=== PATIENT | male | born 1940 | race Caucasian/White ===

== ENCOUNTER 2017-01-07 13:14 | Inpatient (IN) | payer MEDICARE ==
[2017-01-07 13:53] LABS: Hematocrit 44 % (42-52); Hemoglobin 14.9 g/dl (14.0-18.0); Mean Corpuscular HGB Conc 34 g/dl (31-36); Mean Corpuscular Hemoglobin 29 pg (27-31); Mean Corpuscular Volume 86 fL (80-94); Mean Platelet Volume 9 um3 (7.4-10.4); Red Blood Count 5.06 10^6/ul (4.0-5.4); Red Cell Distribution Width 15 % (10.5-15); White Blood Count 10.6 10^3/ul (3.5-10.8)
--- NOTE | 2017-01-07 13:54 | RAD ---
Indication: Shortness of breath. Single frontal view of the chest performed at 1330 hours was reviewed. Comparison is made with previous exam dated October 09, 2015. Cardiomegaly is noted. Lung cantrell demonstrate no pleural fluid, pneumonia or pneumothorax. Pacemaker leads are in place. Elevated hemidiaphragms are noted. IMPRESSION: ELEVATED DIAPHRAGMS WITH POOR INSPIRATION.
[2017-01-07] MEDS ORDERED: Levofloxacin 750 MG IVPREMIX(* 750 MG/150 ML BAG IVPB ONE (14:05)
[2017-01-07] MEDS ORDERED: cefTRIAXone(*) 1 GM in NS 0.9% 50 ML* 50 ML IVPB ONE (14:05)
[2017-01-07] MEDS ORDERED: NS 0.9% 1000 ML* 3,000 ML IV ONE (14:05)
[2017-01-07 14:07] LABS: Troponin I 0.03 ng/mL (<0.04)
[2017-01-07 14:10] LABS: Albumin 4.4 g/dL (3.2-5.2); C Reactive Protein 11.24 mg/L (< 5.00); Calcium 9.9 mg/dL (8.6-10.3); EGFR African American 89.5 (>60); EGFR Non-African American 69.6 (>60); Globulin 3.1 g/dL (2-4); Magnesium 1.7 mg/dL (1.9-2.7); Potassium 3.7 mmol/L (3.5-5.0); Total Bilirubin 2.3 mg/dL (0.2-1.0); Total Protein 7.5 g/dL (6.4-8.9)
[2017-01-07 14:28] LABS: TSH (Thyroid Stimulating Horm) 2.57 mcIU/mL (0.34-5.60)
--- NOTE | 2017-01-07 14:59 | CONSULT ---
Consult Consult: CRITICAL CARE MEDICINE DATE: 01/07/17 TIME: 1420 REFERRING PROVIDER: Ronan REASON/CHIEF COMPLAINT: sob HISTORY OF PRESENT ILLNESS: 76 M with h/o CM s/p AICD followed by Dr. Young presenting with cp. Given ntg en route and relief. Pt states cp was on the "bone " [sternum]. No pain currently. Has fever in ED and SBP had dropped into 70- 80s. Given IVF. He is lucid with family at bedside. Seems to have mild encephalopathy. HR 80s. RR high 20s and sats well on 5L. I turned him up to 15L. Does have mild bl crackles and low volumes. Distended tympanictic, non tender abd. Ext are mostly warm but not too much. Dep LE edema. ROS he does status "lots of gas". Per family has had lack of po intake about 3 days. Pt states he falls asleep during day very easily but never told he needed cpap nocturnally. REVIEW OF SYSTEMS: As per HPI. PAST MEDICAL HISTORY: As per HPI. MEDICATIONS: Reviewed. ALLERGIES: NKDA SOCIAL HISTORY: Reviewed. . FAMILY HISTORY: Noncontributory at present. PHYSICAL EXAM: As per HPI. LABS: Reviewed. Flu A + IMAGING: Reviewed. Low volumes MEDICATIONS: Reviewed. ASSESSMENT/PLAN: 76 M Acute hypoxic resp failure -Would place him on early HFO2 tx and maximize his lung expansion and ventilation; mainly needing flow. Influenza A Pna - Placed on tamiflu by primary team. Ceftriaxone and levaquin given in ED and can continue with co-cominant coverage, but not both. This is a pt in which a negative procalcitonin can be helpful to limit abx, although would again treat for now nonetheless given current syndrome. Consider need for vanco if risk factors illicited. Sepsis syndrome sec to pna - 2L IVF. Slow fluids post that. Not anticipating vasopressor need. LA ok. Mild septic encephalopathy Cardiomypathy s/p AICD - can have cards f/u +/- echo needs. Keep potential IE on back of the mind. Supportive and preventative care as ordered per primary. Disposition: ICU with hospitalist. Code Status: Full; discussed briefly with pt, although family thought he may have previous DNR. Full at present. Critical Care Time: 40min FWolfgang Hawthorne DO
[2017-01-07] MEDS ORDERED: LORazepam TAB(*) 1 MG PO PRN (15:06)
[2017-01-07] MEDS ORDERED: Acetaminophen TAB* 325 MG PO PRN (15:11)
[2017-01-07] MEDS ORDERED: Ondansetron INJ* 2 MG/ML VIAL IV PRN (15:11)
[2017-01-07] MEDS: Oseltamivir CAP* 75 MG PO SCH ×2 (16:46→20:11)
--- NOTE | 2017-01-07 17:44 | HP ---
ADMISSION HISTORY AND PHYSICAL: DATE OF ADMISSION: 01/07/17 PRIMARY CARE PROVIDER: Hailey Izquierdo MD HEALTH CARE PROXY: His son, Connor. CODE STATUS: DNR, discussed with the patient and his son. SOURCE OF INFORMATION: History obtained from review of record and discussion with the patient. RELIABILITY: Fair. CHIEF COMPLAINT: Shortness of breath. HISTORY OF PRESENT ILLNESS: This is a 76-year-old man with past medical history of five-vessel CABG, CEA, and permanent pacemaker/ICD, who had been in his usual state of health, developed increasing shortness of breath over the last several days, associated with cough. He denies any fevers; however, when showed up in the emergency room, did have elevated temperatures and tested positive for influenza A. During the course of his ER stay, his blood pressures declined from presentation, 110 into the 80s. He was evaluated by the welder manufacture and received crystalloids after which his blood pressure increased to 112/66 and the hospitalist service was asked to consult for admission. When seen by this author, the patient no longer felt short of breath and had no complaints. PAST MEDICAL HISTORY: Includes: 1. Hypertension. 2. CAD, status post five-vessel CABG in the . 3. Bilateral CEAs, 2010, and a second CEA at unknown date. 4. Hyperlipidemia. 5. Permanent pacemaker/ICD, 2011. 6. Restrictive lung disease. MEDICATIONS: Reviewed include: 1. Diovan 320/25 daily. 2. Lorazepam 1 mg 3 times a day as needed. 3. Tamsulosin 0.4 mg at bedtime. 4. Metoprolol 100 mg twice daily. 5. Lipitor 80 mg daily. 6. Omeprazole 20 mg daily. ALLERGIES: No known drug allergies. FAMILY HISTORY: No history of lung disease or heart disease. SOCIAL HISTORY: Tobacco use, smoked 1 pack per day for 45 years, quit 45 years prior. Rare alcohol. No illicits. REVIEW OF SYSTEMS: Shortness of breath and cough. No sore throat, rhinorrhea, chest pain or chest discomfort, headache, nausea, vomiting, lightheadedness, loss of consciousness or near loss of consciousness, palpitations, orthopnea, or PND. PHYSICAL EXAMINATION GENERAL: Sitting up 35 degrees in bed, interactive, talking in full sentences, not using accessory muscles of respiration. VITAL SIGNS: When seen by this author blood pressure 112/66, pulse 82, 100% on face mask, respiratory rate 16, and T-max in the emergency room 101.9. HEENT: Oropharynx is clear. Moist mucous membranes. Sclerae anicteric. NECK: Non-elevated JVD. There are no cervical or supraclavicular lymphadenopathy. LUNGS: Clear. Decreased breath sounds in the bases. HEART: Regular rate and rhythm with no murmurs, rubs, or gallops. ABDOMEN: Soft, nontender, and nondistended. EXTREMITIES: Warm and well perfused. He has 1+ lower extremity edema. NEUROLOGIC: He is alert and oriented x3. His cranial nerves are intact. There is no apparent agitation, anxiety, or depression. DIAGNOSTIC STUDIES/LAB DATA: Pertinent labs reviewed. Serology is positive for influenza A. BUN 27 and creatinine 1.04. BNP 224. Troponin I 0.03. D- dimer 483. Hemoglobin 14.9, white blood cell count 10.6, and 83.9% neutrophils. Data reviewed. Chest x-ray, impression: Elevated diaphragms with poor inspiration. EKG, impression: Sinus tachycardia, left axis, old inferior ND, late R-wave progression, T-wave inversions in 1 and aVL, flattening of V6, and no other ST or T- wave changes. ASSESSMENT AND PLAN: This is a 76-year-old man sent to the hospital with shortness of breath, found with hypoxic respiratory failure in the setting of influenza A. 1. Hypoxic respiratory failure in the setting of influenza A: Start Tamiflu. The patient received ceftriaxone and levofloxacin in the emergency room. We will discontinue antibiotics. Continue with supportive therapy in the setting of viral upper respiratory tract infection with respiratory failure. Check procalcitonin in addition. Admit to ICU. Likely use high-flow or Vapotherm for continued respiratory support as needed. Appreciate welder manufacture consultation for this patient. 2. Hypertension: Holding Diovan at this time in the setting of low blood pressure. Supportive therapy with 3 L normal saline in the emergency room. 3. Hyperlipidemia: Continue atorvastatin. 4. History of coronary artery disease: Continue statin and metoprolol. The patient is not on aspirin at home. 5. History of anxiety: Lorazepam p.r.n. Panic disorder listed in past medical records, although the patient denies. 6. Elevated D-dimer in the setting of influenza A. Low suspicion for pulmonary embolism. Hold on CTA. 7. DVT prophylaxis: Heparin subcu. 8. Code status: DNR. CC: Dr. Izquierdo * [id number]/[facility] #: [id number] [facility] HOSPITALCatrachita
[2017-01-07] MEDS: Tamsulosin CAP* 0.4 MG PO SCH (20:11)
[2017-01-07] MEDS: Metoprolol Tartrate TAB* 100 MG TAB PO SCH (20:11)
[2017-01-07] MEDS: Heparin VIAL(*) 5000 UNITS/ML VIAL (FIVE THOUSAND) SUBCUT SCH (21:14)
[2017-01-07] MEDS: Albuterol 2.5 MG/3 ML NEB.SOL* (0.083%) INH PRN (22:07)
[2017-01-08] MEDS: Albuterol 2.5 MG/3 ML NEB.SOL* (0.083%) INH PRN (00:51)
[2017-01-08] MEDS ORDERED: hydrALAZINE IV* 20 MG/ML VIAL IV PRN (02:30)
[2017-01-08] MEDS ORDERED: hydrALAZINE IV* 20 MG/ML VIAL ONE (02:31)
[2017-01-08] MEDS: Heparin VIAL(*) 5000 UNITS/ML VIAL (FIVE THOUSAND) SUBCUT SCH ×3 (05:48→21:47)
[2017-01-08 07:19] LABS: Hematocrit 41 % (42-52); Hemoglobin 13.8 g/dl (14.0-18.0); Mean Corpuscular HGB Conc 34 g/dl (31-36); Mean Corpuscular Hemoglobin 29 pg (27-31); Mean Corpuscular Volume 87 fL (80-94); Mean Platelet Volume 9 um3 (7.4-10.4); Red Blood Count 4.72 10^6/ul (4.0-5.4); Red Cell Distribution Width 15 % (10.5-15); White Blood Count 7.5 10^3/ul (3.5-10.8)
[2017-01-08 07:32] LABS: BUN/Creatinine Ratio 29.3 (8-20); Calcium 9.5 mg/dL (8.6-10.3); EGFR African American 103.1 (>60); EGFR Non-African American 80.2 (>60); Potassium 4.1 mmol/L (3.5-5.0)
[2017-01-08] MEDS ORDERED: Dextrose 50% Syringe 50 ML* 25 GM/50 ML SYRINGE IV PUSH PRN (07:49)
--- NOTE | 2017-01-08 07:55 | PN ---
Subjective Date of Service: 01/08/17 Interval History: OOB, continues to cough but denies SOB No chest discomfort. Does have pain in abdomen when coughing Reports great effect from albuterol nebulizer this AM Objective Active Medications: Acetaminophen (Tylenol Tab*) 650 mg PO Q6H PRN PRN Reason: PAIN Albuterol (Ventolin 2.5 Mg/3 Ml Neb.Cheryl*) 2.5 mg INH Q2H PRN PRN Reason: SOB/WHEEZING Last Admin: 01/08/17 00:51 Dose: 2.5 mg Aspirin (Aspirin Ec Low Dose*) 81 mg PO DAILY [facility] Atorvastatin Calcium (Lipitor*) 80 mg PO DAILY [facility] Heparin Sodium (Porcine) (Heparin Vial(*)) 5,000 units SUBCUT Q8HR [facility] Last Admin: 01/08/17 05:48 Dose: 5,000 units Hydralazine HCl (Apresoline Iv*) 10 mg IV Q4H PRN PRN Reason: Systolic >170 Last Admin: 01/08/17 02:34 Dose: 10 mg Hydrochlorothiazide (Hydrodiuril Tab*) 25 mg PO DAILY [facility] Lorazepam (Ativan Tab(*)) 1 mg PO TID PRN PRN Reason: ANXIETY Last Admin: 01/08/17 00:53 Dose: 1 mg Methylprednisolone Sodium Succinate (Solu-Medrol*) 60 mg IV Q8H [facility] Metoprolol Tartrate (Lopressor Tab*) 100 mg PO BID [facility] Last Admin: 01/07/17 20:11 Dose: 100 mg Omeprazole (Prilosec Cap*) 20 mg PO DAILY [facility] Ondansetron HCl (Zofran Inj*) 4 mg IV Q4H PRN PRN Reason: NAUSEA Oseltamivir Phosphate (Tamiflu Cap*) 75 mg PO BID [facility] Stop: 01/11/17 21:01 Last Admin: 01/07/17 20:11 Dose: 75 mg Tamsulosin HCl (Flomax Cap*) 0.4 mg PO BEDTIME [facility] Last Admin: 01/07/17 20:11 Dose: 0.4 mg Vital Signs 01/07/17 01/07/17 01/07/17 14:45 14:59 15:00 Temperature 101.9 F Pulse Rate 81 80 82 Respiratory 20 26 25 Rate Blood Pressure 97/59 112/66 112/66 (mmHg) O2 Sat by Pulse 100 100 100 Oximetry 01/07/17 01/07/17 01/07/17 15:13 15:15 15:30 Temperature 100.1 F Pulse Rate 79 79 78 Respiratory 27 26 25 Rate Blood Pressure 112/67 112/67 100/74 (mmHg) O2 Sat by Pulse 100 100 100 Oximetry 01/07/17 01/07/17 01/07/17 15:46 15:47 15:56 Temperature Pulse Rate 84 77 Respiratory 24 24 Rate Blood Pressure 165/87 141/84 136/73 (mmHg) O2 Sat by Pulse 99 100 Oximetry 01/07/17 01/07/17 01/07/17 16:00 16:16 16:23 Temperature Pulse Rate 77 77 Respiratory 23 Rate Blood Pressure 123/74 154/67 (mmHg) O2 Sat by Pulse 100 100 Oximetry 01/07/17 01/07/17 01/07/17 16:28 16:30 16:40 Temperature 100.2 F Pulse Rate 77 78 Respiratory 24 24 19 Rate Blood Pressure 154/67 168/63 (mmHg) O2 Sat by Pulse 100 100 Oximetry 01/07/17 01/07/17 01/07/17 17:00 17:37 18:00 Temperature Pulse Rate 72 73 Respiratory 22 18 28 Rate Blood Pressure 133/64 113/74 (mmHg) O2 Sat by Pulse 100 100 Oximetry 01/07/17 01/07/17 01/07/17 19:00 19:04 20:00 Temperature Pulse Rate 73 74 73 Respiratory 26 23 28 Rate Blood Pressure 175/71 171/70 157/69 (mmHg) O2 Sat by Pulse 100 100 100 Oximetry 01/07/17 01/07/17 01/07/17 21:00 21:06 22:00 Temperature Pulse Rate 75 74 73 Respiratory 18 27 17 Rate Blood Pressure 188/79 151/62 (mmHg) O2 Sat by Pulse 100 100 100 Oximetry 01/07/17 01/07/17 01/07/17 22:02 22:05 22:07 Temperature Pulse Rate 73 72 71 Respiratory 18 25 18 Rate Blood Pressure 196/79 178/76 (mmHg) O2 Sat by Pulse 100 100 99 Oximetry 01/07/17 01/07/17 01/07/17 23:00 23:36 23:59 Temperature 98.9 F Pulse Rate 73 72 Respiratory 23 19 Rate Blood Pressure 186/79 (mmHg) O2 Sat by Pulse 100 100 Oximetry 01/08/17 01/08/17 01/08/17 00:00 00:01 00:16 Temperature Pulse Rate 72 71 70 Respiratory 23 25 26 Rate Blood Pressure 177/78 (mmHg) O2 Sat by Pulse 100 99 100 Oximetry 01/08/17 01/08/17 01/08/17 00:51 00:53 01:00 Temperature Pulse Rate 74 73 Respiratory 18 15 20 Rate Blood Pressure 68/40 (mmHg) O2 Sat by Pulse 98 99 Oximetry 01/08/17 01/08/17 01/08/17 01:04 02:00 02:03 Temperature Pulse Rate 75 69 69 Respiratory 20 23 21 Rate Blood Pressure 170/72 181/68 170/72 (mmHg) O2 Sat by Pulse 100 100 98 Oximetry 01/08/17 01/08/17 01/08/17 02:29 02:46 03:00 Temperature Pulse Rate 71 70 69 Respiratory 24 22 21 Rate Blood Pressure 181/83 167/71 154/69 (mmHg) O2 Sat by Pulse 100 99 99 Oximetry 01/08/17 01/08/17 01/08/17 03:25 04:00 05:00 Temperature 99.6 F Pulse Rate 68 68 Respiratory 27 28 Rate Blood Pressure 138/67 142/66 (mmHg) O2 Sat by Pulse 99 100 Oximetry 01/08/17 01/08/17 01/08/17 06:00 07:00 07:26 Temperature Pulse Rate 70 71 Respiratory 21 20 23 Rate Blood Pressure 114/62 118/66 (mmHg) O2 Sat by Pulse 100 100 Oximetry 01/08/17 01/08/17 01/08/17 07:31 07:32 07:40 Temperature 98.6 F 98.6 F Pulse Rate Respiratory 18 17 Rate Blood Pressure (mmHg) O2 Sat by Pulse Oximetry Oxygen Devices in Use Now: High Flow Nasal Cannula - 100% 40L Appearance: sitting in chair, NAD Eyes: No Scleral Icterus, PERRLA Ears/Nose/Mouth/Throat: Clear Oropharnyx, Mucous Membranes Moist Neck: NL Appearance and Movements; NL JVP, Trachea Midline Respiratory: Symmetrical Chest Expansion and Respiratory Effort - wheeze anteriorly, decreased BS posteriorly, +hyperkyphosis Cardiovascular: NL Sounds; No Murmurs; No JVD, RRR Abdominal: NL Sounds; No Tenderness; No Distention, No Hepatosplenomegaly Lymphatic: No Cervical Adenopathy Extremities: - - tense 1-2+ edema b/l LE Neurological: Alert and Oriented x 3 Result Diagrams: 01/08/17 06:45 01/08/17 06:45 Additional Lab and Data: Lab Results 01/07/17 Range/Units 13:20 WBC 10.6 (3.5-10.8) 10^3/ul RBC 5.06 (4.0-5.4) 10^6/ul Hgb 14.9 (14.0-18.0) g/dl Hct 44 (42-52) % MCV 86 (80-94) fL MCH 29 (27-31) pg MCHC 34 (31-36) g/dl RDW 15 (10.5-15) % Plt Count 106 L (150-450) 10^3/ul MPV 9 (7.4-10.4) um3 Neut % (Auto) 83.9 H (38-83) % Lymph % (Auto) 5.3 L (25-47) % [place] % (Auto) 9.9 H (1-9) % Eos % (Auto) 0.4 (0-6) % Baso % (Auto) 0.5 (0-2) % Absolute Neuts (auto) 8.9 H (1.5-7.7) 10^3/ul Absolute Lymphs (auto) 0.6 L (1.0-4.8) 10^3/ul Absolute Monos (auto) 1.0 H (0-0.8) 10^3/ul Absolute Eos (auto) 0 (0-0.6) 10^3/ul Absolute Basos (auto) 0.1 (0-0.2) 10^3/ul Absolute Nucleated RBC 0 10^3/ul Nucleated RBC % 0 Microbiology and Other Data: Microbiology 01/07/17 17:44 Nasal Screen MRSA (PCR)(DIOR) - Final Nasal Mrsa Negative Assess/Plan/Problems-Billing Assessment: 76 yo M p/w hypoxic respiratory failure found with influenza A - Patient Problems (1) Acute respiratory failure with hypoxia Comment: Secondary to influenza A. Received abx in ED. Holding additional now. Procalcitonin nominal. Continue with tamiflu BID, c/w albuterol Restrictive lung dz in setting of hyperkyphosis contibuting to low lung volumes and poor ability to compensate --Start methylprednisolone IV 01/08/2017, follow FSG and add insulin while on steroids (2) Hypertension Comment: Hypotensive on presentation now resolved Required hydralazine overnight 01/08 c/w metoprolol 100mg and add hydralazine 25 mg 01/08 Increase metoprolol back to 150mg and add back valsaratn 320mg if remains hypertensive (3) Hyperlipidemia Comment: c/w statin (4) Anxiety Comment: ativan PRN (5) DVT prophylaxis Comment: HSQ
[2017-01-08] MEDS: methylPREDNISolone 125 MG* 2 ML VIAL IV SCH ×2 (08:22→17:50)
[2017-01-08] MEDS: Oseltamivir CAP* 75 MG PO SCH ×2 (08:23→21:48)
[2017-01-08] MEDS: Metoprolol Tartrate TAB* 100 MG TAB PO SCH ×2 (08:23→21:49)
[2017-01-08] MEDS: Omeprazole CAP* 20 MG PO SCH (08:23)
[2017-01-08] MEDS: Aspirin EC Low Dose* 81 MG TAB.EC PO SCH (08:23)
[2017-01-08] MEDS: Atorvastatin* 80 MG TAB PO SCH (08:23)
[2017-01-08] MEDS ORDERED: Hydrochlorothiazide TAB* 25 MG PO SCH (09:00)
--- NOTE | 2017-01-08 10:54 | PN ---
Progress Note - Progress Note Note: [facility] Progress Note Up in chair...fairly good spirits Speaks in full sentences Fair cough effort SBP 135 HR 72 RR 17-18 SpO2 100 (HF NC 40 Lpm at 100%) Skin no diaphoresis, no cyanosis Noted kyphosis Sclerae anicteric, pupils equal Oral mucosa pink Lungs with bilateral air entry, no wheezes Cor RRR no rub no murmur Abd soft, active Ext 1(+) pitting WBC 7.5 Hgb 13.8 Plt 109 K 4.1 BUN/Creat 27/0.9 IMP: Acute Hypoxemic Respiratory Failure...clinically stable and oxygenating well on HF NC Influenza Kyphosis with restrictive lung disease Hx CAD and CABG PLAN/REC: Weaned HF NC steadily down to 10 Lpm by Resp Tx...did well Switched by Resp Tx to 5 liter NC Continue Tamiflu for full course Mobilize as tolerated PO diet as tolerated DVT prophyl Anticipate patient will be able to transfer out of ICU soon Discussed with Multidisciplinary team this AM
[2017-01-08] MEDS: Insulin LISPRO* 1 UNITS UNIT SUBCUT SCH ×3 (11:37→21:43)
[2017-01-08] MEDS: Tamsulosin CAP* 0.4 MG PO SCH (21:49)
[2017-01-09] MEDS: methylPREDNISolone 125 MG* 2 ML VIAL IV SCH ×2 (02:04→08:32)
[2017-01-09 06:20] LABS: Hematocrit 40 % (42-52); Hemoglobin 13.4 g/dl (14.0-18.0); Mean Corpuscular HGB Conc 34 g/dl (31-36); Mean Corpuscular Hemoglobin 29 pg (27-31); Mean Corpuscular Volume 86 fL (80-94); Mean Platelet Volume 9 um3 (7.4-10.4); Red Blood Count 4.61 10^6/ul (4.0-5.4); Red Cell Distribution Width 15 % (10.5-15); White Blood Count 5.2 10^3/ul (3.5-10.8)
[2017-01-09] MEDS: Heparin VIAL(*) 5000 UNITS/ML VIAL (FIVE THOUSAND) SUBCUT SCH (06:22)
[2017-01-09 06:23] LABS: Comments Flag Yes
[2017-01-09 06:33] LABS: BUN/Creatinine Ratio 37.5 (8-20); Calcium 9.1 mg/dL (8.6-10.3); EGFR African American 136.9 (>60); EGFR Non-African American 106.4 (>60); Potassium 3.7 mmol/L (3.5-5.0)
[2017-01-09] MEDS: Insulin LISPRO* 1 UNITS UNIT SUBCUT SCH ×2 (07:29→12:22)
[2017-01-09 08:26] VITALS: BP 157/72
[2017-01-09] MEDS: Metoprolol Tartrate TAB* 100 MG TAB PO SCH (08:31)
[2017-01-09] MEDS: Omeprazole CAP* 20 MG PO SCH (08:32)
[2017-01-09] MEDS: Oseltamivir CAP* 75 MG PO SCH (08:32)
[2017-01-09] MEDS: Aspirin EC Low Dose* 81 MG TAB.EC PO SCH (08:32)
[2017-01-09] MEDS: Atorvastatin* 80 MG TAB PO SCH (08:32)
--- NOTE | 2017-01-10 01:56 | DS ---
DISCHARGE SUMMARY: DATE OF ADMISSION: 01/07/17 DATE OF DISCHARGE: 01/09/17 PRIMARY CARE PROVIDER: Dr. Hailey Izquierdo. PRIMARY DIAGNOSIS: Acute hypoxic respiratory failure secondary to influenza A. SECONDARY DIAGNOSES: Include: 1. Hypertension. 2. Coronary artery disease. 3. Hyperlipidemia. 4. Hyperkyphosis with restrictive lung disorder. PERTINENT MICROBIOLOGY: Positive influenza A. PERTINENT LABORATORY DATA: None. PERTINENT IMAGING DATA: Chest x-ray, impression: Elevated diaphragms with poor inspiration. MEDICATIONS ON DISCHARGE: 1. Metoprolol succinate 50 mg twice daily. 2. Aspirin 81 mg daily. 3. Lorazepam 1 mg 2 times a day as needed for anxiety. 4. Tamsulosin 0.4 mg at bedtime. 5. Atorvastatin 80 mg daily. 6. Omeprazole 20 mg daily. 7. Prednisone 50 mg for 5 additional days. 8. Tamiflu 75 mg for 5 additional doses. 9. Hydrochlorothiazide 25 mg daily. 10. Acetaminophen 650 mg every 6 hours as needed for pain or fever. Please note the metoprolol succinate was b.i.d. This is a continuation of med reconciliation which we received on presentation. Please capitalize to once daily if deemed appropriate. Please also note the discontinuation of Diovan and the substitution of hydrochlorothiazide alone. The patient's blood pressures were marginally elevated off the hydrochlorothiazide, but low the day prior to discharge with resumption of hydrochlorothiazide. Please restart Diovan as tolerated. HISTORY OF PRESENT ILLNESS AND HOSPITAL COURSE: This is a pleasant 76-year-old man, past medical history as outlined in the history of present illness the day of admission presented to the hospital with shortness of breath, cough, high fevers, found with hypoxic respiratory failure in the setting of influenza A. He was placed on ICU, received high-flow oxygen via Vapotherm with resumption of normal oxygen saturations. Improved greatly in the first 24 hours, started on prednisone on the second day of admission secondary to continued diffuse wheezes. On the day of discharge, his wheezes were almost all resolved; however , did have trace wheeze, largely in the right lung. For this reason, he will be discharged on prednisone. On the day of discharge, he was able to ambulate with the nurse without oxygen. Maximal desaturation to 90%, remained 95% on room air. He felt comfortable returning home. He will be continued on Tamiflu and prednisone with other changes to his medications as indicated above. There were no complications during the patient's hospital stay. FOLLOWUP INSTRUCTIONS: At followup, please: 1. Evaluate blood pressure control on altered medication regimen. Resume home medication regimen when necessary. 2. Evaluate lungs. Prolonged prednisone course if deemed necessary. 3. No other specific labs or vitals that need followup. Reasons to return to the hospital including but not limited to recurrent or worsening symptoms including shortness of breath, chest pain, lightheadedness, loss of consciousness, near loss of consciousness, fevers, chills, night sweats , diarrhea, constipation, inability to obtain or tolerate his medications were discussed with the patient. He acknowledged understanding. TIME SPENT: Greater than 30 minutes was spent on discharge of this patient, greater than half was spent [id number] with the patient. CC: Dr. Hailey Izquierdo * [id number]/[facility] #: [id number] [facility]
--- NOTE | 2017-01-29 12:22 | ED ---
Tacos Quispe Billy, scribed for Rashi Ferraro MD on 01/07/17 at 1413 . Shortness of Breath - HPI Summary HPI Summary: Patient is a 76 year-old male coming to [facility] from his PCP with CP and SOB. His SOB has been ongoing for several days. He was diagnosed with pneumonia today by his PCP and was sent home with oral antibiotics. EMS states that the patient c/ o midsternal chest tightness and SOB en route. Chest tightness improved with NTG although SOB was unimproved with breathing treatments. Patient denies any fevers/chills. Patient has a history of OK. Denies any pain at this time in the ED. - History of Current Complaint Chief Complaint: EDShortnessOfBreath Time Seen by Provider: 01/07/17 13:15 Hx Obtained From: Patient Onset/Duration: Gradual Onset, Lasting Hours, Still Present Timing: Constant Current Severity: Moderate Dyspnea At: Rest Aggrevating Factors: Nothing Alleviating Factors: EMS Tx - Allergy/Home Medications Allergies/Adverse Reactions: Allergies Allergy/AdvReac Type Severity Reaction Status Date / Time No Known Allergies Allergy Verified 01/07/17 14:15 Home Medications: Home Medications Aspirin [Aspirin Adult Low Dose 81 MG] 81 mg PO DAILY 01/07/17 [History Confirmed 01/07/17] Atorvastatin* [Lipitor 80 MG*] 80 mg PO DAILY 01/07/17 [History Confirmed ] LORazepam TAB(*) [Ativan 1 MG TAB (*)] 1 mg PO TID PRN MDD 3 mg 01/07/17 [ History Confirmed 01/07/17] Metoprolol Succinate [Toprol Xl] 50 mg PO BID 01/07/17 [History Confirmed ] Omeprazole CAP* [Prilosec CAP* 20 MG] 20 mg PO DAILY 01/07/17 [History Confirmed 01/07/17] Tamsulosin CAP* [Flomax CAP*] 0.4 mg PO BEDTIME 01/07/17 [History Confirmed ] PMH/Surg Hx/FS Hx/Imm Hx Endocrine/Hematology History: Denies: Hx Diabetes Cardiovascular History: Reports: Hx Hypercholesterolemia, Hx Hypertension, Hx Myocardial Infarction, Hx Pacemaker/ICD History: Denies: Hx Renal Disease - Surgical History Surgery Procedure, Year, and Place: 5 CABG /PACEMAKER X 2 Infectious Disease History: No Infectious Disease History: Denies: Traveled Outside the [place] in Last 30 Days - Family History Known Family History: Positive: Cardiac Disease, Hypertension - Social History Alcohol Use: None Substance Use Type: Reports: None Smoking Status (MU): Former Smoker Review of Systems Negative: Fever, Chills Positive: Chest Pain Positive: Shortness Of Breath All Other Systems Reviewed And Are Negative: Yes Physical Exam Triage Information Reviewed: Yes Vital Signs On Initial Exam: Initial Vitals Temp Pulse Resp BP Pulse Ox 101.9 F 91 28 110/75 97 01/07/17 13:41 01/07/17 13:41 01/07/17 13:41 01/07/17 13:41 01/07/17 13:41 Vital Signs Reviewed: Yes Appearance: Positive: Well-Appearing, No Pain Distress Skin: Positive: Warm, Skin Color Reflects Adequate Perfusion, Dry Head/Face: Positive: Normal Head/Face Inspection Eyes: Positive: EOMI, JOHNIE Neck: Positive: Supple, Nontender Respiratory/Lung Sounds: Positive: Rhonchi - Bilaterally, Other - Coughing. Cardiovascular: Positive: RRR Abdomen Description: Positive: Nontender, Soft Musculoskeletal: Positive: Normal, Strength/ROM Intact Neurological: Positive: Normal, Sensory/Motor Intact, Alert, Oriented to Person Place, Time Psychiatric: Positive: Affect/Mood Appropriate Diagnostics - Vital Signs Vital Signs Temp Pulse Resp BP Pulse Ox 01/07/17 13:41 101.9 F 91 28 110/75 97 - Laboratory Lab Results: Lab Results 01/07/17 Range/Units 13:20 WBC 10.6 (3.5-10.8) 10^3/ul RBC 5.06 (4.0-5.4) 10^6/ul Hgb 14.9 (14.0-18.0) g/dl Hct 44 (42-52) % MCV 86 (80-94) fL MCH 29 (27-31) pg MCHC 34 (31-36) g/dl RDW 15 (10.5-15) % Plt Count 106 L (150-450) 10^3/ul MPV 9 (7.4-10.4) um3 Neut % (Auto) 83.9 H (38-83) % Lymph % (Auto) 5.3 L (25-47) % [place] % (Auto) 9.9 H (1-9) % Eos % (Auto) 0.4 (0-6) % Baso % (Auto) 0.5 (0-2) % Absolute Neuts (auto) 8.9 H (1.5-7.7) 10^3/ul Absolute Lymphs (auto) 0.6 L (1.0-4.8) 10^3/ul Absolute Monos (auto) 1.0 H (0-0.8) 10^3/ul Absolute Eos (auto) 0 (0-0.6) 10^3/ul Absolute Basos (auto) 0.1 (0-0.2) 10^3/ul Absolute Nucleated RBC 0 10^3/ul Nucleated RBC % 0 Result Diagrams: 01/09/17 05:41 01/09/17 05:41 Lab Statement: Any lab studies that have been ordered have been reviewed, and results considered in the medical decision making process. - Radiology CXR Radiology Interpretation Completed By: Radiologist - Elevated diaphragms with poor inspiration. - EKG 1306 EKG Interpretation: sinus tachycardia 103 bpm, LVH, no ectopy EKG Comparison: No Significant Change - Similar to prior EKG Re-Evaluation - Re-Evaluation First Eval Re-Evaluation Time: 14:14 Change: Unchanged Comment: Discussed plan for admission. Patient and family are agreeable with the plan. Course/Dx - Diagnoses Provider Diagnoses: Dyspnea - Physician Notifications Discussed Care of Patient With: Dr. French (hospitalist) @ [id number]: accepts admission. Discharge - Discharge Plan Condition: Stable Disposition: ADMITTED TO [facility] documentation as recorded by the Tacos acosta Billy accurately reflects the service I personally performed and the decisions made by me, Rashi Ferraro MD.
== END 2017-01-09 13:05 | disposition home or self-care (01) | DRG 193 ==
LOC: ED 13:14 → ICU 14:43 → MED 01-08 12:32
PROVIDERS: ADMIT Internal Medicine; ATTEND Internal Medicine
DX: J10.08 Influenza due to other identified influenza virus with other specified pneumonia (principal); J96.01 Acute respiratory failure with hypoxia; G93.41 Metabolic encephalopathy; I95.9 Hypotension, unspecified; I42.9 Cardiomyopathy, unspecified; J98.4 Other disorders of lung; I10 Essential (primary) hypertension; Z66 Do not resuscitate; I25.10 Atherosclerotic heart disease of native coronary artery without angina pectoris; E78.5 Hyperlipidemia, unspecified; F41.9 Anxiety disorder, unspecified; J10.1 Influenza due to other identified influenza virus with other respiratory manifestations; M40.299 Other kyphosis, site unspecified; Z95.1 Presence of aortocoronary bypass graft; Z95.810 Presence of automatic (implantable) cardiac defibrillator; Z87.891 Personal history of nicotine dependence; Z79.82 Long term (current) use of aspirin
CPT/HCPCS: 36415; 71010; 80048; 80053; 82550; 82553; 83605; 83690; 83735; 83880; 84145; 84443; 84484; 85025; 85027; 85379; 85610; 85730; 86140; 87040; 87502; 87641; 93005; 94640; A9270-GY; J0360; J0696; J1644; J2930

== ENCOUNTER 2017-08-21 22:52 | Observation (INO) | payer MEDICARE ==
[2017-08-22] MEDS ORDERED: Aspirin Low Dose CHEW TAB* 81 MG PO ONE (00:10)
[2017-08-22 00:57] LABS: Hematocrit 39 % (42-52); Hemoglobin 13.6 g/dl (14.0-18.0); Mean Corpuscular HGB Conc 35 g/dl (31-36); Mean Corpuscular Hemoglobin 29 pg (27-31); Mean Corpuscular Volume 84 fL (80-94); Mean Platelet Volume 9 um3 (7.4-10.4); Red Blood Count 4.65 10^6/ul (4.0-5.4); Red Cell Distribution Width 16 % (10.5-15); White Blood Count 6.5 10^3/ul (3.5-10.8)
[2017-08-22 01:12] LABS: Albumin 3.9 g/dL (3.2-5.2); BUN/Creatinine Ratio 23.3 (8-20); EGFR African American 111.2 (>60); EGFR Non-African American 86.5 (>60); Globulin 2.5 g/dL (2-4); Magnesium 1.8 mg/dL (1.9-2.7); Total Bilirubin 1.1 mg/dL (0.2-1.0); Total Protein 6.4 g/dL (6.4-8.9)
[2017-08-22 01:14] LABS: Troponin I 0.03 ng/mL (<0.04)
--- NOTE | 2017-08-22 03:55 | ED ---
Juan M Quispe Rebecca, scribed for Sridhar Rankinuel on 08/22/17 at 0011 . Hypertension - HPI Summary HPI Summary: Pt is a 77 y/o M who presents to ED c/o HTN with CP and slight SOB. Sx began tonight at approximately 1999. Pt took an extra half tab of Metoprolol which did not alleviated HTN. Sx aggravated and alleviated by nothing. Pt reports that his chest pain has been gradually increasing in frequency over multple years. PMHx OR and he believes that his last OR and stress test were 6-8 years ago. - History of Current Complaint Chief Complaint: EDHypertension Stated Complaint: HIGH BP/CHEST PAIN Time Seen by Provider: 08/21/17 23:57 Hx Obtained From: Patient Onset/Duration: Still Present Aggravating Factor(s): Nothing Alleviating Factor(s): Nothing Associated Signs & Symptoms: Chest Pain, SOB - mild - Allergies/Home Medications Allergies/Adverse Reactions: Allergies Allergy/AdvReac Type Severity Reaction Status Date / Time No Known Allergies Allergy Verified 08/21/17 22:57 Home Medications: Home Medications Coenzyme Q10 (Ubidecarenone) [Coq-10] 100 mg PO DAILY 08/21/17 [History Confirmed 08/21/17] Magnesium 250 mg PO BID 08/21/17 [History Confirmed 08/21/17] Nitroglycerin TAB 0.4 MG* 0.4 mg SL . NEEDED PRN 08/21/17 [History Confirmed 08/21/17] Potassium Chlor TAB* [Klor Con ER TAB*] 10 meq PO DAILY 08/21/17 [History Confirmed 08/21/17] Valsartan/HCTZ 320/25(NF) [Diovan Hct 320/25(NF)] 1 tab PO DAILY 08/21/17 [ History Confirmed 08/21/17] PMH/Surg Hx/FS Hx/Imm Hx Endocrine/Hematology History: Denies: Hx Diabetes Cardiovascular History: Reports: Hx Auto Implanted Cardiovert Defib, Hx Congestive Heart Failure, Hx Coronary Artery Disease, Hx Hypercholesterolemia, Hx Hypertension - UNCONTROLLED, SWINGING TO SEVERE HYPOTENSION, Hx Myocardial Infarction, Hx Pacemaker/ICD, Other Cardiovascular Problems/Disorders - cabg x 5 per patient Respiratory History: Reports: Hx Pneumonia History: Denies: Hx Renal Disease Psychiatric History: Reports: Hx Anxiety - Surgical History Surgery Procedure, Year, and Place: 5 CABG /PACEMAKER X 2 Infectious Disease History: No Infectious Disease History: Denies: Traveled Outside the [place] in Last 30 Days - Family History Known Family History: Positive: Cardiac Disease, Hypertension - Social History Alcohol Use: None Substance Use Type: Reports: None Smoking Status (MU): Former Smoker Review of Systems Positive: Other - HTN Positive: Chest Pain Positive: Shortness Of Breath All Other Systems Reviewed And Are Negative: Yes Physical Exam - Summary Physical Exam Summary: Appearance: Well appearing, no pain distress Skin: warm, dry, reflects adequate perfusion Head/face: normal Eyes: EOMI, JOHNIE ENT: normal Neck: supple, nontender Respiratory: CTA, breath sounds present Cardiovascular: RRR, pulses symmetrical Abdomen: nontender, soft Bowel: present Musculoskeletal: normal, strength/ROM intact Neuro: normal, sensory motor intact, A&Ox3 Triage Information Reviewed: Yes Vital Signs On Initial Exam: Initial Vitals Temp Pulse Resp BP Pulse Ox 98.2 F 90 18 186/91 97 08/21/17 22:54 08/21/17 22:54 08/21/17 22:54 08/21/17 22:54 08/21/17 22:54 Vital Signs Reviewed: Yes Diagnostics - Vital Signs Vital Signs Temp Pulse Resp BP Pulse Ox 08/21/17 22:54 98.2 F 90 18 186/91 97 - Laboratory Result Diagrams: 08/22/17 00:38 08/22/17 00:38 Lab Statement: Any lab studies that have been ordered have been reviewed, and results considered in the medical decision making process. - Radiology CXR Xray Interpretation: No Acute Changes - Cardomegaly. Pacemaker. No acute infiltrate. Radiology Interpretation Completed By: ED Physician - EKG 2315 Cardiac Rate: NL - 67 bpm EKG Rhythm: Sinus Rhythm ST Segment: Non-Specific - Non-specific ST changes EKG Comparison: No Significant Change Hypertension Course/Dx - Course Assessment/Plan: Pt is a 77 y/o M who presents to ED c/o HTN with CP and slight SOB. Sx began tonight at approximately 1999. Pt took an extra half tab of Metoprolol which did not alleviated HTN. Pt reports that his chest pain has been gradually increasing in frequency over multple years. PMHx OR and he believes that his last OR and stress test were 6-8 years ago. EKG reveals cardiomegaly with no acute infiltrate. EKG is sinus rhythm with old non- specific ST changes. Troponin of 0.03. In the ED course, pt received ASA. Discussed care of pt with Dr. Hanson who accepts pt for admission. Pt will be admitted with Dx of CP r/o OR. He understands and agrees. Elevated BP noted. Pt medications reviewed. - Diagnoses Provider Diagnoses: Chest pain, rule out acute myocardial infarction - Physician Notifications Discussed Care Of Patient With: Matty Hanson Time Discussed With Above Provider: 01:20 Instructed by Provider To: Other - Accepts pt for admission Discharge - Discharge Plan Condition: Stable Disposition: ADMITTED TO [facility] The documentation as recorded by the Juan M acosta Rebecca accurately reflects the service I personally performed and the decisions made by , Chester Rankin.
[2017-08-22] MEDS ORDERED: LORazepam TAB(*) 1 MG PO PRN (04:03)
[2017-08-22] MEDS ORDERED: Acetaminophen TAB* 325 MG PO PRN (04:03)
[2017-08-22] MEDS ORDERED: Melatonin (NF) 3 MG TAB PO PRN (04:07)
[2017-08-22] MEDS ORDERED: Albuterol 2.5 MG/3 ML NEB.SOL* (0.083%) INH PRN (04:07)
[2017-08-22] MEDS ORDERED: NS 0.9% 1000 ML* 1,000 ML IV SCH (04:15)
--- NOTE | 2017-08-22 04:30 | HP ---
H&P (Free Text) History and Physical: PCP: Gildardo Izquierdo MD Cardiology: Lakshmi Young MD Date/Time: 08/22/2017 0130 CC: chest pain HPI: Mr Molina is a 77YO obese male HX CAD/5vCABG, POAD s/p B CEA, HTN who presents with onset 3 days ago of moderate R chest "soreness" radiating into the L chest, but not into the neck, jaw, or back exacerbated by activity and associated with SOB, but no nausea, sweats, palpitations, light-headedness, or other issues. PMedHx CAD/5vCABG PAOD s/p B CEA pacer/AICD placement GERD Ambulatory Orders Aspirin [Aspirin Adult Low Dose 81 MG] 81 mg PO DAILY 01/07/17 Atorvastatin* [Lipitor 80 MG*] 80 mg PO DAILY 01/07/17 LORazepam TAB(*) [Ativan 1 MG TAB (*)] 1 mg PO TID PRN MDD 3 mg 01/07/17 Metoprolol Succinate [Toprol Xl] 50 mg PO BID 01/07/17 Omeprazole CAP* [Prilosec CAP* 20 MG] 20 mg PO DAILY 01/07/17 Tamsulosin CAP* [Flomax CAP*] 0.4 mg PO BEDTIME 01/07/17 Acetaminophen TAB* [Tylenol TAB*] 650 mg PO Q6H PRN #0 tab 01/09/17 Coenzyme Q10 (Ubidecarenone) [Coq-10] 100 mg PO DAILY 08/21/17 Magnesium 250 mg PO BID 08/21/17 Nitroglycerin TAB 0.4 MG* 0.4 mg SL . NEEDED PRN 08/21/17 Potassium Chlor TAB* [Klor Con ER TAB*] 10 meq PO DAILY 08/21/17 Valsartan/HCTZ 320/25(NF) [Diovan Hct 320/25(NF)] 1 tab PO DAILY 08/21/17 Allergies No Known Allergies Allergy (Verified 08/21/17 22:57) SocHx: former smoker w/ ~45PYHX, rare alcohol, denies recreational drugs; lives with his ; full code status FamHx: denies known significant illnesses ROS: as above, otherwise reviewed and all were negative vitals: Vital Signs Temp 36.6 C 08/22/17 02:56 Pulse 59 08/22/17 02:56 Resp 16 08/22/17 02:56 BP 182/84 08/22/17 02:56 Pulse Ox 98 08/22/17 02:56 Intake & Output 08/21/17 08/21/17 08/22/17 11:59 23:59 11:59 Weight 92.079 kg 93.259 kg Constitutional: NAD, normally developed, obese white male HEENM: atraumatic; sclera/conjunctiva: anicteric/clear; hearing: clinically intact; oropharynx: clear, mucosa moist Neck: soft tissue: non-tender; thyroid: normal Pulmonary: clear to auscultation bilaterally, good aeration, no accessory muscle use CV: RR/RR, normal S1S2, no carotid bruit, no jugular venous distention, 2+ B DP/ PT, no edema Abdominal: soft, non-distended, non-tender, no rebound/guarding/rigidity, normoactive bowel sounds, no hepatosplenomegaly or masses, no costovertebral angle tenderness Lymph: neck: ; axilla: ; groin: Integumental: normal appearance and texture of exposed skin Psychiatric orientation: AA&O to PPS affect: calm mood: cooperative eye contact: good content: reliable responses: timely insight: fair Testing: Lab Results 08/22/17 08/22/17 08/22/17 Range/Units 00:38 00:38 00:38 WBC 6.5 (3.5-10.8) 10^3/ul RBC 4.65 (4.0-5.4) 10^6/ul Hgb 13.6 L (14.0-18.0) g/dl Hct 39 L (42-52) % MCV 84 (80-94) fL MCH 29 (27-31) pg MCHC 35 (31-36) g/dl RDW 16 H (10.5-15) % Plt Count 131 L (150-450) 10^3/ul MPV 9 (7.4-10.4) um3 Neut % (Auto) 77.2 (38-83) % Lymph % (Auto) 9.0 L (25-47) % Colbert % (Auto) 11.1 H (1-9) % Eos % (Auto) 2.2 (0-6) % Baso % (Auto) 0.5 (0-2) % Absolute Neuts (auto) 5.0 (1.5-7.7) 10^3/ul Absolute Lymphs (auto) 0.6 L (1.0-4.8) 10^3/ul Absolute Monos (auto) 0.7 (0-0.8) 10^3/ul Absolute Eos (auto) 0.1 (0-0.6) 10^3/ul Absolute Basos (auto) 0 (0-0.2) 10^3/ul Absolute Nucleated RBC 0 10^3/ul Nucleated RBC % 0 INR (Anticoag Therapy) 1.02 (0.89-1.11) APTT 34.3 (26.0-36.3) seconds Sodium (133-145) mmol/L Potassium (3.5-5.0) mmol/L Chloride (101-111) mmol/L Carbon Dioxide (22-32) mmol/L Anion Gap (2-11) mmol/L BUN (6-24) mg/dL Creatinine (0.67-1.17) mg/dL Est GFR ( Amer) (>60) Est GFR (Non-Af Amer) (>60) BUN/Creatinine Ratio (8-20) Glucose (70-100) mg/dL Calcium (8.6-10.3) mg/dL Magnesium (1.9-2.7) mg/dL Total Bilirubin (0.2-1.0) mg/dL AST (13-39) U/L ALT (7-52) U/L Alkaline Phosphatase (34-104) U/L Total Creatine Kinase (10-223) U/L Troponin I (<0.04) ng/mL B-Natriuretic Peptide 123 H ( - 100) pg/mL Total Protein (6.4-8.9) g/dL Albumin (3.2-5.2) g/dL Globulin (2-4) g/dL Albumin/Globulin Ratio (1-3) 08/22/17 Range/Units 00:38 WBC (3.5-10.8) 10^3/ul RBC (4.0-5.4) 10^6/ul Hgb (14.0-18.0) g/dl Hct (42-52) % MCV (80-94) fL MCH (27-31) pg MCHC (31-36) g/dl RDW (10.5-15) % Plt Count (150-450) 10^3/ul MPV (7.4-10.4) um3 Neut % (Auto) (38-83) % Lymph % (Auto) (25-47) % Colbert % (Auto) (1-9) % Eos % (Auto) (0-6) % Baso % (Auto) (0-2) % Absolute Neuts (auto) (1.5-7.7) 10^3/ul Absolute Lymphs (auto) (1.0-4.8) 10^3/ul Absolute Monos (auto) (0-0.8) 10^3/ul Absolute Eos (auto) (0-0.6) 10^3/ul Absolute Basos (auto) (0-0.2) 10^3/ul Absolute Nucleated RBC 10^3/ul Nucleated RBC % INR (Anticoag Therapy) (0.89-1.11) APTT (26.0-36.3) seconds Sodium 137 (133-145) mmol/L Potassium 4.0 (3.5-5.0) mmol/L Chloride 100 L (101-111) mmol/L Carbon Dioxide 32 (22-32) mmol/L Anion Gap 5 (2-11) mmol/L BUN 20 (6-24) mg/dL Creatinine 0.86 (0.67-1.17) mg/dL Est GFR ( Amer) 111.2 (>60) Est GFR (Non-Af Amer) 86.5 (>60) BUN/Creatinine Ratio 23.3 H (8-20) Glucose 94 (70-100) mg/dL Calcium 10.0 (8.6-10.3) mg/dL Magnesium 1.8 L (1.9-2.7) mg/dL Total Bilirubin 1.10 H (0.2-1.0) mg/dL AST 21 (13-39) U/L ALT 19 (7-52) U/L Alkaline Phosphatase 123 H (34-104) U/L Total Creatine Kinase 70 (10-223) U/L Troponin I 0.03 (<0.04) ng/mL B-Natriuretic Peptide ( - 100) pg/mL Total Protein 6.4 (6.4-8.9) g/dL Albumin 3.9 (3.2-5.2) g/dL Globulin 2.5 (2-4) g/dL Albumin/Globulin Ratio 1.6 (1-3) ECG, personally reviewed: 1st degree AV rate 67, J-point elevation V2-3 w/ upwardly concave T-waves; Q-waves II/III/AVF CXR, personally reviewed: cardiomegaly, poor inspiratory effort, no acute process noted Impression: 77M presenting with atypical chest pain for r/o ACS DIAGNOSIS & PLAN Primary chest pain r/o ACS : HX CAD/5vCABG : aspirin : supplemental oxygen : trend troponin : check ECHO in AM : if all negative and no further pain, may consider D/C & oupatient f/u w/ A MD Hector Secondary PAOD : HX B CEA: telemetry : continue atorvastatin HTN : reveiw meds once reconciled GERD : continue emeprazole Admission Rational: CDU observation for r/o chest pain DVTp: heparin SQ Code Status: full HCP:
[2017-08-22] MEDS: Valsartan TAB* 160 MG PO SCH (07:56)
[2017-08-22] MEDS: Hydrochlorothiazide TAB* 25 MG PO SCH (07:56)
[2017-08-22] MEDS: Aspirin EC Low Dose* 81 MG TAB.EC PO SCH (07:56)
[2017-08-22] MEDS: Potassium Chlor TAB* 10 MEQ TAB.ER PO SCH (07:56)
[2017-08-22] MEDS: Atorvastatin* 80 MG TAB PO SCH (07:56)
[2017-08-22] MEDS: Metoprolol Succinate XL TAB* 50 MG PO SCH ×2 (07:56→19:56)
--- NOTE | 2017-08-22 07:56 | RAD ---
HISTORY: Chest pain COMPARISONS: August 09, 2017 VIEWS: 1: frontal portable view of the chest at 11:15 AM FINDINGS: LINES AND TUBES: A left-sided AICD pacemaker is noted CARDIOMEDIASTINAL SILHOUETTE: The cardiac silhouette is enlarged. The cardiomediastinal silhouette is otherwise normal for portable technique. PLEURA: The costophrenic angles are sharp. No pleural abnormalities are noted. LUNG PARENCHYMA: The lung volumes are low. There is patchy alveolar opacification of left lung base ABDOMEN: The upper abdomen is clear. There is no subphrenic gas. BONES AND SOFT TISSUES: No bone or soft tissue abnormalities are noted. IMPRESSION: 1. LOW LUNG VOLUMES. 2. PATCHY LEFT BASILAR ATELECTASIS VERSUS CONSOLIDATION. 3. CARDIOMEGALY.
[2017-08-22] MEDS: Omeprazole CAP* 20 MG PO SCH (07:57)
[2017-08-22] MEDS: Docusate CAP* 100 MG PO SCH ×2 (07:57→19:56)
[2017-08-22 08:43] LABS: EGFR African American 132.3 (>60); EGFR Non-African American 102.8 (>60)
[2017-08-22 08:44] LABS: Hematocrit 40 % (42-52); Hemoglobin 13.5 g/dl (14.0-18.0); Mean Corpuscular HGB Conc 34 g/dl (31-36); Mean Corpuscular Hemoglobin 29 pg (27-31); Mean Corpuscular Volume 85 fL (80-94); Mean Platelet Volume 9 um3 (7.4-10.4); Red Blood Count 4.68 10^6/ul (4.0-5.4); Red Cell Distribution Width 15 % (10.5-15); Troponin I 0.03 ng/mL (<0.04); White Blood Count 6.1 10^3/ul (3.5-10.8)
[2017-08-22] MEDS ORDERED: COENZYME Q10 100 MG PO SCH (09:00)
--- NOTE | 2017-08-22 14:17 | ECHO ---
Patient: SANTOS ALMANZA [facility] Rec#: [id number] : 1940 Date: 08/22/2017 Age: 77y Height: 167.6 cm / 66.0 in Weight: 92.1 kg / 203.0 lbs Sex: M BSA: 2 Room#: 440 Admit Date#: 08/22/2017 Type: Inpatient Referring: Matty Hanson MD Reading: Garrick Gonzales DO Director Of Student Financial Services: Dulce Maria Paz RN RDCS CC: Hailey Krause MD Transthoracic Echocardiogram Indication: Chest pain BP: 182/84 HR: 60 Rhythm: Paced Findings History: CAD, IA, CABG, bilateral CEA, AICD/pacemaker, former smoker Technical Comments: The study quality is fair. The study is technically limited due to patient body habitus. The study is technically limited due to the patient's smoking history. Completed at 1235. Left Ventricle: The left ventricular chamber size is normal.There is mild to moderate hypertrophy of the ventricular septum. The inferolateral wall appears thinned and infarcted. There is a focal wall motion abnormality present. There is mildly decreased left ventricular systolic function. The estimated ejection fraction is 45-50%. There is abnormal ventricular septal wall motion consistent with right ventricular pacemaker. Abnormal left ventricular diastolic function is observed. The left ventricular diastolic filling pattern is consistent with pseudonormalization. The basal inferolateral, basal inferior, mid inferolateral, mid inferior, and apical lateral wall segments are akinetic (score 3). Overall wallmotion score index is 2.25 Left Atrium: The left atrium is mildly dilated. Right Ventricle: The right ventricular chamber size and systolic function are within normal limits. A pacemaker wire is visualized in the right ventricle. Right Atrium: The right atrial cavity size is normal. A pacemaker wire is visualized in the right atrium. Aortic Valve: The aortic valve is trileaflet. The aortic valve leaflets are mildly thickened. There is aortic annular calcification. There is trace to mild aortic regurgitation. There is no evidence of aortic stenosis. Mitral Valve: The mitral valve leaflets are mildly thickened. There is mild mitral regurgitation. There is no evidence of mitral stenosis. Tricuspid Valve: The tricuspid valve leaflets are normal. There is mild tricuspid regurgitation. There is evidence of mild pulmonary hypertension. There is no tricuspid stenosis. Pulmonic Valve: The pulmonic valve appears normal. There is trace to mild pulmonic regurgitation. There is no pulmonic stenosis. Pericardium: There is no significant pericardial effusion. A pericardial fat pad is visualized. Aorta: There is mild dilatation of the ascending aorta. There is no dilatation of the aortic arch. There is no dilation of the aortic root. Pulmonary Artery: The main pulmonary artery appears normal. Venous: The venous system is not well visualized. The inferior vena cava is not visualized. Conclusions The left ventricular chamber size is normal. There is mild to moderate hypertrophy of the ventricular septum. The inferolateral wall appears thinned and infarcted. There is mildly decreased left ventricular systolic function. The estimated ejection fraction is mildly reduced at 45-50%. There is akinesis of inferior/inferolateral wall The left atrium is mildly dilated. The right ventricular chamber size and systolic function are within normal limits. No more than mild valvular regurgitation noted. There is evidence of mild pulmonary hypertension. There is mild dilatation of the ascending aorta. Compared to prior echocardiogram from 12/2014, the inferior/inferolateral infarct is more extensive than described in that report (basal inferior hypokinesis) although would be more consistent with the 12/2012 vasodilator stress MPI showing a moderate sized, mostly fixed inferior/inferolateral infarct. Measurements Name Value Normal Range RVIDd (AP) 2D 2.6 cm (0.9 - 2.6) RVDdMajor (2D) 3.4 cm (2.2 - 4.4) RAd ISD 4CH 4.1 cm (3.4 - 4.9) RA (A4C)W 3.2 cm (2.9 - 4.6) IVSd (2D) 1.5 cm (0.6 - 1) LVPWd (2D) 1.1 cm (0.6 - 1) LVIDd (2D) 4.6 cm (3.6 - 5.4) LVIDs (2D) 3.7 cm - LV FS (2D) 20 % (25 - 45) Aortic Annulus 2.3 cm (1.4 - 2.6) Ao root diameter (2D) 3.4 cm (2.1 - 3.5) Ascending Ao 4 cm (2.1 - 3.4) Aortic arch 3.2 cm (1.8 - 3.4) LA dimension (AP) 2D 3.7 cm (2.3 - 3.8) LAd ISD 4CH 6 cm (2.9 - 5.3) LA ISD 4CH W 4.2 cm (2.5 - 4.5) Name Value Normal Range LA ESV SP 4CH (A/L) 84 ml - LA ESV SP 2CH (A/L) 63 ml - LA ESV BP (A/L) 75 ml - LA ESV BP (A/L) index 37.2 ml/m2 - LA ESV SP 4CH (MOD) 83 ml - LA ESV SP 2CH (MOD) 557144 ml - Name Value Normal Range MV E-wave Vmax 1.1 m/sec - MV deceleration time 179 msec - MV A-wave Vmax 1 m/sec - MV E:A ratio 1 ratio - LV septal e' Vmax 0.04 m/sec - LV lateral e' Vmax 0.06 m/sec - LV E:e' septal ratio 27.5 ratio - LV E:e' lateral ratio 18.3 ratio - Name Value Normal Range AV Vmax 1.2 m/sec - AV VTI 29.9 cm - AV peak gradient 6.1 mmHg - AV mean gradient 3.4 mmHg - LVOT Vmax 0.87 m/sec - LVOT VTI 21 cm - LVOT peak gradient 3 mmHg - LVOT mean gradient 1.6 mmHg - WARNER Vmax 0.38 m/sec - Name Value Normal Range TR Vmax 2.9 m/sec - TR peak gradient 34 mmHg - RAP 8 mmHg - RVSP 42 mmHg - Name Value Normal Range PV Vmax 0.69 m/sec - Wallmotion BAS Normal BA Not Seen BAL Not Seen MIRLANDE Akinetic BI Akinetic BIS Not Seen MAS Normal MA Not Seen MAL Not Seen MIL Akinetic IA Akinetic MIS Not Seen Not Seen AA Normal AL Akinetic AI Not Seen APEX Not Seen
--- NOTE | 2017-08-22 16:12 | PN ---
Hospitalist Progress Note HOSPITALIST ADDENDUM Mr. Molina is a 77 yo M with PMH of CAD s/p CABG, PAD, s/p pacer AICD, GERD, who presented to ED with c/o chest pain. Labs and EKG reviewed. Plan for serial troponins, echo, and pharmacological stress test in AM. Patient is asymptomatic at this time.
[2017-08-22] MEDS ORDERED: hydrALAZINE IV* 20 MG/ML VIAL IV SLOW PU PRN ×2 (19:47→23:06)
[2017-08-22] MEDS ORDERED: Tamsulosin CAP* 0.4 MG PO SCH (21:00)
[2017-08-22] MEDS ORDERED: hydrALAZINE IV* 20 MG/ML VIAL IV SLOW PU ONE (23:00)
[2017-08-23] MEDS: Heparin VIAL(*) 5000 UNITS/ML VIAL (FIVE THOUSAND) SUBCUT SCH ×2 (04:57→14:45)
[2017-08-23] MEDS: Omeprazole CAP* 20 MG PO SCH (08:03)
[2017-08-23] MEDS: Potassium Chlor TAB* 10 MEQ TAB.ER PO SCH (08:03)
[2017-08-23] MEDS: Aspirin EC Low Dose* 81 MG TAB.EC PO SCH (08:03)
[2017-08-23] MEDS: Atorvastatin* 80 MG TAB PO SCH (08:04)
[2017-08-23] MEDS: Hydrochlorothiazide TAB* 25 MG PO SCH (08:04)
[2017-08-23] MEDS: Valsartan TAB* 160 MG PO SCH (08:08)
[2017-08-23] MEDS: Docusate CAP* 100 MG PO SCH (08:09)
[2017-08-23] MEDS ORDERED: amLODIPine TAB* 5 MG PO SCH (09:00)
[2017-08-23] MEDS: Metoprolol Succinate XL TAB* 50 MG PO SCH (10:44)
[2017-08-23] MEDS ORDERED: Aminophylline IV* 25 MG/ML 10 ML VIAL ONE (11:40)
[2017-08-23] MEDS ORDERED: Regadenoson* 0.4 MG/5 ML SYRINGE ONE (11:40)
--- NOTE | 2017-08-23 12:32 | RAD ---
HISTORY: Chest pain COMPARISONS: None TECHNIQUE: A 1 day stress/rest myocardial perfusion study was performed, with pharmacologic stress. The stress portion was monitored by Dr. Licona. Gated SPECT imaging was performed, without CT-based attenuation correction secondary patient body habitus DOSE: Stress: Technetium 99m tetrofosmin, 25.91 millicuries, injected at 10:25 AM on August 23, 2017 Rest: Technetium 99m tetrofosmin, 10.6 millicuries, injected at 8:05 AM on August 23, 2017 Pharmacologic agent: Lexiscan FINDINGS: CARDIAC MONITORING: Abnormal baseline EKG changes. Inferior ST mild elevation. EF: 28 % TID: 1.19 MOTION: There is diffuse hypokinesia PERFUSION: There is a large matched defect of the inferior wall and lateral wall. OTHER: None IMPRESSION: 1. DECREASED EJECTION FRACTION. 2. LARGE MATCHED DEFECT OF THE INFEROLATERAL WALL. WHILE THIS MAY BE AN ARTIFACT OF BODY HABITUS, LARGE AREA OF PREVIOUS INFARCT IS ALSO WITHIN THE DIFFERENTIAL ASSESSMENT: HIGH RISK. Based on imaging criteria from ACC/AHA 2002. Guideline Update for the Management of Patient's with Chronic Stable Angina, table 23. Noninvasive Risk Stratification.
[2017-08-23 14:53] VITALS: BP 183/59
--- NOTE | 2017-08-24 09:57 | DS ---
CC: Dr. Hailey Izquierdo; Dr. Young * DISCHARGE SUMMARY: DATE OF ADMISSION: 08/22/17 DATE OF DISCHARGE: 08/23/17 PRIMARY CARE PROVIDER: Dr. Hailey Izquierdo. POULTRY FARM SUPERVISOR: Dr. Young. DISCHARGE DIAGNOSES: 1. Chest pain, acute coronary syndrome ruled out. 2. Hypertensive urgency. SECONDARY DIAGNOSES: 1. Coronary artery disease, status post 5 vessel coronary artery bypass grafting. 2. Peripheral arterial disease, status post bilateral carotid endarterectomy. 3. Status post pacer/AICD placement. 4. Ischemic cardiomyopathy. 5. Gastroesophageal reflux disease. MEDICATION LIST: 1. Acetaminophen 650 mg p.o. q. 6 hours p.r.n. pain or fever. 2. Aspirin 81 mg p.o. daily. 3. Atorvastatin 80 mg p.o. daily. 4. CoQ10 of 100 mg p.o. daily. 5. Lorazepam 1 mg p.o. t.i.d. as needed for anxiety maximum 3 mg a day. 6. Magnesium 250 mg p.o. b.i.d. 7. Metoprolol succinate 50 mg p.o. b.i.d. 8. Nitroglycerin 0.4 mg sublingual as needed for chest pain maximum of 3 doses. 9. Omeprazole 20 mg p.o. daily. 10. Potassium chloride 10 mEq p.o. daily. 11. Tamsulosin 0.4 mg p.o. at bedtime. 12. Valsartan/hydrochlorothiazide 320/25 one tablet p.o. daily. New Medication: 1. Amlodipine 5 mg p.o. daily. HOSPITAL COURSE: Mr. Molina is a 77-year-old male with a past medical history as stated above that presented to the emergency room with complaints of exertional chest pain on the right side radiating to the left side. For more details about his presentation, I refer you to his history and physical. He was admitted for further evaluation. His EKG showed no acute ischemic changes and he had serial troponins that were negative. Transthoracic echocardiogram showed ejection fraction of 45% to 50% with akinesis of inferior/inferolateral wall when compared to his prior echo from December 2014. The inferior/inferolateral infarct is more extensive than described in the report, although it would be more consistent with the December 2012 vasodilator stress MPI showing a moderate-sized, mostly fixed inferior/ inferolateral infarct. There was also mild dilatation of the ascending aorta. Nuclear pharmacological stress test showed a decreased ejection fraction of 28% with a large defect of the inferolateral wall. Those results were discussed with the head host/hostess trigonometry teacher Dr. Ware and I also informed him that the patient has had elevated blood pressures for the hospital stay including 1 episode of 240/98. The impression is that his symptoms are likely secondary to his hypertensive urgency and Dr. Ware's recommendation was to add another antihypertensive. His first line recommendation was for amlodipine, but he also thinks the patient could be started on long-acting nitro patch or Imdur. In further conversation with the patient he states that when he was admitted in December with influenza, his blood pressure was very low and his blood pressure medications were decreased. He did not follow up with cardiology and his informs me that the patient eats a lot of salty foods at home including chips, crackers, cold cuts, and . He states that he had already needed to give up caffeine because of his heart and he was not willing to give up the salt also. We talked about the importance of a low-salt diet on his blood pressure control and heart health. He received education about foods he should avoid at home and he states that he is willing to try a low-salt diet at home. At this point, I believe the patient is stable for discharge and he will need to follow up with Dr. Young as outpatient and with his primary care also to continue to monitor his blood pressure. PHYSICAL EXAMINATION: Vital Signs: Temperature 98.0, heart rate 73, respiratory rate is 20, oxygen saturation is 99% on room air, and blood pressure electronically was 183/59 and manually was 170/90. General: The patient is a pleasant elderly male, lying in bed in no acute distress. CVS: Normal S1 and S2. Regular rate and rhythm. Chest: Breath sounds present bilaterally. No added sounds. Neuro: He is alert, awake, and oriented x3. Able to move all 4 extremities. DIET: Heart-healthy diet. The patient received education about the importance of limiting his salt intake. ACTIVITY: As tolerated. DISPOSITION: To home. STATUS WHILE IN THE HOSPITAL: Observation. Please keep in mind this is a summarized version of this patient's hospital stay. If you need for information please feel free to call me at [phone] or please obtain the full medical record. Approximately, 45 minutes was spent to complete this discharge. [id number]/[facility] #: [id number] JOVAN
== END 2017-08-23 15:46 | disposition home or self-care (01) ==
LOC: ED 22:52 → MEDTELE 08-22 01:38
PROVIDERS: ADMIT Hospitalist; ATTEND Internal Medicine
DX: R07.9 Chest pain, unspecified (principal); I16.0 Hypertensive urgency; I25.10 Atherosclerotic heart disease of native coronary artery without angina pectoris; Z95.1 Presence of aortocoronary bypass graft; I73.9 Peripheral vascular disease, unspecified; Z95.810 Presence of automatic (implantable) cardiac defibrillator; I42.9 Cardiomyopathy, unspecified; K21.9 Gastro-esophageal reflux disease without esophagitis; I51.7 Cardiomegaly; R94.31 Abnormal electrocardiogram [ECG] [EKG]; R06.02 Shortness of breath; Z79.899 Other long term (current) drug therapy; Z87.891 Personal history of nicotine dependence
CPT/HCPCS: 36415; 71010; 78452; 80053; 82550; 82565; 83735; 83880; 84484; 84520; 85025; 85610; 85730; 93005; 93017; 93306; 94760; 96374; 96375; 96376; 99284; A9270-GY; A9502; G0378; J0280; J0360; J1644; J2785

== ENCOUNTER 2018-07-16 01:30 | Emergency (ER) | payer MEDICARE ==
--- NOTE | 2018-07-16 01:49 | ED ---
Shortness of Breath - HPI Summary HPI Summary: This patient is a 77 year old M presenting to [facility] accompanied by his with a chief complaint of shortness of breath since 21:00. The patient rates the pain 0/10 in severity. Symptoms aggravated by nothing. Symptoms alleviated by nothing. Patient reports fever, chills, cough, and diarrhea since 1 day ago. Patient also notes edema in bilateral legs. Patient denies abdominal pain. - History of Current Complaint Chief Complaint: EDShortnessOfBreath Hx Obtained From: Patient, Family/Structures Engineer - patient's Onset/Duration: Sudden Onset, Lasting Hours, Still Present Current Severity: Mild Dyspnea At: Rest Aggrevating Factors: Nothing Alleviating Factors: Nothing Associated Signs & Symptoms: Cough (Nonproductive), Fever, Chills - Allergy/Home Medications Allergies/Adverse Reactions: Allergies Allergy/AdvReac Type Severity Reaction Status Date / Time niacin Allergy Rash Verified 07/16/18 01:35 PMH/Surg Hx/FS Hx/Imm Hx Endocrine/Hematology History: Denies: Hx Diabetes Cardiovascular History: Reports: Hx Angina, Hx Auto Implanted Cardiovert Defib, Hx Congestive Heart Failure, Hx Coronary Artery Disease, Hx Hypercholesterolemia , Hx Hypertension - UNCONTROLLED, SWINGING TO SEVERE HYPOTENSION, Hx Myocardial Infarction, Hx Pacemaker/ICD, Other Cardiovascular Problems/Disorders - cabg x 5 per patient Denies: Hx Valvular Heart Disease Respiratory History: Reports: Hx Pneumonia Denies: Hx Asthma, Hx Chronic Obstructive Pulmonary Disease (COPD) History: Denies: Hx Renal Disease Sensory History: Reports: Hx Contacts or Glasses, Hx Hearing Aid Opthamlomology History: Reports: Hx Contacts or Glasses Psychiatric History: Reports: Hx Anxiety - Surgical History Surgery Procedure, Year, and Place: 5 CABG /PACEMAKER X 2 Infectious Disease History: No Infectious Disease History: Denies: Traveled Outside the [place] in Last 30 Days - Family History Known Family History: Positive: Cardiac Disease, Hypertension - Social History Occupation: Retired Lives: With Family Alcohol Use: None Substance Use Type: Reports: None Smoking Status (MU): Former Smoker Amount Used/How Often: did it for about 2 years,a "few years ago" Have You Smoked in the Last Year: No Review of Systems Positive: Fever, Chills Negative: Epistaxis Positive: Shortness Of Breath, Cough Negative: Abdominal Pain Negative: Rash All Other Systems Reviewed And Are Negative: Yes Physical Exam - Summary Physical Exam Summary: Appearance: Well-appearing, Well-nourished, lying in bed comfortably Skin: Warm, dry, no obvious rash Eyes: sclera anicteric, no conjunctival pallor ENT: mucous membranes moist, pharynx appears normal Neck: Supple, nontender Respiratory: Clear to auscultation, no signs of respiratory distress Cardiovascular: Normal S1, S2. No murmurs. Normal distal pulses in tibial and radial bilaterally. Abdomen: Soft, nontender, normal active bowel sounds present Musculoskeletal: Strength/ROM Intact, mild pitting edema in bilateral legs Neurological: A&Ox3, awake and alert, mentation is normal, speech is fluent and appropriate Psychiatric: affect is normal, does not appear anxious or depressed Triage Information Reviewed: Yes Vital Signs On Initial Exam: Initial Vitals Temp Pulse Resp BP Pulse Ox 99.5 F 81 23 147/72 95 07/16/18 01:31 07/16/18 01:31 07/16/18 01:31 07/16/18 01:31 07/16/18 01:31 Vital Signs Reviewed: Yes Diagnostics - Vital Signs Vital Signs Temp Pulse Resp BP Pulse Ox 07/16/18 01:31 99.5 F 81 23 147/72 95 - Laboratory Result Diagrams: 07/16/18 02:00 07/16/18 02:00 Lab Statement: Any lab studies that have been ordered have been reviewed, and results considered in the medical decision making process. - Radiology CXR Xray Interpretation: Positive (See Comments) - Impression: moderate-sized left pleural effusion, unchanged from previous film Radiology Interpretation Completed By: ED Physician - Dr. Gutierres, pending official report - EKG 02:07 Cardiac Rate: NL - at 73 bpm EKG Rhythm: Sinus Rhythm ST Segment: Normal Ectopy: None EKG Interpretation: NSR at 73 bpm, old inferior infarct, nml intervals EKG Comparison: No Significant Change - from EKG on 08/22/2017 Course/Dx - Course Course Of Treatment: This is a 77-year-old man with complaints of dyspnea in the context of a diarrheal illness and some subjective chills yesterday. His laboratory evaluation is unremarkable. His physical examination is similarly unremarkable with normal O2 sat, clear lungs, no signs of restraint distress. He does have a left-sided pleural effusion but this was seen on the prior film from a year ago. I doubt that this is responsible for his acute dyspnea. I think he is stable for discharge at this time. - Diagnoses Provider Diagnoses: Dyspnea, Diarrhea Discharge - Sign-Out/Discharge Documenting (check all that apply): Patient Departure - Discharge Plan Condition: Good Disposition: HOME Patient Education Materials: Dyspnea (ED) Referrals: Hailey Krause MD [Primary Care Provider] - 3 Days - Billing Disposition and Condition Condition: GOOD Disposition: Home - Attestation Statements Document Initiated by Scribe: Yes Documenting Scribe: Irish Colindres Provider For Whom Janee is Documenting (Include Credential): Chan Gutierres MD Scribe Attestation: I, Irish Colindres, scribed for Chan Gutierres MD on 07/16/18 at 0546. Scribe Documentation Reviewed: Yes Provider Attestation: The documentation as recorded by the scribeIrish accurately reflects the service I personally performed and the decisions made by me, Chan Gutierres MD
[2018-07-16 02:10] LABS: ABS Basophils 0 10^3/ul (0-0.2); ABS Eosinophils 0.1 10^3/ul (0-0.6); ABS Lymphocytes 0.4 10^3/ul (1.0-4.8); ABS Monocytes 0.6 10^3/ul (0-0.8); ABS Neutrophils 6.6 10^3/ul (1.5-7.7); ABS Nucleated RBC 0 10^3/ul; Eosinophil % 0.8 % (0-6); Hematocrit 41 % (42-52); Hemoglobin 14.2 g/dl (14.0-18.0); Lymphocyte % 5.6 % (25-47); Mean Corpuscular HGB Conc 34 g/dl (31-36); Mean Corpuscular Hemoglobin 29 pg (27-31); Mean Corpuscular Volume 85 fL (80-94); Mean Platelet Volume 8.8 um3 (7.4-10.4); Nucleated Red Blood Cells % 0; Platelet Count 121 10^3/ul (150-450); Red Blood Count 4.88 10^6/ul (4.00-5.40); Red Cell Distribution Width 14 % (10.5-15); White Blood Count 7.8 10^3/ul (3.5-10.8)
[2018-07-16 02:30] LABS: EGFR Non-African American 98.2 (>60)
[2018-07-16] MEDS ORDERED: oxyCODONE TAB* 5 MG TAB PO ONE (03:34)
[2018-07-16 05:52] VITALS: BP 132/57
--- NOTE | 2018-07-16 10:02 | RAD ---
INDICATION: Increased dyspnea. Cardiac disease. COMPARISON: August 21, 2017 TECHNIQUE: Dual energy PA and routine lateral views of the chest were obtained. REPORT: Unchanged mild elevation of the LEFT hemidiaphragm with proportional basilar atelectasis. Mild prominence of the interstitial markings. Grossly clear pleural spaces. Negative for pneumothorax. Median sternotomy wires. RIGHT ventricular level pacemaker lead. Cardiomegaly. Mildly prominent and ill-defined central pulmonary vasculature. IMPRESSION: #. Unchanged mild elevation of the LEFT hemidiaphragm with proportional basilar atelectasis. #. Probable mild pulmonary vascular congestion. R2
== END 2018-07-16 06:05 | disposition home or self-care (01) ==
LOC: ED 01:30
DX: R06.00 Dyspnea, unspecified (principal); R19.7 Diarrhea, unspecified; Z87.891 Personal history of nicotine dependence; I50.9 Heart failure, unspecified; I25.10 Atherosclerotic heart disease of native coronary artery without angina pectoris; Z95.1 Presence of aortocoronary bypass graft; E78.00 Pure hypercholesterolemia, unspecified; I10 Essential (primary) hypertension; I25.2 Old myocardial infarction
CPT/HCPCS: 36415; 71046; 80053; 83880; 85025; 87040; 93005; 99283

== ENCOUNTER 2018-08-26 15:53 | Inpatient (IN) | payer MEDICARE ==
[2018-08-26] MEDS ORDERED: Nitroglycerin TAB 0.4 MG* 0.4 MG TAB ONE (16:10)
[2018-08-26] MEDS ORDERED: nitroGLYCERIN DRIP* 0 MCG/0 ML BTL ONE (16:11)
[2018-08-26] MEDS ORDERED: Heparin for STEMI(*) 5,000 UNITS/ML 1 ML VIAL IV ONE ×2 (16:11→16:18)
[2018-08-26] MEDS ORDERED: Ticagrelor* 90 MG TAB PO ONE ×2 (16:11→16:18)
[2018-08-26] MEDS ORDERED: Aspirin 81 mg CHEW TAB* 81 MG TAB.CHEW ONE ×2 (16:11→16:32)
[2018-08-26] MEDS ORDERED: Iohexol 350 (CONTRAST) 200 ML MDV IV ONE (16:15)
[2018-08-26] MEDS ORDERED: Lidocaine 1% INJ* 10 MG/ML 30 ML SDV ONE (16:15)
[2018-08-26] MEDS ORDERED: Heparin 2 UNITS/ML IVPREMIX* 2,000 ML IV ONE (16:15)
[2018-08-26] MEDS ORDERED: Aspirin 81 mg CHEW TAB* 81 MG TAB.CHEW PO ONE (16:18)
[2018-08-26] MEDS ORDERED: NS 0.9% 1000 ML* 1,000 ML IV ONE (16:18)
[2018-08-26] MEDS ORDERED: VERAPAMIL 2.5 MG/ML 2 ML VIAL ** 5 mg/2 ml ONE (16:30)
[2018-08-26] MEDS ORDERED: Heparin(*) 1000 UNIT/ML 10 ML VIAL CATH LAB IV ONE (16:30)
[2018-08-26] MEDS ORDERED: nitroGLYCERIN DRIP* 25,000 MCG/250 ML BTL ONE (16:30)
[2018-08-26 16:37] LABS: ABS Basophils 0 10^3/ul (0-0.2); ABS Eosinophils 0.1 10^3/ul (0-0.6); ABS Lymphocytes 0.7 10^3/ul (1.0-4.8); ABS Monocytes 0.8 10^3/ul (0-0.8); ABS Neutrophils 4.8 10^3/ul (1.5-7.7); ABS Nucleated RBC 0 10^3/ul; Eosinophil % 2.2 % (0-6); Hematocrit 42 % (42-52); Hemoglobin 14.6 g/dl (14.0-18.0); Lymphocyte % 11.1 % (25-47); Mean Corpuscular HGB Conc 35 g/dl (31-36); Mean Corpuscular Hemoglobin 30 pg (27-31); Mean Corpuscular Volume 85 fL (80-94); Mean Platelet Volume 8.8 um3 (7.4-10.4); Nucleated Red Blood Cells % 0.1; Platelet Count 142 10^3/ul (150-450); Red Blood Count 4.96 10^6/ul (4.00-5.40); Red Cell Distribution Width 15 % (10.5-15); White Blood Count 6.5 10^3/ul (3.5-10.8)
[2018-08-26] MEDS ORDERED: fentaNYL* 50 MCG/ML 2 ML VIAL (100 MCG VIAL) ONE (16:49)
[2018-08-26] MEDS ORDERED: Midazolam* 1 MG/ML 10 ML VIAL (10 MG) ONE (16:49)
[2018-08-26 16:56] LABS: EGFR Non-African American 80.8 (>60)
[2018-08-26] MEDS ORDERED: nitroGLYCERIN DRIP* 25,000 MCG/250 ML BTL IV SCH (17:00)
--- NOTE | 2018-08-26 17:09 | RAD ---
INDICATION: Chest pain COMPARISON: Chest x-ray dated July 16, 2018 TECHNIQUE: Single AP portable view of the chest was obtained. FINDINGS: Image quality is compromised due to the relative inferiority of a portable chest x-ray. Again seen is a left upper chest cardiac pacemaker with 2 leads overlying the heart. There are sternotomy wires overlying the midline mediastinum. Similar to the prior chest x-ray there is mild cardiomegaly. The pulmonary vascular is engorged and indistinct. Densities cause bilateral costophrenic angle blunting and mildly obscure the diaphragm bilaterally. More superiorly the lungs are adequately aerated. Visualized bones are normal for the patient's age. IMPRESSION: Chest x-ray findings are most consistent with exacerbation of cardiogenic pulmonary edema, likely with small bibasilar pleural effusions.
--- NOTE | 2018-08-26 17:54 | ED ---
HPI Chest Pain - HPI Summary HPI Summary: Patient is a 78 y/o M w/ c/o chest pain and possible STEMI. He arrived by private car. , Sushma, is present in room. Provider in room at 1606, STEMI code called at this time, Dr. Licona in room at 1610, STEMI orders completed at 1620. Chest pain is noted to have onset a couple of days ago and intermittent. He decided to come into ED as chest pain episodes have persisted for the past couple of days. Chest pain is noted to be present on chest from left lower anterior diagonally to right upper anterior. Patient has PMHx of MN, notes that his current Sx feel similar to prior MN. He took 1 nitro 30 minutes KING MAKER with some relief of pain. Hx of CABG x 5, bilateral carotid endarterectomy, and right carotid artery stenosis is reported by pt at 40% on a recent study done at [place] by Dr. Aguirre. Patient has pacemaker/ AICD in left upper chest wall. Academic Support Coordinator is Dr. Young. In room, some SOB is noted, jaw pain is denied. He notes chest pain is minimally present at the time. He denies chest pain with exertion. Patient reports he has been taking his medications. He reports a fever 5-6 weeks ago with shaking, without diagnosis of the source of the fever. PCP is Dr. Butts. Patient wishes to be full code, signed consent for cardiac catheterization. On triage, pain is rated 3/10, nothing is noted to aggravate/alleviate Sx. Home medications and allergies are reviewed. Allergies/Adverse Reactions: Allergies Allergy/AdvReac Type Severity Reaction Status Date / Time niacin Allergy Rash Verified 07/16/18 01:35 Home Medications: Home Medications Aspirin EC TAB* [Ecotrin EC Low Dose 81 MG*] 81 mg PO DAILY 08/26/18 [History Confirmed 08/26/18] Irbesartan/Hctz 300 12.5 1 tab PO DAILY 08/26/18 [History Confirmed 08/26/18] Metoprolol Succinate XL TAB* [Toprol XL TAB*] 50 mg PO DAILY 08/26/18 [History Confirmed 08/26/18] - History of Current Complaint Chief Complaint: EDChestPainROMI Time Seen by Provider: 08/26/18 16:06 Hx Obtained From: Patient, Family/Parking Patroller - pt's is present Onset/Duration: Started Days Ago - onset a couple of days ago, Still Present Timing: Intermittent Initial Severity: Mild Current Severity: Mild - 3/10 Pain Intensity: 3 Pain Scale Used: 0-10 Numeric - 3/10 Chest Pain Location: Diffuse - chest pain is present from left lower anterior diagonally to right upper anterior Chest Pain Radiates: No Character: Pressure/Squeezing Aggravating Factor(s): Nothing Alleviating Factor(s): Nothing Associated Signs and Symptoms: Positive: Chest Pain, Shortness of Breath - Risk Factors AMI/ACS Risk Factors: Myocardial Infarction, Hypertension, Dyslipidemia - Additional Pertinent History Primary Care Physician: JUANCHO - Allergy/Home Medications Allergies/Adverse Reactions: Allergies Allergy/AdvReac Type Severity Reaction Status Date / Time niacin Allergy Rash Verified 07/16/18 01:35 Home Medications: Home Medications Aspirin EC TAB* [Ecotrin EC Low Dose 81 MG*] 81 mg PO DAILY 08/26/18 [History Confirmed 08/26/18] Irbesartan/Hctz 300 12.5 1 tab PO DAILY 08/26/18 [History Confirmed 08/26/18] Metoprolol Succinate XL TAB* [Toprol XL TAB*] 50 mg PO DAILY 08/26/18 [History Confirmed 08/26/18] PMH/Surg Hx/FS Hx/Imm Hx Previously Healthy: No Endocrine/Hematology History: Denies: Hx Diabetes Cardiovascular History: Reports: Hx Angina, Hx Auto Implanted Cardiovert Defib, Hx Congestive Heart Failure, Hx Coronary Artery Disease, Hx Hypercholesterolemia , Hx Hypertension - UNCONTROLLED, SWINGING TO SEVERE HYPOTENSION, Hx Myocardial Infarction, Hx Pacemaker/ICD, Other Cardiovascular Problems/Disorders - cabg x 5 per patient Denies: Hx Valvular Heart Disease Respiratory History: Reports: Hx Pneumonia Denies: Hx Asthma, Hx Chronic Obstructive Pulmonary Disease (COPD) History: Denies: Hx Renal Disease Sensory History: Reports: Hx Contacts or Glasses, Hx Hearing Aid Opthamlomology History: Reports: Hx Contacts or Glasses Psychiatric History: Reports: Hx Anxiety - Cancer History Cancer Type, Location and Year: skin cancer of nose - Surgical History Surgery Procedure, Year, and Place: 5 CABG /PACEMAKER X 2, carotid stents Infectious Disease History: No Infectious Disease History: Denies: Traveled Outside the [place] in Last 30 Days - Family History Known Family History: Positive: Cardiac Disease, Hypertension - Social History Lives: With Family Alcohol Use: Occasionally Substance Use Type: Reports: None Smoking Status (MU): Former Smoker Amount Used/How Often: did it for about 2 years,a "few years ago" Have You Smoked in the Last Year: No Review of Systems Positive: Fever - 5-6 weeks ago , Other - shaking with fever from 5-6 weeks ago Positive: Chest Pain, Other - possible STEMI Positive: Shortness Of Breath Positive: Other - NEGATIVE: jaw pain Neurological: Negative Psychological: Normal All Other Systems Reviewed And Are Negative: Yes Physical Exam - Summary Physical Exam Summary: Appearance: ill-appearing, moderate pain distress, well-nourished Skin: Warm, color reflects adequate perfusion, dry Head: Normal Head/Face inspection, atraumatic Eyes: Conjunctiva clear ENT: Normal inspection Neck: Supple, no nodes, no JVD; bilateral endarterectomy scars, no bruits. Respiratory: Lungs clear, normal breath sounds, no respiratory distress Cardio: RRR, No murmur, pulses normal, brisk capillary refill; pacemaker/AICD in left upper chest wall Abdomen: Soft, nontender, no masses, no guarding, no rebound Bowel sounds: Present Musculoskeletal: Strength Intact/ROM intact, no calf tenderness, no edema. Psychological: Normal Neuro: Alert, muscle tone normal, no focal deficit Triage Information Reviewed: Yes Vital Signs On Initial Exam: Initial Vitals Temp Pulse Resp BP Pulse Ox 97.9 F 72 18 111/71 99 08/26/18 15:55 08/26/18 15:55 08/26/18 15:55 08/26/18 15:55 08/26/18 15:55 Vital Signs Reviewed: Yes Diagnostics - Vital Signs Vital Signs Temp Pulse Resp BP Pulse Ox 08/26/18 16:31 72 25 170/84 97 08/26/18 16:17 70 23 172/84 99 08/26/18 16:15 72 18 99 08/26/18 15:55 97.9 F 72 18 111/71 99 - Laboratory Lab Results: Lab Results 08/26/18 08/26/18 08/26/18 Range/Units 16:25 16:25 16:25 WBC 6.5 (3.5-10.8) 10^3/ul RBC 4.96 (4.00-5.40) 10^6/ul Hgb 14.6 (14.0-18.0) g/dl Hct 42 (42-52) % MCV 85 (80-94) fL MCH 30 (27-31) pg MCHC 35 (31-36) g/dl RDW 15 (10.5-15) % Plt Count 142 L (150-450) 10^3/ul MPV 8.8 (7.4-10.4) um3 Neut % (Auto) 74.6 (38-83) % Lymph % (Auto) 11.1 L (25-47) % Crane % (Auto) 11.6 H (0-7) % Eos % (Auto) 2.2 (0-6) % Baso % (Auto) 0.5 (0-2) % Absolute Neuts (auto) 4.8 (1.5-7.7) 10^3/ul Absolute Lymphs (auto) 0.7 L (1.0-4.8) 10^3/ul Absolute Monos (auto) 0.8 (0-0.8) 10^3/ul Absolute Eos (auto) 0.1 (0-0.6) 10^3/ul Absolute Basos (auto) 0 (0-0.2) 10^3/ul Absolute Nucleated RBC 0 10^3/ul Nucleated RBC % 0.1 INR (Anticoag Therapy) 1.00 (0.77-1.02) APTT 32.8 (26.0-36.3) seconds Sodium (135-145) mmol/L Potassium (3.5-5.0) mmol/L Chloride (101-111) mmol/L Carbon Dioxide (22-32) mmol/L Anion Gap (2-11) mmol/L BUN (6-24) mg/dL Creatinine (0.67-1.17) mg/dL Est GFR ( Amer) (>60) Est GFR (Non-Af Amer) (>60) BUN/Creatinine Ratio (8-20) Glucose (70-100) mg/dL Lactic Acid 1.7 (0.5-2.0) mmol/L Calcium (8.6-10.3) mg/dL Total Bilirubin (0.2-1.0) mg/dL AST (13-39) U/L ALT (7-52) U/L Alkaline Phosphatase (34-104) U/L Total Creatine Kinase (10-223) U/L CK-MB (CK-2) (0.6-6.3) ng/mL Troponin I (<0.04) ng/mL B-Natriuretic Peptide ( - 100) pg/mL Total Protein (6.4-8.9) g/dL Albumin (3.2-5.2) g/dL Globulin (2-4) g/dL Albumin/Globulin Ratio (1-3) LDL Cholesterol Direct mg/dL 08/26/18 08/26/18 Range/Units 16:25 16:25 WBC (3.5-10.8) 10^3/ul RBC (4.00-5.40) 10^6/ul Hgb (14.0-18.0) g/dl Hct (42-52) % MCV (80-94) fL MCH (27-31) pg MCHC (31-36) g/dl RDW (10.5-15) % Plt Count (150-450) 10^3/ul MPV (7.4-10.4) um3 Neut % (Auto) (38-83) % Lymph % (Auto) (25-47) % Crane % (Auto) (0-7) % Eos % (Auto) (0-6) % Baso % (Auto) (0-2) % Absolute Neuts (auto) (1.5-7.7) 10^3/ul Absolute Lymphs (auto) (1.0-4.8) 10^3/ul Absolute Monos (auto) (0-0.8) 10^3/ul Absolute Eos (auto) (0-0.6) 10^3/ul Absolute Basos (auto) (0-0.2) 10^3/ul Absolute Nucleated RBC 10^3/ul Nucleated RBC % INR (Anticoag Therapy) (0.77-1.02) APTT (26.0-36.3) seconds Sodium 137 (135-145) mmol/L Potassium 3.8 (3.5-5.0) mmol/L Chloride 99 L (101-111) mmol/L Carbon Dioxide 31 (22-32) mmol/L Anion Gap 7 (2-11) mmol/L BUN 25 H (6-24) mg/dL Creatinine 0.91 (0.67-1.17) mg/dL Est GFR ( Amer) 97.8 (>60) Est GFR (Non-Af Amer) 80.8 (>60) BUN/Creatinine Ratio 27.5 H (8-20) Glucose 100 (70-100) mg/dL Lactic Acid (0.5-2.0) mmol/L Calcium 10.4 H (8.6-10.3) mg/dL Total Bilirubin 1.30 H (0.2-1.0) mg/dL AST 24 (13-39) U/L ALT 19 (7-52) U/L Alkaline Phosphatase 133 H (34-104) U/L Total Creatine Kinase 91 (10-223) U/L CK-MB (CK-2) 5.3 (0.6-6.3) ng/mL Troponin I 0.40 H* (<0.04) ng/mL B-Natriuretic Peptide 253 H ( - 100) pg/mL Total Protein 7.1 (6.4-8.9) g/dL Albumin 4.4 (3.2-5.2) g/dL Globulin 2.7 (2-4) g/dL Albumin/Globulin Ratio 1.6 (1-3) LDL Cholesterol Direct 79 mg/dL Result Diagrams: 08/26/18 16:25 08/26/18 16:25 Lab Statement: Any lab studies that have been ordered have been reviewed, and results considered in the medical decision making process. - Radiology CXR Xray Interpretation: Positive (See Comments) Radiology Interpretation Completed By: Radiologist - CXR findings are most consistent with exacerbation of cardiogenic pulmonary edema, likely with small bibasilar pleural effusions. This report was reivewed by ed physician. - EKG 1608 Cardiac Rate: NL - rate of 64 bpm EKG Rhythm: Sinus Rhythm EKG Interpretation: ST elevation in lead [address] in lead 1 and AVL , LBBB Chest Pain Course/Dx - Course Course Of Treatment: Patient is a 78 y/o M w/ c/o chest pain and possible STEMI. He arrived by private car. Provider in room at 1606, STEMI code called at this time, Dr. Licona in room at 1610, STEMI orders completed at 1620. EKG at 1608 showed sinus rhythm with rate of [address] elevation in lead [address] in lead 1 and AVL, LBBB. Chest pain is noted to have onset a couple of days ago and intermittent. He decided to come into ED as chest pain episodes have persisted for the past couple of days. Chest pain is noted to be present from left lower anterior diagonally to right upper anterior. Patient has PMHx of MN, notes that his current Sx feel similar to prior MN. He took 1 nitro 30 minutes KING MAKER with some relief. Hx of CABG x 5, bilateral endarterectomy , and 40% right carotid artery stenosis is reported per pt on recent study. Patient has pacemaker ICD in left upper chest wall. Academic Support Coordinator is Dr. Young. In room, some SOB is noted, jaw pain is denied. He notes chest pain is minimally present at the time. He denies chest pain with exertion. Patient reports he has been taking his medications. He reports a fever 5-6 weeks ago with shaking. Physical exam showed patient is ill-appearing and pacemaker ICD in left upper chest wall. While in room Dr. Licona advised additional 3x81 mg ASA, wants to hold brilinta, advises heparin bolus, advises nitro drip 2 micrograms/minute, all initiated in ED. Labs showed BNP 253, trop 0.4, CK-MB 5.3 , lactic acid 1.7, BUN 25. CXR: CXR findings are most consistent with exacerbation of cardiogenic pulmonary edema, likely with small bibasilar pleural effusions. Patient wishes to be full code, signed consent for cardiac catheterization. Patient was sent to animal laboratory helper. present during consent. Dx of STEMI. - Chest Pain Differential Diagnosis/HQI/PQRI: Acute MN, ACS, Angina, CHF - Diagnoses Provider Diagnoses: STEMI (ST elevation myocardial infarction) During the Visit The Following Alert/Code Occurred: STEMI - called at 1610 - Provider Notifications Discussed Care Of Patient With: Jaden Licona Time Discussed With Above Provider: 16:10 Instructed by Provider To: Other - While in room Dr. Licona advised additional x3 81 mg ASA, wants to hold brilinta, advises heparin bolus, advises nitro drip 2 micrograms/minute, all initiated in ED. Patient wishes to be full code, signed consent for cardiac catheter. Patient was sent to animal laboratory helper. - Critical Care Time Critical Care Time: 30-74 min - 40 minutes Discharge - Sign-Out/Discharge Documenting (check all that apply): Patient Departure - admit All imaging exams completed and their final reports reviewed: Yes - Discharge Plan Condition: Stable Disposition: ADMITTED TO [facility] - Billing Disposition and Condition Condition: STABLE Disposition: Admitted to [facility] - Attestation Statements Document Initiated by Scribe: Yes Documenting Scribe: Mike Mahoney Provider For Whom Scribe is Documenting (Include Credential): Manju Logan MD Scribe Attestation: Mike Quispe , scribed for Manju Logan MD on 08/26/18 at 2336. Scribe Documentation Reviewed: Yes Provider Attestation: The documentation as recorded by the Mike acosta accurately reflects the service I personally performed and the decisions made by , Manju Logan MD
[2018-08-26] MEDS ORDERED: NS 0.9% 1000 ML* 1,000 ML IV SCH (18:30)
[2018-08-26] MEDS ORDERED: Ondansetron INJ* 2 MG/ML VIAL IV PRN (19:34)
[2018-08-26] MEDS: LORazepam TAB(*) 1 MG PO PRN (20:45)
[2018-08-26] MEDS: Metoprolol Tartrate TAB* 50 mg PO SCH (20:45)
[2018-08-26] MEDS: Tamsulosin CAP* 0.4 MG PO SCH (20:45)
[2018-08-26] MEDS: Atorvastatin* 80 MG TAB PO SCH (20:45)
--- NOTE | 2018-08-26 22:21 | HP ---
HISTORY AND PHYSICAL: ADDENDUM: The Hospitalist will be following the patient as primary physician starting later tonight. [id number]/[facility] #: [id number]
--- NOTE | 2018-08-27 03:16 | CONS ---
CC: Dr. Hailey Izquierdo; Dr. Abhijit Young ADMISSION HISTORY AND PHYSICAL DATE : 08/26/18 REASON FOR CONSULT: Call to the emergency room by Dr. Manju Logan, emergency room physician, as she called a STEMI alert for this patient. HISTORY OF PRESENT ILLNESS: The patient is a pleasant 78-year-old gentleman who states he was in his usual state of health with a known history of coronary artery disease that will be outlined below. He states over the past several weeks he has not been feeling well and has progressive episodes of a chest discomfort that radiates from the lower left chest to the right shoulder. He says that when it comes on, if he does not take a nitroglycerin, it can last some 20 minutes. Interestingly, he does not necessarily have it, specifically when he is walking, but he does notice it if he gets emotionally upset or interestingly if he drinks coffee or any other type of caffeinated beverage or if he is close to nicotine. If he is around people who smoke, he would develop the chest discomfort sensation. In general he feels weak and like he has lost much muscle over the past couple of years. Over the past several months he states he has felt significantly short of breath doing any activity. Today, he had recurrent symptoms and because of it, his drove him into the emergency room at his request. By the time he got there, he had minimal symptoms left; however, an EKG was obtained that Dr. Logan interpreted as being different from his last one from 07/16/18. This one showed ST elevation in lead III and aVF with further ST segment depression in I and aVL. There was minimal horizontal ST, minimally depressed and isolated in V2, and V6 had mild downsloping as well. His prior EKG from 07/16/18 had showed Q waves in the inferior leads with downsloping in I and aVL, but no downsloping in V6. Given these findings, a discussion was had with the patient. The decision was made to proceed to the cardiovascular laboratory to assess him for patency of his prior grafts and his [place] coronary arteries. The risks and benefits were explained, he understood and wished to proceed. The patient has a history of coronary artery disease dating back to before 1996 when he apparently had coronary artery disease and there was some report that he had stents placed, although we had no history of that. He then, in 1996, underwent a 5-vessel bypass with a HOU graft to the LAD and a saphenous vein graft that connected to 4 vessels. It connected to the right-sided posterior descending artery, to an obtuse marginal branch, to the ramus intermedius, and to a diagonal branch. He subsequently has been followed along clinically and last checked with a nuclear stress test that was performed back in August 2017. At that point in time, he had a decreased ejection fraction with a large matched fixed defect to the inferior and lateral wall showing a large previous infarct with an overall ejection fraction quoted at 28%. At that time, the patient was noted to be markedly hypertensive. Dr. Ware was called for discussion of results of the stress test and recommended changes in additional medical management. Of note, the patient does have a dual chamber pacing defibrillator, a [employer], model [id number], that was implanted on 11/03/11. PAST MEDICAL HISTORY: Includes history of essential hypertension, coronary artery disease, spinal stenosis to the lumbar region. He has had a reported carotid artery disease and has been intervened on by a vascular surgeon at the [facility]. He also has a history of gastroesophageal reflux and a history of chronic muscle wasting myopathy. PAST SURGICAL HISTORY: Includes coronary artery bypass graft. MEDICATIONS: When last reported on 05/24/[address] Young's office include: 1. Valsartan/hydrochlorothiazide 320/25 mg daily. 2. Lorazepam 1 tablet 2 to 3 times a day as needed. 3. Aspirin 81 mg a day. 4. Metoprolol tartrate 50 mg twice a day. 5. Atorvastatin 80 mg a day. 6. Omeprazole 20 mg a day. 7. Nitrostat as needed. 8. Tamsulosin 0.4 mg 1 a day. 9. Amlodipine 5 mg a day. 10. Coenzyme Q10. 11. Vitamin E. 12. Fish oil daily. 13. Magnesium 250 mg daily. 14. Potassium ER 20 mEq daily. When reviewing the bottles that he brought into the emergency room, however, the metoprolol bottle appeared to be 50 mg of XL daily. There was no bottle for potassium or magnesium; and no bottle for coenzyme Q10, vitamin E, or fish oil. ALLERGIES: He has an allergy to NIACIN. PHYSICAL EXAM: When I see him in the emergency room, reveals a pleasant gentleman, who when I talk to, states he has minimal if any chest discomfort present. He is resting comfortably and does not appear in any degree of acute distress. His vital signs in the emergency room reveal a blood pressure of 172/ 84, pulse is 70 and regular, O2 saturation 99, respirations 19. Neck is supple. There is no obvious increased JVP that I can readily appreciate. There is a prior scar from a right carotid endarterectomy seen. Conjunctivae pink. Sclerae clear. Mouth reveals moist mucosa. Lungs reveal no accessory muscle usage. There are decreased breath sounds noted in both bases, but no active rales or rhonchi or wheezes. Heart reveals no visible heaves. No palpable heaves or thrills. In general, heart sounds are distant. No significant systolic or diastolic murmur. Abdomen is obese, soft, and nontender. Extremities have, at best, minimal edema. Femoral pulses present bilaterally. Neuro: The patient is alert, oriented with normal mentation. Musculoskeletal: The patient moves all extremities appropriate. Psychological: The patient with normal affect. DIAGNOSTIC STUDIES/LAB DATA: Electrocardiogram - as described above. OVERALL ASSESSMENT: Chan now presents with an abnormal EKG with progressive symptoms that are somewhat concerning in nature but still somewhat atypical. He does have shortness of breath with exertional activity, but his left lower chest and right upper shoulder discomfort, although gets better with nitroglycerin, does not always seem to be one provoked by angina. He does, however, state that it is increasing in frequency and is worrisome in nature. Given his abnormal EKG compared to his most recent one, I discussed with him proceeding to cardiac catheterization to assess the status of his bypass graft and to look if there are any critical stenoses that could be intervened on. The risks and benefits were explained and he understood and wished to proceed. Further management will be made pending results of the cardiac catheterization. We will review the laboratory results when they become available as well. In light of his increased blood pressure, we will start him on IV nitroglycerin at 2 mcg per minute and titrate it as needed for blood pressure control. [id number]/[facility] #: [id number] JOVAN
[2018-08-27 05:30] LABS: ABS Basophils 0 10^3/ul (0-0.2); ABS Eosinophils 0.1 10^3/ul (0-0.6); ABS Lymphocytes 0.5 10^3/ul (1.0-4.8); ABS Monocytes 0.7 10^3/ul (0-0.8); ABS Neutrophils 6.8 10^3/ul (1.5-7.7); ABS Nucleated RBC 0 10^3/ul; Eosinophil % 1.4 % (0-6); Hematocrit 36 % (42-52); Hemoglobin 12.8 g/dl (14.0-18.0); Lymphocyte % 5.8 % (25-47); Mean Corpuscular HGB Conc 35 g/dl (31-36); Mean Corpuscular Hemoglobin 30 pg (27-31); Mean Corpuscular Volume 85 fL (80-94); Mean Platelet Volume 9.1 um3 (7.4-10.4); Nucleated Red Blood Cells % 0.1; Platelet Count 131 10^3/ul (150-450); Red Blood Count 4.31 10^6/ul (4.00-5.40); Red Cell Distribution Width 14 % (10.5-15); White Blood Count 8.1 10^3/ul (3.5-10.8)
[2018-08-27 05:48] LABS: EGFR Non-African American 96.5 (>60)
[2018-08-27] MEDS ORDERED: Omeprazole CAP* 20 MG PO SCH (07:30)
[2018-08-27] MEDS ORDERED: Metoprolol Succinate XL TAB* 50 MG PO SCH (09:00)
[2018-08-27] MEDS: amLODIPine TAB* 5 MG PO SCH (09:04)
[2018-08-27] MEDS: Atorvastatin* 80 MG TAB PO SCH (09:04)
[2018-08-27] MEDS: Metoprolol Tartrate TAB* 50 mg PO SCH ×2 (09:05→21:25)
[2018-08-27] MEDS: Aspirin EC TAB* 81 MG TAB.EC PO SCH (09:05)
[2018-08-27] MEDS: Hydrochlorothiazide TAB* 25 MG PO SCH (09:05)
[2018-08-27] MEDS ORDERED: Isosorbide Mononitrate ER TAB* 30 MG PO ONE (11:08)
[2018-08-27] MEDS ORDERED: Isosorbide Mononitrate ER TAB* 30 MG ONE (11:21)
[2018-08-27] MEDS: CMCS:Irbesartan (NF) 150 MG TAB PO SCH (11:51)
[2018-08-27] MEDS ORDERED: Clopidogrel TAB* 300 MG PO ONE (12:11)
[2018-08-27] MEDS: Enoxaparin(*) 80 MG/0.8 ML SYR SUBCUT SCH ×2 (12:54→23:58)
--- NOTE | 2018-08-27 15:22 | PN ---
Subjective Date of Service: 08/27/18 Interval History: Seen this AM at bedside. No additional chest or shoulder pain OOB to chair No SOB, no N/V LH Objective Active Medications: Amlodipine Besylate (Norvasc Tab*) 5 mg PO DAILY [facility] Last Admin: 08/27/18 09:04 Dose: 5 mg Aspirin (Aspirin Ec Tab*) 81 mg PO DAILY [facility] Last Admin: 08/27/18 09:05 Dose: 81 mg Atorvastatin Calcium (Lipitor*) 80 mg PO 2100 ONE Stop: 08/27/18 21:01 Clopidogrel Bisulfate (Plavix Tab*) 75 mg PO DAILY [facility] Enoxaparin Sodium (Lovenox(*)) 80 mg SUBCUT Q12H ARTHUR Stop: 08/29/18 13:00 Last Admin: 08/27/18 12:54 Dose: 80 mg Hydrochlorothiazide (Hydrodiuril Tab*) 12.5 mg PO DAILY [facility] Last Admin: 08/27/18 09:05 Dose: 12.5 mg Nitroglycerin/Dextrose (Nitroglycerin Drip*) 25,000 mcg in 250 mls @ 1.2 mls/ hr IV .(Initial Rate) [facility]; Protocol Last Admin: 08/26/18 16:37 Dose: 1.2 mls/hr Irbesartan (Avapro (Nf)) 300 mg PO DAILY [facility] Last Admin: 08/27/18 11:51 Dose: 300 mg Isosorbide Mononitrate (Imdur Er Tab*) 30 mg PO DAILY [facility] Lorazepam (Ativan Tab(*)) 1 mg PO TID PRN PRN Reason: ANXIETY Last Admin: 08/26/18 20:45 Dose: 1 mg Metoprolol Tartrate (Lopressor Tab*) 50 mg PO Q12HR [facility] Last Admin: 08/27/18 09:05 Dose: 50 mg Ondansetron HCl (Zofran Inj*) 4 mg IV Q4H PRN PRN Reason: NAUSEA/VOMITING Pantoprazole Sodium (Protonix Tab (Nf)) 40 mg PO DAILY [facility] Tamsulosin HCl (Flomax Cap*) 0.4 mg PO BEDTIME [facility] Last Admin: 08/26/18 20:45 Dose: 0.4 mg Vital Signs - 8 hr 08/27/18 08/27/18 08/27/18 07:30 07:45 07:53 Temperature 97.6 F Pulse Rate 64 65 Respiratory 17 16 Rate Blood Pressure 146/72 139/66 (mmHg) O2 Sat by Pulse 94 94 Oximetry 08/27/18 08/27/18 08/27/18 08:00 08:15 08:30 Temperature Pulse Rate 66 65 68 Respiratory 18 29 15 Rate Blood Pressure 148/75 148/72 152/76 (mmHg) O2 Sat by Pulse 95 94 95 Oximetry 08/27/18 08/27/18 08/27/18 08:46 09:00 09:15 Temperature Pulse Rate 70 72 75 Respiratory 16 15 19 Rate Blood Pressure 145/79 141/85 105/73 (mmHg) O2 Sat by Pulse 97 95 96 Oximetry 08/27/18 08/27/18 08/27/18 09:31 09:45 10:00 Temperature Pulse Rate 76 71 76 Respiratory 14 14 15 Rate Blood Pressure 143/59 117/54 112/67 (mmHg) O2 Sat by Pulse 97 95 96 Oximetry 08/27/18 08/27/18 08/27/18 10:15 10:30 10:45 Temperature Pulse Rate 71 70 67 Respiratory 16 13 12 Rate Blood Pressure 125/62 114/54 131/64 (mmHg) O2 Sat by Pulse 96 95 94 Oximetry 08/27/18 08/27/18 08/27/18 11:00 11:16 11:17 Temperature Pulse Rate 76 77 82 Respiratory 23 23 16 Rate Blood Pressure 153/74 155/72 (mmHg) O2 Sat by Pulse 96 97 97 Oximetry 08/27/18 08/27/18 08/27/18 11:30 11:46 12:00 Temperature Pulse Rate 69 64 60 Respiratory 17 14 12 Rate Blood Pressure 107/62 139/74 130/69 (mmHg) O2 Sat by Pulse 95 95 95 Oximetry 08/27/18 08/27/18 08/27/18 12:15 12:30 12:45 Temperature Pulse Rate 61 60 61 Respiratory 13 16 16 Rate Blood Pressure 132/73 121/64 122/64 (mmHg) O2 Sat by Pulse 94 94 94 Oximetry 08/27/18 08/27/18 08/27/18 13:00 13:17 13:30 Temperature Pulse Rate 68 72 70 Respiratory 22 28 24 Rate Blood Pressure 118/63 91/50 94/51 (mmHg) O2 Sat by Pulse 95 94 95 Oximetry Oxygen Devices in Use Now: None Appearance: sitting in chair, NAD Eyes: No Scleral Icterus, PERRLA Ears/Nose/Mouth/Throat: NL Teeth, Lips, Gums, Clear Oropharnyx Neck: NL Appearance and Movements; NL JVP, Trachea Midline Respiratory: Symmetrical Chest Expansion and Respiratory Effort, Clear to Auscultation Cardiovascular: RRR Abdominal: NL Sounds; No Tenderness; No Distention, No Hepatosplenomegaly Extremities: - - trace le edema Skin: - - right groin access c/d/i no hematoma or bruit Neurological: Alert and Oriented x 3 Result Diagrams: 08/27/18 05:00 08/27/18 05:00 Additional Lab and Data: Lab Results 08/26/18 08/26/18 08/26/18 Range/Units 16:25 16:25 16:25 WBC 6.5 (3.5-10.8) 10^3/ul RBC 4.96 (4.00-5.40) 10^6/ul Hgb 14.6 (14.0-18.0) g/dl Hct 42 (42-52) % MCV 85 (80-94) fL MCH 30 (27-31) pg MCHC 35 (31-36) g/dl RDW 15 (10.5-15) % Plt Count 142 L (150-450) 10^3/ul MPV 8.8 (7.4-10.4) um3 Neut % (Auto) 74.6 (38-83) % Lymph % (Auto) 11.1 L (25-47) % [place] % (Auto) 11.6 H (0-7) % Eos % (Auto) 2.2 (0-6) % Baso % (Auto) 0.5 (0-2) % Absolute Neuts (auto) 4.8 (1.5-7.7) 10^3/ul Absolute Lymphs (auto) 0.7 L (1.0-4.8) 10^3/ul Absolute Monos (auto) 0.8 (0-0.8) 10^3/ul Absolute Eos (auto) 0.1 (0-0.6) 10^3/ul Absolute Basos (auto) 0 (0-0.2) 10^3/ul Absolute Nucleated RBC 0 10^3/ul Nucleated RBC % 0.1 INR (Anticoag Therapy) 1.00 (0.77-1.02) APTT 32.8 (26.0-36.3) seconds Sodium (135-145) mmol/L Potassium (3.5-5.0) mmol/L Chloride (101-111) mmol/L Carbon Dioxide (22-32) mmol/L Anion Gap (2-11) mmol/L BUN (6-24) mg/dL Creatinine (0.67-1.17) mg/dL Est GFR ( Amer) (>60) Est GFR (Non-Af Amer) (>60) BUN/Creatinine Ratio (8-20) Glucose (70-100) mg/dL Lactic Acid 1.7 (0.5-2.0) mmol/L Calcium (8.6-10.3) mg/dL Total Bilirubin (0.2-1.0) mg/dL AST (13-39) U/L ALT (7-52) U/L Alkaline Phosphatase (34-104) U/L Total Creatine Kinase (10-223) U/L CK-MB (CK-2) (0.6-6.3) ng/mL Troponin I (<0.04) ng/mL B-Natriuretic Peptide ( - 100) pg/mL Total Protein (6.4-8.9) g/dL Albumin (3.2-5.2) g/dL Globulin (2-4) g/dL Albumin/Globulin Ratio (1-3) LDL Cholesterol Direct mg/dL 08/26/18 08/26/18 Range/Units 16:25 16:25 WBC (3.5-10.8) 10^3/ul RBC (4.00-5.40) 10^6/ul Hgb (14.0-18.0) g/dl Hct (42-52) % MCV (80-94) fL MCH (27-31) pg MCHC (31-36) g/dl RDW (10.5-15) % Plt Count (150-450) 10^3/ul MPV (7.4-10.4) um3 Neut % (Auto) (38-83) % Lymph % (Auto) (25-47) % [place] % (Auto) (0-7) % Eos % (Auto) (0-6) % Baso % (Auto) (0-2) % Absolute Neuts (auto) (1.5-7.7) 10^3/ul Absolute Lymphs (auto) (1.0-4.8) 10^3/ul Absolute Monos (auto) (0-0.8) 10^3/ul Absolute Eos (auto) (0-0.6) 10^3/ul Absolute Basos (auto) (0-0.2) 10^3/ul Absolute Nucleated RBC 10^3/ul Nucleated RBC % INR (Anticoag Therapy) (0.77-1.02) APTT (26.0-36.3) seconds Sodium 137 (135-145) mmol/L Potassium 3.8 (3.5-5.0) mmol/L Chloride 99 L (101-111) mmol/L Carbon Dioxide 31 (22-32) mmol/L Anion Gap 7 (2-11) mmol/L BUN 25 H (6-24) mg/dL Creatinine 0.91 (0.67-1.17) mg/dL Est GFR ( Amer) 97.8 (>60) Est GFR (Non-Af Amer) 80.8 (>60) BUN/Creatinine Ratio 27.5 H (8-20) Glucose 100 (70-100) mg/dL Lactic Acid (0.5-2.0) mmol/L Calcium 10.4 H (8.6-10.3) mg/dL Total Bilirubin 1.30 H (0.2-1.0) mg/dL AST 24 (13-39) U/L ALT 19 (7-52) U/L Alkaline Phosphatase 133 H (34-104) U/L Total Creatine Kinase 91 (10-223) U/L CK-MB (CK-2) 5.3 (0.6-6.3) ng/mL Troponin I 0.40 H* (<0.04) ng/mL B-Natriuretic Peptide 253 H ( - 100) pg/mL Total Protein 7.1 (6.4-8.9) g/dL Albumin 4.4 (3.2-5.2) g/dL Globulin 2.7 (2-4) g/dL Albumin/Globulin Ratio 1.6 (1-3) LDL Cholesterol Direct 79 mg/dL Microbiology and Other Data: Microbiology 08/26/18 18:10 Nasal Screen MRSA (PCR) - Final Nasal Mrsa Not Detected Assess/Plan/Problems-Billing Assessment: 78 yo M h/o CAD/CABG, PVD, p/w chest discomfort and EKG changes s/p PCI notable for failed jump vein graft and patent HOU - Patient Problems (1) ACS (acute coronary syndrome) Comment: Appreciated cardiology guidance suspect vein graft loss was not acute troponin now trending down loevnox x 48 hrs ASA and Palvix imdur nitro gtt metoprolol (2) Hyperlipidemia Code(s): E78.5 - HYPERLIPIDEMIA, UNSPECIFIED SNOMED Code(s): 22270274 Comment: c/w atorvastatin (3) Hypertension Comment: metoprolol, HCTZ, norvasc, imdur, irbesartan (4) DVT prophylaxis Comment: lovenox
[2018-08-27] MEDS ORDERED: Atorvastatin* 80 MG TAB PO ONE (21:00)
[2018-08-27] MEDS: Tamsulosin CAP* 0.4 MG PO SCH (21:25)
[2018-08-27] MEDS: LORazepam TAB(*) 1 MG PO PRN (22:11)
[2018-08-28] MEDS ORDERED: Acetaminophen TAB* 325 MG PO PRN (04:04)
[2018-08-28 06:03] LABS: ABS Basophils 0 10^3/ul (0-0.2); ABS Eosinophils 0.1 10^3/ul (0-0.6); ABS Lymphocytes 0.6 10^3/ul (1.0-4.8); ABS Monocytes 0.7 10^3/ul (0-0.8); ABS Nucleated RBC 0 10^3/ul; Eosinophil % 1.6 % (0-6); Hematocrit 36 % (42-52); Hemoglobin 12.6 g/dl (14.0-18.0); Lymphocyte % 8.9 % (25-47); Mean Corpuscular HGB Conc 35 g/dl (31-36); Mean Corpuscular Hemoglobin 30 pg (27-31); Mean Corpuscular Volume 85 fL (80-94); Mean Platelet Volume 8.9 um3 (7.4-10.4); Nucleated Red Blood Cells % 0.1; Platelet Count 120 10^3/ul (150-450); Red Blood Count 4.24 10^6/ul (4.00-5.40); Red Cell Distribution Width 15 % (10.5-15); White Blood Count 6.4 10^3/ul (3.5-10.8)
[2018-08-28 06:28] LABS: EGFR Non-African American 92.4 (>60)
[2018-08-28] MEDS ORDERED: Potassium Chlor TAB* 20 MEQ TAB.ER PO ONE (08:53)
[2018-08-28] MEDS ORDERED: Magnesium Sulfate 2 GM IV* 2 GM/50 ML BAG IVPB ONE (08:53)
[2018-08-28] MEDS: CMC:Pantoprazole TAB (NF) 40 MG TAB PO SCH (09:33)
[2018-08-28] MEDS: Metoprolol Tartrate TAB* 50 mg PO SCH ×2 (09:33→20:42)
[2018-08-28] MEDS: CMCS:Irbesartan (NF) 150 MG TAB PO SCH (09:33)
[2018-08-28] MEDS: Isosorbide Mononitrate ER TAB* 30 MG PO SCH (09:34)
[2018-08-28] MEDS: amLODIPine TAB* 5 MG PO SCH (09:34)
[2018-08-28] MEDS: Hydrochlorothiazide TAB* 25 MG PO SCH (09:34)
[2018-08-28] MEDS: Clopidogrel TAB* 75 MG PO SCH (09:34)
[2018-08-28] MEDS: Aspirin EC TAB* 81 MG TAB.EC PO SCH (09:34)
--- NOTE | 2018-08-28 12:23 | ECHO ---
Patient: SANTOS ALMANZA [facility] Rec#: [id number] : 1940 Date: 08/28/2018 Age: 78y Height: 168 cm / 66.1 in Weight: 92 kg / 202.8 lbs Sex: M BSA: 2.02 Room#: ICU 1 Admit Date#: 08/26/2018 Type: Inpatient Referring: Abhijit Young MD Reading: Abhijit Young MD Sales Engineer Account Manager: Ericka Wayne,RDCS,RDMS CC: Hailey Krause MD Transthoracic Echocardiogram Indication: CP BP: 135/65 HR: 70 Rhythm: NSR Findings History: S/P STEMI and PCI. CAD, CABG, HTN, ICD Technical Comments: The study quality is good. Left Ventricle: The left ventricular chamber size is normal. Mild to moderate concentric left ventricular hypertrophy is observed. Basal interventricular septum shows moderate thickening. There is mildly decreased left ventricular systolic function. The estimated ejection fraction is 40-45%. There is an E to A reversal in the mitral valve flow pattern suggestive of diastolic dysfunction. The basal inferolateral, basal inferior, mid inferolateral, mid inferior, and apical lateral wall segments are akinetic (score 3). Overall wallmotion score index is 3.00 Left Atrium: The left atrium is moderately dilated. Right Ventricle: The right ventricular chamber size and systolic function are within normal limits. A pacemaker wire is visualized in the right ventricle. Right Atrium: The right atrial cavity size is normal. A pacemaker wire is visualized in the right atrium. Aortic Valve: The aortic valve is trileaflet. The aortic valve leaflets are mildly thickened. There is aortic annular calcification. There is no evidence of aortic regurgitation. There is no evidence of aortic stenosis. Mitral Valve: The mitral valve leaflets are mildly thickened. There is mild to moderate mitral regurgitation. There is no evidence of mitral stenosis. Tricuspid Valve: The tricuspid valve leaflets are normal. There is trace tricuspid regurgitation. Unable to estimate the right ventricular systolic pressure. Pulmonic Valve: The pulmonic valve appears normal. There is a trace pulmonic regurgitation. There is no pulmonic stenosis. Pericardium: There is no significant pericardial effusion. Aorta: There is mild dilatation of the ascending aorta. There is no dilatation of the aortic arch. There is no dilation of the aortic root. Pulmonary Artery: The main pulmonary artery is not well visualized. Venous: The inferior vena cava is dilated. There is less than 50% respiratory change in the inferior vena cava dimension. Conclusions There is mildly decreased left ventricular systolic function. The estimated ejection fraction is 40-45%. The left ventricular chamber size is normal. Mild to moderate concentric left ventricular hypertrophy is observed. The basal inferolateral, basal inferior, mid inferolateral, mid inferior, and apical lateral wall segments are akinetic (score 3). The left atrium is moderately dilated. There is mild to moderate mitral regurgitation. There is mild dilatation of the ascending aorta. Since the prior echocardiogram completed 08/22/17, there is no significant change. Measurements Name Value Normal Range RVIDd (AP) 2D 2.4 cm (0.9 - 2.6) RVDdMajor (2D) 2.6 cm (2.2 - 4.4) RAd ISD 4CH 4.8 cm (3.4 - 4.9) RA (A4C)W 3.3 cm (2.9 - 4.6) IVSd (2D) 1.7 cm (0.6 - 1) LVPWd (2D) 1.3 cm (0.6 - 1) LVIDd (2D) 4.7 cm (3.6 - 5.4) LVIDs (2D) 3.6 cm - LV FS (2D) 24 % (25 - 45) Aortic Annulus 2.1 cm (1.4 - 2.6) Ao root diameter (2D) 3.5 cm (2.1 - 3.5) Ascending Ao 3.9 cm (2.1 - 3.4) Aortic arch 3.2 cm (1.8 - 3.4) LA dimension (AP) 2D 4.7 cm (2.3 - 3.8) LAd ISD 4CH 6.5 cm (2.9 - 5.3) LA ISD 4CH W 5.4 cm (2.5 - 4.5) Name Value Normal Range LA ESV BP (A/L) index 44 ml/m2 - Name Value Normal Range MV E-wave Vmax 0.8 m/sec - MV deceleration time 129 msec - MV A-wave Vmax 1.1 m/sec - MV E:A ratio 0.7 ratio - LV septal e' Vmax 0.05 m/sec - LV lateral e' Vmax 0.06 m/sec - LV E:e' septal ratio 17 ratio - LV E:e' lateral ratio 14 ratio - Name Value Normal Range AV Vmax 1.2 m/sec - AV VTI 27 cm - AV peak gradient 6 mmHg - AV mean gradient 3 mmHg - LVOT Vmax 0.6 m/sec - LVOT VTI 13 cm - LVOT peak gradient 1.4 mmHg - LVOT mean gradient 1 mmHg - WARNER Vmax 0.4 m/sec - Name Value Normal Range MV Vmax 1.1 m/sec - MV VTI 35 cm - MV peak gradient 5 mmHg - MV mean gradient 3 mmHg - MV PHT 95 msec - MVA (PHT) 2.3 cm2 - Name Value Normal Range RAP 15 mmHg - IVC diameter 2.3 cm - Name Value Normal Range PV Vmax 0.9 m/sec - PV peak gradient 3.2 mmHg - Wallmotion BAS Not Seen BA Not Seen BAL Not Seen MIRLANDE Akinetic BI Akinetic BIS Not Seen MAS Not Seen MA Not Seen MAL Not Seen MIL Akinetic IN Akinetic MIS Not Seen Not Seen AA Not Seen AL Akinetic AI Not Seen APEX Not Seen
--- NOTE | 2018-08-28 13:47 | PN ---
Subjective Date of Service: 08/28/18 Interval History: Leg pain overnight that resolved with dangling legs over side of bed No other pain SOB after walking to bed when he lies down nitro gtt still running Objective Active Medications: Acetaminophen (Tylenol Tab*) 650 mg PO Q6H PRN PRN Reason: PAIN Amlodipine Besylate (Norvasc Tab*) 5 mg PO DAILY [facility] Last Admin: 08/28/18 09:34 Dose: 5 mg Aspirin (Aspirin Ec Tab*) 81 mg PO DAILY [facility] Last Admin: 08/28/18 09:34 Dose: 81 mg Clopidogrel Bisulfate (Plavix Tab*) 75 mg PO DAILY [facility] Last Admin: 08/28/18 09:34 Dose: 75 mg Enoxaparin Sodium (Lovenox(*)) 80 mg SUBCUT Q12H [facility] Stop: 08/29/18 13:00 Last Admin: 08/27/18 23:58 Dose: 80 mg Hydrochlorothiazide (Hydrodiuril Tab*) 12.5 mg PO DAILY [facility] Last Admin: 08/28/18 09:34 Dose: 12.5 mg Nitroglycerin/Dextrose (Nitroglycerin Drip*) 25,000 mcg in 250 mls @ 1.2 mls/ hr IV .(Initial Rate) [facility]; Protocol Last Admin: 08/26/18 16:37 Dose: 1.2 mls/hr Irbesartan (Avapro (Nf)) 300 mg PO DAILY [facility] Last Admin: 08/28/18 09:33 Dose: 300 mg Isosorbide Mononitrate (Imdur Er Tab*) 30 mg PO DAILY [facility] Last Admin: 08/28/18 09:34 Dose: 30 mg Lorazepam (Ativan Tab(*)) 1 mg PO TID PRN PRN Reason: ANXIETY Last Admin: 08/27/18 22:11 Dose: 1 mg Metoprolol Tartrate (Lopressor Tab*) 50 mg PO Q12HR [facility] Last Admin: 08/28/18 09:33 Dose: 50 mg Ondansetron HCl (Zofran Inj*) 4 mg IV Q4H PRN PRN Reason: NAUSEA/VOMITING Pantoprazole Sodium (Protonix Tab (Nf)) 40 mg PO DAILY [facility] Last Admin: 08/28/18 09:33 Dose: 40 mg Tamsulosin HCl (Flomax Cap*) 0.4 mg PO BEDTIME [facility] Last Admin: 10/13/18 21:25 Dose: 0.4 mg Vital Signs - 8 hr 08/28/18 08/28/18 08/28/18 05:45 05:51 06:00 Temperature Pulse Rate 69 69 Respiratory 21 21 14 Rate Blood Pressure 109/60 135/65 (mmHg) O2 Sat by Pulse 94 94 Oximetry 08/28/18 08/28/18 07:56 11:13 Temperature 97.2 F 98.3 F Pulse Rate Respiratory Rate Blood Pressure (mmHg) O2 Sat by Pulse Oximetry Oxygen Devices in Use Now: None Appearance: sitting in chair, NAD Eyes: No Scleral Icterus, PERRLA Ears/Nose/Mouth/Throat: NL Teeth, Lips, Gums, Clear Oropharnyx Neck: NL Appearance and Movements; NL JVP, Trachea Midline Respiratory: Symmetrical Chest Expansion and Respiratory Effort, Clear to Auscultation Cardiovascular: RRR Abdominal: NL Sounds; No Tenderness; No Distention, No Hepatosplenomegaly Lymphatic: No Cervical Adenopathy Extremities: - - non pitting edema Skin: - - right groin c/d/i no hematoma or bruit Neurological: Alert and Oriented x 3 Result Diagrams: 08/28/18 05:45 08/28/18 05:45 Additional Lab and Data: Lab Results 08/26/18 08/26/18 08/26/18 Range/Units 16:25 16:25 16:25 WBC 6.5 (3.5-10.8) 10^3/ul RBC 4.96 (4.00-5.40) 10^6/ul Hgb 14.6 (14.0-18.0) g/dl Hct 42 (42-52) % MCV 85 (80-94) fL MCH 30 (27-31) pg MCHC 35 (31-36) g/dl RDW 15 (10.5-15) % Plt Count 142 L (150-450) 10^3/ul MPV 8.8 (7.4-10.4) um3 Neut % (Auto) 74.6 (38-83) % Lymph % (Auto) 11.1 L (25-47) % [place] % (Auto) 11.6 H (0-7) % Eos % (Auto) 2.2 (0-6) % Baso % (Auto) 0.5 (0-2) % Absolute Neuts (auto) 4.8 (1.5-7.7) 10^3/ul Absolute Lymphs (auto) 0.7 L (1.0-4.8) 10^3/ul Absolute Monos (auto) 0.8 (0-0.8) 10^3/ul Absolute Eos (auto) 0.1 (0-0.6) 10^3/ul Absolute Basos (auto) 0 (0-0.2) 10^3/ul Absolute Nucleated RBC 0 10^3/ul Nucleated RBC % 0.1 INR (Anticoag Therapy) 1.00 (0.77-1.02) APTT 32.8 (26.0-36.3) seconds Sodium (135-145) mmol/L Potassium (3.5-5.0) mmol/L Chloride (101-111) mmol/L Carbon Dioxide (22-32) mmol/L Anion Gap (2-11) mmol/L BUN (6-24) mg/dL Creatinine (0.67-1.17) mg/dL Est GFR ( Amer) (>60) Est GFR (Non-Af Amer) (>60) BUN/Creatinine Ratio (8-20) Glucose (70-100) mg/dL Lactic Acid 1.7 (0.5-2.0) mmol/L Calcium (8.6-10.3) mg/dL Total Bilirubin (0.2-1.0) mg/dL AST (13-39) U/L ALT (7-52) U/L Alkaline Phosphatase (34-104) U/L Total Creatine Kinase (10-223) U/L CK-MB (CK-2) (0.6-6.3) ng/mL Troponin I (<0.04) ng/mL B-Natriuretic Peptide ( - 100) pg/mL Total Protein (6.4-8.9) g/dL Albumin (3.2-5.2) g/dL Globulin (2-4) g/dL Albumin/Globulin Ratio (1-3) LDL Cholesterol Direct mg/dL 08/26/18 08/26/18 Range/Units 16:25 16:25 WBC (3.5-10.8) 10^3/ul RBC (4.00-5.40) 10^6/ul Hgb (14.0-18.0) g/dl Hct (42-52) % MCV (80-94) fL MCH (27-31) pg MCHC (31-36) g/dl RDW (10.5-15) % Plt Count (150-450) 10^3/ul MPV (7.4-10.4) um3 Neut % (Auto) (38-83) % Lymph % (Auto) (25-47) % [place] % (Auto) (0-7) % Eos % (Auto) (0-6) % Baso % (Auto) (0-2) % Absolute Neuts (auto) (1.5-7.7) 10^3/ul Absolute Lymphs (auto) (1.0-4.8) 10^3/ul Absolute Monos (auto) (0-0.8) 10^3/ul Absolute Eos (auto) (0-0.6) 10^3/ul Absolute Basos (auto) (0-0.2) 10^3/ul Absolute Nucleated RBC 10^3/ul Nucleated RBC % INR (Anticoag Therapy) (0.77-1.02) APTT (26.0-36.3) seconds Sodium 137 (135-145) mmol/L Potassium 3.8 (3.5-5.0) mmol/L Chloride 99 L (101-111) mmol/L Carbon Dioxide 31 (22-32) mmol/L Anion Gap 7 (2-11) mmol/L BUN 25 H (6-24) mg/dL Creatinine 0.91 (0.67-1.17) mg/dL Est GFR ( Amer) 97.8 (>60) Est GFR (Non-Af Amer) 80.8 (>60) BUN/Creatinine Ratio 27.5 H (8-20) Glucose 100 (70-100) mg/dL Lactic Acid (0.5-2.0) mmol/L Calcium 10.4 H (8.6-10.3) mg/dL Total Bilirubin 1.30 H (0.2-1.0) mg/dL AST 24 (13-39) U/L ALT 19 (7-52) U/L Alkaline Phosphatase 133 H (34-104) U/L Total Creatine Kinase 91 (10-223) U/L CK-MB (CK-2) 5.3 (0.6-6.3) ng/mL Troponin I 0.40 H* (<0.04) ng/mL B-Natriuretic Peptide 253 H ( - 100) pg/mL Total Protein 7.1 (6.4-8.9) g/dL Albumin 4.4 (3.2-5.2) g/dL Globulin 2.7 (2-4) g/dL Albumin/Globulin Ratio 1.6 (1-3) LDL Cholesterol Direct 79 mg/dL Microbiology and Other Data: Microbiology 08/26/18 18:10 Nasal Screen MRSA (PCR) - Final Nasal Mrsa Not Detected Assess/Plan/Problems-Billing Assessment: 78 yo M h/o CAD/CABG, PVD, p/w chest discomfort and EKG changes s/p PCI notable for failed jump vein graft and patent HOU - Patient Problems (1) ACS (acute coronary syndrome) Comment: Repeat troponin draw for unclear reasons (reportedly RN called overnight coverage and reported no troponin order so it was added, but not for symptoms) Troponin increasing. Trend until plateus. Nitro gtt unto troponin peaks suspect vein graft loss was not acute troponin now trending down loevnox x 48 hrs or until troponin down trending ASA and Palvix imdur metoprolol norvasc Uptitrate imdur as able after nitro gtt turned off (2) Hyperlipidemia Code(s): E78.5 - HYPERLIPIDEMIA, UNSPECIFIED SNOMED Code(s): 20448159 Comment: c/w atorvastatin (3) Hypertension Comment: metoprolol, HCTZ, norvasc, imdur, irbesartan (4) DVT prophylaxis Comment: beliax
[2018-08-28] MEDS ORDERED: Polyethylene Glycol 3350* 17 GM PACKET PO ONE (13:49)
[2018-08-28] MEDS: Enoxaparin(*) 80 MG/0.8 ML SYR SUBCUT SCH (14:36)
[2018-08-28] MEDS: Docusate CAP* 100 MG PO SCH (14:36)
[2018-08-28] MEDS: Tamsulosin CAP* 0.4 MG PO SCH (20:42)
[2018-08-28] MEDS: Atorvastatin* 80 MG TAB PO SCH (20:42)
[2018-08-28] MEDS: Senna TAB PO SCH (20:44)
[2018-08-28] MEDS: LORazepam TAB(*) 1 MG PO PRN (22:44)
--- NOTE | 2018-08-28 22:55 | CATH ---
CC: Dr. Hailey Izquierdo; Dr. Abhijit Young CARDIAC CATHETERIZATION REPORT: DATE OF VISIT: 08/26/2018 REASON FOR CARDIAC CATHETERIZATION: The patient presents with recurrent episodes of chest discomfort in the emergency room, now with abnormal EKG showing Q waves inferiorly, but ST segment elevation in III and aVF and ST segment depression in I, aVL, and mildly in the early precordial lead. The patient with minimal chest discomfort but in light of abnormal EKG, the patient was taken for urgent assessment of coronary anatomy. PROCEDURE: Coronary arteriography; vein graft arteriography sequentially to a diagonal branch, trifurcation marginal branch, obtuse marginal branch, and right - sided PDA. HOU graft arteriography to the LAD. DESCRIPTION OF PROCEDURE: The patient was interviewed and examined in the emergency room where the risks and benefits were explained. He understood this and wished to proceed. In the emergency room, he was given aspirin and 4000 units of heparin intravenously. EQUIPMENT UTILIZED: 1. Sheath was a 6.5-[place]yan Merit Prelude sheath. 2. Guidewires utilized: A regular length and exchange length J-tip guidewire. 3. Diagnostic catheters included a 5-Libyan FL4 and FR4 diagnostic catheter for the coronary arteries as well as an LCB and a 5-Libyan IM catheter for the grafts. A 5-Libyan multi-catheter MPA1 was utilized to cannulate the left subclavian artery. 4. Left ventricular catheterization catheter: A 5-Libyan 145-degree angled pigtail catheter. MEDICATIONS GIVEN IN THE CAKE STRIPPER: Included a nitroglycerin drip, which was already in place, was increased to 5 mcg per minute. At the end of the case, the sheath was sutured in place to be removed in the intensive care unit when the ACT came to an acceptable range. Total contrast used was 140 cc of Omnipaque dye. The radiation exposure included 23.5 minutes of fluoro time. The air kerma radiation was 2705. The DAP radiation was 14495 microgray per meter squared. RESULTS: HEMODYNAMIC DATA: Left heart catheterization - revealed central aortic pressure recorded at 171/76 with a mean of 117, left ventricular pressure 169 over left ventricular end-diastolic pressure of 22. CORONARY ARTERIOGRAPHY: A. Left coronary artery: Left main totally occluded at its ostium. B. Right coronary artery - totally occluded at its ostium. HUO GRAFT TO LAD - widely patent attaching to the mid left anterior descending artery. There was retrograde filling through a 90% lesion to an area just more proximal. All areas were supplying septal perforators to the posterior descending artery, which retrograde filled the right coronary artery distal area. The PDA itself had moderate diffuse disease with a more significant hazy proximal lesion of 80%. SEQUENTIAL VEIN GRAFT DESCRIBED ABOVE- Totally occluded proximally. LEFT VENTRICULOGRAPHY: -performed in the HAGER projection with virtual akinesis of the inferior wall and proximal anterior wall the apex contraced normally ,as well as the distal anterior wall. Overall LVEF estimated at 25-30%. OVERALL ASSESSMENT: Significant coronary artery disease with total occlusion of the [place] vessels. Significant LV systolic function as described above. Patent HOU graft as described with totally occluded vein graft. At this point in time in the cath lab radiology technician, the patient had virtually no chest discomfort and medical management will be pursued. The patient will be placed on all of his current cardiac medications and sheath will be removed in the intensive care unit. [id number]/[facility] #: [id number] JOVAN
[2018-08-29] MEDS: Enoxaparin(*) 80 MG/0.8 ML SYR SUBCUT SCH (02:30)
[2018-08-29 05:07] LABS: ABS Basophils 0 10^3/ul (0-0.2); ABS Eosinophils 0.1 10^3/ul (0-0.6); ABS Lymphocytes 0.6 10^3/ul (1.0-4.8); ABS Monocytes 0.7 10^3/ul (0-0.8); ABS Neutrophils 4.6 10^3/ul (1.5-7.7); ABS Nucleated RBC 0 10^3/ul; Eosinophil % 1.6 % (0-6); Hematocrit 37 % (42-52); Hemoglobin 12.8 g/dl (14.0-18.0); Lymphocyte % 9.4 % (25-47); Mean Corpuscular HGB Conc 35 g/dl (31-36); Mean Corpuscular Hemoglobin 30 pg (27-31); Mean Corpuscular Volume 85 fL (80-94); Mean Platelet Volume 8.8 um3 (7.4-10.4); Nucleated Red Blood Cells % 0.2; Platelet Count 121 10^3/ul (150-450); Red Blood Count 4.31 10^6/ul (4.00-5.40); Red Cell Distribution Width 15 % (10.5-15); White Blood Count 5.9 10^3/ul (3.5-10.8)
[2018-08-29] MEDS: LORazepam TAB(*) 1 MG PO PRN ×2 (05:39→20:38)
[2018-08-29 05:48] LABS: EGFR Non-African American 92.4 (>60)
[2018-08-29] MEDS: amLODIPine TAB* 5 MG PO SCH (08:55)
[2018-08-29] MEDS: Clopidogrel TAB* 75 MG PO SCH (08:56)
[2018-08-29] MEDS: Docusate CAP* 100 MG PO SCH (08:56)
[2018-08-29] MEDS: Aspirin EC TAB* 81 MG TAB.EC PO SCH (08:56)
[2018-08-29] MEDS: Hydrochlorothiazide TAB* 25 MG PO SCH (08:56)
[2018-08-29] MEDS: Metoprolol Tartrate TAB* 50 mg PO SCH ×2 (08:57→20:38)
[2018-08-29] MEDS: Isosorbide Mononitrate ER TAB* 30 MG PO SCH (08:57)
[2018-08-29] MEDS: CMC:Pantoprazole TAB (NF) 40 MG TAB PO SCH (08:57)
[2018-08-29] MEDS: CMCS:Irbesartan (NF) 150 MG TAB PO SCH (08:57)
[2018-08-29] MEDS: Enoxaparin(*) 40 MG/0.4 ML SYR SUBCUT SCH (11:06)
--- NOTE | 2018-08-29 12:23 | PN ---
Subjective Date of Service: 08/29/18 Interval History: Pt feels well. no c/o CP, or SOB. at baseline ambulates with a can Has had swollen ankles x 5 years now Objective Active Medications: Acetaminophen (Tylenol Tab*) 650 mg PO Q6H PRN PRN Reason: PAIN Amlodipine Besylate (Norvasc Tab*) 5 mg PO DAILY [facility] Last Admin: 08/29/18 08:55 Dose: 5 mg Aspirin (Aspirin Ec Tab*) 81 mg PO DAILY [facility] Last Admin: 08/29/18 08:56 Dose: 81 mg Atorvastatin Calcium (Lipitor*) 80 mg PO 1700 [facility] Last Admin: 08/28/18 20:42 Dose: 80 mg Clopidogrel Bisulfate (Plavix Tab*) 75 mg PO DAILY [facility] Last Admin: 08/29/18 08:56 Dose: 75 mg Docusate Sodium (Colace Cap*) 200 mg PO DAILY [facility] Last Admin: 08/29/18 08:56 Dose: 200 mg Enoxaparin Sodium (Lovenox(*)) 40 mg SUBCUT Q24H [facility] Last Admin: 08/29/18 11:06 Dose: 40 mg Hydrochlorothiazide (Hydrodiuril Tab*) 12.5 mg PO DAILY [facility] Last Admin: 08/29/18 08:56 Dose: 12.5 mg Irbesartan (Avapro (Nf)) 300 mg PO DAILY [facility] Last Admin: 08/29/18 08:57 Dose: 300 mg Isosorbide Mononitrate (Imdur Er Tab*) 30 mg PO DAILY [facility] Last Admin: 08/29/18 08:57 Dose: 30 mg Lorazepam (Ativan Tab(*)) 1 mg PO TID PRN PRN Reason: ANXIETY Last Admin: 08/29/18 05:39 Dose: 1 mg Metoprolol Tartrate (Lopressor Tab*) 50 mg PO Q12HR [facility] Last Admin: 08/29/18 08:57 Dose: 50 mg Ondansetron HCl (Zofran Inj*) 4 mg IV Q4H PRN PRN Reason: NAUSEA/VOMITING Pantoprazole Sodium (Protonix Tab (Nf)) 40 mg PO DAILY [facility] Last Admin: 08/29/18 08:57 Dose: 40 mg Senna (Senokot Tab*) 2 tab PO BEDTIME [facility] Last Admin: 10/14/18 20:44 Dose: Not Given Tamsulosin HCl (Flomax Cap*) 0.4 mg PO BEDTIME [facility] Last Admin: 08/28/18 20:42 Dose: 0.4 mg Vital Signs - 8 hr 08/29/18 08/29/18 08/29/18 05:00 05:39 05:49 Temperature Pulse Rate 62 Respiratory 16 15 15 Rate Blood Pressure 118/57 (mmHg) O2 Sat by Pulse 95 Oximetry 08/29/18 08/29/18 08/29/18 06:00 06:57 07:00 Temperature Pulse Rate 61 63 Respiratory 15 16 17 Rate Blood Pressure 132/59 (mmHg) O2 Sat by Pulse 95 94 Oximetry 08/29/18 08/29/18 08/29/18 07:31 07:36 08:00 Temperature 98.4 F 98.4 F Pulse Rate 72 Respiratory 13 Rate Blood Pressure 157/69 (mmHg) O2 Sat by Pulse 96 Oximetry 08/29/18 08/29/18 08/29/18 09:00 09:01 10:00 Temperature Pulse Rate 75 73 67 Respiratory 16 16 24 Rate Blood Pressure 101/65 95/48 (mmHg) O2 Sat by Pulse 96 95 95 Oximetry 08/29/18 08/29/18 11:00 11:50 Temperature 97.5 F Pulse Rate 63 66 Respiratory 25 18 Rate Blood Pressure 111/67 115/55 (mmHg) O2 Sat by Pulse 95 97 Oximetry Oxygen Devices in Use Now: None Appearance: 78 yo M in NAd, aAOx3 Eyes: No Scleral Icterus, PERRLA Ears/Nose/Mouth/Throat: NL Teeth, Lips, Gums, Mucous Membranes Moist Neck: NL Appearance and Movements; NL JVP Respiratory: Symmetrical Chest Expansion and Respiratory Effort, Clear to Auscultation Cardiovascular: NL Sounds; No Murmurs; No JVD Abdominal: NL Sounds; No Tenderness; No Distention, No Hepatosplenomegaly Lymphatic: No Cervical Adenopathy Extremities: No Clubbing, Cyanosis, - - +1 pitting pedal edma b/l Skin: No Rash or Ulcers Neurological: Alert and Oriented x 3, NL Muscle Strength and Tone Result Diagrams: 08/29/18 05:00 08/29/18 05:00 Additional Lab and Data: Lab Results 08/26/18 08/26/18 08/26/18 Range/Units 16:25 16:25 16:25 WBC 6.5 (3.5-10.8) 10^3/ul RBC 4.96 (4.00-5.40) 10^6/ul Hgb 14.6 (14.0-18.0) g/dl Hct 42 (42-52) % MCV 85 (80-94) fL MCH 30 (27-31) pg MCHC 35 (31-36) g/dl RDW 15 (10.5-15) % Plt Count 142 L (150-450) 10^3/ul MPV 8.8 (7.4-10.4) um3 Neut % (Auto) 74.6 (38-83) % Lymph % (Auto) 11.1 L (25-47) % [place] % (Auto) 11.6 H (0-7) % Eos % (Auto) 2.2 (0-6) % Baso % (Auto) 0.5 (0-2) % Absolute Neuts (auto) 4.8 (1.5-7.7) 10^3/ul Absolute Lymphs (auto) 0.7 L (1.0-4.8) 10^3/ul Absolute Monos (auto) 0.8 (0-0.8) 10^3/ul Absolute Eos (auto) 0.1 (0-0.6) 10^3/ul Absolute Basos (auto) 0 (0-0.2) 10^3/ul Absolute Nucleated RBC 0 10^3/ul Nucleated RBC % 0.1 INR (Anticoag Therapy) 1.00 (0.77-1.02) APTT 32.8 (26.0-36.3) seconds Sodium (135-145) mmol/L Potassium (3.5-5.0) mmol/L Chloride (101-111) mmol/L Carbon Dioxide (22-32) mmol/L Anion Gap (2-11) mmol/L BUN (6-24) mg/dL Creatinine (0.67-1.17) mg/dL Est GFR ( Amer) (>60) Est GFR (Non-Af Amer) (>60) BUN/Creatinine Ratio (8-20) Glucose (70-100) mg/dL Lactic Acid 1.7 (0.5-2.0) mmol/L Calcium (8.6-10.3) mg/dL Total Bilirubin (0.2-1.0) mg/dL AST (13-39) U/L ALT (7-52) U/L Alkaline Phosphatase (34-104) U/L Total Creatine Kinase (10-223) U/L CK-MB (CK-2) (0.6-6.3) ng/mL Troponin I (<0.04) ng/mL B-Natriuretic Peptide ( - 100) pg/mL Total Protein (6.4-8.9) g/dL Albumin (3.2-5.2) g/dL Globulin (2-4) g/dL Albumin/Globulin Ratio (1-3) LDL Cholesterol Direct mg/dL 08/26/18 08/26/18 Range/Units 16:25 16:25 WBC (3.5-10.8) 10^3/ul RBC (4.00-5.40) 10^6/ul Hgb (14.0-18.0) g/dl Hct (42-52) % MCV (80-94) fL MCH (27-31) pg MCHC (31-36) g/dl RDW (10.5-15) % Plt Count (150-450) 10^3/ul MPV (7.4-10.4) um3 Neut % (Auto) (38-83) % Lymph % (Auto) (25-47) % [place] % (Auto) (0-7) % Eos % (Auto) (0-6) % Baso % (Auto) (0-2) % Absolute Neuts (auto) (1.5-7.7) 10^3/ul Absolute Lymphs (auto) (1.0-4.8) 10^3/ul Absolute Monos (auto) (0-0.8) 10^3/ul Absolute Eos (auto) (0-0.6) 10^3/ul Absolute Basos (auto) (0-0.2) 10^3/ul Absolute Nucleated RBC 10^3/ul Nucleated RBC % INR (Anticoag Therapy) (0.77-1.02) APTT (26.0-36.3) seconds Sodium 137 (135-145) mmol/L Potassium 3.8 (3.5-5.0) mmol/L Chloride 99 L (101-111) mmol/L Carbon Dioxide 31 (22-32) mmol/L Anion Gap 7 (2-11) mmol/L BUN 25 H (6-24) mg/dL Creatinine 0.91 (0.67-1.17) mg/dL Est GFR ( Amer) 97.8 (>60) Est GFR (Non-Af Amer) 80.8 (>60) BUN/Creatinine Ratio 27.5 H (8-20) Glucose 100 (70-100) mg/dL Lactic Acid (0.5-2.0) mmol/L Calcium 10.4 H (8.6-10.3) mg/dL Total Bilirubin 1.30 H (0.2-1.0) mg/dL AST 24 (13-39) U/L ALT 19 (7-52) U/L Alkaline Phosphatase 133 H (34-104) U/L Total Creatine Kinase 91 (10-223) U/L CK-MB (CK-2) 5.3 (0.6-6.3) ng/mL Troponin I 0.40 H* (<0.04) ng/mL B-Natriuretic Peptide 253 H ( - 100) pg/mL Total Protein 7.1 (6.4-8.9) g/dL Albumin 4.4 (3.2-5.2) g/dL Globulin 2.7 (2-4) g/dL Albumin/Globulin Ratio 1.6 (1-3) LDL Cholesterol Direct 79 mg/dL Microbiology and Other Data: Microbiology 08/26/18 18:10 Nasal Screen MRSA (PCR) - Final Nasal Mrsa Not Detected Assess/Plan/Problems-Billing Assessment: 78 yo M h/o CAD/CABG, PVD, p/w chest discomfort and EKG changes s/p PCI notable for failed jump vein graft and patent HOU - Patient Problems (1) ACS (acute coronary syndrome) Comment: trops peaked. will transfer out of ICU. as per d/w DR. Briggs, cardilogy to decide if pt need a pharmacologic stress in AM or not. suspect vein graft loss was not acute Lovenox off. cont ASA/Plavix, statin ,BB (2) Hyperlipidemia Comment: c/w atorvastatin (3) Hypertension Comment: metoprolol, HCTZ, norvasc, imdur, irbesartan (4) DVT prophylaxis Comment: lovenox Status and Disposition: inpatient
[2018-08-29] MEDS: Atorvastatin* 80 MG TAB PO SCH (16:29)
[2018-08-29] MEDS: Tamsulosin CAP* 0.4 MG PO SCH (20:38)
[2018-08-29] MEDS: Senna TAB PO SCH (20:39)
[2018-08-30] MEDS: Docusate CAP* 100 MG PO SCH (07:51)
[2018-08-30] MEDS: Clopidogrel TAB* 75 MG PO SCH (07:53)
[2018-08-30] MEDS: Aspirin EC TAB* 81 MG TAB.EC PO SCH (07:53)
[2018-08-30] MEDS: Isosorbide Mononitrate ER TAB* 30 MG PO SCH (07:54)
[2018-08-30] MEDS: amLODIPine TAB* 5 MG PO SCH (07:54)
[2018-08-30] MEDS: Hydrochlorothiazide TAB* 25 MG PO SCH (07:55)
[2018-08-30] MEDS: CMCS:Irbesartan (NF) 150 MG TAB PO SCH (09:07)
[2018-08-30] MEDS: CMC:Pantoprazole TAB (NF) 40 MG TAB PO SCH (09:08)
[2018-08-30] MEDS: Metoprolol Tartrate TAB* 50 mg PO SCH (10:41)
[2018-08-30] MEDS: Enoxaparin(*) 40 MG/0.4 ML SYR SUBCUT SCH (10:42)
[2018-08-30 16:18] VITALS: BP 133/56
[2018-08-30] MEDS: Atorvastatin* 80 MG TAB PO SCH (18:41)
--- NOTE | 2018-08-31 13:12 | DS ---
CC: Dr. Hailey Izquierdo; Dr. Young; Dr. Licona; Dr. Briggs * DISCHARGE SUMMARY: DATE OF ADMISSION: 08/26/18 DATE OF DISCHARGE: 08/29/18 PRIMARY CARE PROVIDER: Dr. Hailey Izquierdo DISCHARGE DIAGNOSES: Non-ST elevation myocardial infarction status post cardiac catheterization performed by Dr. Licona on 08/26/18, which showed patent left internal mammary artery graft and occluded vein graft. The patient was continued with medical management. SECONDARY DIAGNOSES: 1. Coronary artery disease, status post coronary bypass grafting. 2. History of hypertension. 3. Dyslipidemia. 4. History of chronic leg edema. 5. History of chronically unsteady gait. 6. History of spinal stenosis. 7. Carotid artery disease. 8. History of chronic muscle wasting myopathy. MEDICATIONS AT DISCHARGE: Include discontinued: 1. Omeprazole. 2. Norvasc. New medications are : 1. Plavix 75 mg daily. 2. Imdur 30 mg daily. The remaining medications are unchanged and include: 1. Aspirin 81 mg daily. 2. Lipitor 80 mg daily. 5. Irbesartan/hydrochlorothiazide 300/12.5 one tablet daily. 6. Lorazepam 1 mg t.i.d. p.r.n. 7. Toprol-XL 50 mg daily. 8. Flomax 0.4 mg at bedtime. LABORATORY DATA AND STUDIES PERFORMED DURING THE HOSPITAL STAY: On 08/29/18, white blood cell count of 5.9, hemoglobin of 12.8, hematocrit of 37, and platelets of 121. Sodium of 135, potassium 4.0, chloride 92, carbon dioxide 29 , BUN 19, creatinine 0.81. The patient's troponin peaked at 10.7 on 08/28/18. Transthoracic echocardiogram was obtained on 08/27/18 and showed the EF of 40% to 45% with moderate moderate concentric left ventricular hypertrophy with basal inferolateral, basal inferior and mild inferolateral, mid inferior and apical lateral wall segments akinetic. There was mild to moderate mitral regurgitation and mild dilatation of the ascending aorta. Comparing to echocardiogram from 2017, there was no significant change. The patient's cholesterol profile showed triglycerides of 121, cholesterol of 115, LDL of 60, and HDL of 26.8 CONSULTATIONS DURING THE HOSPITAL STAYS: Dr. Licona of Interventional Cardiology; Dr. Young and Dr. Briggs from Cardiology. HOSPITALIZATION COURSE: Chan Molina is a 78-year-old male with history of heart disease, who presented to the hospital on 08/26/18 complaining of chest pain and dyspnea on exertion. For further details, please see Dr. Licona's consult. The patient was seen by the Interventional Cardiology in the ER and taken to the airport maintenance laborer. In the airport maintenance laborer, it was noted the patient's HOU graft is patent, but the saphenous vein grafts are occluded. It also showed 3-vessel coronary artery disease that likely was already present prior to bypass in the past. The patient at that point was not experiencing any further discomfort and it was decided for the patient to continue medical treatment. Initially, the patient was hypertensive. Imdur was added on to all his medications. But at the time of discharge, the patient's pressures were actually on the low side with systolics down at some point to the mid 90s. At this point, the patient's Norvasc was discontinued and the patient was continued on Imdur. The patient also was added on Plavix for medical treatment for dual antiplatelet treatment of his severe coronary artery disease. Prior to discharge, the patient ambulated down the hallway without any symptoms. He has chronically unsteady gait, but he has both cane and a roller walker at home to support. He is going to be discharged home with recommendation to follow up with primary care provider in approximately 4 to [address] Young in approximately a week. PHYSICAL EXAM AT THE TIME OF DISCHARGE: Blood pressure of 133/59, heart rate of 65 and regular, respiratory rate 16, oxygen saturation 98% on room air, and temperature 97.5. General: The patient is a very pleasant 78-year-old male who is in no acute distress. Alert, awake, and oriented x3. HEENT: Head atraumatic and normocephalic. Eyes: Pupils are equal and reactive to light and accommodation. Oropharynx clear. Mucosa moist. Neck: Supple. No JVD. No bruits bilaterally. Cardiovascular: Regular, rate, and rhythm. No murmur. Respiratory: Clear to auscultation bilaterally. Abdomen: Soft, nontender. Bowel sounds are present in all 4 quadrants. Extremities: There is +1 pitting pedal edema bilaterally. Pulses +2 bilaterally. There is no clubbing or cyanosis. On neuro evaluation, speech clear. Cranial nerves II through XII grossly intact. Motor strength is 5/5 bilaterally. The patient has unsteady gait, but he is ambulating without assistance with the use of roller walker or the cane. Please note that this is a short summary of the patient's hospitalization. Please refer to further medical records for details. TIME SPENT: Approximately 40 minutes was spent on the patient's discharge. [id number]/[facility] #: [id number] JOVAN
== END 2018-08-30 18:55 | disposition home or self-care (01) | DRG 281 ==
LOC: ED 15:53 → ICU 18:06 → MEDTELE 08-29 11:53
PROVIDERS: ADMIT Internal Medicine; ATTEND Internal Medicine
PROC: B211YZZ Fluoroscopy of Multiple Coronary Arteries using Other Contrast (ICD-10-PCS; 2018-08-26)
PROC: B213YZZ Fluoroscopy of Multiple Coronary Artery Bypass Grafts using Other Contrast (ICD-10-PCS; 2018-08-26)
PROC: B215YZZ Fluoroscopy of Left Heart using Other Contrast (ICD-10-PCS; 2018-08-26)
PROC: 4A023N7 Measurement of Cardiac Sampling and Pressure, Left Heart, Percutaneous Approach (ICD-10-PCS; principal; 2018-08-26 15:00)
DX: I21.4 Non-ST elevation (NSTEMI) myocardial infarction (principal); I25.810 Atherosclerosis of coronary artery bypass graft(s) without angina pectoris; G45.1 Carotid artery syndrome (hemispheric); G72.9 Myopathy, unspecified; I11.9 Hypertensive heart disease without heart failure; Z95.1 Presence of aortocoronary bypass graft; I24.9 Acute ischemic heart disease, unspecified; E78.5 Hyperlipidemia, unspecified; I25.10 Atherosclerotic heart disease of native coronary artery without angina pectoris; M48.061 Spinal stenosis, lumbar region without neurogenic claudication; R60.0 Localized edema; R26.81 Unsteadiness on feet; K21.9 Gastro-esophageal reflux disease without esophagitis; Z79.82 Long term (current) use of aspirin; Z79.899 Other long term (current) drug therapy; Z88.8 Allergy status to other drugs, medicaments and biological substances; Z95.810 Presence of automatic (implantable) cardiac defibrillator; Z82.49 Family history of ischemic heart disease and other diseases of the circulatory system
CPT/HCPCS: 36415; 71045; 80048; 80053; 80061; 82550; 82553; 83036; 83605; 83721; 83735; 83880; 84484; 85025; 85347; 85610; 85730; 87641; 93005; 93306; 99285; A9270-GY; C1769; J1644; J1650; J2250; J3010; J3475

== ENCOUNTER 2018-09-14 04:20 | Emergency (ER) | payer MEDICARE ==
[2018-09-14] MEDS ORDERED: Aspirin 81 mg CHEW TAB* 81 MG TAB.CHEW PO ONE (04:23)
[2018-09-14] MEDS ORDERED: Heparin(*) 1000 UNIT/ML 10 ML VIAL CATH LAB IV ONE (04:31)
[2018-09-14] MEDS ORDERED: VERAPAMIL 2.5 MG/ML 2 ML VIAL ** 5 mg/2 ml ONE (04:31)
[2018-09-14] MEDS ORDERED: NITROGLYCERIN DRIP ONE (04:31)
[2018-09-14] MEDS ORDERED: Lidocaine 1% INJ* 10 MG/ML 30 ML SDV ONE (04:31)
[2018-09-14] MEDS ORDERED: Heparin 2 UNITS/ML IVPREMIX* 2,000 ML IV ONE (04:31)
[2018-09-14] MEDS ORDERED: Heparin VIAL(*) 5000 UNITS/ML VIAL (FIVE THOUSAND) ONE (04:32)
[2018-09-14] MEDS ORDERED: Metoprolol Tartrate IV* 1 MG/ML 5 ML VIAL IV ONE (04:41)
[2018-09-14 04:45] LABS: ABS Basophils 0.1 10^3/ul (0-0.2); ABS Eosinophils 0.1 10^3/ul (0-0.6); ABS Lymphocytes 0.5 10^3/ul (1.0-4.8); ABS Monocytes 0.6 10^3/ul (0-0.8); ABS Neutrophils 5.4 10^3/ul (1.5-7.7); ABS Nucleated RBC 0 10^3/ul; Eosinophil % 1.8 % (0-6); Hematocrit 43 % (42-52); Hemoglobin 14.8 g/dl (14.0-18.0); Lymphocyte % 7.7 % (25-47); Mean Corpuscular HGB Conc 35 g/dl (31-36); Mean Corpuscular Hemoglobin 29 pg (27-31); Mean Corpuscular Volume 85 fL (80-94); Mean Platelet Volume 8.5 um3 (7.4-10.4); Nucleated Red Blood Cells % 0; Platelet Count 130 10^3/ul (150-450); Red Blood Count 5.04 10^6/ul (4.00-5.40); Red Cell Distribution Width 15 % (10.5-15); White Blood Count 6.7 10^3/ul (3.5-10.8)
[2018-09-14] MEDS: [UNRECOGNIZED DRUG - REMARK] IV ONE ×2 (04:45→05:26)
[2018-09-14] MEDS ORDERED: Iohexol 350 (CONTRAST) 200 ML MDV IV ONE (04:46)
--- NOTE | 2018-09-14 04:51 | ED ---
HPI Chest Pain - HPI Summary HPI Summary: A 78 y/o male PARESH presents to the ED c/o CP. A stemi alert was called at 04:14 and the pt arrived at 04:20. The pt had an AK 3 weeks ago. Since then he's had intermittent CP. This pain is usually relieved by taking Nitroglycerin, but today it wasn't helping and so he called EMS. He claims that the CP radiates to his elbow. He states that he has been feeling this pain since 2:00. He took 4 Aspirin. Currently he describes the CP as tightness. The patient states that he regularly goes to [facility] for his care. The pt has a Hx of AK and HTN. - History of Current Complaint Chief Complaint: EDChestPainROMI Time Seen by Provider: 09/14/18 04:23 Hx Obtained From: Patient, Family/Mirror Machine Feeder, EMS Onset/Duration: Started Hours Ago, Still Present Timing: Constant Initial Severity: Moderate Current Severity: Moderate Pain Intensity: 2 Pain Scale Used: 0-10 Numeric Chest Pain Radiates To:: Other - elbow Associated Signs and Symptoms: Positive: Chest Pain - Additional Pertinent History Primary Care Physician: [id number] - Allergy/Home Medications Allergies/Adverse Reactions: Allergies Allergy/AdvReac Type Severity Reaction Status Date / Time niacin Allergy Rash Verified 07/16/18 01:35 PMH/Surg Hx/FS Hx/Imm Hx Endocrine/Hematology History: Denies: Hx Diabetes Cardiovascular History: Reports: Hx Angina, Hx Auto Implanted Cardiovert Defib, Hx Congestive Heart Failure, Hx Coronary Artery Disease, Hx Hypercholesterolemia , Hx Hypertension - UNCONTROLLED, SWINGING TO SEVERE HYPOTENSION, Hx Myocardial Infarction, Hx Pacemaker/ICD, Other Cardiovascular Problems/Disorders - cabg x 5 per patient Denies: Hx Valvular Heart Disease Respiratory History: Reports: Hx Pneumonia, Hx Seasonal Allergies Denies: Hx Asthma, Hx Chronic Obstructive Pulmonary Disease (COPD) GI History: Reports: Other GI Disorders - fecal stones 50 years ago, gall stones History: Reports: Other Problems/Disorders - enlarged prostate Denies: Hx Renal Disease Musculoskeletal History: Reports: Hx Arthritis - hands, feet, knees, Hx Back Problems - decreased cartilage, Other Musculoskeletal History - pt states "the doctor says I broke my back" Sensory History: Reports: Hx Contacts or Glasses - reading, Hx Hearing Aid Opthamlomology History: Reports: Hx Contacts or Glasses - reading Psychiatric History: Reports: Hx Anxiety, Hx Substance Abuse - tobacco Denies: Hx Depression, Hx Suicide Attempt - Cancer History Cancer Type, Location and Year: skin cancer of nose - Surgical History Surgery Procedure, Year, and Place: 5 CABG /PACEMAKER X 2, carotid stents Infectious Disease History: No Infectious Disease History: Denies: Traveled Outside the [place] in Last 30 Days - Family History Known Family History: Positive: Cardiac Disease, Hypertension - Social History Alcohol Use: None Substance Use Type: Reports: None Smoking Status (MU): Former Smoker Type: Cigarettes Amount Used/How Often: did it for about 2 years,a "few years ago" Have You Smoked in the Last Year: No Review of Systems Negative: Fever Positive: Chest Pain Positive: Myalgia - elbow pain All Other Systems Reviewed And Are Negative: Yes Physical Exam - Summary Physical Exam Summary: Appearance: Well appearing, no pain distress Skin: warm, dry, scar on chest Head/face: normal Eyes: EOMI, JOHNIE ENT: normal Neck: supple, non-tender Respiratory: CTA, breath sounds present Cardiovascular: RRR, pulses symmetrical Abdomen: non-tender, soft Bowel: present Musculoskeletal: normal, strength/ROM intact Neuro: normal, sensory motor intact, A&Ox3 Triage Information Reviewed: Yes Vital Signs On Initial Exam: Initial Vitals Temp Pulse Resp BP Pulse Ox 97 F 95 25 157/102 100 09/14/18 04:24 09/14/18 04:24 09/14/18 04:24 09/14/18 04:24 09/14/18 04:24 Vital Signs Reviewed: Yes Diagnostics - Vital Signs Vital Signs Temp Pulse Resp BP Pulse Ox 09/14/18 04:24 97 F 95 25 157/102 100 - Laboratory Result Diagrams: 09/14/18 04:35 09/14/18 04:35 Lab Statement: Any lab studies that have been ordered have been reviewed, and results considered in the medical decision making process. - Radiology CXR Radiology Interpretation Completed By: ED Physician - Enlarged Heart, CHF. Pending official radiology report. - EKG 04:20 Cardiac Rate: NL - 97 bpm EKG Rhythm: Sinus Rhythm Summary of EKG Findings: ST elevation in inferior leads. Chest Pain Course/Dx - Course Course Of Treatment: A 78 y/o male PARESH presents to the ED c/o CP. A stemi alert was called at 04:14 and the pt arrived at 04:20. The pt had an AK 3 weeks ago. Since then he's had intermittent CP. He has a scar on his chest. The pt has a remarkable troponin: 0.32. A CXR displayed enlarged heart and CHF. Dr. Zavala stated that the patients CP stopped. He will be transferred to Dr. Butler. Dx: STEMI - Chest Pain Differential Diagnosis/HQI/PQRI: Acute AK, ACS, Angina, Lower Respiratory Infection, Pulmonary Edema - Diagnoses Provider Diagnoses: STEMI (ST elevation myocardial infarction) During the Visit The Following Alert/Code Occurred: STEMI - Provider Notifications Discussed Care Of Patient With: Martin Zavala Time Discussed With Above Provider: 04:30 Instructed by Provider To: MD Will See In ED - Said patients CP stopped Reason For Transfer: Specialty or service not available at [facility] [place] Specialist unable to manage this patient. - Critical Care Time Critical Care Time: 75-104 min Discharge - Sign-Out/Discharge Documenting (check all that apply): Patient Departure - Transfer - Discharge Plan Condition: Fair Disposition: TRANS HIGHER LVL OF CARE FAC Referrals: Hailey Krause MD [Primary Care Provider] - 3 Days Additional Instructions: Return to the ED if you experience any new or worsening symptoms. - Billing Disposition and Condition Condition: FAIR Disposition: Trans Higher Lvl of Care Fac - Attestation Statements Document Initiated by Scribe: Yes Documenting Scribe: Jaden Brennan Provider For Whom Jose Daniele is Documenting (Include Credential): Chester Rankin MD Scribe Attestation: I, Jaden Brennna, scribed for Chester Rankin MD on 09/14/18 at 0610. Scribe Documentation Reviewed: Yes Provider Attestation: The documentation as recorded by the Jaden acosta accurately reflects the service I personally performed and the decisions made by me, Chester Rankin MD Consult Consult: At 05:[address] Butler, who will be accepting the pt for transfer.
[2018-09-14] MEDS ORDERED: Heparin VIAL(*) 5000 UNITS/ML VIAL (FIVE THOUSAND) IV SCH (05:00)
[2018-09-14] MEDS ORDERED: Heparin VIAL(*) 5000 UNITS/ML VIAL (FIVE THOUSAND) IV ONE (05:00)
[2018-09-14] MEDS ORDERED: Furosemide IV* 10 MG/ML VIAL (40 MG) IV ONE (05:39)
[2018-09-14] MEDS ORDERED: Heparin DRIP 25,000 UNITS(*) 25,000 UNITS/500 ML BAG IV SCH (05:45)
[2018-09-14] MEDS ORDERED: Heparin VIAL(*) 5000 UNITS/ML VIAL (FIVE THOUSAND) IV PRN (05:49)
[2018-09-14] MEDS ORDERED: Heparin DRIP 25,000 UNITS(*) 25,000 UNITS/500 ML BAG ONE (05:50)
[2018-09-14 06:24] VITALS: BP 123/74
--- NOTE | 2018-09-14 08:15 | RAD ---
HISTORY: cp COMPARISONS: August 26, 2018 VIEWS: 1: frontal AP view of the chest at 4:38 AM FINDINGS: LINES AND TUBES: A left-sided AICD pacemaker is noted. CARDIOMEDIASTINAL SILHOUETTE: The cardiomediastinal silhouette is normal for portable technique. PLEURA: The costophrenic angles are sharp. No pleural abnormalities are noted. LUNG PARENCHYMA: There is a diffuse reticular pattern with indistinct pulmonary vessels. The lung volumes are low. ABDOMEN: The upper abdomen is clear. There is no subphrenic gas. BONES AND SOFT TISSUES: No bone or soft tissue abnormalities are noted. IMPRESSION: LOW LUNG VOLUMES WITH PULMONARY INTERSTITIAL EDEMA. R0
== END 2018-09-14 06:40 | disposition short-term general hospital (02) ==
LOC: ED 04:20
DX: I21.3 ST elevation (STEMI) myocardial infarction of unspecified site (principal); I10 Essential (primary) hypertension; I25.2 Old myocardial infarction; Z85.828 Personal history of other malignant neoplasm of skin; I50.9 Heart failure, unspecified; Z87.891 Personal history of nicotine dependence
CPT/HCPCS: 36415; 71045; 80053; 83605; 83880; 84484; 85025; 85730; 93005; 99285; J1644; J1940; J3490

== ENCOUNTER 2019-02-28 19:46 | Inpatient (IN) | payer MEDICARE ==
--- NOTE | 2019-02-28 20:44 | ED ---
GI/ HPI - HPI Summary HPI Summary: This patient is a 78 year old M presenting to [facility] with a chief complaint of N/ V/D since 04:00. The patient rates the pain 1/10 in severity. Patient report mild cramps, SOB (most of the night last night, which has been intermittent since he started taking Brilinta), difficulty breathing (more than usual), subjective fever, and chills. He denies a PMHx of lung issues. - History of Current Complaint Chief Complaint: EDNauseaVomitDiarrh Time Seen by Provider: 02/28/19 20:21 Stated Complaint: VOMITING/DIARRHEA/SOB PER PT Hx Obtained From: Patient Onset/Duration: Started Hours Ago - 04:00 today, Still Present Timing: Constant Severity: Mild Current Severity: Mild Pain Intensity: 1 Pain Characteristics: Cramping Associated Signs and Symptoms: Positive: Nausea, Vomiting, Diarrhea, Fever - Subjective, Chills, Other: - Mild cramps, SOB (most of the night last night, which has been intermittent since he started taking Brilinta), and difficulty breathing (more than usual). - Additional Pertinent History Primary Care Physician: [id number] - Allergy/Home Medications Allergies/Adverse Reactions: Allergies Allergy/AdvReac Type Severity Reaction Status Date / Time niacin Allergy Rash Verified 02/28/19 19:58 PMH/Surg Hx/FS Hx/Imm Hx Endocrine/Hematology History: Denies: Hx Diabetes Cardiovascular History: Reports: Hx Angina, Hx Auto Implanted Cardiovert Defib, Hx Congestive Heart Failure, Hx Coronary Artery Disease, Hx Hypercholesterolemia , Hx Hypertension - UNCONTROLLED, SWINGING TO SEVERE HYPOTENSION, Hx Myocardial Infarction, Hx Pacemaker/ICD, Other Cardiovascular Problems/Disorders - cabg x 5 per patient Denies: Hx Valvular Heart Disease Respiratory History: Reports: Hx Pneumonia, Hx Seasonal Allergies Denies: Hx Asthma, Hx Chronic Obstructive Pulmonary Disease (COPD) GI History: Reports: Other GI Disorders - fecal stones 50 years ago, gall stones History: Reports: Other Problems/Disorders - enlarged prostate Denies: Hx Renal Disease Musculoskeletal History: Reports: Hx Arthritis - hands, feet, knees, Hx Back Problems - decreased cartilage, Other Musculoskeletal History - pt states "the doctor says I broke my back" Sensory History: Reports: Hx Contacts or Glasses - reading, Hx Hearing Aid Opthamlomology History: Reports: Hx Contacts or Glasses - reading Psychiatric History: Reports: Hx Anxiety, Hx Substance Abuse - tobacco Denies: Hx Depression, Hx Suicide Attempt - Cancer History Cancer Type, Location and Year: skin cancer of nose - Surgical History Surgery Procedure, Year, and Place: 5 CABG /PACEMAKER X 2, carotid stents Infectious Disease History: No Infectious Disease History: Denies: Traveled Outside the [place] in Last 30 Days - Family History Known Family History: Positive: Cardiac Disease, Hypertension - Social History Alcohol Use: None Substance Use Type: Reports: None Smoking Status (MU): Former Smoker Type: Cigarettes Amount Used/How Often: did it for about 2 years,a "few years ago" Have You Smoked in the Last Year: No Review of Systems Positive: Fever - Subjective, Chills Positive: Shortness Of Breath - most of the night last night, which has been intermittent since he started taking Brilinta, Other - Difficulty breathing ( more than usual) Positive: Abdominal Pain - Mild cramps, Vomiting, Diarrhea, Nausea All Other Systems Reviewed And Are Negative: Yes Physical Exam - Summary Physical Exam Summary: VITAL SIGNS: Reviewed. GENERAL: Patient is a well-developed and nourished MALE who is lying comfortable in the stretcher. Patient is not in any acute respiratory distress. HEAD AND FACE: No signs of trauma. No ecchymosis, hematomas or skull depressions. No sinus tenderness. EYES: PERRLA, EOMI x 2, No injected conjunctiva, no nystagmus. EARS: Hearing grossly intact. Ear canals and tympanic membranes are within normal limits. MOUTH: Oropharynx within normal limits. NECK: Supple, trachea is midline, no adenopathy, no JVD, no carotid bruit, no c- spine tenderness, neck with full ROM. CHEST: Symmetric, no tenderness at palpation LUNGS: Clear to auscultation bilaterally. No wheezing or crackles. CVS: Regular rate and rhythm, S1 and S2 present, no murmurs or gallops appreciated. ABDOMEN: Non-tender. Abdominal distention and increased bowel sounds bilateral. No rebound, no guarding, and no masses palpated. EXTREMITIES: FROM in all major joints, no edema, no cyanosis or clubbing. NEURO: Alert and oriented x 3. No acute neurological deficits. Speech is normal and follows commands. SKIN: Dry and warm Triage Information Reviewed: Yes Vital Signs On Initial Exam: Initial Vitals Temp Pulse Resp BP Pulse Ox 97.4 F 88 16 100/69 95 02/28/19 19:50 02/28/19 19:50 02/28/19 19:50 02/28/19 19:50 02/28/19 19:50 Vital Signs Reviewed: Yes Diagnostics - Vital Signs Vital Signs Temp Pulse Resp BP Pulse Ox 02/28/19 19:50 97.4 F 88 16 100/69 95 - Laboratory Result Diagrams: 02/28/19 20:55 02/28/19 20:55 Lab Statement: Any lab studies that have been ordered have been reviewed, and results considered in the medical decision making process. - Radiology Chest X-Ray Radiology Interpretation Completed By: ED Physician Summary of Radiographic Findings: 23:30. Bilateral Atelectasis. Pending official report. - CT Chest/Abdomen/Pelvis CTA CT Interpretation Completed By: Radiologist Summary of CT Findings: 23:22. 1. Small bowel obstruction with a suspected point of transition in the central. lower abdomen anterior to the aortic bifurcation or iliac vasculature. 2. Prominent atherosclerotic calcification with question of origin stenosis of. 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 3. Cholelithiasis. 4. Mild prostatic enlargement. 5. Mild free fluid in the pelvis which is likely reactive. 6. Colonic diverticulosis without diverticulitis. ED Physician has reviewed this imaging report. GIGU Course/Dx - Course Course Of Treatment: This patient is a 78 year old M presenting to [facility] with a chief complaint of N/V/D since 04:00. Chest x-ray showed bilateral atelectasis. CTA Chest/Abd/Pel showed 1. Small bowel obstruction with a suspected point of transition in the central. lower abdomen anterior to the aortic bifurcation or iliac vasculature. 2. Prominent atherosclerotic calcification with question of origin stenosis of. 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 3. Cholelithiasis. 4. Mild prostatic enlargement. 5. Mild free fluid in the pelvis which is likely reactive. 6. Colonic diverticulosis without diverticulitis. I discussed with Dr. Naik, surgeon, who says that pt needs a nasal gastric tube. Pt should be admitted to hospitalist with a small bowel obstruction. I spoke to Dr. Lange, hospitalist, who will admit the patient with a dx of small bowel obstruction. - Diagnoses Provider Diagnoses: Small bowel obstruction - Physician Notifications Discussed Care Of Patient With: Kalyn Gumaro - Surgery Time Discussed With Above Provider: 23:50 Instructed by Provider To: Admit As Inpatient - Needs a nasal gastric tube, should be admitted to hospitalist with a small bowel obstruction - Critical Care Time Critical Care Time: 30-74 min - 55 minutes Discharge - Sign-Out/Discharge Documenting (check all that apply): Patient Departure - Admit Patient Received Moderate/Deep Sedation with Procedure: No - Discharge Plan Condition: Stable Disposition: ADMITTED TO [facility] - Billing Disposition and Condition Condition: STABLE Disposition: Admitted to [facility] - Attestation Statements Document Initiated by Jose Daniele: Yes Documenting Scribe: Giorgio Fermin Provider For Whom Janee is Documenting (Include Credential): Dragan Suazo MD Scribe Attestation: Giorgio Quispe, scribed for Dragan Suazo MD on 03/01/19 at 0554. Scribe Documentation Reviewed: Yes Provider Attestation: The documentation as recorded by the Giorgio acosta accurately reflects the service I personally performed and the decisions made by Raghu dalton MD Status of Scribe Document: Viewed Consult Consult: 00:09 - Spoke to Dr. Lange, hospitalist, who will admit the patient with a dx of small bowel obstruction
[2019-02-28] MEDS ORDERED: NS 0.9% 1000 ML** 1,000 ML IV ONE (20:47)
[2019-02-28] MEDS ORDERED: Ondansetron INJ* 2 MG/ML VIAL IV ONE (20:48)
[2019-02-28] MEDS ORDERED: Diphenoxylat/Atrop 2.5-0.025M* 1 TAB PO ONE (20:48)
[2019-02-28 21:01] LABS: ABS Basophils 0.1 10^3/ul (0-0.2); ABS Eosinophils 0 10^3/ul (0-0.6); ABS Lymphocytes 0.6 10^3/ul (1.0-4.8); ABS Monocytes 1.2 10^3/ul (0-0.8); ABS Neutrophils 13.9 10^3/ul (1.5-7.7); ABS Nucleated RBC 0 10^3/ul; Eosinophil % 0.1 %; Hematocrit 43 % (36-46); Hemoglobin 14.5 g/dL (14.0-18.0); Lymphocyte % 3.6 %; Mean Corpuscular HGB Conc 34 g/dL (31-36); Mean Corpuscular Hemoglobin 29 pg (27-31); Mean Corpuscular Volume 87 fL (80-94); Mean Platelet Volume 8.6 fL (7.4-10.4); Nucleated Red Blood Cells % 0; Platelet Count 155 10^3/uL (150-450); Red Blood Count 4.95 10^6 /uL (4.18-5.48); Red Cell Distribution Width 15 % (10.5-15); White Blood Count 15.8 10^3/uL (3.5-10.8)
[2019-02-28 21:10] LABS: Activated Partial Thrombo Time 35.6 seconds (26.0-36.3); INR 1.1 (0.77-1.02)
[2019-02-28 21:18] LABS: Albumin 4.6 g/dL (3.2-5.2); Albumin/Globulin Ratio 1.6 (1-3); BUN/Creatinine Ratio 24.6 (8-20); C Reactive Protein 31.98 mg/L (<8.01); Calcium 10.3 mg/dL (8.6-10.3); EGFR African American 72.4 (>60); EGFR Non-African American 59.9 (>60); Globulin 2.8 g/dL (2-4); Magnesium 2.1 mg/dL (1.9-2.7); Total Bilirubin 2.2 mg/dL (0.2-1.0); Total Protein 7.4 g/dL (6.4-8.9)
[2019-02-28] MEDS ORDERED: Iodixanol* (CONTRAST) 320 MG/ML 100 ML SDV IV ONE (21:50)
[2019-02-28 22:42] LABS: Influenza A Molecular NEGATIVE (Negative); Influenza B Molecular NEGATIVE (Negative)
[2019-02-28] MEDS ORDERED: NS 0.9% 1000 ML** 1,000 ML IV SCH (23:45)
[2019-03-01] MEDS ORDERED: LORazepam TAB(*) 1 MG PO PRN (02:49)
[2019-03-01] MEDS ORDERED: Acetaminophen TAB* 325 MG PO PRN (02:53)
[2019-03-01] MEDS ORDERED: Ondansetron INJ* 2 MG/ML VIAL IV PRN (02:53)
[2019-03-01] MEDS ORDERED: NS 0.9% 1000 ML** 1,000 ML IV SCH (03:00)
[2019-03-01] MEDS ORDERED: Enoxaparin(*) 40 MG/0.4 ML SYR SUBCUT SCH (03:00)
--- NOTE | 2019-03-01 06:00 | HP ---
HISTORY AND PHYSICAL: DATE OF ADMISSION: 03/01/19 PRIMARY CARE PROVIDER: Dr. Hailey Izquierdo. CORRECTIONAL FOOD SERVICE SUPERVISOR: Dr. Young. CREAMERY WORKER: Sushma Molina, the patient's . CODE STATUS: Full, though do not intubate and no blood products as he is a Rastafarian . CHIEF COMPLAINT: Nausea, vomiting or diarrhea. HPI was obtained from the patient. He is an excellent historian. HISTORY OF PRESENT ILLNESS: A 78-year-old male with a past medical history of CAD, status post 5 vessel CABG, with recent NSTEMI in August 2018, currently on medical management, ejection fraction of 40% to 45%, status post pacemaker AICD placement, hypertension, hyperlipidemia, spinal stenosis, falls, GERD, hypertension, anxiety and BPH, who is presenting tonight with acute onset of nausea, vomiting and diarrhea for 1 day. The patient reports that his symptoms started the prior evening after he ate a handful of walnuts and he felt that he had some mild cramps and thought nothing of it, went to bed, but then woke up acutely at 4 a.m. with watery diffuse non-bloody diarrhea, 3 to 4 episodes over the course of the morning. He then became more and more distended in his abdomen and he felt that it was difficult for him to take a full breath against his diaphragm. He then started having episodes of bilious vomiting and decided to present to the emergency room. He does report subjective fevers and chills but otherwise denies chest pain, cough, melena, hematemesis, dysuria, hematuria or malaise. He does have a history of an open appendectomy roughly 30 years ago with a complication of perforated bowel. EMERGENCY ROOM COURSE: Blood pressure is 134/76, heart rate 72, respiratory rate 23, satting 94% on room air. Labs show leukocytosis to 15.8, INR of 1.1, creatinine of 1.18, alk phos of 116, negative flu swab was done. Chest x-rays shows low lung volumes and kyphosis with slight vascular congestion, left hemidiaphragm and cardiomegaly. A CTA of the chest, abdomen and pelvis was performed, which showed distension of the stomach and proximal small bowel with collapse of the distal ileum with transition point consistent with SBO. The emergency room spoke with the surgery team, who requested that the hospitalist team admit the patient after NG tube placement. He received 1 L of normal saline , Zofran, and Lomotil and the hospitalist team evaluated him for admission. PAST MEDICAL HISTORY: CAD, status post CABG with recent NSTEMI, in August 2018 , on medical management, ejection fraction of 40% to 45% status post pacemaker and AICD, hypertension, hyperlipidemia, spinal stenosis, recurrent falls, GERD, anxiety and BPH. PAST SURGICAL HISTORY: CABG 5 vessel, pacemaker placement, carotid endarterectomies bilateral and distant history of ruptured appendix and possibly fecal impaction requiring prolonged abdominal pain surgery roughly 30 years ago, status post appendectomy. MEDICATIONS: 1. Amlodipine 5 mg 1 tab p.o. daily. 2. Brilinta 90 mg 1 tab p.o. b.i.d. 3. Furosemide 1 tab p.o. daily. 4. Irbesartan/HCTZ 300/12.5 one tab p.o. daily. 5. Omeprazole 1 tab p.o. daily 20 mg. 6. Potassium chloride 20 mEq p.o. daily. 7. Tamsulosin 0.4 mg p.o. q.h.s. 8. Aspirin 81 mg p.o. daily. 9. Atorvastatin 80 mg p.o. q.h.s. 10. Imdur 30 mg p.o. daily. 11. Lorazepam 1 mg p.o. t.i.d. p.r.n. 12. Metoprolol succinate 50 mg p.o. daily. ALLERGIES: NIACIN. FAMILY HISTORY: His mother with significant heart disease. His father with significant heart disease. SOCIAL HISTORY: Tobacco use. He has a 5 year pack history, currently non- smoker. No alcohol. Never illicits. Lives with his . He is a retired parish worker as well as counselor. He is a Rastafarian and adamantly against intubation, ventilator supported group home assistance and blood products. PHYSICAL EXAMINATION GENERAL APPEARANCE: This is a pleasant woman in no acute distress, sitting up in bed and conversant. VITAL SIGNS: At the time of physical exam, blood pressure is 106/80, heart rate 71, respiratory rate 17, oxygen saturation 95% on room air. The patient is very well appearing pleasant man in no acute distress, accompanied by his at the bedside, A and O x3 with nasogastric tube in left naris. HEENT: Extraocular muscles are intact. PERRLA. Sclera clear. Oropharynx is clear with no lesions. Moist mucous membranes. NECK: Supple with no supraclavicular or cervical lymphadenopathy. RESPIRATORY: The patient has crackles in bilateral basilar lungs that clear after deep breath, but otherwise clear to auscultation. CARDIAC: Regular rate and rhythm with no murmurs, rubs, or gallops. Pacemaker is in place. GI: His belly is nondistended at the time of my exam, nontender, hypoactive bowel sounds and no appreciable organomegaly. EXTREMITIES: He has 2+ palpable pulses and bilateral DPs and he has 2+ pitting edema to bilateral shins, which he says is chronic with chronic venostasis changes. MUSCULOSKELETAL: He moves all 4 limbs spontaneously. NEURO: He is A and O x3. His cranial nerves II through XII are intact. He has no focal neurologic deficits. DIAGNOSTIC STUDIES/LAB DATA: White blood cell count of 15.8, hemoglobin of 14 , hematocrit of 43, platelets of 155. INR is.1.1. Chemistries: Sodium is 137, potassium 4, chloride 99, carbon dioxide 28, BUN 29, creatinine 1.18, glucose 124, AST 25, ALT 23, alkaline phosphatase 116 and total bilirubin 2.2, lipase 14 , CRP is 31. Influenza swab is negative. Imaging that was done includes a chest x-ray, which shows kyphotic spine with low lung volumes, cardiomegaly and otherwise no acute cardiopulmonary findings. Chest, abdomen and pelvis CTA was performed that showed collapsed distal ileum , distension of stomach and proximal small bowel with air fluid levels and a transition point consistent with a small bowel obstruction.. Labs and imaging were reviewed by myself. ASSESSMENT AND PLAN: This is a 78-year-old male with significant cardiac history, status post 5-vessel CABG with recent NSTEMI in 2018, ejection fraction of 40% to 45%, hypertension, hyperlipidemia, anxiety, recurrent falls, who is presenting tonight with nausea, vomiting or diarrhea of 1 day and found to have small bowel obstruction, acute kidney injury of unclear etiology. The patient does have a history of very distant abdominal surgery, which likely contributed to this presentation and no other infectious signs aside from elevated white blood cell count. 1. Small bowel obstruction. The patient is currently status post NG tube placement which is on low intermittent suction and currently 1.5 L, had been removed of bilious fluid. Will remain on gentle normal saline for hydration and n.p.o. and bowel rest. Surgery to be consulted in the morning, to continue to follow. 2. Diarrhea. Possibly infectious, though more likely in setting of SBO, stool culture, and C. dif sent, though other inflammatory causes from small bowel obstruction alone could be possible as well. Again, the patient with mild leukocytosis, but no other infectious signs or symptoms and a low CRP, not meeting SIRS criteria and we will hold on antibiotics as no clear indiction for them at this time. 3. Coronary artery disease, extensive. We will continue the patient's home atorvastatin, aspirin, Brilinta currently on hold, it is nonformulary but we will replace with Plavix, aspirin. We will hold on furosemide. The patient is on home irbesartan, which will held and replaced by losartan. Continue Imdur. 4. Gastroesophageal reflux disease. Continue PPI. 5. Hypertension. We are going to currently hold his amlodipine and continue to monitor in the setting of poor p.o. intake and NG tube. 6. Benign prostate hypertrophy. We will hold tamsulosin at this time. 7. Anxiety. We will continue p.r.n. lorazepam. 8. Ejection fraction of 40% to 45%. The patient does have a mild pedal edema, though no evidence of other signs of hypervolemia with no pulmonary edema seen on chest x-ray or appreciated with new oxygen requirement. We will continue to monitor and resume Lasix as clinically appropriate. 9. DVT prophylaxis will be done with Lovenox. 10. Code status is full. 11. FEN. The patient will be kept n.p.o. for small bowel obstruction. 12. Disposition. The patient is stable for admission to medical floor with surgery consulting. Plan of care was discussed with the patient and family, who are in agreement after data imaging and plan reviewed with them and they have no further questions. TIME SPENT: Forty minutes was spent on the planning of this admission with over half of that spent directly at the bedside with the patient providing direct patient care. [id number]/CPS #: [id number] MTDD
[2019-03-01] MEDS ORDERED: Clopidogrel TAB* 75 MG PO SCH (09:00)
[2019-03-01] MEDS ORDERED: Pantoprazole IV* 40 MG IV SCH (09:00)
[2019-03-01 09:12] LABS: ABS Basophils 0 10^3/ul (0-0.2); ABS Eosinophils 0.1 10^3/ul (0-0.6); ABS Lymphocytes 0.6 10^3/ul (1.0-4.8); ABS Monocytes 1.1 10^3/ul (0-0.8); ABS Neutrophils 8.9 10^3/ul (1.5-7.7); ABS Nucleated RBC 0 10^3/ul; Eosinophil % 0.5 %; Hematocrit 40 % (36-46); Hemoglobin 13.5 g/dL (14.0-18.0); Lymphocyte % 5.9 %; Mean Corpuscular HGB Conc 34 g/dL (31-36); Mean Corpuscular Hemoglobin 30 pg (27-31); Mean Corpuscular Volume 88 fL (80-94); Mean Platelet Volume 8.9 fL (7.4-10.4); Nucleated Red Blood Cells % 0; Platelet Count 146 10^3/uL (150-450); Red Blood Count 4.55 10^6 /uL (4.18-5.48); Red Cell Distribution Width 15 % (10.5-15); White Blood Count 10.8 10^3/uL (3.5-10.8)
[2019-03-01 09:30] LABS: BUN/Creatinine Ratio 29.7 (8-20); Calcium 9.8 mg/dL (8.6-10.3); EGFR African American 86.7 (>60); EGFR Non-African American 71.6 (>60)
--- NOTE | 2019-03-01 10:31 | PN ---
Subjective Date of Service: 03/01/19 Interval History: HOSPITALIST PROGRESS NOTE Patient seen and examined at bedside. Care reviewed and d/w Kaylen Cisse RN. He states he one large BM overnight and his symptoms are much improved. Abdominal pain is resolved, denies nausea, passing flatus. Family History: Unchanged from Admission Social History: Unchanged from Admission Past Medical History: Unchanged from Admission Objective Active Medications: Acetaminophen (Tylenol Tab*) 650 mg PO Q4H PRN PRN Reason: FEVER/PAIN Aspirin (Aspirin Ec Tab*) 81 mg PO DAILY [facility] Atorvastatin Calcium (Lipitor*) 80 mg PO BEDTIME [facility] Enoxaparin Sodium (Lovenox(*)) 40 mg SUBCUT Q24H [facility] Last Admin: 03/01/19 05:50 Dose: 40 mg Sodium Chloride (Ns 0.9% 1000 Ml) 1,000 mls @ 125 mls/hr IV Q8H [facility] Stop: 03/01/19 10:59 Last Admin: 03/01/19 05:29 Dose: 125 mls/hr Isosorbide Mononitrate (Imdur Er Tab*) 30 mg PO DAILY [facility] Lorazepam (Ativan Tab(*)) 1 mg PO TID PRN PRN Reason: ANXIETY Losartan Potassium (Cozaar Tab*) 25 mg PO DAILY [facility] Metoprolol Succinate (Toprol Xl Tab*) 50 mg PO DAILY [facility] Ondansetron HCl (Zofran Inj*) 4 mg IV Q6H PRN PRN Reason: NAUSEA Pantoprazole Sodium (Protonix Iv*) 40 mg IV DAILY [facility] Last Admin: 03/01/19 09:07 Dose: 40 mg Ticagrelor (Brilinta*) 90 mg PO BID [facility] Vital Signs - 8 hr 03/01/19 03/01/19 03/01/19 02:27 02:58 03:00 Temperature Pulse Rate 71 69 67 Respiratory 29 21 20 Rate Blood Pressure 106/80 131/73 (mmHg) O2 Sat by Pulse 95 96 95 Oximetry 03/01/19 03/01/19 03/01/19 03:27 03:58 04:00 Temperature Pulse Rate 68 67 67 Respiratory 21 16 17 Rate Blood Pressure 105/69 118/68 (mmHg) O2 Sat by Pulse 95 96 95 Oximetry 03/01/19 03/01/19 04:28 04:48 Temperature 97.4 F 97.8 F Pulse Rate 67 68 Respiratory 21 16 Rate Blood Pressure 139/85 151/65 (mmHg) O2 Sat by Pulse 93 95 Oximetry Oxygen Devices in Use Now: None Appearance: Elderly gentleman lying in bed in NAD. Eyes: No Scleral Icterus Ears/Nose/Mouth/Throat: Mucous Membranes Moist Neck: Trachea Midline Respiratory: Symmetrical Chest Expansion and Respiratory Effort, Clear to Auscultation Cardiovascular: RRR - Normal S1 and S2 Abdominal: NL Sounds; No Tenderness; No Distention Extremities: No Edema Neurological: Alert and Oriented x 3, NL Muscle Strength and Tone Result Diagrams: 03/01/19 08:30 03/01/19 08:30 Microbiology and Other Data: Microbiology 03/01/19 05:16 Stool Gross Appearance - Final Stool C. difficile DNA Amplification - Final 027 Presumptive NEGATIVE Toxigenic C.diff NEGATIVE 03/01/19 05:16 Stool Gross Appearance - Final Stool Stool Occult Blood (DIOR) - Final Assess/Plan/Problems-Billing Assessment: Mr Molina is a 78yo M with PMH of CAD s/p CABG, systolic CHF with EF 40-45%, s/p AICD, HTN, HLD, spinal stenosis with recurrent falls, GERD, anxiety, BPH, s/p complicated appy 30 years ago, who presented to ED with c/o abdominal pain, N/V , found to have SBO. - Patient Problems (1) SBO (small bowel obstruction) Comment: - In the setting of complicated appendectomy with perforation 30 years ago. - NGT output 1800ml past 24h. - Had BM and passing flatus with symptomatic improvement. - Check KUB. - March d/c NGT and trial clear liquid diet later. (2) CAD (coronary artery disease) Comment: - Stable. - Continue Aspirin, Brilinta, Metoprolol, Atorvastatin, Imdur. 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 - No abdominal pain prior to admission, but frequent bouts of diarrhea. 15-20 pounds intentional weight loss. - Will need f/u as outpatient. (4) Hypertension Comment: - Trending up - continue Metoprolol, resume Amlodipine, and monitor. (5) DVT prophylaxis Comment: - Lovenox. (6) Full code status Comment: - DNI. - Yazdanism - no blood products. Status and Disposition: Inpatient. Anticipate d/c in AM if he tolerates diet progression.
[2019-03-01] MEDS: Ticagrelor* 90 MG TAB PO SCH ×2 (10:35→21:03)
[2019-03-01] MEDS: Losartan TAB* 25 MG PO SCH (10:35)
[2019-03-01] MEDS: Metoprolol Succinate XL TAB* 50 MG PO SCH (10:35)
[2019-03-01] MEDS: Isosorbide Mononitrate ER TAB* 30 MG PO SCH (10:35)
[2019-03-01] MEDS: Aspirin EC TAB* 81 MG TAB.EC PO SCH (10:35)
--- NOTE | 2019-03-01 10:43 | CONSULT ---
Consult Consult: Surgical consult was requested for a 78-year-old male presenting with upper abdominal pain. Patient notes the pain began yesterday and felt his abdomen was hard, with sharp pain and an "acid bubble". The pain continued and the patient began to have SOB and vomiting x3. Accompanying the vomiting patient noted fever , chills, and sweating. He had also experienced diarrhea the day before the onset of pain. He notes he has experienced similar symptoms in the past related to diet, but usually resolve with pepto-bismol. The patient has a history of appendectomy with obstruction in the past. He denies hx of colonoscopy, EGD performed years ago demonstrated gastritis related to aspirin use. Patient has a pacemaker, hx of stent within the past year, hx of cardiac bypass x5. Patient lives at home with his , uses walker. Former light smoker x 3 years. No use of alcohol or recreational drugs. Patient is a [employer]. Patient had NG tube placed last night and states to be feeling better. Notes throat irritation from NG tube placement. He notes improvement with SOB, abdominal pain and distention. Had an episode of loose stool last night, and passing flatus. He denies N/V, fever, chills. PE Medications: -Brillinta -Aspirin -Atorvastatin -Metoprolol -Omeprazole -Tamsulosin -Citalopram Past Medical History: -CAD, stent 2018 and cardiac bypass x5 -Carotid stenosis -Hyperlipidemia -BPH -Anxiety Vital Signs - 12 hr Temp Pulse Resp BP Pulse Ox 03/01/19 04:48 97.8 F 68 16 151/65 95 03/01/19 04:28 97.4 F 67 21 139/85 93 03/01/19 04:00 67 17 95 03/01/19 03:58 67 16 118/68 96 03/01/19 03:27 68 21 105/69 95 03/01/19 03:00 67 20 95 03/01/19 02:58 69 21 131/73 96 03/01/19 02:27 71 29 106/80 95 03/01/19 02:00 71 17 95 03/01/19 01:57 72 18 150/77 96 03/01/19 01:27 70 19 134/94 94 03/01/19 01:00 76 18 95 03/01/19 00:57 77 25 130/75 95 03/01/19 00:29 76 28 124/59 94 03/01/19 00:00 75 21 94 02/28/19 23:57 71 21 162/81 94 02/28/19 23:34 73 23 134/76 94 02/28/19 23:00 79 26 94 02/28/19 22:57 74 27 145/81 94 Intake and Output Last 24 Hours 02/27/19 02/28/19 03/01/19 03/02/19 06:59 06:59 06:59 06:59 Intake Total 600 0 Output Total 2800 Balance -2200 0 Weight 198 lb 9.6 oz Intake: IV Fluids 600 Oral 0 0 Output: NG Tube Drainage Amount 1800 Urine 300 Liquid Stool 700 Other: Estimated Void Large # Bowel Movements 0 # Voids 1 PE: General: Patient is sitting up in bed in NAD. Alert and oriented x 3. Abnormal thoracic kyphosis. NG tube with clear and green fluid. Lungs: CTA. Heart: RRR. No murmurs noted. Normal S1/S2 Abdomen: Soft, non-tender without distention, guarding, or rigidity. Bowel sounds are normo-active. Scar noted to the right abdomen. Laboratory Tests 02/28/19 02/28/19 03/01/19 20:55 20:55 08:30 WBC 15.8 H 10.8 Absolute Neuts (auto) 13.9 H 8.9 H BUN 29 H Creatinine 1.18 H BUN/Creatinine Ratio 24.6 H Glucose 124 H Total Bilirubin 2.20 H Alkaline Phosphatase 116 H C-Reactive Protein 31.98 H 03/01/19 08:30 WBC Absolute Neuts (auto) BUN 30 H Creatinine 1.01 BUN/Creatinine Ratio 29.7 H Glucose 101 H Total Bilirubin Alkaline Phosphatase C-Reactive Protein Imaging: CTA yesterday suggestive of small bowel obstruction. Abdominal X-Ray today with non-specific gas pattern. A: Improving small bowel obstruction P: Patient states to be feeling better after placement of NG tube. 1.8 L of drainage noted. Fluid is mostly clear at this time and patient is passing flatus. NG tube may be removed and patient may begin clear liquid diet. No need for surgical intervention at this time.
[2019-03-01 11:04] LABS: Urine Appearance Cloudy; Urine Bilirubin Negative (Negative); Urine Blood Negative (Negative); Urine Color Amber; Urine Glucose Negative (Negative); Urine Ketones Negative (Negative); Urine Nitrite Negative (Negative); Urine Protein Negative (Negative); Urine Specific Gravity > 1.060 (1.010-1.030); Urine Urobilinogen Negative (Negative)
[2019-03-01] MEDS: amLODIPine TAB* 5 MG PO SCH (11:33)
--- NOTE | 2019-03-01 11:51 | PN ---
Progress Note - Progress Note Date of Service: 03/01/19 Note: Surgery Progress Note Please see full dictated H&P by MANDA Morales. Briefly, patient is a 78 yo M with a history of an appendectomy who presented to ED with nausea, emesis and diarrhea starting Wednesday. He said he felt very distended and had SOB from this. CTA c/a/p was done showing a small bowel obstruction. NGT was placed with over 1.8L fluid removed. This morning patient feels very well. He said his distension is gone, he is no longer SOB, he passed flatus and some liquid stool this morning. NGT was removed. Labs, imaging were reviewed. Patient has resolving ileus or SBO. Recommend starting CLD and advancing as tolerated. Patient should have return precautions upon DC. Discussed case with Dr. العراقي. Surgery will sign off now , but please feel free to call back if you would like us to see patient again or should his clinical condition change.
[2019-03-01] MEDS ORDERED: Tamsulosin CAP* 0.4 MG PO SCH (21:00)
[2019-03-01] MEDS ORDERED: Atorvastatin* 80 MG TAB PO SCH (21:00)
--- NOTE | 2019-03-01 22:55 | CONS ---
CC: Hailey Izquierdo MD * SURGICAL CONSULTATION NOTE: DATE OF CONSULT: 03/01/19 ATTENDING PHYSICIAN: Dr. Kalyn Naik. CHIEF COMPLAINT: Abdominal pain, nausea, and vomiting. HISTORY OF PRESENT ILLNESS: This is a 78-year-old male admitted to the medical service with abdominal pain, nausea and vomiting, and imaging suggestive of small- bowel obstruction. He states that he has had occasional intermittent diarrhea in the past, but without significant abdominal pain, typically resolving within 24 hours. Beginning a couple of days ago, he noted some diarrhea. He had eaten a bunch of walnuts on Wednesday evening and soon thereafter began to feel some discomfort in the abdomen. This progressed through Wednesday to more significant centralized abdominal pain with associated nausea and vomiting of bilious material. He continued to have some accompanying diarrhea, though this seemed to be abating. He did note the inability to take a deep breath and for all the above symptoms, presented to the emergency department. He denies hematemesis or blood per rectum. He did undergo open appendectomy a number of years ago, which sounds like it was complicated by postoperative ileus. By his history, he has never been admitted before for these same symptoms. Upon placement of NG tube in the ED, he drained about 1.5 L of fluid and immediately felt better. He was already pain-free and passing flatus this morning, and NG tube was removed earlier this morning and he has already completed at least 1 tray of clear liquids, which were well tolerated. He has been passing flatus throughout the day. At present, he denies any abdominal pain. PAST MEDICAL HISTORY: Significant for coronary artery disease, hypertension, status post pacemaker with AICD, hyperlipidemia, spinal stenosis, kyphoscoliosis , GERD, anxiety, and BPH. PAST SURGICAL HISTORY: Previous surgeries include the aforementioned appendectomy as well as 5-vessel CABG, pacemaker placement, and bilateral carotid endarterectomies. MEDICATIONS: Admission medications are noted, which include Brilinta and aspirin. ALLERGIES: NIACIN. FAMILY HISTORY: As per his admission history and physical and not repeated here. SOCIAL HISTORY: As per his admission history and physical and not repeated here. PHYSICAL EXAM: Height 5 feet 6 inches, weight 198 pounds. Temperature 97.5, blood pressure 106/46, pulse 72, respirations 16, room air saturation 99%. General: A well-nourished, well-developed male, sitting up at the edge of the bed, in no acute distress. Skin: Warm and dry. No suspicious rashes or lesions. Heart: Regular rate and rhythm. There is a left upper chest wall pacemaker AICD noted. Lungs: Clear to auscultation, no rales or wheezes. Abdomen: Mildly distended per patient. Well-healed right lower quadrant surgical scar. Bowel sounds are present and normoactive. Abdomen is soft and with no tenderness to palpation. No palpable masses. No significant tympany. DIAGNOSTIC STUDIES/LAB DATA: Laboratory on admission notable for white blood cell count of 15,800; down to 10,800 this morning; hemoglobin this morning 13.5 ; normal differential. Chemistry is notable for electrolytes within normal range, BUN and creatinine mildly elevated on admission at 29 and 1.18, respectively, glucose mildly elevated at 124. Total bilirubin elevated at 2.2, but consistent with previous and less likely related to Gilbert syndrome. C- reactive protein on admission elevated at 32. CT scan with IV contrast for CTA protocol of the chest including the abdomen and pelvis was reviewed by myself and by Dr. Naik. This showed no PE, dilated small- bowel loops consistent with small-bowel obstruction, cholelithiasis without evidence of cholecystitis, diverticulosis without evidence of diverticulitis, and some calcific atherosclerotic disease of both the celiac and superior mesenteric arteries (see separate report). IMPRESSION: Small-bowel obstruction, resolving. PLAN: The patient is already tolerating clear liquids. He can be advanced slowly as per the medical team and likely discharged on 03/02/19 pending tolerance of diet. Surgical followup will be p.r.n. Please contact us if there are any further concerns. MANDA SANTANA [id number]/[facility] #: [id number] JOVAN
[2019-03-02] MEDS ORDERED: Enoxaparin(*) 40 MG/0.4 ML SYR SUBCUT SCH (06:00)
[2019-03-02 06:20] LABS: BUN/Creatinine Ratio 33.7 (8-20); Calcium 9.5 mg/dL (8.6-10.3); EGFR Non-African American 76.9 (>60); Potassium 4.1 mmol/L (3.5-5.0)
[2019-03-02] MEDS ORDERED: Pantoprazole TAB * 40 MG TAB PO SCH (09:00)
[2019-03-02] MEDS ORDERED: Potassium Chlor TAB* 20 MEQ TAB.ER PO SCH (09:00)
[2019-03-02] MEDS: Losartan TAB* 25 MG PO SCH (09:27)
[2019-03-02] MEDS: Metoprolol Succinate XL TAB* 50 MG PO SCH (09:27)
[2019-03-02] MEDS: Isosorbide Mononitrate ER TAB* 30 MG PO SCH (09:27)
[2019-03-02] MEDS: amLODIPine TAB* 5 MG PO SCH (09:27)
[2019-03-02] MEDS: Ticagrelor* 90 MG TAB PO SCH (09:27)
[2019-03-02] MEDS: Aspirin EC TAB* 81 MG TAB.EC PO SCH (09:28)
[2019-03-02 14:24] VITALS: BP 121/72
--- NOTE | 2019-03-03 10:36 | DS ---
CC: Dr. Izquierdo; Dr. Young* DISCHARGE SUMMARY: DATE OF ADMISSION: 02/28/19 DATE OF DISCHARGE: 03/02/19 PRIMARY CARE PROVIDER: Dr. Izquierdo. TALLOW MAKER: Dr. Young. CONSULTING SURGEON: Dr. Naik. DISCHARGE DIAGNOSES: 1. Small bowel obstruction, resolved. 2. 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 SECONDARY DIAGNOSES: 1. Coronary artery disease, status post coronary artery bypass grafting with non- ST-elevation myocardial infarction in August 2018. 2. Systolic congestive heart failure with ejection fraction of 40% to 45%. 3. Status post automatic implantable cardioverter-defibrillator. 4. Hypertension. 5. Hyperlipidemia. 6. Spinal stenosis. 7. Prominent kyphosis of the thoracic spine with suggestion of restrictive respiratory failure. 8. Gastroesophageal reflux disease. 9. Anxiety. 10. Benign prostatic hypertrophy. MEDICATION LIST: 1. Amlodipine 5 mg p.o. daily. 2. Aspirin 81 mg p.o. daily. 3. Atorvastatin 80 mg p.o. at bedtime. 4. Brilinta 90 mg p.o. b.i.d. 5. Furosemide 20 mg p.o. daily. 6. Imdur 30 mg p.o. daily. 7. Lorazepam 1 mg p.o. t.i.d. as needed for anxiety. 8. Losartan 25 mg p.o. daily. 9. Metoprolol succinate 50 mg p.o. daily. 10. Omeprazole 20 mg p.o. daily. 11. Potassium chloride 20 mEq p.o. daily. 12. Tamsulosin 0.4 mg p.o. at bedtime. HOSPITAL COURSE: Mr. Molina is a 78-year-old male with a past medical history as stated above that presented to the emergency room with complaints of nausea, vomiting, diarrhea, and abdominal pain. For more details about his presentation , I refer you to the history and physical. In the emergency room, the patient had abdomen x-ray that showed known specific bowel gas pattern and a CTA of chest, abdomen, and pelvis that showed small bowel obstruction with a suspected point of transition in the central lower abdomen. The patient was admitted to the medical floor for management of his bowel obstruction. 1. Small bowel obstruction. The patient has a prior history of a complicated appendicitis with perforation requiring appendectomy and bowel resection more than 30 years ago, but he does not report prior episodes of small bowel obstruction. An NG tube was placed with drainage of 1.8 L. After that, the patient states that his symptoms improved and then he was able to have a large bowel movement and pass gas. He was started on a clear liquid diet and had progressive improvement of his symptoms and diet tolerance. He was seen in consultation by General Surgery (Dr. Naik) and the impression was the patient had a small bowel obstruction versus resolving ileus and no surgical intervention was indicated. The patient was advised to follow up a low-fiber diet for 2 weeks and he received education about it. 2. Probable vascular disease of the abdomen. The patient has a significant history of coronary artery disease and his CTA of the chest, abdomen, and pelvis showed prominent atherosclerotic calcification with question of origin stenosis of the celiac artery and probable high-grade stenosis of the SMA. The patient states that he was having issues with postprandial abdominal pain and diarrhea that he thought were associated with greasy food. He states that his symptoms have improved with cutting down on the amount of fat he eats and he has had 15 to 20 pounds intentional weight loss but with his history, he may require further evaluation of his vascular disease. He is already on therapy for his coronary artery disease with aspirin, Brilinta, and atorvastatin, but he may benefit evaluation with a vascular surgeon. The patient had resolution of his symptoms. He was able to tolerate a low- fiber diet and felt back to his baseline. He will be discharged home today to follow up with Dr. Izquierdo next week. PHYSICAL EXAMINATION: Vital Signs: Temperature 98.1, heart rate is 76, respiratory rate is 16, oxygen saturation 98% on room air, blood pressure is 121 /72. General: The patient is a pleasant elderly gentleman, sitting up in bed, in no acute distress. CVS: Normal S1, S2. Regular rate and rhythm. Chest: Breath sounds bilaterally with no added sounds. Abdomen is soft, nontender, and nondistended. Bowel sounds are present. Neuro: He is alert and oriented x3. He is able to move all 4 extremities. Of note, the patient has significant thoracic spine kyphosis. DIET: Heart-healthy, low-fiber diet. ACTIVITIES: As tolerated. DISPOSITION: To home. STATUS WHILE IN THE HOSPITAL: Inpatient. The patient received education about concerning symptoms that will prompt his return to the emergency room. Please keep in mind, this is a summarized version of this patient's hospital stay. If you need more information, please feel free to call me at [phone] or please obtain the full medical records. TIME SPENT: Approximately 45 minutes was spent to complete this discharge. [id number]/[facility] #: [id number] JOVAN
== END 2019-03-02 14:35 | disposition home or self-care (01) | DRG 388 ==
LOC: ED 19:46 → MED 03-01 02:47
PROVIDERS: ADMIT Internal Medicine; ATTEND Internal Medicine
PROC: 0D9670Z Drainage of Stomach with Drainage Device, Via Natural or Artificial Opening (ICD-10-PCS; principal; 2019-03-01)
DX: K56.609 Unspecified intestinal obstruction, unspecified as to partial versus complete obstruction (principal); J96.90 Respiratory failure, unspecified, unspecified whether with hypoxia or hypercapnia; I77.4 Celiac artery compression syndrome; I50.20 Unspecified systolic (congestive) heart failure; I11.0 Hypertensive heart disease with heart failure; I99.8 Other disorder of circulatory system; I25.10 Atherosclerotic heart disease of native coronary artery without angina pectoris; E78.5 Hyperlipidemia, unspecified; M48.00 Spinal stenosis, site unspecified; Z66 Do not resuscitate; M40.294 Other kyphosis, thoracic region; K21.9 Gastro-esophageal reflux disease without esophagitis; N40.0 Benign prostatic hyperplasia without lower urinary tract symptoms; R19.7 Diarrhea, unspecified; I87.8 Other specified disorders of veins; F41.9 Anxiety disorder, unspecified; K80.20 Calculus of gallbladder without cholecystitis without obstruction; I25.2 Old myocardial infarction; Z79.82 Long term (current) use of aspirin; Z95.1 Presence of aortocoronary bypass graft; Z95.810 Presence of automatic (implantable) cardiac defibrillator; Z79.899 Other long term (current) drug therapy; Z88.8 Allergy status to other drugs, medicaments and biological substances; Z82.49 Family history of ischemic heart disease and other diseases of the circulatory system; Z87.891 Personal history of nicotine dependence
CPT/HCPCS: 36415; 71045; 71275; 74018; 74177; 80048; 80053; 81003; 82150; 82270; 83630; 83690; 83735; 85025; 85610; 85730; 86140; 87045; 87046; 87077; 87493; 87899; 99284; A9270-GY; G8978-GP-CJ; G8979-GP-CI; J1650; J2405; Q9967

== ENCOUNTER 2019-03-15 11:20 | Emergency (ER) | payer MEDICARE ==
--- NOTE | 2019-03-15 11:38 | ED ---
Shortness of Breath - HPI Summary HPI Summary: Pt is a 78 y/o M presenting to the ED with a chief complaint of shortness of breath onset about one week ago. He reports orthopnea, sleep disturbance, chills , as well as pain around his defibrillator, cough, and some congestion. He denies CP, sore throat, nausea, abnml bowel movements, and diarrhea. His pacemaker/defibrillator is 8-10 yrs old, and had low batteries approx. 3 yrs ago. He also notes his breathing is better when getting up and walking around. - History of Current Complaint Chief Complaint: EDGeneral Time Seen by Provider: 03/15/19 11:31 Hx Obtained From: Patient Onset/Duration: Gradual Onset, Lasting Days, Still Present Timing: Constant Current Severity: Moderate Dyspnea At: Orthopena Aggrevating Factors: Other - lying down Alleviating Factors: Upright Position Associated Signs & Symptoms: Cough (Nonproductive), Chills, Nasal Congestion - Allergy/Home Medications Allergies/Adverse Reactions: Allergies Allergy/AdvReac Type Severity Reaction Status Date / Time niacin Allergy Rash Verified 03/15/19 11:28 Home Medications: Home Medications Clopidogrel TAB* [Plavix TAB*] 75 mg PO DAILY 03/15/19 [History Confirmed ] Furosemide TAB* [Lasix TAB*] 20 mg PO DAILY 03/15/19 [History Confirmed 03/15/19 ] Losartan TAB* [Cozaar TAB*] 25 mg PO DAILY 03/15/19 [History Confirmed 03/15/19] Magnesium Oxide [Magnesium] 250 mg PO BID 03/15/19 [History Confirmed 03/15/19] Nitroglycerin TAB 0.4 MG* 0.4 mg SL Q5M PRN 03/15/19 [History Confirmed 03/15/19 ] Omeprazole CAP (NF) [Prilosec CAP* 20 MG] 20 mg PO DAILY 03/15/19 [History Confirmed 03/15/19] Potassium Chlor TAB* [Klor Con ER TAB*] 20 meq PO DAILY 03/15/19 [History Confirmed 03/15/19] Ticagrelor* [Brilinta*] 90 mg PO BID 03/15/19 [History Confirmed 03/15/19] Ubidecarenone [Coenzyme Q10] 100 mg PO DAILY 03/15/19 [History Confirmed ] PMH/Surg Hx/FS Hx/Imm Hx Previously Healthy: Yes Endocrine/Hematology History: Denies: Hx Diabetes Cardiovascular History: Reports: Hx Angina, Hx Auto Implanted Cardiovert Defib, Hx Congestive Heart Failure, Hx Coronary Artery Disease, Hx Hypercholesterolemia , Hx Hypertension, Hx Myocardial Infarction, Hx Pacemaker/ICD, Other Cardiovascular Problems/Disorders - cabg x 5 per patient Denies: Hx Valvular Heart Disease Respiratory History: Reports: Hx Pneumonia, Hx Seasonal Allergies Denies: Hx Asthma, Hx Chronic Obstructive Pulmonary Disease (COPD) GI History: Reports: Other GI Disorders - fecal stones 50 years ago, gall stones. SBO 02/2019. History: Reports: Other Problems/Disorders - enlarged prostate Denies: Hx Renal Disease Musculoskeletal History: Reports: Hx Arthritis - hands, feet, knees, Hx Back Problems - decreased cartilage, Other Musculoskeletal History - pt states "the doctor says I broke my back" Sensory History: Reports: Hx Contacts or Glasses - reading, Hx Hearing Aid Opthamlomology History: Reports: Hx Contacts or Glasses - reading Psychiatric History: Reports: Hx Anxiety, Hx Substance Abuse - tobacco Denies: Hx Depression, Hx Suicide Attempt - Cancer History Cancer Type, Location and Year: skin cancer of nose - Surgical History Surgery Procedure, Year, and Place: 5 CABG /PACEMAKER X 2, carotid stents Infectious Disease History: No Infectious Disease History: Denies: Traveled Outside the [place] in Last 30 Days - Family History Known Family History: Positive: Cardiac Disease, Hypertension - Social History Alcohol Use: None Hx Substance Use: No Substance Use Type: Reports: None Hx Tobacco Use: Yes Smoking Status (MU): Former Smoker Type: Cigarettes Amount Used/How Often: did it for about 2 years,a "few years ago" Have You Smoked in the Last Year: No Review of Systems Positive: Chills. Negative: Fever Positive: Nasal Discharge Negative: Chest Pain Positive: Shortness Of Breath, Cough Negative: Diarrhea, Nausea Positive: Myalgia - around his pacemaker. Negative: Edema All Other Systems Reviewed And Are Negative: Yes Physical Exam - Summary Physical Exam Summary: Constitutional: Well-developed, Well-nourished, Alert. (-) Distressed Skin: Warm, Dry HENT: Normocephalic; Atraumatic Eyes: Conjunctiva normal Neck: Musculoskeletal ROM normal neck. (-) JVD, (-) Stridor, (-) Tracheal deviation Cardio: Rhythm regular, rate normal, Heart sounds normal; Intact distal pulses; The pedal pulses are 2+ and symmetric. Radial pulses are 2+ and symmetric. (-) Murmur Pulmonary/Chest wall: Effort normal. (-) Respiratory distress, (-) Wheezes, (+) Rare basilar crackles. (-) Rhonchi. Abd: Soft, (-) tenderness, (-) Distension, (-) Guarding, (-) Rebound Musculoskeletal: (+) 1+ pitting edema bilateral LE Lymph: (-) Cervical adenopathy Neuro: Alert, Oriented x3 Psych: Mood and affect Normal Triage Information Reviewed: Yes Vital Signs On Initial Exam: Initial Vitals Temp Pulse Resp BP Pulse Ox 97.2 F 75 17 121/73 97 03/15/19 11:25 03/15/19 11:25 03/15/19 11:25 03/15/19 11:25 03/15/19 11:25 Vital Signs Reviewed: Yes Diagnostics - Vital Signs Vital Signs Temp Pulse Resp BP Pulse Ox 03/15/19 11:25 97.2 F 75 17 121/73 97 - Laboratory Result Diagrams: 03/15/19 11:59 03/15/19 11:59 Lab Statement: Any lab studies that have been ordered have been reviewed, and results considered in the medical decision making process. - Radiology CXR Radiology Interpretation Completed By: Radiologist Summary of Radiographic Findings: Alveolar and interstitial pulmonary edema with interval worsening. ED physician has reviewed this report. - EKG 1203 Cardiac Rate: NL - 72bpm EKG Rhythm: Sinus Rhythm ST Segment: Non-Specific Ectopy: None EKG Comparison: Other - see summary Summary of EKG Findings: EKG at 1203 shows NSR at 72bpm with 1st degree AV block , prolonged OR interval, prolonged QRS, LBBB, nml QTc. ST segment is elevated in lead III and aVF, and depressed in I, aVL, and v3-v6. Overall, it is an incomplete LBBB with ST changes in a similar pattern to previous acute IL. Re-Evaluation - Re-Evaluation 1st re-eval Re-Evaluation Time: 12:26 Change: Unchanged Comment: Results discussed w/ patient. 2nd re-eval Re-Evaluation Time: 12:44 Change: Unchanged Comment: Spoke with pt about results and informed him Dr. Murray would come to evaluate him. Course/Dx - Course Course Of Treatment: Pt is a 78 y/o M presenting to the ED with a chief complaint of shortness of breath onset about one week ago. He reports orthopnea , sleep disturbance, chills, as well as pain around his defibrillator, cough, and some congestion. He denies CP, sore throat, nausea, abnml bowel movements, and diarrhea. CXR shows alveolar and interstitial pulmonary edema with interval worsening. Pts bloodwork shows Hgb of 12.5, Hct of 37, plt count of 143. His chemistry shows BUN/Creatinine ratio of 21.9, lactic acid of 1.2, Magnesium of 1.8, total bilirubin of 2.60, and AST of 49. EKG at 1203 shows NSR at 72bpm with 1st degree AV block, prolonged OR interval, prolonged QRS, LBBB, nml QTc. ST segment is elevated in lead III and aVF, and depressed in I, aVL, and v3-v6. Overall, it is an incomplete LBBB with ST changes in a similar pattern to previous acute IL. Pt's troponin I is 4.98, and BNP is 807. Results discussed w/ patient, and cardiology paged at [phone]. I discussed the results with Dr. Murray who will be coming to evaluate the pt and will call Dr. Ahuja , the interventionalist, as of 1237. Dr. Murray confirmed with me that the EKG frmo today, 03/15/19, has definitive changes from 09/28/18. She also ordered a transthoracic echocardiogram. The pt is negative for Influenza A&B. Dr. Murray spoke to the pt about his results and he stated he would like to go to [place] to get the recommended testing done, so the transfer process has been initiated. Pt is going to be accepted to [facility] as soon as they have a bed available under Dr. Young. - Diagnoses Provider Diagnoses: NSTEMI (non-ST elevated myocardial infarction), CHF (congestive heart failure) Discharge - Sign-Out/Discharge Documenting (check all that apply): Patient Departure - transfer [facility] - Discharge Plan Condition: Stable Disposition: [facility] Referrals: Hailey Krause MD [Primary Care Provider] - - Billing Disposition and Condition Condition: STABLE Disposition: Trans [facility] of Care Fac - Attestation Statements Document Initiated by Scribe: Yes Documenting Scribe: Sapphire Westbrook Provider For Whom Janee is Documenting (Include Credential): Soledad Goodwin MD. Scribe Attestation: I, Sapphire Westbrook, scribed for Soledad Chapman MD. on 03/15/19 at 1658. Scribe Documentation Reviewed: Yes Provider Attestation: The documentation as recorded by the scribe, Sapphire Westbrook accurately reflects the service I personally performed and the decisions made by me, Soledad Chapman MD. Status of Scribe Document: Viewed Consult Consult: [id number] - Spoke with Dr. Murray of cardiology about the pt's EKG and troponin levels who will be coming to evaluate the pt, and called Dr. Ahuja, the interventionalist. [id number] - Spoke with Dr. Young who will be accepting the pt to [facility] as soon as they have a bed available.
[2019-03-15 12:09] LABS: ABS Basophils 0.1 10^3/ul (0-0.2); ABS Eosinophils 0 10^3/ul (0-0.6); ABS Lymphocytes 0.5 10^3/ul (1.0-4.8); ABS Monocytes 1.1 10^3/ul (0-0.8); ABS Nucleated RBC 0 10^3/ul; Eosinophil % 0.3 %; Hematocrit 37 % (42-52); Hemoglobin 12.5 g/dL (14.0-18.0); Lymphocyte % 4.8 %; Mean Corpuscular HGB Conc 34 g/dL (31-36); Mean Corpuscular Hemoglobin 30 pg (27-31); Mean Corpuscular Volume 87 fL (80-94); Nucleated Red Blood Cells % 0.1; Platelet Count 143 10^3/uL (150-450); Red Cell Distribution Width 16 % (10.5-15); White Blood Count 9.6 10^3/uL (3.5-10.8)
[2019-03-15 12:26] LABS: ALT 21 U/L (7-52); AST 49 U/L (13-39); Albumin 4.1 g/dL (3.2-5.2); Albumin/Globulin Ratio 1.6 (1-3); Alkaline Phosphatase 98 U/L (34-104); Anion Gap 8 mmol/L (2-11); BUN/Creatinine Ratio 21.9 (8-20); Blood Urea Nitrogen 21 mg/dL (6-24); CO2 Carbon Dioxide 28 mmol/L (22-32); Calcium 9.9 mg/dL (8.6-10.3); Chloride 101 mmol/L (101-111); EGFR African American 91.9 (>60); Globulin 2.6 g/dL (2-4); Glucose 110 mg/dL (70-100); Magnesium 1.7 mg/dL (1.9-2.7); Potassium 3.9 mmol/L (3.5-5.0); Sodium 137 mmol/L (135-145); Total Protein 6.7 g/dL (6.4-8.9)
[2019-03-15 12:31] LABS: Troponin I 4.98 ng/mL (<0.04)
[2019-03-15] MEDS ORDERED: Aspirin 81 mg CHEW TAB* 81 MG TAB.CHEW PO ONE (12:32)
[2019-03-15 12:42] LABS: Influenza A Molecular NEGATIVE (Negative); Influenza B Molecular NEGATIVE (Negative)
[2019-03-15] MEDS ORDERED: Perflutren Lipid Microsphere* 3 ML VIAL ONE (13:13)
[2019-03-15 14:41] LABS: Troponin I 4.83 ng/mL (<0.04)
--- NOTE | 2019-03-15 15:03 | CONS ---
CC: Dr. Osborn, Dr. Young CARDIOLOGY CONSULTATION: DATE OF CONSULT: 03/15/19 REASON FOR CONSULTATION: ED called for abnormal EKG, chest pain and elevated troponins. CHIEF COMPLAINT: Chest pain, orthopnea, PND. HISTORY OF PRESENT ILLNESS: Mr. Molina is a 78-year-old gentleman followed by my partner, Dr. Abhijit Young, with a long history of coronary artery disease, he had distant bypass surgery (1996), multivessel. In August 2018, the patient presented with inferior, posterior myocardial infarction and underwent stenting at [facility]. The patient has been in cardiac rehab and did well until several days ago. The patient states for 2 days and the patient's who is present in the room states for 4 days that the patient has had sensation of bruising in the left upper chest, it occurs when he lies down on that side and he thinks it is related to the pacer. He has also had significant orthopnea and PND. The patient denies any changes in diet. No missed medications. He was in cardiac rehab and doing very well last week, but has been unable to go this week. Recent events, however, do include admission for a small bowel obstruction 02/28 through 03/02/19 and was also felt that he had peripheral vascular disease involving the celiac and superior mesenteric arteries. Since that time, he has had no recurrent problems with constipation, diarrhea, or GI complaints and no increase in his chronic lower extremity edema. PAST MEDICAL HISTORY: 1. Coronary artery disease, status post bypass grafting in 1996 (HOU to the LAD, saphenous vein graft, sequential to 4 vessels, right-sided PD, OM branch, ramus and diagonal and recent inferior, posterior TX in August 2018). A. Cardiac catheterization on 08/26/18 at [facility] showed kalispel vessels; occluded left main at the ostium, occluded right coronary artery at the ostium, HOU to the LAD widely patent, sequential vein graft totally occluded proximally, ejection fraction was 25% to 30%, At [facility] he was found to have a subtotally occluded SVG and underwent a drug-eluting stent (Synergy 4.0 mm x 32mm) to his sequential vein graft. 2. Ischemic cardiomyopathy. 3. Defibrillator. 4. Hypertension. 5. Dyslipidemia. 6. Obesity. 7. Spinal stenosis. 8. Kyphoscoliosis. 9. Reflux. 10. Anxiety. 11. Benign prostatic hypertrophy. 12. Small bowel obstruction. 13. 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 MEDICATIONS: Medications at discharge in February include: 1. Amlodipine 5 mg a day. 2. Aspirin 81 mg a day. 3. Atorvastatin 80 mg a day. 4. Brilinta 90 mg b.i.d. 5. Lasix 20 mg a day. 6. Imdur 30 mg at q.h.s. 7. Lorazepam 1 mg t.i.d. p.r.n. 8. Losartan 25 mg a day. 9. Metoprolol 50 mg q. day. 10. Omeprazole 20 mg a day. 11. Potassium 20 mEq a day. 12. Tamsulosin 0.4 mg a day. ALLERGIES: Include NIACIN. FAMILY HISTORY: Negative for coronary or pulmonary disease. SOCIAL HISTORY: The patient smoked distantly, quit 45 years ago. Rare alcohol use. REVIEW OF SYSTEMS: See history of present illness. Small bowel obstruction with nausea, vomiting, constipation in early February, but none since. Two to four days progressive orthopnea and PND and bruising sensation in the left upper shoulder in the region of his device. No syncope or near syncope. He denies recent fevers, chills, sweats, change in bowel or bladder habits, change in diet, change in meds. See history of present illness and all other 14-point review of systems was negative. PHYSICAL EXAMINATION: On exam, the patient is 5 feet 6 inches, weight 198 pounds with a BMI of 32. Vitals: Blood pressure 121/73, pulse is 75 and regular, respiratory rate is 17, oxygen saturation 97%, temperature 97.2. General Appearance: Stocky, somewhat barrel-chested older gentleman, lying in bed, talkative at 60 degrees. Psychologically, cooperative, making jokes. Neurologically, awake, alert, and oriented to person, place, and time. Grossly normal sensory and motor function in the upper and lower extremities on bed exam. Skin: Warm, dry. Midline sternotomy scar and device. Incision over the left subclavian fossa well healed. No appreciable cyanosis, but oxygen prongs on. HEENT: Mucous membranes moist. Neck with increased JVP. Chest and thorax , marked kyphoscoliosis of the posterior spine. Markedly diminished breath sounds on the lower one half to lower two thirds of the lung cantrell. Coronary: S1, S2, regular without murmurs and distant. Abdomen: Active bowel sounds and soft without appreciable hepatomegaly. Lower extremities shows 2 to 3+ pitting edema. DIAGNOSTIC STUDIES/LAB DATA: Studies: 1. The patient's cath from 10/26/18 reviewed showing patent HOU and occluded vein graft. 2. Echocardiogram done at the time of his myocardial infarction on 08/27/19 showed an ejection fraction of 45% to 50% with the basilar inferolateral inferior wall hypokinetic. Mild to moderate mitral insufficiency, aorta mildly dilated, aortic valve sclerosis. PA pressure unable to be estimated. Labs: Today; white count 9.6, hematocrit 37, platelets 143. Sodium 137, potassium 3.9, chloride 101, bicarb 28, BUN 21, creatinine 0.96, glucose 110, magnesium 1.7. AST 49, ALT 21. Troponin #1 is 4.98, BNP of 807. Influenza negative. The most recent lipids are from 12/19/18 showing total cholesterol 119, triglycerides 137 and LDL cholesterol 60, estimated. A 12-lead ECG today showed sinus rhythm at 72 beats a minute with a first- degree AV block and nonspecific intraventricular conduction delay, inferior Qs in leads III and aVF, [address] elevation of leads III and aVF and mild ST depression in the lateral leads predominantly V4 through V6. When this was compared with the EKG done by Dr. Young on 09/28/18, the inferior ST elevation is new and the lateral ST depression V4 through V6 is new. Acute echocardiogram in progress. Chest x-ray done today shows moderate to severe congestive heart failure to my eyes. His ICD lead is in place and the report describes pulmonary edema, interval worsening. ASSESSMENT AND PLAN: In summary, Mr. Molina is a 78-year-old gentleman who had bypass surgery in 1996 and on cath of August 2019 was shown to have an occluded vein graft supplying 4 vessels. He underwent stenting at [facility] for an acute ST-elevation myocardial infarction. He was doing well on cardiac rehab. He then presented in early February with a small bowel obstruction in February and now presents with a 2- to 4-day history of progressive orthopnea, paroxysmal nocturnal dyspnea and chest pain with troponins elevated to almost 5. The patient is clinically in congestive heart failure, but the additional concern is that he could have occluded his stent supplying the vein graft leading to the acute ECG changes and chest discomfort. I have asked Dr. Shane with Interventional Cardiology to evaluate for the necessity of repeat catheterization and possible intervention, even though this process has been going on for a couple of days and he will report separately. I am getting an updated echo to look at wall motion, valve function, and PA pressures if able to assist with management both the decisions for his ischemic management and also to reevaluate his ejection fraction and help us with congestive heart failure management. For the patient's congestive heart failure and his CAD, it appears his metoprolol dose was lowered from 50 b.i.d. to 50 mg a day at the time of his small bowel obstruction and we may want to consider increasing this or converting this to Coreg. He may benefit from adding spironolactone to his daily Lasix, but acutely, I feel we need to give him IV Lasix for clinical improvement, then fine tune his medications with adjusting beta-blockers, SKYE inhibitors and diuretics including Aldactone. Further recommendations will be made pending the decisions of the plisse machine operator and his response to acute medical management. ADDENDUM: DR SHANE AGREED CATH IS INDICATED, HE REVIEWED REPORTS AND FILM HERE , BUT FEELS THE PATIENT IS HIGH RISK AND RECOMMENDED TRANSFER BACK TO [place]. THE PATIENT ALSO HAD PREVIOUSLY REQUESTED [facility] IF INTERVENTION RECOMMENDED. LS. [id number]/[facility] #: [id number] JOVAN
[2019-03-15] MEDS ORDERED: Furosemide IV* 10 MG/ML VIAL (40 MG) IV ONE (15:30)
[2019-03-15 17:35] VITALS: BP 127/76
--- NOTE | 2019-03-15 17:51 | ECHO ---
*[facility]* [place] [address] Fax #: [phone] Transthoracic Echocardiogram Patient: Jesse, Height: 66 in / Chan Domínguez 167.6 cm : 1940 Weight: 197.6 lb / Study Date: 03/15/2019 89.8 kg Age: 78 BP: 119 / 69 Gender: M BMI/BSA: 32 kg/m^2 / HR: 74 bpm 1.99 m^2 *Refrigeration Mechanic Helper: Ericka Wade [facility] *Referring Physician: * Vannessa Murray MD *Reading Physician: * Vannessa Murray MD Indications: Chest Pain, unspecified. SOB. History: Coronary artery disease. Congestive heart failure. PMH: Myocardial infarction. Risk factors: Hypertension. Dyslipidemia. Labs, prior tests, procedures, and surgery: Catheterization with coronary intervention. ICD system implantation. Coronary artery bypass grafting. Conclusions Summary: 1. Left ventricle: Systolic function is moderately reduced. The estimated ejection fraction is 35-40%. Akinesis and thinning of the posterior lateral wall at the base, severe hypokinesis of the inferior wall. Features are consistent with a pseudonormal left ventricular filling pattern, with concomitant abnormal relaxation and increased filling pressure (grade 2 diastolic dysfunction). 2. Right ventricle: Systolic function is normal. Right ventricle (pulmonary artery) systolic pressure is moderately increased estimated at 50 mm Hg. 3. Mitral valve: There is moderate regurgitation. 4. Tricuspid valve: There is mild regurgitation. 5. Compared with prior echocardiogram of 08/28/18 ejection fraction has decreased further from 40-45%, mitral regurgitation and tricuspid regurgitation have increased, elevated pulmonary artery pressure newly noted. Study data: Transthoracic echocardiogram. Procedure: Transthoracic echocardiography was performed. Image quality was fair. Intravenous contrast (Definity, 2 mls) was administered. Complete 2D, spectral Doppler, and color flow Doppler. Location: Emergency department. Patient status: Inpatient. Study status: MAXINE. Rhythm: Normal sinus rhythm. Findings Left ventricle: The cavity size is normal. Wall thickness is moderately increased. Systolic function is moderately reduced. The estimated ejection fraction is 35-40%. Regional wall motion abnormalities: Akinesis and thinning of the posterior lateral wall at the base, severe hypokinesis of the inferior wall. Hypokinesis of the inferolateral myocardium. Features are consistent with a pseudonormal left ventricular filling pattern, with concomitant abnormal relaxation and increased filling pressure (grade 2 diastolic dysfunction). Right ventricle: The cavity size is normal. Pacer wire noted in the right ventricle. Systolic function is normal. Systolic pressure is moderately increased. The estimated peak pressure is 50 mm Hg. Left atrium: The atrium is moderately to severely dilated. Right atrium: The atrium is moderately dilated. Pacer wire noted in right atrium. Mitral valve: The annulus is mildly calcified. The leaflets are normal thickness. There is no evidence of stenosis. There is moderate regurgitation. The valve area by pressure half-time is 3.2 cm^2. The valve area index by pressure half-time is 1.63 cm^2/m^2. The mean diastolic gradient is 3.0 mm Hg. The peak diastolic gradient is 6.0 mm Hg. Aortic valve: The annulus is mildly calcified. The valve is trileaflet. The leaflets are mildly thickened. There is no evidence of stenosis. There is no significant regurgitation. The ratio of LVOT to aortic valve peak velocity is 0.58. The ratio of LVOT to aortic valve mean velocity is 0.65. The mean systolic gradient is 2.0 mm Hg. The peak systolic gradient is 5.0 mm Hg. Tricuspid valve: The leaflets are normal thickness. There is no evidence of stenosis. There is mild regurgitation. Pulmonic valve: The leaflets are normal thickness. There is trivial regurgitation. The peak systolic gradient is 2.0 mm Hg. Aorta: Aortic arch: The aortic arch is appears normal. The aortic root is not dilated. Pericardium: There is no significant pericardial effusion. Pulmonary arteries: Not well visualized. Systemic veins: Inferior vena cava: The vessel is normal in size. Measurements Left ventricle Value Ref Mitral valve Value Ref TAE, LAX 5.5 cm 4.2 - 5.8 Peak E 0.58 m/sec ------- ESD, LAX (H) 5.0 cm 2.5 - 4.0 Peak A 0.85 m/sec ------- FS, LAX (L) 8 % 25 - 43 Decel time 169 ms ------- PW, ED, LAX 1.0 cm 0.6 - 1.0 PHT 68 ms ------- EF (L) 19 % 52 - 72 Mean grad, D 3.0 mm Hg ------- E', lat shadia, TDI (L) 4.6 cm/sec >=10.0 Peak grad, D 6.0 mm Hg ------- E/e', lat shadia, 13 Peak E/A ratio 0.7 --- ---- TDI MVA, PHT 3.2 cm^2 ------- E', med shadia, TDI (L) 5.8 cm/sec >=7.0 ERO, PISA 0.04 cm^2 ------- E/e', med shadia, 10 MR vol, PISA 6 ml --- ---- TDI E', avg, TDI 5.2 cm/sec Pulmonic valve Value Ref E/e', avg, TDI 11 <=14 Peak v, S 0.67 m/sec ------- Peak grad, S 2.0 mm Hg ------- LVOT Value Ref Peak wilmer, S 0.64 m/sec Tricuspid valve Value Ref Mean grad, S 1 mm Hg TR peak v (H) 3.4 m/sec <=2.8 Peak RV-RA grad, S 46 mm Hg ------- Ventricular septum Value Ref IVS, ED, LAX (H) 1.5 cm 0.6 - 1.0 Aortic root Value Ref Root diam 3.3 cm <4.1 Right ventricle Value Ref Root max diam, ED 3.3 cm <4.1 TAE, LAX 1.9 cm Root max diam/bsa, 1.7 cm/m^2 1.3 - TAE minor ax, A4C 2.9 cm 1.9 - 3.5 ED 2.1 mid Pressure, S 15 mm Hg Aortic arch Value Ref Arch diam 3.3 cm ------- Left atrium Value Ref Arch diam/bsa 1.7 cm/m^2 ------- AP dim, ES (H) 4.40 cm 3.00 - Diam bet LCC, LSA 3.3 cm ------- 4.00 ML dim, A4C 6.3 cm Decending aorta Value Ref SI dim, A4C 6.3 cm Juan peak wilmer 0.41 m/sec ------- Vol/bsa, ES, A/L (H) 49 ml/m^2 16 - 34 Pulmonary artery Value Ref Right atrium Value Ref Pressure, S 50.0 mm Hg ------- SI dim, ES (H) 6.1 cm 3.4 - 5.3 ML dim, ES, A4C 3.8 cm 2.6 - 4.4 Inferior vena cava Value Ref Estimated RAP 8 mm Hg Diam 1.4 cm ------- Aortic valve Value Ref Shadia diam, ED 2.1 cm Peak v, S 1.09 m/sec VTI, S 20.0 cm Mean grad, S 2.0 mm Hg Peak grad, S 5.0 mm Hg Legend: (L) and (H) mona values outside specified reference range. Prepared and electronically signed by Vannessa Murray MD 03/15/2019 17:49
== END 2019-03-15 17:04 | disposition short-term general hospital (02) ==
LOC: ED 11:20
DX: I21.4 Non-ST elevation (NSTEMI) myocardial infarction (principal); I44.7 Left bundle-branch block, unspecified; I11.0 Hypertensive heart disease with heart failure; I50.9 Heart failure, unspecified; I50.1 Left ventricular failure, unspecified; I25.10 Atherosclerotic heart disease of native coronary artery without angina pectoris; I25.2 Old myocardial infarction; E78.00 Pure hypercholesterolemia, unspecified; Z88.3 Allergy status to other anti-infective agents; Z79.899 Other long term (current) drug therapy; Z95.810 Presence of automatic (implantable) cardiac defibrillator; Z95.1 Presence of aortocoronary bypass graft; Z85.828 Personal history of other malignant neoplasm of skin; Z95.5 Presence of coronary angioplasty implant and graft; Z87.891 Personal history of nicotine dependence
CPT/HCPCS: 36415; 71045; 80053; 83605; 83735; 83880; 84484; 85025; 93005; 93306; 96374; 99284; A9270-GY; C8929; J1940

== ENCOUNTER 2019-05-30 08:09 | Inpatient (IN) | payer MEDICARE ==
--- NOTE | 2019-05-30 08:18 | ED ---
Abdominal Pain/Male - HPI Summary HPI Summary: This patient is a 78 year old M presenting to [facility] by EMS accompanied by with a chief complaint of worsening abdominal pain since night of 05/29/19. EMS reports he had pasta and popcorn last night before the pain. Pt has felt this way before having an MD. Pt previously has had several small bowel obstructions and MIs. Per triage, The patient rates the pain 8/10 in severity. - History of Current Complaint Stated Complaint: ADB PAIN PER EMS Hx Obtained From: Patient, EMS Onset/Duration: Gradual Onset, Lasting Hours, Still Present Timing: Constant, Lasting Hours Severity Initially: Moderate Severity Currently: Severe Pain Intensity: 8 Pain Scale Used: 0-10 Numeric Location: Diffuse - Allergies/Home Medications Allergies/Adverse Reactions: Allergies Allergy/AdvReac Type Severity Reaction Status Date / Time niacin Allergy Rash Verified 03/15/19 11:28 Home Medications: Home Medications Albuterol HFA INHALER* [Ventolin HFA Inhaler*] 2 puff INH Q4H PRN 05/30/19 [ History Confirmed 05/30/19] Benzonatate CAP* [Tessalon 100 MG CAP*] 100 mg PO TID PRN 05/30/19 [History Confirmed 05/30/19] Ezetimibe TAB* [Zetia TAB*] 10 mg PO DAILY 05/30/19 [History Confirmed 05/30/19] Ubidecarenone [Coq10] 100 mg PO DAILY 05/30/19 [History Confirmed 05/30/19] PMH/Surg Hx/FS Hx/Imm Hx Endocrine/Hematology History: Denies: Hx Diabetes Cardiovascular History: Reports: Hx Angina, Hx Auto Implanted Cardiovert Defib, Hx Congestive Heart Failure, Hx Coronary Artery Disease, Hx Hypercholesterolemia , Hx Hypertension, Hx Myocardial Infarction, Hx Pacemaker/ICD, Other Cardiovascular Problems/Disorders - cabg x 5 per patient Denies: Hx Valvular Heart Disease Respiratory History: Reports: Hx Pneumonia, Hx Seasonal Allergies Denies: Hx Asthma, Hx Chronic Obstructive Pulmonary Disease (COPD) GI History: Reports: Other GI Disorders - fecal stones 50 years ago, gall stones. SBO 02/2019. History: Reports: Other Problems/Disorders - enlarged prostate Denies: Hx Renal Disease Musculoskeletal History: Reports: Hx Arthritis - hands, feet, knees, Hx Back Problems - decreased cartilage, Other Musculoskeletal History - pt states "the doctor says I broke my back" Sensory History: Reports: Hx Contacts or Glasses - reading, Hx Hearing Aid Opthamlomology History: Reports: Hx Contacts or Glasses - reading Psychiatric History: Reports: Hx Anxiety, Hx Substance Abuse - tobacco Denies: Hx Depression, Hx Suicide Attempt - Cancer History Cancer Type, Location and Year: skin cancer of nose - Surgical History Surgery Procedure, Year, and Place: 5 CABG /PACEMAKER X 2, carotid stents Infectious Disease History: No Infectious Disease History: Denies: Traveled Outside the [place] in Last 30 Days - Family History Known Family History: Positive: Cardiac Disease, Hypertension - Social History Alcohol Use: None Hx Substance Use: No Substance Use Type: Reports: None Hx Tobacco Use: Yes Smoking Status (MU): Former Smoker Type: Cigarettes Amount Used/How Often: did it for about 2 years,a "few years ago" Have You Smoked in the Last Year: No Review of Systems Negative: Fever Positive: Abdominal Pain All Other Systems Reviewed And Are Negative: Yes Physical Exam - Summary Physical Exam Summary: Constitutional: Well-developed, Well-nourished, Alert. (-) Distressed Skin: Warm, Dry HENT: Normocephalic; Atraumatic Eyes: Conjunctiva normal Neck: Musculoskeletal ROM normal neck. (-) JVD, (-) Stridor, (-) Tracheal deviation Cardio: Rhythm regular, rate normal, Heart sounds normal; Intact distal pulses; The pedal pulses are 2+ and symmetric. Thoracotomy incision healed, pacemaker with no surrounding erythema Radial pulses are 2+ and symmetric. (-) Murmur Pulmonary/Chest wall: (-) Respiratory distress, (-) Wheezes, (-) Rales, Mildly diminished breath sounds in left lung. Abd: Soft, Diffuse abdomen pain worse in epigastric and right mid region, (-) Distension, (+) Guarding, (-) Rebound Musculoskeletal: (-) Edema, Normal Bowel Sounds Lymph: (-) Cervical adenopathy Neuro: Alert, Oriented x3 Psych: Mood and affect Normal Triage Information Reviewed: Yes Vital Signs On Initial Exam: Initial Vitals Temp Pulse Resp BP Pulse Ox 97.1 F 71 16 158/91 97 05/30/19 08:10 05/30/19 08:10 05/30/19 08:10 05/30/19 08:10 05/30/19 08:10 Vital Signs Reviewed: Yes Diagnostics - Vital Signs Vital Signs Temp Pulse Resp BP Pulse Ox 05/30/19 08:10 97.1 F 71 16 158/91 97 - Laboratory Result Diagrams: 05/30/19 08:36 05/30/19 08:36 Lab Statement: Any lab studies that have been ordered have been reviewed, and results considered in the medical decision making process. - Radiology CXR Radiology Interpretation Completed By: Radiologist Summary of Radiographic Findings: CXR reveals, per radiologist, IMPRESSION: 1. LEFT HEMIDIAPHRAGM ELEVATION WITH POOR INSPIRATION. BIBASILAR OPACIFICATION COULD BE. RELATED ATELECTASIS. UNDERLYING ASPIRATION/PNEUMONIA NOT EXCLUDED. 2. NO PNEUMOTHORAX. 3. NO PNEUMOPERITONEUM. 4. SUPPORT DEVICES ABOVE. ED physician has reviewed this radiology report. - CT Abdomen/Pelvis CT CT Interpretation Completed By: Radiologist Summary of CT Findings: Abdomen/Pelvis CT reveals, per radiologist, IMPRESSION: 1. HIGH-GRADE DISTAL SMALL BOWEL OBSTRUCTION WITH WALL THICKENING OF THE MOST SEVERELY INVOLVED LOOP AND CONFIGURATION SUGGESTIVE OF A CLOSED LOOP OBSTRUCTION. RECOMMEND SURGICAL CONSULTATION. 2. SMALL AMOUNT OF FREE INTRAPERITONEAL FLUID. 3. MILD SPLENOMEGALY, UNCHANGED. 4. CHOLELITHIASIS. ED physician has reviewed this radiology report. - EKG 0824 Summary of EKG Findings: An EKG at 0824 reveals atrial paced at a rate of 74 bpm , with prolonged MT, prolonged QRS, prolonged PTC, occasional PVC, overall atrial paced. Abdominal Pain Male Course/Dx - Course Course Of Treatment: This patient is a 78 year old M presenting to [facility] by EMS accompanied by with a chief complaint of worsening abdominal pain since night of 05/29/19. Pt has felt this way before having an MD. Pt previously has had several small bowel obstructions and MD. Physical Exam Findings is normal except for diffuse abdomen pain worse in epigastric and right mid region. no rebound, guarding, thoracotomy incision healed, pacemaker with no surrounding erythema, Mildly diminished breath sounds in left lungs. Blood work obtained. WBS is 12.9, Hgb is 13.9, INR is 1.13. Troponin is 0.09. Lactic Acid is 2.3. BUN is 26. BUN/Creatinine Ratio is 27.4, Glucose is 160. An EKG at reveals atrial paced at a rate of 74 bpm, with prolonged MT, prolonged QRS, prolonged PTC, occasional PVC, overall atrial paced. CXR reveals, per radiologist, IMPRESSION: 1. LEFT HEMIDIAPHRAGM ELEVATION WITH POOR INSPIRATION. BIBASILAR OPACIFICATION COULD BE. RELATED ATELECTASIS. UNDERLYING ASPIRATION/PNEUMONIA NOT EXCLUDED. 2. NO PNEUMOTHORAX. 3. NO PNEUMOPERITONEUM. 4. SUPPORT DEVICES ABOVE. Abdomen/Pelvis CT reveals, per radiologist, IMPRESSION: 1. HIGH-GRADE DISTAL SMALL BOWEL OBSTRUCTION WITH WALL THICKENING OF THE MOST SEVERELY INVOLVED LOOP AND CONFIGURATION SUGGESTIVE OF A CLOSED LOOP OBSTRUCTION. RECOMMEND SURGICAL CONSULTATION. 2. SMALL AMOUNT OF FREE INTRAPERITONEAL FLUID. 3. MILD SPLENOMEGALY, UNCHANGED. 4. CHOLELITHIASIS. In the ED course the patient was given Zofran inj, fluids, morphine, and lovenox. We discussed patient care with Dr. Russell who recommends pt for admission. After discussing patients case with Dr. Nelson she accepts for admission. Dx is SBO. Patient will be admitted. The patient is agreeable with this plan. - Diagnoses Provider Diagnoses: Small bowel obstruction - Provider Notifications Discussed Care Of Patient With: Nghia Russell Time Discussed With Above Provider: 12:03 Instructed by Provider To: Other - Discussed patient's case with Dr. Russell, who recommends pt for admission; 13:14 - Discussed patient's case with Dr. Nelson, who accepts pt for admission - Critical Care Time Critical Care Time: 30-74 min - 35 mins Discharge - Sign-Out/Discharge Documenting (check all that apply): Patient Departure - Admit All imaging exams completed and their final reports reviewed: Yes Patient Received Moderate/Deep Sedation with Procedure: No - Discharge Plan Condition: Good Disposition: ADMITTED TO [facility] - Billing Disposition and Condition Condition: GOOD Disposition: Admitted to [facility] - Attestation Statements Document Initiated by Janee: Yes Documenting Scribe: Grace Stout Provider For Whom Janee is Documenting (Include Credential): Dr. Soledad Chapman MD Scribe Attestation: Grace Quispe scribed for Dr. Soledad Chapman MD on 05/30/19 at 1932. Scribe Documentation Reviewed: Yes Provider Attestation: The documentation as recorded by the Grace acosta accurately reflects the service I personally performed and the decisions made by , Dr. Soledad Chapman MD Status of Scribe Document: Viewed
[2019-05-30 08:53] LABS: ABS Lymphocytes 0.3 10^3/ul (1.0-4.8); ABS Monocytes 0.5 10^3/ul (0-0.8); Eosinophil % 0.1 %; Hematocrit 42 % (42-52); Hemoglobin 13.9 g/dL (14.0-18.0); Lymphocyte % 2.5 %; Mean Corpuscular HGB Conc 33 g/dL (31-36); Mean Corpuscular Hemoglobin 29 pg (27-31); Mean Corpuscular Volume 87 fL (80-94); Mean Platelet Volume 8.7 fL (7.4-10.4); Platelet Count 151 10^3/uL (150-450); Red Blood Count 4.78 10^6 /uL (4.18-5.48); Red Cell Distribution Width 15 % (10-15); White Blood Count 12.9 10^3/uL (3.5-10.8)
[2019-05-30] MEDS ORDERED: Ondansetron INJ* 2 MG/ML VIAL IV ONE (08:54)
[2019-05-30] MEDS ORDERED: Morphine 4 MG/ML VIAL (1 ml) 4 MG/ML VIAL IV ONE ×2 (08:54→12:08)
[2019-05-30 08:59] LABS: INR 1.13 (0.82-1.09)
[2019-05-30 09:13] LABS: ALT 22 U/L (7-52); AST 23 U/L (13-39); Albumin 4.2 g/dL (3.2-5.2); Albumin/Globulin Ratio 1.5 (1-3); Alkaline Phosphatase 122 U/L (34-104); Amylase 62 U/L (29-103); Anion Gap 11 mmol/L (2-11); BUN/Creatinine Ratio 27.4 (8-20); Blood Urea Nitrogen 26 mg/dL (6-24); C Reactive Protein < 1.00 mg/L (<8.01); CO2 Carbon Dioxide 26 mmol/L (22-32); Calcium 10.3 mg/dL (8.6-10.3); Chloride 103 mmol/L (101-111); EGFR Non-African American 76.9 (>60); Globulin 2.8 g/dL (2-4); Glucose 160 mg/dL (70-100); Sodium 140 mmol/L (135-145)
[2019-05-30] MEDS ORDERED: NS 0.9% 1000 ML** 1,000 ML IV ONE ×2 (09:13→15:17)
[2019-05-30 09:14] LABS: Troponin I 0.09 ng/mL (<0.04)
[2019-05-30] MEDS ORDERED: Iohexol 300* (CONTRAST) 10 ML SDV IV ONE (10:28)
[2019-05-30 14:14] LABS: Urine Appearance Clear; Urine Bacteria Absent (Absent); Urine Bilirubin Negative (Negative); Urine Blood Negative (Negative); Urine Color Yellow; Urine Glucose Negative (Negative); Urine Ketones Negative (Negative); Urine Nitrite Negative (Negative); Urine Protein 1+(30 mg/dL) (Negative); Urine Red Blood Cell 1+(3-5/hpf) (Absent); Urine Specific Gravity > 1.060 (1.010-1.030); Urine Squamous Epithelial Cell Present (Absent); Urine Urobilinogen Negative (Negative); Urine White Blood Cell Absent (Absent)
[2019-05-30] MEDS ORDERED: Ondansetron INJ* 2 MG/ML VIAL IV PRN (14:23)
[2019-05-30] MEDS ORDERED: Nitroglycerin TAB 0.4 MG* 0.4 MG TAB SL PRN (14:26)
[2019-05-30] MEDS ORDERED: Albuterol HFA INHALER* 8 gm MDI INH PRN (14:26)
[2019-05-30] MEDS ORDERED: LORazepam INJ* 2 MG/ML 1 ML VIAL IV PUSH PRN (14:29)
[2019-05-30] MEDS ORDERED: Lorazepam PYXIS KEY PRN (14:29)
[2019-05-30] MEDS ORDERED: NS 0.9% 1000 ML** 1,000 ML IV SCH ×2 (14:30→17:45)
[2019-05-30 15:11] LABS: Troponin I 0.08 ng/mL (<0.04)
[2019-05-30] MEDS: Metoprolol Tartrate IV* 1 MG/ML 5 ML VIAL IV SCH ×3 (15:16→23:49)
--- NOTE | 2019-05-30 15:48 | HP ---
CC: Dr. Izquierdo; Dr. Young * HISTORY AND PHYSICAL: DATE OF ADMISSION: 05/30/19 PRIMARY CARE PROVIDER: Dr. Izquierdo. PERIOPERATIVE NURSE: Dr. Young. CHIEF COMPLAINT: Abdominal pain. HISTORY OF PRESENT ILLNESS: Mr. Molina is a 78-year-old male who has a known history of coronary artery disease, hypertension, hyperlipidemia, BPH, distant abdominal surgery history, and recurrent SBOs, who presents to the emergency room with complaints of sudden onset of abdominal pain at approximately 10 p.m. on the night prior to admission. The patient states that he had just grabbed a handful of popcorn and was sitting down to watch the news when he suddenly developed severe 10/10 abdominal pain. He cannot describe it other than calling it just pain. He does not describe this as being crampy or an ache. He initially did not feel nauseous. He was suspicious that this represented a small bowel obstruction based on his past history. In the middle of the night, he began to feel nauseous. He did vomit a little bit on the morning of admission. He states his last bowel movement was the day prior to admission and he describes it as not being completely normal, but a little bit runny. He had a completely normal bowel movement the day prior to this. The patient states that he has not passed any flatus since last evening. He also admits to chills and feeling hot last evening. This morning, he was continuing to have abdominal pain and nausea. He wanted his to bring him to the emergency room. He stood up from the couch and felt as if he were going to pass out. He then sat back down and EMS was contacted to bring him here. PAST MEDICAL HISTORY: 1. Coronary artery disease. 2. Hypertension. 3. Hyperlipidemia. 4. Spinal stenosis. 5. GERD. 6. Anxiety. 7. BPH. 8. History of small bowel obstruction in the past. PAST SURGICAL HISTORY: 1. AICD. 2. CABG. 3. Bilateral CEA. 4. Appendectomy/prolonged abdominal surgery approximately 40 years ago. MEDICATIONS: 1. Aspirin 81 mg p.o. daily. 2. Metoprolol XL 100 mg p.o. daily. 3. Lasix 20 mg p.o. daily. 4. Tessalon 100 mg p.o. t.i.d. p.r.n. cough. 5. Albuterol 2 puffs inhaled q.4 hours p.r.n. shortness of breath. 6. Nitroglycerin 0.4 mg SL q.5 minutes p.r.n. chest pain. 7. Zetia 10 mg p.o. daily. 8. CoQ10 100 mg p.o. daily. 9. Flomax 0.4 mg p.o. at bedtime. 10. Ativan 1 mg p.o. t.i.d. p.r.n. anxiety. 11. Lipitor 80 mg p.o. at bedtime. 12. Omeprazole 20 mg p.o. daily. 13. Magnesium oxide 250 mg p.o. b.i.d. 14. Losartan 25 mg p.o. daily. 15. Brilinta 90 mg p.o. b.i.d. ALLERGIES: NIACIN. FAMILY HISTORY: Mom had coronary artery disease. Dad had melanoma. SOCIAL HISTORY: The patient is a nonsmoker, he smoked for 3 to 5 years in the distant past. He drinks alcohol very rarely. 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 He is . He has 2 children. His is his healthcare proxy. REVIEW OF SYSTEMS: A complete 11-system review of systems is obtained. Pertinent positives and negatives are as per HPI, and in addition, the patient does state that he has lower extremity edema that comes and goes. He did not take his Lasix this morning. He does have occasional shortness of breath. He admits to anxiety. Otherwise, the review of systems is negative. PHYSICAL EXAMINATION GENERAL: The patient is a well-developed elderly male, seen sitting up in the stretcher, in no acute distress. NG tube in place. VITAL SIGNS: Blood pressure 140/97, pulse 89, respirations 26, temp 97.1, O2 sat 97% on room air. HEENT: Pupils are equal and round. Extraocular muscles are intact. Oropharynx is clear. Oral mucosa is moist. The patient again has an NG tube in place. There is no submandibular, cervical, or supraclavicular adenopathy. Thyroid is not enlarged. No thyroid nodules noted. PULMONARY: Lungs are clear to auscultation bilaterally. CARDIAC: Normal S1, S2. Regular rate and rhythm. I do not appreciate any murmurs. Trace bilateral lower extremity pitting edema. ABDOMEN: Bowel sounds are present, though the NG tube suction is active. Abdomen is soft, mildly distended, nontender. MUSCULOSKELETAL: The patient moves all 4 extremities symmetrically. NEUROLOGIC: Cranial nerves II through XII are grossly intact. Sensation is intact to light touch throughout. Strength is 5/5 and symmetric in both upper and lower extremities bilaterally. PSYCH: The patient is alert. He is oriented x3. Affect appears appropriate. SKIN: Warm and dry. There are no rashes. DIAGNOSTIC STUDIES/LAB DATA: WBC 12.9, hemoglobin 13.9, hematocrit 42, platelets 151. INR 1.13. Sodium 140, potassium 4.0, chloride 103, CO2 of 26, BUN 26, creatinine 0.95, glucose 160, lactic acid 2.3, calcium 10.3. Bilirubin 1.5, AST 23, ALT 22, alk phos 122. Troponin 0.09. CRP less than 1. Albumin 4.2. Amylase 62, lipase 19. EKG reveals normal sinus rhythm, occasional atrial paced beats. Chest x-ray: There is left hemidiaphragm elevation with poor inspiration. Bibasilar opacification could be related to atelectasis. No pneumothorax is noted. No pneumoperitoneum. CT abdomen and pelvis revealed high-grade distal small bowel obstruction with wall thickening of the most severely involved loop and configuration is suggestive of a closed loop obstruction. There is small amount of free intraperitoneal fluid. Mild splenomegaly is noted. There is cholelithiasis. ASSESSMENT AND PLAN: Mr. Molina is a 78-year-old male with a distant history of abdominal surgery, though with subsequent recurrent small bowel obstructions, coronary artery disease, hypertension, hyperlipidemia, benign prostatic hypertrophy, and anxiety who presents to the emergency room with complaints of sudden onset of abdominal pain and was found to have a distal high-grade small bowel obstruction. 1. Small bowel obstruction. At this point, the patient will be admitted to the surgical floor for NG tube decompression. He will have p.r.n. morphine for pain and Zofran for nausea. The patient will be seen in consultation by General Surgery per the ER provider. An abdominal x-ray will be obtained tomorrow morning to evaluate the progression of his bowel obstruction. He will be kept n.p.o. Will follow up the lactic acid as the initial was mildly elevated. Though the patient does take Lasix on a daily basis, I am going to administer normal saline at 75 mL per hour. We will need to monitor his fluid status closely. The hope is that this bowel obstruction will resolve with medical management alone. 2. Coronary artery disease. The patient does have a mildly elevated troponin of 0.09. We will be getting a followup troponin now. The EKG is without concerning features. The patient denies any chest pain. For now, I am going to hold his aspirin and Brilinta, though these should be resumed as soon as possible as it has only been 8-1/2 months since his last stent. 3. Hypertension. The patient will be started on metoprolol 5 mg IV q.[address] of his metoprolol XL. I am going to hold his ARB. 4. Hyperlipidemia. I am going to hold Lipitor until the patient is taking in orals. 5. Benign prostatic hypertrophy. Hold Flomax. 6. Anxiety. We will change p.r.n. oral Ativan to IV. 7. DVT prophylaxis. According to the Adult Thrombosis Prophylaxis Risk Factor Assessment Guide, the patient has a total risk factor score of 5 making him the highest risk. Lovenox 40 mg subcutaneous daily will be utilized as DVT prophylaxis. 8. Code status is DNR. TIME SPENT: Sixty five minutes was spent admitting this patient. [id number]/[facility] #: [id number] JOVAN
--- NOTE | 2019-05-30 17:11 | CONS ---
CC: Dr. Izquierdo; Dr. Abhijit Young * SURGICAL CONSULTATION DATE OF CONSULT AND ADMISSION: 05/30/2019. The patient was seen initially in the ED. ATTENDING SURGEON: Dr. Nghia Russell (MANDA Genao dictating). CHIEF COMPLAINT: Abdominal pain. HISTORY OF PRESENT ILLNESS: This is a 78-year-old gentleman with multiple medical problems who was admitted in February of this year for an episode of small bowel obstruction that resolved with conservative care. He states that beginning late last evening he had a large handful of popcorn and shortly thereafter began to experience severe crampy abdominal pain. He states that the pain was all over, as well as radiating to the back. It was associated with some nausea and a small amount of vomiting at home, as well as some diarrhea, though that has not continued. He had a small amount of vomiting again here in the ED, but no persistent. He has not had any flatus since onset. He states the pain was as high as 10/10. He also felt lightheaded at home and called EMS to transport to the hospital. He was seen earlier in the ED by Dr. Russell and his exam at that time was notable for significant abdominal tenderness. An NG tube was since placed with drainage of approximately 600 cc of cloudy salmon fluid. He states that he feels better at the present time, rating his pain at 5 to 6/10. He is sitting on the side of the bed. He states this current episode is similar to the one he experienced in February. He did have a prior open appendectomy many years ago which sounds like it was complicated by postoperative ileus. PAST MEDICAL HISTORY: Coronary artery disease, hypertension, status post pacemaker placement and AICD, hyperlipidemia, spinal stenosis, kyphoscoliosis, GERD, anxiety, BPH, and SBO as noted above. PAST SURGICAL HISTORY: Open appendectomy as noted above, five vessel CABG, pacemaker AICD placement, bilateral carotid endarterectomies and apparent PCI with stenting [id number] months ago here at [facility]. CURRENT MEDICATIONS: 1. Tamsulosin 0.4 mg at bedtime. 2. Atorvastatin 80 mg at bedtime. 3. Metoprolol Succinate XL 50 mg two tablets daily. 4. Aspirin 81 mg once daily. 5. Furosemide 20 mg once daily. 6. Magnesium Oxide 250 mg b.i.d. 7. Losartan 25 mg daily. 8. Ticagrelor (Brilinta) 90 mg b.i.d. 9. Omeprazole 20 mg daily. 10. Ezetimibe 10 mg daily. 11. CoQ10 100 mg daily. 12. Benzonatate 100 mg t.i.d. prn. 13. Nitroglycerin 0.4 mg sublingual prn. 14. Lorazepam 1 mg t.i.d. prn. (Medications were taken from his med rec form.) DRUG ALLERGIES: NIACIN. FAMILY HISTORY: Negative for anesthesia problems, bleeding or clotting disorders. SOCIAL HISTORY: The patient is . His is present with him in the ED. He is a former smoker for a brief period of time many years ago. He denies the use of alcohol or recreational drugs. The patient is a [employer] and refuses blood products. REVIEW OF SYSTEMS: General: No recent constitutional symptoms other than as noted in the HPI. Cardiovascular: No chest pain, palpitations. He does have a pacemaker. Respiratory: He denies shortness of breath or cough. GI: As above per HPI, no additions. : He does have BPH. He feels a need to void, but apparently had a bladder scan in the ED with 200 cc. His urine sample on the counter appears concentrated. Endocrine: No diabetes or thyroid dysfunction. PHYSICAL EXAM: General: Well-nourished, well-developed, elderly male in no acute distress, sitting up at the edge of the bed with an NG tube in place. Skin: Warm and dry. No suspicious rashes or lesions. Vital Signs: Height 5'6 ", weight 198 pounds. Temperature 97.1, blood pressure 140/89, pulse 95, respirations 25, room air saturation 96 percent. HEENT: Pupils small. EOM's intact. No conjunctival pallor. Oropharynx: Mucus membranes dry. Neck: No lymphadenopathy, thyromegaly, or masses. Heart: Irregularly irregular. Soft systolic murmur. Palpable maker AICD in the left anterior chest wall. LUNGS: Clear to auscultation with decreased breath sounds at the left base which I suspect is chronic secondary to his kyphoscoliosis. Abdomen: Well-healed right lower quadrant incision. Bowel sounds are present, but hypoactive. Abdomen appears mildly distended, but non-tympanitic. Abdomen is soft on the left side with mild to moderate tenderness, but firmer to palpation on the right side and more tender to palpation. No peritoneal signs. No palpable hernias. Back: Kyphoscoliosis. Mild CVA tenderness bilaterally. Extremities: Trace edema of the lower extremities. Rectal: Not done. Neurological: Grossly intact. DIAGNOSTIC STUDIES/LAB DATA: White blood cell count 12,900, hemoglobin 13.9; INR 1.13; electrolytes are normal, BUN mildly elevated at 26, glucose 160, initial troponin 0.09 with repeat of 0.08, CRP is less than 1, initial lactic acid 2.3 with repeat of 6.5, total bilirubin 1.5, alkaline phosphatase 122., and remainder of liver function test, amylase, and lipase are all normal. CT scan of the abdomen and pelvis with IV contrast only was reviewed personally showing dilated, mostly distal small bowel loops with concern for closed loop obstruction. There is a small amount of free fluid. IMPRESSION: SBO with possible closed loop obstruction. PLAN: NPO, NG tube for decompression, possible OR for diagnostic laparoscopy, possible laparotomy, possible bowel resection. The patient to be seen and examined again by Dr. Russell prior to final recommendation. OF NOTE: The patient is a Evangel[employer] and refuses blood products. MANDA GENAO [id number]/[facility] #: [id number]
[2019-05-30] MEDS: Morphine INJ* 2 MG/ML 1 ML SYRINGE (TWO MG - NEW SYRINGE VERSION) IV PRN ×2 (18:01→23:27)
[2019-05-30] MEDS ORDERED: ceFAZolin 2 GM in NS PREMIX(*) 0 GM/0 ML BAG IVPB ONE (19:01)
[2019-05-30] MEDS ORDERED: ceFOXitin 2 GM IVPREMIX* 2 GM/50 ML BAG ONE (19:05)
[2019-05-30] MEDS ORDERED: Rocuronium* 10 MG/ML VIAL ONE ×2 (19:19→21:57)
[2019-05-30] MEDS ORDERED: fentaNYL* 50 MCG/ML 2 ML VIAL (100 MCG VIAL) ONE ×2 (19:44→22:29)
[2019-05-30] MEDS ORDERED: fentaNYL* 50 MCG/ML 5 ML VIAL (250 MCG VIAL) ONE (20:24)
[2019-05-30] MEDS ORDERED: Enoxaparin(*) 40 MG/0.4 ML SYR SUBCUT SCH (21:00)
[2019-05-30 21:53] LABS: ABS Lymphocytes 0.2 10^3/ul (1.0-4.8); ABS Neutrophils 9.5 10^3/ul (1.5-7.7); Hematocrit 26 % (42-52); Lymphocyte % 2.1 %; Mean Corpuscular HGB Conc 34 g/dL (31-36); Mean Corpuscular Hemoglobin 30 pg (27-31); Mean Corpuscular Volume 87 fL (80-94); Mean Platelet Volume 8.6 fL (7.4-10.4); Platelet Count 114 10^3/uL (150-450); Red Blood Count 3.01 10^6 /uL (4.18-5.48); Red Cell Distribution Width 15 % (10-15); White Blood Count 10.8 10^3/uL (3.5-10.8)
[2019-05-30 22:01] LABS: Activated Partial Thrombo Time 42.5 seconds (26.0-38.0); INR 1.51 (0.82-1.09)
[2019-05-30 22:09] LABS: Albumin 2.3 g/dL (3.2-5.2); Albumin/Globulin Ratio 1.6 (1-3); BUN/Creatinine Ratio 25.8 (8-20); Calcium 8.3 mg/dL (8.6-10.3); EGFR African American 90.8 (>60); Globulin 1.4 g/dL (2-4); Potassium 3.7 mmol/L (3.5-5.0); Total Protein 3.7 g/dL (6.4-8.9)
[2019-05-30] MEDS ORDERED: Propofol* 100 ML ONE (23:20)
[2019-05-30] MEDS ORDERED: hydrALAZINE IV* 20 MG/ML VIAL IV SLOW PU PRN (23:38)
[2019-05-30] MEDS ORDERED: Naloxone* 0.4 MG/ML 1 ML VIAL IV PRN (23:39)
--- NOTE | 2019-05-30 23:41 | BRIEFOPN ---
Brief Operative Note - Surgery Procedures: PREOP DX: SBO POSTOP DX: SAME, INTRAPERITONEAL ADHESION, SMALL BOWEL ISCHEMIA PROC: RIGHT FEMORAL ARTERIAL LINE, EXPLORATORY LAPAROTOMY, TIARA, SMALL BOWEL RESECTION. SURG: MECENAS ASSIST: Anders DUMONT NP; Carolin ANAYA ANES: NAFISA; CHANDRAKANT EBL: 150 ML IVF: 6.5 L CRYST U/O: 300 ML SPEC: PORTION OF SB DRAIN: NONE COMPL: NONE COND: STABLE FINDINGS: CLOSED LOOP SBO DUE TO SINGLE ADHESIVE BAND WITH NECROTIC/ISCHEMIC JEJUNUM. RESECTION PERFORMED WITH PRIMARY ANASTAMOSIS.
[2019-05-30] MEDS ORDERED: Norepinephrine VIAL* 1 MG/ML 4 ML VIAL ONE (23:42)
[2019-05-30] MEDS ORDERED: ZOSYN 3.375 GM x ONE DOSE over 30 miuntes IVPB ×2 (23:45)
[2019-05-30] MEDS: NS 0.9% 1000 ML** 1,000 ML IV SCH (23:45)
[2019-05-30] MEDS: Pantoprazole IV* 40 MG IV SCH (23:49)
--- NOTE | 2019-05-31 00:11 | PRO ---
DATE OF PROCEDURE: 05/30/19 - ROOM #ICU-06 DATE OF : 42 SURGEON: Nghia Russell MD. ANESTHESIA: Local and general. PRE-PROCEDURE DIAGNOSIS: Small-bowel obstruction and need for intravenous access. POST-PROCEDURE DIAGNOSIS: Small-bowel obstruction and need for intravenous access. OPERATIVE PROCEDURE: Insertion of right internal jugular central venous catheter. ESTIMATED BLOOD LOSS: 5 mL. DESCRIPTION OF PROCEDURE: The patient had been brought to the operating room emergently. He had inadequate intravenous access and Anesthesia had requested placement of central venous access. I first attempted access in the right femoral vein. The site was prepped and draped in usual sterile fashion and local anesthetic was infiltrated to the skin and soft tissue. An #18 gauge needle was used to access the vein and initially there was with inability venous blood return however the guidewire would not pass. Subsequently, this attempt was aborted and pressure applied to the site. It was decided to attempt right subclavian site and again the site was prepped and draped in sterile fashion. By this point, the patient had been administered general anesthesia by the anesthesiologist and so access was attempted with an 18 gauge needle. After the second pass, I cannulated the artery and the needle was withdrawn and pressure was applied for approximately 20 minutes to the site. The right internal jugular access site was then achieved after again sterile prep and drape, and at this time ultrasound guidance was used to cannulate the right internal jugular vein. The guidewire was passed without difficulty. The tract was dilated and a triple lumen catheter was advanced to 18 cm and sutured to the skin at 3 positions with 3-0 silk. Each port was drawn and flushed easily and the site was dressed with Tegaderm. [id number]/[facility] #: [id number] [facility]
[2019-05-31] MEDS: Metoprolol Tartrate IV* 1 MG/ML 5 ML VIAL IV SCH ×4 (00:19→14:33)
[2019-05-31] MEDS ORDERED: Norepinephrine VIAL 8 MG in NS 0.9% 500 ML IV SCH (01:00)
[2019-05-31] MEDS: Chlorhexidine MOUTHWASH 0.12%* 15 ML UDC SCH ×6 (01:08→20:32)
--- NOTE | 2019-05-31 01:41 | OP ---
CC: Hailey Izquierdo MD, [facility]; Abhijit Young MD.* DATE OF OPERATION: 05/30/19 - ROOM #ICU-06 DATE OF : 42 SURGEON: Dr. Russell. STRADDLE BUG: Nadine Waldron NP and MANDA Valdes student. ANESTHESIOLOGIST: Greg Jovel D.O. ANESTHESIA: General endotracheal. PRE-OP DIAGNOSIS: Small-bowel obstruction. POST-OP DIAGNOSES: Small-bowel obstruction and small-bowel ischemia. OPERATIVE PROCEDURE: Femoral A-line placement, exploratory laparotomy, small- bowel resection with primary anastomosis, lysis of adhesions. ESTIMATED BLOOD LOSS: 150 mL. IV FLUIDS: 6 L of crystalloid. SPECIMEN: Portion of small bowel. DRAINS: None. COMPLICATIONS: None. COUNTS: Instrument, needle, and sponge counts were correct. DESCRIPTION OF PROCEDURE: The patient was brought to the operating room and placed on the table supine. Sequential compression devices were placed on both lower extremities. General anesthesia was administered. Central venous access was obtained as dictated in separate report. A Fraser catheter was placed. His abdomen was prepped and draped in usual sterile fashion and right groin was prepped into the site as well. Time-out was performed. Right femoral arterial line was placed first. The right femoral artery was palpated. It was accessed with an 18-gauge needle. Guidewire was placed without difficulty. Tract was dilated and single-lumen catheter was advanced full length into the femoral artery. The line was connected to a pressure transducer and appropriate waveform was identified. The line was sutured in place with 3-0 silk at 2 sides. Tegaderm dressing was applied. Next, midline laparotomy was undertaken. Upon entering the peritoneal cavity, a large amount of bloody ascites was noted. Infarcted small bowel was identified. The bowel appeared to have perforated upon entry to the abdomen. The omentum was adherent to the right lower quadrant abdominal wall at the site of the prior appendectomy. This was bluntly released. Exploration revealed that there was a tight adhesive band towards the base of the mesentery, creating a closed loop obstruction . The adhesive band was lysed in order to release the small bowel. Malika retractor was placed. The bowel was exteriorized. There was approximately a 15 to 18 inch segment of small bowel that appeared necrotic and ischemic. The proximal and distal margins were selected within viable bowel. RIKI stapler was used to divide the bowel proximally and distally and the LigaSure was used to divide the mesentery incrementally. The specimen was submitted to Pathology. Continuity of the bowel was restored with an end-to-end functional uwva-zl-dhkh jejunojejunostomy using a 60-mm RIKI stapler with a TA-60 stapler used to close the common enterotomy. A 3-0 silk was placed at the crotch of the anastomosis to reinforce it. 3-0 silk was also used to oversew the anterior staple line. The stapled ends were oversewn with a running 3-0 PDS. The mesenteric defect was closed with 3-0 silk. Bowel contents were able to be milked back and forth through the anastamosis ensuring it was patent. Copious lavage to the abdomen was performed. The small bowel was run proximally and distally from the ileocecal valve to the ligament of Treitz and back again. It was all pink and viable and no other abnormalities were identified. The omentum was inspected where it had been adherent to the right lower quadrant abdominal wall, and there was some oozing from the omentum that was controlled with the LigaSure. The nasogastric tube was positioned in the antrum of the stomach, its position confirmed by palpation. Palpation of the liver and gallbladder revealed them to be normal. Inspection of the right lower quadrant revealed that there were adhesions and this area was not further explored. No palpable lesions were identified throughout the colon. After copious lavage of the abdomen until clear, the midline wound was run closed with 0 PDS. Subcutaneous tissues were inspected for hemostasis. The wound was irrigated and closed intermittently with jamaica and Telfa gilberto were placed. Dressings were applied. The patient tolerated this procedure well. He remained intubated and was transferred to the intensive care unit. [id number]/[facility] #: [id number] [facility]ITAL[facility]
[2019-05-31] MEDS ORDERED: NS 0.9% 1000 ML/HR X 1 BAG (TOTAL 1000 ML) IV ONE (01:45)
[2019-05-31] MEDS ORDERED: Metoprolol Tartrate IV* 1 MG/ML 5 ML VIAL IV SCH (02:00)
[2019-05-31] MEDS: Morphine INJ* 2 MG/ML 1 ML SYRINGE (TWO MG - NEW SYRINGE VERSION) IV PRN ×2 (02:05→09:22)
[2019-05-31 02:27] LABS: Hematocrit 31 % (42-52); Hemoglobin 10.7 g/dL (14.0-18.0); Mean Corpuscular HGB Conc 34 g/dL (31-36); Mean Corpuscular Hemoglobin 30 pg (27-31); Mean Corpuscular Volume 87 fL (80-94); Mean Platelet Volume 7.9 fL (7.4-10.4); Platelet Count 225 10^3/uL (150-450); Red Blood Count 3.61 10^6 /uL (4.18-5.48); Red Cell Distribution Width 15 % (10-15); White Blood Count 7.5 10^3/uL (3.5-10.8)
[2019-05-31 02:37] LABS: BUN/Creatinine Ratio 29.4 (8-20); Calcium 7.9 mg/dL (8.6-10.3); EGFR African American 105.8 (>60); EGFR Non-African American 87.4 (>60); Magnesium 1.3 mg/dL (1.9-2.7); Phosphorus 3.3 mg/dL (2.5-5.0); Potassium 3.7 mmol/L (3.5-5.0)
[2019-05-31] MEDS ORDERED: Magnesium Sulfate 2 GM IV (Premix) IVPB ONE (02:45)
[2019-05-31] MEDS: Piperacillin/Tazobac ADVAN(*) 3.375 GM in NS 0.9% 100 ML* 100 ML IVPB SCH ×3 (03:54→20:32)
[2019-05-31] MEDS: Propofol* 1000 MG (10 MG/ML 100 ml) @ Per Protocol (in ICU Pyxis) IV SCH ×4 (04:23→18:44)
[2019-05-31] MEDS ORDERED: Norepinephrine VIAL* 1 MG/ML 4 ML VIAL ONE (05:10)
[2019-05-31 06:16] LABS: BUN/Creatinine Ratio 24.8 (8-20); Calcium 8.3 mg/dL (8.6-10.3); EGFR African American 82.9 (>60); EGFR Non-African American 68.5 (>60); Potassium 3.7 mmol/L (3.5-5.0)
[2019-05-31] MEDS: Norepinephrine VIAL 8 MG in NS 0.9% 500 ML IV SCH ×5 (06:18→21:01)
[2019-05-31 06:38] LABS: Magnesium 2.1 mg/dL (1.9-2.7)
[2019-05-31] MEDS: Vasopressin* 100 UNITS in NS 0.9% 250 ML* 245 ML IV SCH (07:04)
[2019-05-31] MEDS: KCL 20 MEQ/100 ML IVPREMIX* 20 MEQ/100 ML BAG IV SCH ×2 (08:33→10:55)
[2019-05-31] MEDS ORDERED: Lactated Ringers 1000 ML Bag* 1,000 ML IV ONE (09:00)
[2019-05-31] MEDS ORDERED: Lactated Ringers 1000 ML Bag* 1,000 ML IV SCH ×2 (10:00→14:00)
[2019-05-31] MEDS ORDERED: fentaNYL* 50 MCG/ML 2 ML VIAL (100 MCG VIAL) IV SLOW PU PRN (11:19)
--- NOTE | 2019-05-31 11:26 | CONSULT ---
Consult Consult: Consultation Note -- Critical Care Requesting Physician: Dr Nghia Russell Reason for consult: post op SB resection, intubated, shock Limitations in history/physical: intubated, sedated Date of consult:05/31/2019 HPI: 78y M w/pmhx HLD, Asthma, CAD/CABG, HTN, Ischemic CMP, s/p AICD/PPM, Bilateral CEA and then Carotid Stents, h/o SBO 02/2019; Comes to ER 05/30 for abd pain, found to have a high-grade small bowel obstruction on CT abdomen. He was started on conservative tx with NGT but it did not significantly improve. Decision made for ex-lap. He is s/p ex-lap with SB resection and lysis of adhesionis. Post op went onto pressors, remained intubated in ICU. Overnight on levophed, added vasopressin, low urine output overnight, sedation held temporarily. Currently sedated, improved with LR bolus and levophed decreased. ROS limited due to intubated/sedated state. s/p ex-lap, small bowel resection with primary anastomosis, lysis of adhesions EBL 150cc 6L crytalloid given during procedure ED/floor Course: as above ROS: limited ROS due to intubated/sedated state PMHx: HLD, Asthma, CAD/CABG, HTN, Ischemic CMP, s/p AICD/PPM, Bilateral CEA and then Carotid Stents, h/o SBO 02/2019 PSHx: carotid endarterectomy, open appendectomy, CABG, AICD Family History: CAD-mother, melanoma father Social History: Alcohol-rare, Ruwhubq-ig-bszkci 3-5yrs, Drug use-none; Job- automotive manager at [employer]; family-, 2 children, is HCP; jehovahs witness+ Allergies: niacin Home Medications: Atorvastatin* [Lipitor 80 MG*] 80 mg PO BEDTIME 01/07/17 [History Confirmed ] LORazepam TAB(*) [Ativan 1 MG TAB (*)] 1 mg PO TID PRN MDD 3 mg 01/07/17 [ History Confirmed 05/30/19] Tamsulosin CAP* [Flomax CAP*] 0.4 mg PO BEDTIME 01/07/17 [History Confirmed ] Aspirin EC TAB* [Ecotrin EC Low Dose 81 MG*] 81 mg PO DAILY 08/26/18 [History Confirmed 05/30/19] Metoprolol Succinate XL TAB* [Toprol XL TAB*] 100 mg PO DAILY 08/26/18 [History Confirmed 05/30/19] Furosemide TAB* [Lasix TAB*] 20 mg PO DAILY 03/15/19 [History Confirmed 05/30/19 ] Losartan TAB* [Cozaar TAB*] 25 mg PO DAILY 03/15/19 [History Confirmed 05/30/19] Magnesium Oxide [Magnesium] 250 mg PO BID 03/15/19 [History Confirmed 05/30/19] Nitroglycerin TAB 0.4 MG* 0.4 mg SL Q5M PRN 03/15/19 [History Confirmed 05/30/19 ] Omeprazole CAP (NF) [Prilosec CAP* 20 MG] 20 mg PO DAILY 03/15/19 [History Confirmed 05/30/19] Ticagrelor* [Brilinta*] 90 mg PO BID 03/15/19 [History Confirmed 05/30/19] Albuterol HFA INHALER* [Ventolin HFA Inhaler*] 2 puff INH Q4H PRN 05/30/19 [ History Confirmed 05/30/19] Benzonatate CAP* [Tessalon 100 MG CAP*] 100 mg PO TID PRN 05/30/19 [History Confirmed 05/30/19] Ezetimibe TAB* [Zetia TAB*] 10 mg PO DAILY 05/30/19 [History Confirmed 05/30/19] Ubidecarenone [Coq10] 100 mg PO DAILY 05/30/19 [History Confirmed 05/30/19] Tele: NSR, frequent PVCs noted overnight Vitals: Vital Signs Temp 99.7 F 05/31/19 09:30 Pulse 83 05/31/19 10:01 Resp 19 05/31/19 10:00 BP 138/61 05/31/19 10:01 Pulse Ox 98 05/31/19 10:01 Intake & Output 05/30/19 05/31/19 05/31/19 18:59 06:59 18:59 Intake Total 8994 1999 Output Total 100 785 100 Balance -100 8209 1900 Weight 89.811 kg 91.164 kg Intake: IV Fluids 7989 1999 LR 6500 NS 0.9% 1389 1999 NS 100ML, Cefoxitin 2G 100 Medicated IV 1005 CC - Propofol/Diprivan 104 LEVOPHED 651 MAGNESIUM 50 ZOSYN 200 Output: NG Tube Drainage Amount 175 Urine 100 Forrest 410 100 Estimated Blood Loss 200 Other: Estimated Void Medium # Voids 1 O2/Vent: intubated fio2 28% AC mode Infusions: levophed, vasopressin, propofol, NS 100cc Current Medications: Albuterol (Ventolin Hfa Inhaler*) 2 puff INH Q4H PRN PRN Reason: WHEEZING Chlorhexidine Gluconate (Peridex Mouth Wash 0.12%*) 15 ml .SEE ORDER Q4H [facility] Last Admin: 05/31/19 10:55 Dose: 15 ml Hydralazine HCl (Apresoline Iv*) 5 mg IV SLOW PU Q6H PRN PRN Reason: Systolic Bp Greater Than:160 Piperacillin Sod/Tazobactam (Sod 3.375 gm/ Sodium Chloride) 100 mls @ 25 mls/ hr IVPB Q8H [facility] Last Admin: 05/31/19 03:54 Dose: 25 mls/hr Sodium Chloride (Ns 0.9% 1000 Ml) 1,000 mls @ 100 mls/hr IV PER RATE [facility] Last Admin: 05/30/19 23:45 Dose: 100 mls/hr Propofol (Diprivan*) 100 mls @ 2.694 mls/hr IV .(Initial Rate) [facility]; Protocol Last Admin: 05/31/19 09:58 Dose: 2.694 mls/hr Norepinephrine Bitartrate 8 mg (/ Sodium Chloride) 500 mls @ 131.25 mls/hr IV Q4H [facility]; Protocol Last Admin: 05/31/19 09:59 Dose: 131.25 mls/hr Vasopressin 100 units/ Sodium (Chloride) 250 mls @ 6 mls/hr IV Q24H [facility]; Protocol Last Admin: 05/31/19 07:04 Dose: 6 mls/hr Potassium Chloride (Potassium Chloride 20 Meq/100 Ml Ivpremix*) 20 meq in 100 mls @ 50 mls/hr IV Q2H [facility] Stop: 05/31/19 12:59 Last Admin: 05/31/19 10:55 Dose: 50 mls/hr Lactated Ringer's (Lactated Ringers 1000 Ml Bag*) 1,000 mls @ 0 mls/hr IV WIDE OPEN ARTHUR Stop: 05/31/19 23:59 Last Admin: 05/31/19 09:59 Dose: 999 mls/hr Lorazepam (Ativan Inj*) 0.5 mg IV PUSH Q8H PRN PRN Reason: ANXIETY Last Admin: 05/30/19 15:16 Dose: 0.5 mg Metoprolol Tartrate (Lopressor Iv*) 5 mg IV Q6H [facility] Last Admin: 05/31/19 07:48 Dose: 5 mg Miscellaneous (Ativan Pyxis García) 1 ea N/A .ATIVAN IV GARCÍA PRN PRN Reason: PYXIS GARCÍA Morphine Sulfate (Morphine Inj (Syringe))*) 2 mg IV Q2H PRN PRN Reason: PAIN Last Admin: 05/31/19 09:22 Dose: 2 mg Nitroglycerin (Nitroglycerin Tab 0.4 Mg*) 0.4 mg SL Q5M PRN PRN Reason: PAIN - CHEST Ondansetron HCl (Zofran Inj*) 4 mg IV Q6H PRN PRN Reason: NAUSEA Pantoprazole Sodium (Protonix Iv*) 40 mg IV Q24H [facility] Last Admin: 05/30/19 23:49 Dose: 40 mg Physical Exam: Constitutional: intubated, sedated, no distress, no diaphoresis Head: normocephalic, atraumatic Eyes: no pallor, no icterus ENT: moist mucous membranes Neck: soft, supple, no jvd CVS: normal rate, regular, no murmur Resp: bilateral air entry, no rhales, no wheeze, no rhonchi, no acc muscle use Abdomen/GI: soft, mild distention+, BS diminished/absent; midline surgical site intact, no drain, oozing+ Ext/Msk: warm, pulses+, no edema Skin: intact, warm Neuro: sedated, intubated, pupils reactive Labs: Laboratory Results - last 24 hr 05/30/19 05/30/19 05/30/19 13:52 14:43 14:43 WBC RBC Hgb Hct MCV MCH MCHC RDW Plt Count MPV Neut % (Auto) Lymph % (Auto) [place] % (Auto) Eos % (Auto) Baso % (Auto) Absolute Neuts (auto) Absolute Lymphs (auto) Absolute Monos (auto) Absolute Eos (auto) Absolute Basos (auto) Absolute Nucleated RBC Nucleated RBC % INR (Anticoag Therapy) APTT Patient Temperature ABG pH ABG pH (Temp Correct) ABG pCO2 ABG pCO2 (Temp Corrct ABG pO2 ABG pO2 (Temp Correct ABG HCO3 ABG O2 Saturation ABG Base Excess VBG pH VBG pCO2 VBG pO2 VBG HCO3 VBG O2 Saturation VBG Base Excess Respiration Rate Ventilator Type Vent Mode FiO2 Inspiratory Time PEEP Pressure Support Pressure Control EPAP IPAP BiPAP Sodium Potassium Chloride Carbon Dioxide Anion Gap BUN Creatinine Est GFR ( Amer) Est GFR (Non-Af Amer) BUN/Creatinine Ratio Glucose POC Glucose (mg/dL) Lactic Acid 6.5 H* Calcium Phosphorus Magnesium Total Bilirubin AST ALT Alkaline Phosphatase Troponin I 0.08 H* Total Protein Albumin Globulin Albumin/Globulin Ratio Urine Color Yellow Urine Appearance Clear Urine pH 5.0 Ur Specific Pierson > 1.060 H Urine Protein 1+(30 mg/dl) A Urine Ketones Negative Urine Blood Negative Urine Nitrate Negative Urine Bilirubin Negative Urine Urobilinogen Negative Ur Leukocyte Esterase Negative Urine WBC (Auto) Absent Urine RBC (Auto) 1+(3-5/hpf) A Ur Squamous Epith Cells Present A Urine Bacteria Absent Urine Glucose Negative 05/30/19 05/30/19 05/30/19 16:03 21:29 21:29 WBC RBC Hgb Hct MCV MCH MCHC RDW Plt Count MPV Neut % (Auto) Lymph % (Auto) [place] % (Auto) Eos % (Auto) Baso % (Auto) Absolute Neuts (auto) Absolute Lymphs (auto) Absolute Monos (auto) Absolute Eos (auto) Absolute Basos (auto) Absolute Nucleated RBC Nucleated RBC % INR (Anticoag Therapy) APTT Patient Temperature ABG pH 7.34 L ABG pH (Temp Correct) ABG pCO2 37 ABG pCO2 (Temp Corrct ABG pO2 387 H ABG pO2 (Temp Correct ABG HCO3 20.9 ABG O2 Saturation 100.0 H ABG Base Excess -5.2 L VBG pH VBG pCO2 VBG pO2 VBG HCO3 VBG O2 Saturation VBG Base Excess Respiration Rate Ventilator Type Vent Mode FiO2 Inspiratory Time PEEP Pressure Support Pressure Control EPAP IPAP BiPAP Sodium 139 Potassium 3.7 Chloride 108 Carbon Dioxide 20 L Anion Gap 11 BUN 25 H Creatinine 0.97 Est GFR ( Amer) 90.8 Est GFR (Non-Af Amer) 75.0 BUN/Creatinine Ratio 25.8 H Glucose 150 H POC Glucose (mg/dL) Lactic Acid 7.3 H* Calcium 8.3 L Phosphorus Magnesium Total Bilirubin 1.00 AST 11 L ALT 11 Alkaline Phosphatase 56 Troponin I Total Protein 3.7 L Albumin 2.3 L Globulin 1.4 L Albumin/Globulin Ratio 1.6 Urine Color Urine Appearance Urine pH Ur Specific Pierson Urine Protein Urine Ketones Urine Blood Urine Nitrate Urine Bilirubin Urine Urobilinogen Ur Leukocyte Esterase Urine WBC (Auto) Urine RBC (Auto) Ur Squamous Epith Cells Urine Bacteria Urine Glucose 05/30/19 05/30/19 05/31/19 21:29 21:29 00:30 WBC 10.8 RBC 3.01 L Hgb 9.0 L Hct 26 L MCV 87 MCH 30 MCHC 34 RDW 15 Plt Count 114 L MPV 8.6 Neut % (Auto) 88.1 Lymph % (Auto) 2.1 [place] % (Auto) 9.7 Eos % (Auto) 0.0 Baso % (Auto) 0.1 Absolute Neuts (auto) 9.5 H Absolute Lymphs (auto) 0.2 L Absolute Monos (auto) 1.0 H Absolute Eos (auto) 0.0 Absolute Basos (auto) 0.0 Absolute Nucleated RBC 0.0 Nucleated RBC % 0.0 INR (Anticoag Therapy) 1.51 H APTT 42.5 H Patient Temperature ABG pH ABG pH (Temp Correct) ABG pCO2 ABG pCO2 (Temp Corrct ABG pO2 ABG pO2 (Temp Correct ABG HCO3 ABG O2 Saturation ABG Base Excess VBG pH VBG pCO2 VBG pO2 VBG HCO3 VBG O2 Saturation VBG Base Excess Respiration Rate Ventilator Type Vent Mode FiO2 Inspiratory Time PEEP Pressure Support Pressure Control EPAP IPAP BiPAP Sodium Potassium Chloride Carbon Dioxide Anion Gap BUN Creatinine Est GFR ( Amer) Est GFR (Non-Af Amer) BUN/Creatinine Ratio Glucose POC Glucose (mg/dL) Lactic Acid 5.6 H* Calcium Phosphorus Magnesium Total Bilirubin AST ALT Alkaline Phosphatase Troponin I Total Protein Albumin Globulin Albumin/Globulin Ratio Urine Color Urine Appearance Urine pH Ur Specific Pierson Urine Protein Urine Ketones Urine Blood Urine Nitrate Urine Bilirubin Urine Urobilinogen Ur Leukocyte Esterase Urine WBC (Auto) Urine RBC (Auto) Ur Squamous Epith Cells Urine Bacteria Urine Glucose 05/31/19 05/31/19 05/31/19 00:30 00:35 02:10 WBC RBC Hgb Hct MCV MCH MCHC RDW Plt Count MPV Neut % (Auto) Lymph % (Auto) [place] % (Auto) Eos % (Auto) Baso % (Auto) Absolute Neuts (auto) Absolute Lymphs (auto) Absolute Monos (auto) Absolute Eos (auto) Absolute Basos (auto) Absolute Nucleated RBC Nucleated RBC % INR (Anticoag Therapy) APTT Patient Temperature ABG pH 7.29 L ABG pH (Temp Correct) ABG pCO2 30 L ABG pCO2 (Temp Corrct ABG pO2 155 H ABG pO2 (Temp Correct ABG HCO3 16.5 L ABG O2 Saturation 100.0 H ABG Base Excess -10.8 L VBG pH VBG pCO2 VBG pO2 VBG HCO3 VBG O2 Saturation VBG Base Excess Respiration Rate Ventilator Type Vent Mode FiO2 Inspiratory Time PEEP Pressure Support Pressure Control EPAP IPAP BiPAP Sodium 138 Potassium 3.7 Chloride 111 Carbon Dioxide 21 L Anion Gap 6 BUN 25 H Creatinine 0.85 Est GFR ( Amer) 105.8 Est GFR (Non-Af Amer) 87.4 BUN/Creatinine Ratio 29.4 H Glucose 136 H POC Glucose (mg/dL) 164 H Lactic Acid Calcium 7.9 L Phosphorus 3.3 Magnesium 1.3 L Total Bilirubin AST ALT Alkaline Phosphatase Troponin I Total Protein Albumin Globulin Albumin/Globulin Ratio Urine Color Urine Appearance Urine pH Ur Specific Pierson Urine Protein Urine Ketones Urine Blood Urine Nitrate Urine Bilirubin Urine Urobilinogen Ur Leukocyte Esterase Urine WBC (Auto) Urine RBC (Auto) Ur Squamous Epith Cells Urine Bacteria Urine Glucose 05/31/19 05/31/19 05/31/19 02:17 05:45 05:45 WBC 7.5 RBC 3.61 L Hgb 10.7 L Hct 31 L MCV 87 MCH 30 MCHC 34 RDW 15 Plt Count 225 MPV 7.9 Neut % (Auto) Lymph % (Auto) [place] % (Auto) Eos % (Auto) Baso % (Auto) Absolute Neuts (auto) Absolute Lymphs (auto) Absolute Monos (auto) Absolute Eos (auto) Absolute Basos (auto) Absolute Nucleated RBC Nucleated RBC % INR (Anticoag Therapy) APTT Patient Temperature 37.6 ABG pH 7.36 ABG pH (Temp Correct) Not Reportable ABG pCO2 30 L ABG pCO2 (Temp Corrct Not Reportable ABG pO2 131 H ABG pO2 (Temp Correct Not Reportable ABG HCO3 19.3 ABG O2 Saturation 99.9 H ABG Base Excess -7.3 L VBG pH VBG pCO2 VBG pO2 VBG HCO3 VBG O2 Saturation VBG Base Excess Respiration Rate Not Reportable Ventilator Type 500 Vent Mode Apv FiO2 28 Inspiratory Time Not Reportable PEEP 5 Pressure Support Not Reportable Pressure Control Not Reportable EPAP Not Reportable IPAP Not Reportable BiPAP Not Reportable Sodium 138 Potassium 3.7 Chloride 110 Carbon Dioxide 20 L Anion Gap 8 BUN 26 H Creatinine 1.05 Est GFR ( Amer) 82.9 Est GFR (Non-Af Amer) 68.5 BUN/Creatinine Ratio 24.8 H Glucose 133 H POC Glucose (mg/dL) Lactic Acid Calcium 8.3 L Phosphorus Magnesium 2.1 Total Bilirubin AST ALT Alkaline Phosphatase Troponin I Total Protein Albumin Globulin Albumin/Globulin Ratio Urine Color Urine Appearance Urine pH Ur Specific Pierson Urine Protein Urine Ketones Urine Blood Urine Nitrate Urine Bilirubin Urine Urobilinogen Ur Leukocyte Esterase Urine WBC (Auto) Urine RBC (Auto) Ur Squamous Epith Cells Urine Bacteria Urine Glucose 05/31/19 05/31/19 05:45 08:30 WBC RBC Hgb Hct MCV MCH MCHC RDW Plt Count MPV Neut % (Auto) Lymph % (Auto) [place] % (Auto) Eos % (Auto) Baso % (Auto) Absolute Neuts (auto) Absolute Lymphs (auto) Absolute Monos (auto) Absolute Eos (auto) Absolute Basos (auto) Absolute Nucleated RBC Nucleated RBC % INR (Anticoag Therapy) APTT Patient Temperature ABG pH ABG pH (Temp Correct) ABG pCO2 ABG pCO2 (Temp Corrct ABG pO2 ABG pO2 (Temp Correct ABG HCO3 ABG O2 Saturation ABG Base Excess VBG pH 7.31 L VBG pCO2 45 VBG pO2 40.0 VBG HCO3 21.2 L VBG O2 Saturation 66.5 L VBG Base Excess -3.7 L Respiration Rate Ventilator Type Vent Mode FiO2 Inspiratory Time PEEP Pressure Support Pressure Control EPAP IPAP BiPAP Sodium Potassium Chloride Carbon Dioxide Anion Gap BUN Creatinine Est GFR ( Amer) Est GFR (Non-Af Amer) BUN/Creatinine Ratio Glucose POC Glucose (mg/dL) Lactic Acid 2.3 H* Calcium Phosphorus Magnesium Total Bilirubin AST ALT Alkaline Phosphatase Troponin I Total Protein Albumin Globulin Albumin/Globulin Ratio Urine Color Urine Appearance Urine pH Ur Specific Pierson Urine Protein Urine Ketones Urine Blood Urine Nitrate Urine Bilirubin Urine Urobilinogen Ur Leukocyte Esterase Urine WBC (Auto) Urine RBC (Auto) Ur Squamous Epith Cells Urine Bacteria Urine Glucose Imaging: cxr 05/30 - ett above bryan; RIJ TLC+; Left lower lobe atelectasis vs infiltrate Assessment: 78y M w/pmhx HLD, Asthma, CAD/CABG, HTN, Ischemic CMP, s/p AICD/PPM , Bilateral CEA and then Carotid Stents, h/o SBO 02/2019; Comes to ER 05/30 for abd pain, found to have a high-grade small bowel obstruction on CT abdomen. He was started on conservative tx with NGT but it did not significantly improve. Decision made for ex-lap. He is s/p ex-lap with SB resection and lysis of adhesionis. Post op went onto pressors, remained intubated in ICU. Overnight on levophed, added vasopressin, low urine output overnight, sedation held temporarily. Currently sedated, improved with LR bolus and levophed decreased. ROS limited due to intubated/sedated state. -Small bowel obstruction -s/p ex-lap, small bowel resection, lysis of adhesions 05/30 -Shock, suspect distributive + hypovolemic -Anemia Plan: Neuro- -maintain propofol sedation for comfort -prn fentanyl -Delirium prec; avoid BDZ CVS- -Shock, remains on levo and vaso; decreased levo with more volume given -1L + 1L LR bolus; cont NS 100cc/hr -still oliguric -IV abx -hold antihypertensives -Titrate Pressors to Maintain MAP>65 Resp- -Intubated; CXR 05/30 with ett in position -on 28% fio2; ABG reviewed from AM -minimal secretions being suctioned -no plan for extubation until hemodyn stability and improved pressor rewuirements; no acute respiratory failure, intubated for procedure -Wean Fio2 to keep sat>92% -Bronchodilators PRN, Aspiration prec, Pulmonary Toilet -VAP bundle ID- afebrile. wbc decreased. -SBO, lysis of adhesions+; necrotic bowel from band+; small perf during OR, no spillage as per surgeon -cont zosyn (day #1) for abdominal coverage -blood cultures if fever spike GI- -s/p ex-lap, lysis of adh, SB resection -surgical site intact; no drain, oozing of serosang from surgical site; closed abdomen; maintain surgical site wound care -given rescucitation and likely some bowel edema, will check abd pressures later this afternoon -Nutrition: NPO -GI prophylaxis Renal- -Cr okay; oliguric; suspect hypovolemia from volume depletion and abd shifting of fluids, +/- sepsis from necrosis -IV pressors -responded to LR bolus 2L; cont NS 100cc/hr -CVP was 5 this morning; hence more admin of IVF -check abd pressures later today -replete IV KCL 40meq -strict I/O, replete to keep K>4, Mg>2 -forrest as indicated Heme- hg stable; plt stable -start heparin sq in 24 hours if stable hg and no bleeding -cont SCDs Endo- Maintain BG<200, insulin protocol as needed Musculsk- pressure ulcer prophylaxis. Bedrest. Wounds- abd surgical wound sites Nutrition- NPO DVT prophylaxis: SCD; holding heparin for today GI prophylaxis: PPI Central Line: RIJ 05/30 Arterial Line: Right fem 05/30 Forrest Cathetor: yes Disposition: Patient requires Critical Care/ICU for post ex-lap and SB resection, shock Patient Clinical Status: guarded, critical Code Status: DNR post surgery Total Critical Care time is 55 minutes, excluding procedures/teaching Shai Garcia MD Cyber Special Agent (Electronically Signed)
[2019-05-31] MEDS ORDERED: fentaNYL INFUSION 50 MCG/ML* 2,500 MCG/50 ML BAG IV SCH (13:00)
[2019-05-31] MEDS: Pantoprazole IV* 40 MG IV SCH (23:07)
[2019-06-01] MEDS: Propofol* 1000 MG (10 MG/ML 100 ml) @ Per Protocol (in ICU Pyxis) IV SCH ×4 (00:23→23:07)
[2019-06-01] MEDS: NS 0.9% 1000 ML** 1,000 ML IV SCH (00:24)
[2019-06-01] MEDS: Chlorhexidine MOUTHWASH 0.12%* 15 ML UDC SCH ×6 (00:24→22:03)
[2019-06-01] MEDS: Piperacillin/Tazobac ADVAN(*) 3.375 GM in NS 0.9% 100 ML* 100 ML IVPB SCH ×3 (04:50→20:07)
[2019-06-01 05:27] LABS: Hematocrit 26 % (42-52); Hemoglobin 8.9 g/dL (14.0-18.0); Mean Corpuscular HGB Conc 34 g/dL (31-36); Mean Corpuscular Hemoglobin 29 pg (27-31); Mean Corpuscular Volume 87 fL (80-94); Mean Platelet Volume 8.6 fL (7.4-10.4); Platelet Count 132 10^3/uL (150-450); Red Blood Count 3.02 10^6 /uL (4.18-5.48); Red Cell Distribution Width 15 % (10-15); White Blood Count 15.3 10^3/uL (3.5-10.8)
[2019-06-01 05:31] LABS: INR 1.58 (0.82-1.09)
[2019-06-01 05:48] LABS: Albumin 2.5 g/dL (3.2-5.2); Albumin/Globulin Ratio 1.3 (1-3); BUN/Creatinine Ratio 26.6 (8-20); Calcium 8.3 mg/dL (8.6-10.3); EGFR African American 79.4 (>60); EGFR Non-African American 65.6 (>60); Magnesium 1.8 mg/dL (1.9-2.7); Phosphorus 2.9 mg/dL (2.5-5.0); Potassium 4.1 mmol/L (3.5-5.0); Total Bilirubin 1.9 mg/dL (0.2-1.0); Total Protein 4.5 g/dL (6.4-8.9)
[2019-06-01 06:17] LABS: TSH (Thyroid Stimulating Horm) 4.35 mcIU/mL (0.34-5.60)
[2019-06-01] MEDS: Vasopressin* 100 UNITS in NS 0.9% 250 ML* 245 ML IV SCH (07:53)
[2019-06-01] MEDS: Norepinephrine VIAL 8 MG in NS 0.9% 500 ML IV SCH ×2 (07:53→14:15)
[2019-06-01] MEDS ORDERED: Magnesium Sulfate 2 GM IV* 2 GM/50 ML BAG IVPB ONE (10:03)
[2019-06-01] MEDS: fentaNYL INFUSION 50 MCG/ML* 2,500 MCG/50 ML BAG IV SCH ×2 (10:29→16:38)
[2019-06-01] MEDS ORDERED: Lactated Ringers 1000 ML Bag* 1,000 ML IV SCH (11:00)
[2019-06-01] MEDS ORDERED: Vancomycin per Pharmacy* NOTE FOLLOW UP SCH (11:00)
[2019-06-01] MEDS ORDERED: Vancomycin(*) 1,000 MG in NS 0.9% 250 ML* 250 ML IVPB ONE (11:00)
--- NOTE | 2019-06-01 11:05 | PN ---
Progress Note - Progress Note Date of Service: 06/01/19 Note: Progress Note -- Critical Care 24 hour events -remains intubated; easily awoken -on propofol and fentanyl; has pain on exam or sig movement -on vaso, less levophed -making urine, intermittently drops off overnight but continuous now -tmax 101 overnight -abd pressure ~10 x2 yesterday -abd wound with less drainage noted; no sig bleeding noted either Tele: NSR, less ectopy Vitals: Vital Signs Temp 99.1 F 06/01/19 07:00 Pulse 104 06/01/19 07:00 Resp 17 06/01/19 10:29 BP 143/68 06/01/19 03:39 Pulse Ox 96 06/01/19 07:00 Intake & Output 05/31/19 06/01/19 06/01/19 18:59 06:59 18:59 Intake Total 4791.6 2739 421 Output Total 559 475 161 Balance 4232.6 2264 260 Weight 94.482 kg Intake: IV Fluids 3044.6 1925 421 LR 500 NS 0.9% 3044.6 1425 421 IVPB 910 NS 0.9% 910 Medicated IV 837 814 CC - Propofol/Diprivan 154 384 CC - Vasopressin/ 88 Pitressin LEVOPHED 683 242 ZOSYN 100 Output: NG Tube Drainage Amount 200 100 NGT 200 Forrest 359 375 133 Straight Cath 28 O2/Vent: intubated fio2 28% AC mode Infusions: levophed, vasopressin, propofol, NS 100cc, fentanyl Current Medications: Albuterol (Ventolin Hfa Inhaler*) 2 puff INH Q4H PRN PRN Reason: WHEEZING Chlorhexidine Gluconate (Peridex Mouth Wash 0.12%*) 15 ml .SEE ORDER Q4H [facility] Last Admin: 06/01/19 09:06 Dose: 15 ml Piperacillin Sod/Tazobactam (Sod 3.375 gm/ Sodium Chloride) 100 mls @ 25 mls/ hr IVPB Q8H [facility] Last Admin: 06/01/19 04:50 Dose: 25 mls/hr Propofol (Diprivan*) 100 mls @ 2.694 mls/hr IV .(Initial Rate) [facility]; Protocol Last Admin: 06/01/19 07:21 Dose: 13.4 mls/hr Vasopressin 100 units/ Sodium (Chloride) 250 mls @ 6 mls/hr IV Q24H [facility]; Protocol Last Admin: 06/01/19 07:53 Dose: Not Given Norepinephrine Bitartrate 8 mg (/ Sodium Chloride) 500 mls @ 37.5 mls/hr IV Q13H [facility]; Protocol Last Admin: 06/01/19 07:53 Dose: Not Given Lactated Ringer's (Lactated Ringers 1000 Ml Bag*) 1,000 mls @ 0 mls/hr IV WIDE OPEN [facility] Stop: 06/01/19 23:59 Last Admin: 06/01/19 10:27 Dose: 500 mls/hr Lactated Ringer's (Lactated Ringers 1000 Ml Bag*) 1,000 mls @ 75 mls/hr IV PER RATE [facility] Fentanyl Citrate (Fentanyl Infusion Bag 50 Mcg/Ml 50 Ml) 2,500 mcg in 50 mls @ 1.5 mls/hr IV Q24H [facility] Last Admin: 06/01/19 10:29 Dose: 1.5 mls/hr Magnesium Sulfate (Magnesium Sulfate 2 Gm Iv*) 2 gm in 50 mls @ 50 mls/hr IVPB ONCE ONE Stop: 06/01/19 11:02 Last Admin: 06/01/19 10:42 Dose: 50 mls/hr Ondansetron HCl (Zofran Inj*) 4 mg IV Q6H PRN PRN Reason: NAUSEA Pantoprazole Sodium (Protonix Iv*) 40 mg IV Q24H [facility] Last Admin: 05/31/19 23:07 Dose: 40 mg Physical Exam: Constitutional: intubated, sedated but awakens, no distress, no diaphoresis Head: normocephalic, atraumatic Eyes: no pallor, no icterus ENT: moist mucous membranes Neck: soft, supple, no jvd CVS: normal rate, regular, no murmur Resp: bilateral air entry, no rhales, no wheeze, no rhonchi, no acc muscle use Abdomen/GI: soft, nondistended, tender++, BS diminished/absent; midline surgical site intact, no drain, minimal drainage from surgical site noted Ext/Msk: warm, pulses+, no edema Skin: intact, warm Neuro: sedated, intubated, pupils reactive; awakens, moves ext spontaneously Labs: Laboratory Results - last 24 hr 05/31/19 06/01/19 06/01/19 16:12 05:03 05:03 WBC 15.3 H RBC 3.02 L Hgb 8.9 L Hct 26 L MCV 87 MCH 29 MCHC 34 RDW 15 Plt Count 132 L MPV 8.6 INR (Anticoag Therapy) Fibrinogen 427.3 H Sodium 139 Potassium 4.1 Chloride 110 Carbon Dioxide 20 L Anion Gap 9 BUN 29 H Creatinine 1.09 Est GFR ( Amer) 79.4 Est GFR (Non-Af Amer) 65.6 BUN/Creatinine Ratio 26.6 H Glucose 110 H Lactic Acid Calcium 8.3 L Phosphorus 2.9 Magnesium 1.8 L Total Bilirubin 1.90 H Direct Bilirubin 0.90 H Indirect Bilirubin 1.0 AST 45 H ALT 28 Alkaline Phosphatase 62 Total Protein 4.5 L Albumin 2.5 L Globulin 2.0 Albumin/Globulin Ratio 1.3 TSH 4.35 Cortisol 23.99 06/01/19 06/01/19 05:03 05:03 WBC RBC Hgb Hct MCV MCH MCHC RDW Plt Count MPV INR (Anticoag Therapy) 1.58 H Fibrinogen Sodium Potassium Chloride Carbon Dioxide Anion Gap BUN Creatinine Est GFR ( Amer) Est GFR (Non-Af Amer) BUN/Creatinine Ratio Glucose Lactic Acid 1.6 Calcium Phosphorus Magnesium Total Bilirubin Direct Bilirubin Indirect Bilirubin AST ALT Alkaline Phosphatase Total Protein Albumin Globulin Albumin/Globulin Ratio TSH Cortisol Imaging: cxr 05/30 - ett above bryan; RIJ TLC+; Left lower lobe atelectasis vs infiltrate Assessment: 78y M w/pmhx HLD, Asthma, CAD/CABG, HTN, Ischemic CMP, s/p AICD/PPM , Bilateral CEA and then Carotid Stents, h/o SBO 02/2019; Comes to ER 05/30 for abd pain, found to have a high-grade small bowel obstruction on CT abdomen. He was started on conservative tx with NGT but it did not significantly improve. Decision made for ex-lap. He is s/p ex-lap with SB resection and lysis of adhesionis. Post op went onto pressors, remained intubated in ICU. Overnight on levophed, added vasopressin, low urine output overnight, sedation held temporarily. Currently sedated, improved with LR bolus and levophed decreased. ROS limited due to intubated/sedated state. -Small bowel obstruction -s/p ex-lap, small bowel resection, lysis of adhesions 05/30 -Shock, suspect septic/distributive, +hypovolemia -Anemia Plan: Neuro- -maintain propofol sedation for comfort; wean for vent weaning today -fentanyl infusion incr to 75mcg/hr; will transition to [employer] or dilaudid PRN if able to extubate -Delirium prec; avoid BDZ CVS- -Shock, suspect septic component from abd source -on vaso 0.04, less levophed; some degree of volume responsive but less so now; CVP has been 10 -additional 1 L LR, then change IVF infusion to LR 75cc/hr -hg slight drop, but also drop in plt, suspect dilutional -making urine -IV abx -hold antihypertensives -Titrate Pressors to Maintain MAP>65 Resp- -Intubated; on 28% fio2 -CXR 05/30 with ett in position -minimal secretions being suctioned -sedation weaning; then CPAP trial today -Wean Fio2 to keep sat>92% -Bronchodilators PRN, Aspiration prec, Pulmonary Toilet -VAP bundle ID- tmax 101; wbc incr to 15; less pressors req -SBO, lysis of adhesions+; necrotic bowel from band+; small perf during OR, no spillage as per surgeon -curtis mehta (day #2) for abdominal coverage; add vanco IV -blood cultures x2 today; has been <48hr since central line placed also GI- -s/p ex-lap, lysis of adh, SB resection -surgical site intact; no drain, less site oozing past 24 hours; closed abdomen ; maintain surgical site wound care -given rescucitation and likely some bowel edema -abd pressure has been 10 x2 yesterday; check PRN -Nutrition: NPO ; OGT to low intermittent suction -GI prophylaxis Renal- -Cr okay; making urine+; positive balance; suspect form hypovolemia +/- sepsis causing intermittent oliguris yesterday -IV pressors -LR bolus x1 now; change IVF to LR 75cc/hr -hg stable -Intra abd pressure normal; CVP 10 now -replete Mg 2gm IV; K level okay -strict I/O, replete to keep K>4, Mg>2 -forrest as indicated Heme- hg slight drop, dilutional? oozzing? -plt drop also; no further bleeding; monitoring -if okay with surgery, start heparin sq for proph -cont SCDs Endo- Maintain BG<200, insulin protocol as needed Musculsk- pressure ulcer prophylaxis. Bedrest. Wounds- abd surgical wound sites Nutrition- NPO DVT prophylaxis: SCD; holding heparin for today GI prophylaxis: PPI Central Line: RIJ 05/30 Arterial Line: Right fem 05/30 Forrest Cathetor: yes Disposition: Patient requires Critical Care/ICU for post ex-lap and SB resection, shock Patient Clinical Status: guarded, critical Code Status: DNR post surgery Total Critical Care time is 40 minutes, excluding procedures/teaching Shai Garcia MD [employer] (Electronically Signed)
[2019-06-01] MEDS: Lactated Ringers 1000 ML Bag* 1,000 ML IV SCH (12:38)
[2019-06-01] MEDS: Heparin VIAL(*) 5000 UNITS/ML VIAL (FIVE THOUSAND) SUBCUT SCH ×2 (13:06→22:03)
[2019-06-01] MEDS ORDERED: Acetaminophen IV 1GM/100ML * 100 ML IVPB ONE (15:08)
[2019-06-01] MEDS ORDERED: Metoprolol Tartrate IV* 1 MG/ML 5 ML VIAL IV PRN (16:09)
[2019-06-01 16:45] LABS: BUN/Creatinine Ratio 25.2 (8-20); Calcium 8.2 mg/dL (8.6-10.3); EGFR African American 77.7 (>60); EGFR Non-African American 64.2 (>60); Magnesium 2.3 mg/dL (1.9-2.7); Potassium 3.8 mmol/L (3.5-5.0)
[2019-06-01] MEDS: Vancomycin(*) 1,500 MG in NS 0.9% 250 ML* 250 ML IVPB SCH (22:21)
[2019-06-01] MEDS: Pantoprazole IV* 40 MG IV SCH (23:32)
[2019-06-02] MEDS: Vasopressin* 100 UNITS in NS 0.9% 250 ML* 245 ML IV SCH ×2 (01:34→07:06)
[2019-06-02] MEDS: Chlorhexidine MOUTHWASH 0.12%* 15 ML UDC SCH ×6 (01:36→20:02)
[2019-06-02] MEDS: Lactated Ringers 1000 ML Bag* 1,000 ML IV SCH (02:13)
[2019-06-02] MEDS: Piperacillin/Tazobac ADVAN(*) 3.375 GM in NS 0.9% 100 ML* 100 ML IVPB SCH ×3 (04:06→20:01)
[2019-06-02] MEDS: Heparin VIAL(*) 5000 UNITS/ML VIAL (FIVE THOUSAND) SUBCUT SCH (04:57)
[2019-06-02 05:35] LABS: Hematocrit 22 % (42-52); Hemoglobin 7.5 g/dL (14.0-18.0); Mean Corpuscular HGB Conc 34 g/dL (31-36); Mean Corpuscular Hemoglobin 29 pg (27-31); Mean Corpuscular Volume 87 fL (80-94); Mean Platelet Volume 8.8 fL (7.4-10.4); Platelet Count 121 10^3/uL (150-450); Red Blood Count 2.55 10^6 /uL (4.18-5.48); Red Cell Distribution Width 15 % (10-15); White Blood Count 13.6 10^3/uL (3.5-10.8)
[2019-06-02 05:43] LABS: Activated Partial Thrombo Time 37.2 seconds (26.0-38.0); INR 1.42 (0.82-1.09)
[2019-06-02 05:48] LABS: Albumin 2.5 g/dL (3.2-5.2); Albumin/Globulin Ratio 1.1 (1-3); BUN/Creatinine Ratio 32.6 (8-20); Calcium 8.7 mg/dL (8.6-10.3); EGFR African American 100.3 (>60); EGFR Non-African American 82.9 (>60); Globulin 2.3 g/dL (2-4); Indirect Bilirubin 0.8 mg/dL (0.3-1.0); Magnesium 2.3 mg/dL (1.9-2.7); Phosphorus 2.5 mg/dL (2.5-5.0); Potassium 3.5 mmol/L (3.5-5.0); Total Bilirubin 1.9 mg/dL (0.2-1.0); Total Protein 4.8 g/dL (6.4-8.9)
[2019-06-02] MEDS: Norepinephrine VIAL 8 MG in NS 0.9% 500 ML IV SCH ×2 (07:00→22:14)
[2019-06-02] MEDS: Propofol* 1000 MG (10 MG/ML 100 ml) @ Per Protocol (in ICU Pyxis) IV SCH ×2 (07:06→16:16)
[2019-06-02] MEDS ORDERED: fentaNYL INFUSION 50 MCG/ML* 2,500 MCG/50 ML BAG IV SCH ×2 (09:37→15:00)
--- NOTE | 2019-06-02 11:15 | PN ---
Progress Note - Progress Note Date of Service: 06/02/19 Note: Progress Note -- Critical Care 24 hour events -attempted CPAP yesterday, tolerated on vent okay but developed hypotension, restarted pressors, NSVT+ noted -overnight tmax 100.2, now 99s -on levo and vaso; on propofol and fentanyl -opens eyes -anasarca+ -surgical site intact+ Tele: NSR, NSVT yesterday and this morning Vitals: Vital Signs Temp 98.8 F 06/02/19 06:01 Pulse 131 06/02/19 06:01 Resp 17 06/02/19 05:59 BP 89/64 06/02/19 06:00 Pulse Ox 92 06/02/19 06:01 Intake & Output 06/01/19 06/02/19 06/02/19 18:59 06:59 18:59 Intake Total 750.3 4272 Output Total 454 761 Balance 296.3 3511 Weight 98.064 kg Intake: IV Fluids 483.3 2470 LR 2286 Magnesium 62.3 NS 0.9% 421 184 IVPB 267 290 Vancomycin 267 290 Medicated IV 1502 CC - Propofol/Diprivan 273 CC - Vasopressin/ 134 Pitressin LEVOPHED 703 ZOSYN 269 tylenol 123 IV Narcotic Infusion 0 Fentanyl 0 NG Tube Irrigate Amount 10 NGT 10 Output: NG Tube Drainage Amount 300 Forrest 426 461 Straight Cath 28 O2/Vent: intubated fio2 28% AC mode Infusions: levophed, vasopressin, propofol, LR off, fentanyl Current Medications: Albuterol (Ventolin Hfa Inhaler*) 2 puff INH Q4H PRN PRN Reason: WHEEZING Chlorhexidine Gluconate (Peridex Mouth Wash 0.12%*) 15 ml .SEE ORDER Q4H [facility] Last Admin: 06/02/19 04:57 Dose: 15 ml Piperacillin Sod/Tazobactam (Sod 3.375 gm/ Sodium Chloride) 100 mls @ 25 mls/ hr IVPB Q8H [facility] Last Admin: 06/02/19 04:06 Dose: 25 mls/hr Propofol (Diprivan*) 100 mls @ 2.694 mls/hr IV .(Initial Rate) [facility]; Protocol Last Admin: 06/02/19 07:06 Dose: 10.7 mls/hr Vasopressin 100 units/ Sodium (Chloride) 250 mls @ 6 mls/hr IV Q24H [facility]; Protocol Last Admin: 06/02/19 07:06 Dose: Not Given Norepinephrine Bitartrate 8 mg (/ Sodium Chloride) 500 mls @ 37.5 mls/hr IV Q13H [facility]; Protocol Last Admin: 06/02/19 07:00 Dose: 56.3 mls/hr Vancomycin HCl 1,500 mg/ (Sodium Chloride) 250 mls @ 166.667 mls/hr IVPB Q12H [facility] Last Admin: 06/01/19 22:21 Dose: 166.667 mls/hr Fentanyl Citrate (Fentanyl Infusion Bag 50 Mcg/Ml 50 Ml) 2,500 mcg in 50 mls @ 1 mls/hr IV Q24H [facility] Potassium Chloride (Potassium Chloride 20 Meq/100 Ml Ivpremix*) 20 meq in 100 mls @ 50 mls/hr IV Q2H [facility] Stop: 06/02/19 13:59 Metoprolol Tartrate (Lopressor Iv*) 2.5 mg IV Q6H PRN PRN Reason: tachycardia/NSVT if SBP>120 Ondansetron HCl (Zofran Inj*) 4 mg IV Q6H PRN PRN Reason: NAUSEA Pantoprazole Sodium (Protonix Iv*) 40 mg IV Q24H [facility] Last Admin: 06/01/19 23:32 Dose: 40 mg Pharmacy Consult (Vancomycin Per Pharmacy*) 1 note FOLLOW UP .VANC PER PHARMACY [facility]; Protocol Pharmacy Profile Note (Vancomycin Trough Check) 1 note FOLLOW UP 1030 ONE Stop: 06/03/19 10:31 Physical Exam Constitutional: intubated, sedated but awakens, no distress, no diaphoresis Head: normocephalic, atraumatic Eyes: no pallor, no icterus ENT: moist mucous membranes Neck: soft, supple, no jvd CVS: normal rate, regular, no murmur Resp: bilateral air entry, no rhales, no wheeze, no rhonchi, no acc muscle use Abdomen/GI: soft, nondistended, tender++, BS diminished/absent; midline surgical site intact, no drain, minimal drainage from surgical site noted Ext/Msk: warm, pulses+, no edema Skin: intact, warm Neuro: sedated, intubated, pupils reactive; awakens, moves ext spontaneously Labs: Laboratory Results - last 24 hr 06/01/19 06/01/19 06/02/19 15:04 16:13 05:05 WBC RBC Hgb Hct MCV MCH MCHC RDW Plt Count MPV INR (Anticoag Therapy) 1.42 H APTT 37.2 Patient Temperature Not Reportable ABG pH 7.35 ABG pH (Temp Correct) Not Reportable ABG pCO2 36 ABG pCO2 (Temp Corrct Not Reportable ABG pO2 69 L ABG pO2 (Temp Correct Not Reportable ABG HCO3 20.9 ABG O2 Saturation 96.1 ABG Base Excess -5.1 L Respiration Rate Not Reportable Ventilator Type Not Reportable Vent Mode Not Reportable FiO2 24 Inspiratory Time Not Reportable PEEP Not Reportable Pressure Support Not Reportable Pressure Control Not Reportable EPAP Not Reportable IPAP Not Reportable BiPAP Not Reportable Sodium 139 Potassium 3.8 Chloride 111 Carbon Dioxide 23 Anion Gap 5 BUN 28 H Creatinine 1.11 Est GFR ( Amer) 77.7 Est GFR (Non-Af Amer) 64.2 BUN/Creatinine Ratio 25.2 H Glucose 110 H Calcium 8.2 L Phosphorus Magnesium 2.3 Total Bilirubin Direct Bilirubin Indirect Bilirubin AST ALT Alkaline Phosphatase Total Protein Albumin Globulin Albumin/Globulin Ratio 06/02/19 06/02/19 05:05 05:05 WBC 13.6 H RBC 2.55 L Hgb 7.5 L Hct 22 L MCV 87 MCH 29 MCHC 34 RDW 15 Plt Count 121 L MPV 8.8 INR (Anticoag Therapy) APTT Patient Temperature ABG pH ABG pH (Temp Correct) ABG pCO2 ABG pCO2 (Temp Corrct ABG pO2 ABG pO2 (Temp Correct ABG HCO3 ABG O2 Saturation ABG Base Excess Respiration Rate Ventilator Type Vent Mode FiO2 Inspiratory Time PEEP Pressure Support Pressure Control EPAP IPAP BiPAP Sodium 140 Potassium 3.5 Chloride 110 Carbon Dioxide 22 Anion Gap 8 BUN 29 H Creatinine 0.89 Est GFR ( Amer) 100.3 Est GFR (Non-Af Amer) 82.9 BUN/Creatinine Ratio 32.6 H Glucose 109 H Calcium 8.7 Phosphorus 2.5 Magnesium 2.3 Total Bilirubin 1.90 H Direct Bilirubin 1.10 H Indirect Bilirubin 0.8 AST 52 H ALT 30 Alkaline Phosphatase 67 Total Protein 4.8 L Albumin 2.5 L Globulin 2.3 Albumin/Globulin Ratio 1.1 Imaging: cxr 05/30 - ett above bryan; RIJ TLC+; Left lower lobe atelectasis vs infiltrate Assessment: 78y M w/pmhx HLD, Asthma, CAD/CABG, HTN, Ischemic CMP, s/p AICD/PPM , Bilateral CEA and then Carotid Stents, h/o SBO 02/2019; Comes to ER 05/30 for abd pain, found to have a high-grade small bowel obstruction on CT abdomen. He was started on conservative tx with NGT but it did not significantly improve. Decision made for ex-lap. He is s/p ex-lap with SB resection and lysis of adhesionis. Post op went onto pressors, remained intubated in ICU. Overnight on levophed, added vasopressin, low urine output overnight, sedation held temporarily. Currently sedated, improved with LR bolus and levophed decreased. ROS limited due to intubated/sedated state. -Small bowel obstruction -s/p ex-lap, small bowel resection, lysis of adhesions 05/30 -Shock, suspect septic/distributive, +hypovolemia -Anemia Plan: Neuro- -maintain propofol sedation for comfort; wean for vent weaning today -fentanyl infusion 75mcg/hr -dec fentanyl , dec prop for sedation vacation -Delirium prec; avoid BDZ CVS- -Shock, suspect septic component from abd source -on vaso, levophed; CVPs 14 -d/c IVF, anasarca+ -hg drop noted; no overt bleeding noted; recheck at 12pm -making urine -IV abx -Titrate Pressors to Maintain MAP>65 Resp- -Intubated; on 28% fio2 -CXR 05/30 with ett in position -minimal secretions being suctioned -sedation weaning; then CPAP trial today again if better mental status -Wean Fio2 to keep sat>92% -Bronchodilators PRN, Aspiration prec, Pulmonary Toilet -VAP bundle ID- tmax 100, now 99s; wbc 15-13; remains on pressors -SBO, lysis of adhesions+; necrotic bowel from band+; small perf during OR, no spillage as per surgeon -cont zosyn (day #3) for abdominal coverage; vanco IV (day#2) pharmacy dosing -given hemodyn changes; Eraxis 200mg iv load , then 100mg iv daily GI- -s/p ex-lap, lysis of adh, SB resection -surgical site intact; no drain, less site oozing past 24 hours; closed abdomen ; maintain surgical site wound care -given rescucitation and likely some bowel edema -Nutrition: NPO ; OGT to low intermittent suction -GI prophylaxis Renal- -Cr okay; making urine+; positive balance; suspect form hypovolemia +/- sepsis -IV pressors -anasarca+; d/c IVF; monitor uop -replete KCL IV 40meq -strict I/O, replete to keep K>4, Mg>2 -forrest as indicated Heme- hg drop 7.5; no clear bleeding noted; check h/h 12pm -plt 120s -d/c heparin sq -cont SCDs Endo- Maintain BG<200, insulin protocol as needed Musculsk- pressure ulcer prophylaxis. Bedrest. Wounds- abd surgical wound sites Nutrition- NPO DVT prophylaxis: SCD GI prophylaxis: PPI Central Line: RIJ 05/30 Arterial Line: Right fem 05/30 [place] Cathetor: yes Disposition: Patient requires Critical Care/ICU for post ex-lap and SB resection, shock Patient Clinical Status: guarded, critical Code Status: DNR post surgery Total Critical Care time is 40 minutes, excluding procedures/teaching Shai Garcia MD [employer] Engineer (Electronically Signed)
[2019-06-02] MEDS: Vancomycin(*) 1,500 MG in NS 0.9% 250 ML* 250 ML IVPB SCH ×2 (11:34→23:29)
[2019-06-02] MEDS ORDERED: Anidulafungin* 200 MG in NS 0.9% 250 ML* 200 ML IVPB ONE (12:00)
[2019-06-02] MEDS: KCL 20 MEQ/100 ML IVPREMIX* 20 MEQ/100 ML BAG IV SCH ×2 (13:46→16:14)
[2019-06-02 14:04] LABS: Hematocrit 21 % (42-52)
[2019-06-02] MEDS ORDERED: KCL 20 MEQ/100 ML IVPREMIX* 20 MEQ/100 ML BAG ONE (16:01)
--- NOTE | 2019-06-02 17:24 | PN ---
Progress Note - Progress Note Date of Service: 06/02/19 SOAP: Subjective: Patient seen with Dr. Drew Delgado gilberto removed and dressing changed. Albuterol (Ventolin Hfa Inhaler*) 2 puff INH Q4H PRN PRN Reason: WHEEZING Chlorhexidine Gluconate (Peridex Mouth Wash 0.12%*) 15 ml .SEE ORDER Q4H [facility] Last Admin: 06/02/19 13:05 Dose: 15 ml Piperacillin Sod/Tazobactam (Sod 3.375 gm/ Sodium Chloride) 100 mls @ 25 mls/ hr IVPB Q8H [facility] Last Admin: 06/02/19 13:00 Dose: 25 mls/hr Propofol (Diprivan*) 100 mls @ 2.694 mls/hr IV .(Initial Rate) [facility]; Protocol Last Admin: 06/02/19 16:16 Dose: 2.694 mls/hr Vasopressin 100 units/ Sodium (Chloride) 250 mls @ 6 mls/hr IV Q24H [facility]; Protocol Last Admin: 06/02/19 07:06 Dose: Not Given Norepinephrine Bitartrate 8 mg (/ Sodium Chloride) 500 mls @ 37.5 mls/hr IV Q13H [facility]; Protocol Last Admin: 06/02/19 07:00 Dose: 56.3 mls/hr Vancomycin HCl 1,500 mg/ (Sodium Chloride) 250 mls @ 166.667 mls/hr IVPB Q12H [facility] Last Admin: 06/02/19 11:34 Dose: 166.667 mls/hr Anidulafungin 100 mg/ Sodium (Chloride) 130 mls @ 65 mls/hr IVPB Q24H [facility] Fentanyl Citrate (Fentanyl Infusion Bag 50 Mcg/Ml 50 Ml) 2,500 mcg in 50 mls @ 1 mls/hr IV Q50H [facility] Metoprolol Tartrate (Lopressor Iv*) 2.5 mg IV Q6H PRN PRN Reason: tachycardia/NSVT if SBP>120 Ondansetron HCl (Zofran Inj*) 4 mg IV Q6H PRN PRN Reason: NAUSEA Pantoprazole Sodium (Protonix Iv*) 40 mg IV Q24H [facility] Last Admin: 06/01/19 23:32 Dose: 40 mg Pharmacy Consult (Vancomycin Per Pharmacy*) 1 note FOLLOW UP .VANC PER PHARMACY [facility]; Protocol Pharmacy Profile Note (Vancomycin Trough Check) 1 note FOLLOW UP 1030 ONE Stop: 06/03/19 10:31 Objective: Vital Signs - 12 hr Temp Pulse Resp BP Pulse Ox 06/02/19 16:40 97.9 F 06/02/19 12:29 97.8 F 06/02/19 06:01 98.8 F 131 92 06/02/19 06:00 98.8 F 128 89/64 92 06/02/19 05:59 17 06/02/19 05:46 98.8 F 102 94 06/02/19 05:31 99.1 F 107 94 Intake & Output 05/31/19 06/01/19 06/02/19 06/03/19 06:59 06:59 06:59 06:59 Intake Total 8994 7530.6 5022.3 Output Total 885 1034 1215 170 Balance 8109 6496.6 3807.3 -170 Weight 200 lb 15.718 oz 208 lb 4.745 oz 216 lb 3.108 oz Intake: IV Fluids 7989 4969.6 2953.3 LR 6500 500 2286 Magnesium 62.3 NS 0.9% 1389 4469.6 605 NS 100ML, Cefoxitin 2G 100 IVPB 910 557 NS 0.9% 910 Vancomycin 557 Medicated IV 1005 1651 1502 CC - Propofol/Diprivan 104 538 273 CC - Vasopressin/ 88 134 Pitressin LEVOPHED 651 925 703 MAGNESIUM 50 ZOSYN 200 100 269 tylenol 123 IV Narcotic Infusion 0 Fentanyl 0 NG Tube Irrigate Amount 10 NGT 10 Output: NG Tube Drainage Amount 175 300 300 NGT 200 Urine 100 Fraser 410 734 887 170 Straight Cath 28 Estimated Blood Loss 200 Other: Estimated Void Medium # Voids 1 Laboratory Tests 05/31/19 06/01/19 06/02/19 02:17 05:03 05:05 WBC 7.5 15.3 H 13.6 H Hgb 10.7 L 8.9 L 7.5 L Hct 31 L 26 L 22 L Plt Count 225 132 L 121 L 06/02/19 13:45 WBC Hgb 7.0 L Hct 21 L Plt Count Exam: General: intubated, sedated, no acute distress. Abdomen: round and soft. midline incision with serosanguinous discharge intact intermittent [place]. Extremities: edematous, warm. No rashes or lesions. Assessment: Status post op day 3 ex-lap small bowel resection and lysis of adhesions - critical condition Plan: Continue daily dressing change. Medical management per intensivest.
[2019-06-02] MEDS: Pantoprazole IV* 40 MG IV SCH (23:29)
[2019-06-03] MEDS: fentaNYL INFUSION 50 MCG/ML* 2,500 MCG/50 ML BAG IV SCH (01:57)
[2019-06-03] MEDS: Chlorhexidine MOUTHWASH 0.12%* 15 ML UDC SCH ×6 (01:57→21:30)
[2019-06-03] MEDS: Piperacillin/Tazobac ADVAN(*) 3.375 GM in NS 0.9% 100 ML* 100 ML IVPB SCH ×3 (03:21→19:31)
[2019-06-03] MEDS: Propofol* 1000 MG (10 MG/ML 100 ml) @ Per Protocol (in ICU Pyxis) IV SCH ×2 (04:42→23:58)
[2019-06-03 06:42] LABS: Hematocrit 20 % (42-52); Hemoglobin 6.9 g/dL (14.0-18.0); Mean Corpuscular HGB Conc 36 g/dL (31-36); Mean Corpuscular Hemoglobin 31 pg (27-31); Mean Corpuscular Volume 87 fL (80-94); Mean Platelet Volume 8.5 fL (7.4-10.4); Platelet Count 88 10^3/uL (150-450); Red Blood Count 2.25 10^6 /uL (4.18-5.48); Red Cell Distribution Width 15 % (10-15); White Blood Count 8.2 10^3/uL (3.5-10.8)
[2019-06-03 06:50] LABS: Activated Partial Thrombo Time 33.9 seconds (26.0-38.0); INR 1.13 (0.82-1.09)
[2019-06-03 06:58] LABS: BUN/Creatinine Ratio 35.7 (8-20); Calcium 8.3 mg/dL (8.6-10.3); EGFR African American 132.3 (>60); EGFR Non-African American 109.4 (>60); Magnesium 2.1 mg/dL (1.9-2.7); Phosphorus 2.2 mg/dL (2.5-5.0); Potassium 3.3 mmol/L (3.5-5.0)
--- NOTE | 2019-06-03 09:02 | PN ---
Progress Note - Progress Note Date of Service: 06/03/19 Note: Surgery Progress Note S: Per nurse no significant overnight events. Levophed weaned to off, only vasopressor remains. Adequate UOP. Remains on propofol and fentanly gtt and intubated. O: Vital Signs - 24 hr 06/02/19 06/02/19 06/02/19 09:00 09:15 09:30 Temperature Pulse Rate 80 73 66 Respiratory 17 Rate Blood Pressure 105/60 (mmHg) O2 Sat by Pulse 94 95 95 Oximetry 06/02/19 06/02/19 06/02/19 09:45 10:00 10:15 Temperature Pulse Rate 68 67 75 Respiratory 16 Rate Blood Pressure 98/52 (mmHg) O2 Sat by Pulse 95 95 95 Oximetry 06/02/19 06/02/19 06/02/19 10:30 10:45 11:00 Temperature Pulse Rate 69 69 68 Respiratory 17 Rate Blood Pressure 107/54 (mmHg) O2 Sat by Pulse 96 95 96 Oximetry 06/02/19 06/02/19 06/02/19 11:15 11:30 11:45 Temperature Pulse Rate 67 68 66 Respiratory Rate Blood Pressure (mmHg) O2 Sat by Pulse 96 95 96 Oximetry 06/02/19 06/02/19 06/02/19 12:00 12:15 12:29 Temperature 97.8 F Pulse Rate 66 79 Respiratory 17 Rate Blood Pressure 116/53 (mmHg) O2 Sat by Pulse 96 95 Oximetry 06/02/19 06/02/19 06/02/19 12:30 12:46 13:00 Temperature Pulse Rate 66 68 68 Respiratory 16 Rate Blood Pressure 110/50 (mmHg) O2 Sat by Pulse 95 95 95 Oximetry 06/02/19 06/02/19 06/02/19 13:01 13:16 13:31 Temperature Pulse Rate 68 71 69 Respiratory Rate Blood Pressure (mmHg) O2 Sat by Pulse 95 98 95 Oximetry 06/02/19 06/02/19 06/02/19 13:46 14:00 14:01 Temperature Pulse Rate 90 92 Respiratory 19 Rate Blood Pressure 139/79 (mmHg) O2 Sat by Pulse 96 93 Oximetry 06/02/19 06/02/19 06/02/19 14:16 14:31 14:46 Temperature Pulse Rate 97 98 95 Respiratory Rate Blood Pressure (mmHg) O2 Sat by Pulse 95 94 93 Oximetry 06/02/19 06/02/19 06/02/19 15:00 15:15 15:30 Temperature Pulse Rate 104 99 105 Respiratory 22 Rate Blood Pressure 138/83 (mmHg) O2 Sat by Pulse 94 93 93 Oximetry 06/02/19 06/02/19 06/02/19 15:45 16:00 16:15 Temperature Pulse Rate 125 99 91 Respiratory 18 Rate Blood Pressure 105/66 (mmHg) O2 Sat by Pulse 92 89 92 Oximetry 06/02/19 06/02/19 06/02/19 16:30 16:40 16:45 Temperature 97.9 F Pulse Rate 96 102 Respiratory Rate Blood Pressure (mmHg) O2 Sat by Pulse 91 92 Oximetry 06/02/19 06/02/19 06/02/19 17:00 17:15 17:30 Temperature Pulse Rate 97 91 111 Respiratory 19 Rate Blood Pressure 108/72 (mmHg) O2 Sat by Pulse 92 93 93 Oximetry 06/02/19 06/02/19 06/02/19 17:45 18:00 18:01 Temperature Pulse Rate 97 109 111 Respiratory 20 Rate Blood Pressure 132/83 (mmHg) O2 Sat by Pulse 92 92 92 Oximetry 06/02/19 06/02/19 06/02/19 18:15 18:30 18:45 Temperature Pulse Rate 99 103 106 Respiratory Rate Blood Pressure (mmHg) O2 Sat by Pulse 92 94 94 Oximetry 06/02/19 06/02/19 06/02/19 19:00 19:15 19:30 Temperature Pulse Rate 99 96 104 Respiratory 16 Rate Blood Pressure 120/72 (mmHg) O2 Sat by Pulse 93 93 93 Oximetry 06/02/19 06/02/19 06/02/19 19:46 20:00 20:01 Temperature 73.0 F 98.7 F 54.9 F Pulse Rate 103 91 Respiratory 17 17 Rate Blood Pressure 88/54 (mmHg) O2 Sat by Pulse 92 94 Oximetry 06/02/19 06/02/19 06/02/19 20:16 20:31 20:46 Temperature 56.3 F 57.2 F 59.0 F Pulse Rate 89 85 83 Respiratory Rate Blood Pressure (mmHg) O2 Sat by Pulse 94 94 95 Oximetry 06/02/19 06/02/19 06/02/19 21:00 21:01 21:16 Temperature 59.9 F 60.4 F 56.7 F Pulse Rate 84 84 86 Respiratory 16 Rate Blood Pressure 105/65 (mmHg) O2 Sat by Pulse 95 95 95 Oximetry 06/02/19 06/02/19 06/02/19 21:30 21:31 21:46 Temperature 53.2 F 53.4 F 49.8 F Pulse Rate 83 84 82 Respiratory Rate Blood Pressure 97/63 (mmHg) O2 Sat by Pulse 95 94 94 Oximetry 06/02/19 06/02/19 06/02/19 22:00 22:15 22:58 Temperature 53.1 F 50.7 F Pulse Rate 83 82 85 Respiratory 16 Rate Blood Pressure 100/63 (mmHg) O2 Sat by Pulse 94 95 94 Oximetry 06/02/19 06/02/19 06/02/19 23:00 23:15 23:30 Temperature 96.3 F 60.6 F 113.0 F Pulse Rate 84 83 83 Respiratory 16 Rate Blood Pressure 108/66 113/66 (mmHg) O2 Sat by Pulse 93 95 95 Oximetry 06/02/19 06/02/19 06/03/19 23:45 23:53 00:00 Temperature 113.0 F Pulse Rate 81 82 82 Respiratory 16 Rate Blood Pressure 105/62 (mmHg) O2 Sat by Pulse 96 96 96 Oximetry 06/03/19 06/03/19 06/03/19 00:15 00:30 00:31 Temperature Pulse Rate 82 84 85 Respiratory Rate Blood Pressure 133/72 (mmHg) O2 Sat by Pulse 96 95 95 Oximetry 06/03/19 06/03/19 06/03/19 00:45 01:00 01:15 Temperature Pulse Rate 84 86 84 Respiratory 16 Rate Blood Pressure 129/73 (mmHg) O2 Sat by Pulse 94 95 95 Oximetry 06/03/19 06/03/19 06/03/19 01:30 01:45 01:57 Temperature 113.0 F 111.7 F Pulse Rate 85 86 Respiratory 18 Rate Blood Pressure 118/61 (mmHg) O2 Sat by Pulse 96 96 Oximetry 06/03/19 06/03/19 06/03/19 02:00 02:01 02:15 Temperature 113.0 F 113.0 F 113.0 F Pulse Rate 81 81 82 Respiratory 16 Rate Blood Pressure 91/57 (mmHg) O2 Sat by Pulse 95 94 95 Oximetry 06/03/19 06/03/19 06/03/19 02:30 02:46 03:00 Temperature 112.5 F 113.0 F 111.6 F Pulse Rate 81 80 79 Respiratory 16 Rate Blood Pressure 104/63 104/59 (mmHg) O2 Sat by Pulse 93 95 95 Oximetry 06/03/19 06/03/19 06/03/19 03:01 03:16 03:30 Temperature 111.7 F 112.6 F 113.0 F Pulse Rate 78 79 77 Respiratory Rate Blood Pressure 102/58 (mmHg) O2 Sat by Pulse 95 95 94 Oximetry 06/03/19 06/03/19 06/03/19 03:31 03:46 04:00 Temperature 112.5 F 112.5 F Pulse Rate 78 78 78 Respiratory 16 Rate Blood Pressure 111/65 (mmHg) O2 Sat by Pulse 95 95 96 Oximetry 06/03/19 06/03/19 06/03/19 04:01 04:16 04:30 Temperature Pulse Rate 79 87 83 Respiratory Rate Blood Pressure 128/73 (mmHg) O2 Sat by Pulse 96 94 95 Oximetry 06/03/19 06/03/19 06/03/19 04:31 04:46 05:00 Temperature Pulse Rate 82 80 80 Respiratory 16 Rate Blood Pressure 112/67 (mmHg) O2 Sat by Pulse 96 95 96 Oximetry 06/03/19 06/03/19 06/03/19 05:15 05:30 05:45 Temperature Pulse Rate 79 74 79 Respiratory Rate Blood Pressure 108/78 (mmHg) O2 Sat by Pulse 97 96 96 Oximetry 06/03/19 06/03/19 06/03/19 06:00 06:15 06:30 Temperature Pulse Rate 78 79 73 Respiratory 18 Rate Blood Pressure 113/79 118/70 (mmHg) O2 Sat by Pulse 97 96 95 Oximetry 06/03/19 06/03/19 06/03/19 06:45 07:00 07:15 Temperature Pulse Rate 78 80 76 Respiratory 16 Rate Blood Pressure 125/101 (mmHg) O2 Sat by Pulse 97 95 96 Oximetry 06/03/19 06/03/19 06/03/19 07:30 07:45 07:47 Temperature 98.2 F Pulse Rate 77 75 Respiratory Rate Blood Pressure 110/63 (mmHg) O2 Sat by Pulse 95 96 Oximetry 06/03/19 06/03/19 06/03/19 08:00 08:12 08:15 Temperature Pulse Rate 79 77 69 Respiratory Rate Blood Pressure 133/70 133/70 (mmHg) O2 Sat by Pulse 95 95 95 Oximetry Laboratory Last Values WBC 8.2 10^3/uL (3.5-10.8) 06/03/19 06:15 RBC 2.25 10^6 /uL (4.18-5.48) L 06/03/19 06:15 Hgb 6.9 g/dL (14.0-18.0) L 06/03/19 06:15 Hct 20 % (42-52) L 06/03/19 06:15 MCV 87 fL (80-94) 06/03/19 06:15 MCH 31 pg (27-31) 06/03/19 06:15 MCHC 36 g/dL (31-36) 06/03/19 06:15 RDW 15 % (10-15) 06/03/19 06:15 Plt Count 88 10^3/uL (150-450) L 06/03/19 06:15 MPV 8.5 fL (7.4-10.4) 06/03/19 06:15 Neut % (Auto) 88.1 % 05/30/19 21:29 Lymph % (Auto) 2.1 % 05/30/19 21:29 [place] % (Auto) 9.7 % 05/30/19 21:29 Eos % (Auto) 0.0 % 05/30/19 21:29 Baso % (Auto) 0.1 % 05/30/19 21:29 Absolute Neuts (auto) 9.5 10^3/ul (1.5-7.7) H 05/30/19 21:29 Absolute Lymphs (auto) 0.2 10^3/ul (1.0-4.8) L 05/30/19 21:29 Absolute Monos (auto) 1.0 10^3/ul (0-0.8) H 05/30/19 21:29 Absolute Eos (auto) 0.0 10^3/ul (0-0.6) 05/30/19 21:29 Absolute Basos (auto) 0.0 10^3/ul (0-0.2) 05/30/19 21:29 Absolute Nucleated RBC 0.0 10^3/ul 05/30/19 21:29 Nucleated RBC % 0.0 05/30/19 21:29 INR (Anticoag Therapy) 1.13 (0.82-1.09) H 06/03/19 06:15 APTT 33.9 seconds (26.0-38.0) 06/03/19 06:15 Fibrinogen 427.3 mg/dL (110.8-404.3) H 05/31/19 16:12 Patient Temperature Not Reportable 06/01/19 15:04 ABG pH 7.35 (7.35-7.45) 06/01/19 15:04 ABG pH (Temp Correct) Not Reportable 06/01/19 15:04 ABG pCO2 36 mmHg (35-45) 06/01/19 15:04 ABG pCO2 (Temp Corrct Not Reportable 06/01/19 15:04 ABG pO2 69 mmHg (80-100) L 06/01/19 15:04 ABG pO2 (Temp Correct Not Reportable 06/01/19 15:04 ABG HCO3 20.9 mmol/L (19-31) 06/01/19 15:04 ABG O2 Saturation 96.1 % (94.0-98.0) 06/01/19 15:04 ABG Base Excess -5.1 mmol/L (-2.0-2.0) L 06/01/19 15:04 VBG pH 7.31 (7.32-7.43) L 05/31/19 08:30 VBG pCO2 45 mmHg (41-51) 05/31/19 08:30 VBG pO2 40.0 mmHg (35-45) 05/31/19 08:30 VBG HCO3 21.2 mmol/L (24-28) L 05/31/19 08:30 VBG O2 Saturation 66.5 % (70-80) L 05/31/19 08:30 VBG Base Excess -3.7 mmol/L (0.0-4.0) L 05/31/19 08:30 Respiration Rate Not Reportable 06/01/19 15:04 Ventilator Type Not Reportable 06/01/19 15:04 Vent Mode Not Reportable 06/01/19 15:04 FiO2 24 06/01/19 15:04 Inspiratory Time Not Reportable 06/01/19 15:04 PEEP Not Reportable 06/01/19 15:04 Pressure Support Not Reportable 06/01/19 15:04 Pressure Control Not Reportable 06/01/19 15:04 EPAP Not Reportable 06/01/19 15:04 IPAP Not Reportable 06/01/19 15:04 BiPAP Not Reportable 06/01/19 15:04 Sodium 141 mmol/L (135-145) 06/03/19 06:15 Potassium 3.3 mmol/L (3.5-5.0) L 06/03/19 06:15 Chloride 111 mmol/L (101-111) 06/03/19 06:15 Carbon Dioxide 22 mmol/L (22-32) 06/03/19 06:15 Anion Gap 8 mmol/L (2-11) 06/03/19 06:15 BUN 25 mg/dL (6-24) H 06/03/19 06:15 Creatinine 0.70 mg/dL (0.67-1.17) 06/03/19 06:15 Est GFR ( Amer) 132.3 (>60) 06/03/19 06:15 Est GFR (Non-Af Amer) 109.4 (>60) 06/03/19 06:15 BUN/Creatinine Ratio 35.7 (8-20) H 06/03/19 06:15 Glucose 89 mg/dL (70-100) 06/03/19 06:15 POC Glucose (mg/dL) 164 mg/dL (70-100) H 05/31/19 00:35 Lactic Acid 1.6 mmol/L (0.5-2.0) 06/01/19 05:03 Calcium 8.3 mg/dL (8.6-10.3) L 06/03/19 06:15 Phosphorus 2.2 mg/dL (2.5-5.0) L 06/03/19 06:15 Magnesium 2.1 mg/dL (1.9-2.7) 06/03/19 06:15 Total Bilirubin 1.90 mg/dL (0.2-1.0) H 06/02/19 05:05 Direct Bilirubin 1.10 mg/dL (0.03-0.18) H 06/02/19 05:05 Indirect Bilirubin 0.8 mg/dL (0.3-1.0) 06/02/19 05:05 AST 52 U/L (13-39) H 06/02/19 05:05 ALT 30 U/L (7-52) 06/02/19 05:05 Alkaline Phosphatase 67 U/L (34-104) 06/02/19 05:05 Troponin I 0.08 ng/mL (<0.04) H* 05/30/19 14:43 C-Reactive Protein < 1.00 mg/L (<8.01) 05/30/19 08:36 Total Protein 4.8 g/dL (6.4-8.9) L 06/02/19 05:05 Albumin 2.5 g/dL (3.2-5.2) L 06/02/19 05:05 Globulin 2.3 g/dL (2-4) 06/02/19 05:05 Albumin/Globulin Ratio 1.1 (1-3) 06/02/19 05:05 Amylase 62 U/L (29-103) 05/30/19 08:36 Lipase 19 U/L (11.0-82.0) 05/30/19 08:36 TSH 4.35 mcIU/mL (0.34-5.60) 06/01/19 05:03 Cortisol 23.99 mcg/dL 06/01/19 05:03 Urine Color Yellow 05/30/19 13:52 Urine Appearance Clear 05/30/19 13:52 Urine pH 5.0 (5-9) 05/30/19 13:52 Ur Specific [place] > 1.060 (1.010-1.030) H 05/30/19 13:52 Urine Protein 1+(30 mg/dl) (Negative) A 05/30/19 13:52 Urine Ketones Negative (Negative) 05/30/19 13:52 Urine Blood Negative (Negative) 05/30/19 13:52 Urine Nitrate Negative (Negative) 05/30/19 13:52 Urine Bilirubin Negative (Negative) 05/30/19 13:52 Urine Urobilinogen Negative (Negative) 05/30/19 13:52 Ur Leukocyte Esterase Negative (Negative) 05/30/19 13:52 Urine WBC (Auto) Absent (Absent) 05/30/19 13:52 Urine RBC (Auto) 1+(3-5/hpf) (Absent) A 05/30/19 13:52 Ur Squamous Epith Cells Present (Absent) A 05/30/19 13:52 Urine Bacteria Absent (Absent) 05/30/19 13:52 Urine Glucose Negative (Negative) 05/30/19 13:52 Intake & Output 06/02/19 06/03/19 06/03/19 22:59 06:59 14:59 Intake Total 961 491 Output Total 488 720 75 Balance 473 -229 -75 Weight 227 lb 4.745 oz Intake: IV Fluids 91 76 NS 0.9% 91 76 IVPB 326 222 Vancomycin 63 222 anidulafungin 263 Medicated IV 544 193 CC - Propofol/Diprivan 68 51 CC - Vasopressin/ 59 38 Pitressin KCl 193 LEVOPHED 129 10 ZOSYN 95 94 Output: NG Tube Drainage Amount 300 450 Fraser 188 270 75 Other: Estimated Void Medium # Voids 1 Physical exam: General- sedated, elderly male, intubated Abdomen- anasarca present, midline wound with intermittent [place] and no significant drainage, no erythema, dressing changed Ext- +edema Imagin/19 CT brain- no acute intracranial pathology CT chest/abd/pelvis- right and left pleural effusions, dilated small bowel loops , non thickened ocampo A/P: 78 M post op exploratory laparotomy and small bowel resection for SBO on with Dr. Russell, remains in critical condition from septic shock. - Appreciate excellent management by the ICU team. - Likely patient has ileus, continue NGT to low continuous wall suction - Continue vancomycin and zosyn - Continue protonix - Hct stable from yesterday afternoon ( from ), patient is [employer]
[2019-06-03] MEDS: Norepinephrine VIAL 8 MG in NS 0.9% 500 ML IV SCH (09:16)
[2019-06-03] MEDS: Vasopressin* 100 UNITS in NS 0.9% 250 ML* 245 ML IV SCH ×2 (09:16→23:57)
[2019-06-03] MEDS: KCL 20 MEQ/100 ML IVPREMIX* 20 MEQ/100 ML BAG IV SCH ×4 (09:51→22:26)
[2019-06-03] MEDS ORDERED: Dexmedetomidine* 1,000 MCG in NS 0.9% 250 ML* 240 ML IV SCH ×2 (10:00→11:27)
[2019-06-03] MEDS ORDERED: Vancomycin Trough Check NOTE FOLLOW UP ONE (10:30)
--- NOTE | 2019-06-03 11:06 | PN ---
Progress Note - Progress Note Date of Service: 06/03/19 Note: Progress Note -- Critical Care 24 hour events -yesterday sedation vacation done; but eyes open, didnt follow commands -afebrile -off levophed now; on vaso 0.04 only -bilious output from NGT noted still -on low dose propofol and fentanyl 25 -this morning followed commands off propofol, on fent 25; biting tube though adn caused leak; denies when asked about pain -on cpap, BP 160s, no sig resp distress, just restless -then developed NSVT, broke -switched back to full vent support; KCL going in -CT brain and abd done yesterday, reviewed Tele: NSR, NSVT Vitals: Vital Signs Temp 98.2 F 06/03/19 07:47 Pulse 69 06/03/19 08:15 Resp 16 06/03/19 07:00 BP 133/70 06/03/19 08:12 Pulse Ox 95 06/03/19 08:15 Intake & Output 06/02/19 06/03/19 06/03/19 18:59 06:59 18:59 Intake Total 1148 1452 Output Total 705 1173 75 Balance 443 279 -75 Weight 103.1 kg Intake: IV Fluids 706 167 LR 286 NS 0.9% 420 167 IVPB 548 Vancomycin 285 anidulafungin 263 Medicated IV 442 737 CC - Propofol/Diprivan 82 119 CC - Vasopressin/ 50 97 Pitressin KCl 193 LEVOPHED 310 139 ZOSYN 189 Output: NG Tube Drainage Amount 500 750 Forrest 205 423 75 Other: Estimated Void Medium # Voids 1 O2/Vent: intubated fio2 21% AC mode Infusions: levophed off, vasopressin, propofol held, fent 25; precedex 1 Current Medications: Albuterol (Ventolin Hfa Inhaler*) 2 puff INH Q4H PRN PRN Reason: WHEEZING Chlorhexidine Gluconate (Peridex Mouth Wash 0.12%*) 15 ml .SEE ORDER Q4H [facility] Last Admin: 06/03/19 09:42 Dose: Not Given Piperacillin Sod/Tazobactam (Sod 3.375 gm/ Sodium Chloride) 100 mls @ 25 mls/ hr IVPB Q8H [facility] Last Admin: 06/03/19 03:21 Dose: 25 mls/hr Propofol (Diprivan*) 100 mls @ 2.694 mls/hr IV .(Initial Rate) [facility]; Protocol Last Admin: 06/03/19 04:42 Dose: 8 mls/hr Vasopressin 100 units/ Sodium (Chloride) 250 mls @ 6 mls/hr IV Q24H [facility]; Protocol Last Admin: 06/03/19 09:16 Dose: Not Given Norepinephrine Bitartrate 8 mg (/ Sodium Chloride) 500 mls @ 37.5 mls/hr IV Q13H [facility]; Protocol Last Admin: 06/03/19 09:16 Dose: Not Given Vancomycin HCl 1,500 mg/ (Sodium Chloride) 250 mls @ 166.667 mls/hr IVPB Q12H [facility] Last Admin: 06/02/19 23:29 Dose: 166.667 mls/hr Anidulafungin 100 mg/ Sodium (Chloride) 130 mls @ 65 mls/hr IVPB Q24H [facility] Fentanyl Citrate (Fentanyl Infusion Bag 50 Mcg/Ml 50 Ml) 2,500 mcg in 50 mls @ 0.5 mls/hr IV Q50H [facility] Last Admin: 06/03/19 01:57 Dose: 0.5 mls/hr Potassium Chloride (Potassium Chloride 20 Meq/100 Ml Ivpremix*) 20 meq in 100 mls @ 50 mls/hr IV Q2H [facility] Stop: 06/03/19 15:59 Last Admin: 06/03/19 09:51 Dose: 50 mls/hr Dexmedetomidine HCl 1,000 mcg/ (Sodium Chloride) 250 mls @ 12.88 mls/hr IV .( Initial Rate) [facility] Last Admin: 06/03/19 10:29 Dose: 12.88 mls/hr Metoprolol Tartrate (Lopressor Iv*) 2.5 mg IV Q6H PRN PRN Reason: tachycardia/NSVT if SBP>120 Last Admin: 06/03/19 10:44 Dose: 2.5 mg Ondansetron HCl (Zofran Inj*) 4 mg IV Q6H PRN PRN Reason: NAUSEA Pantoprazole Sodium (Protonix Iv*) 40 mg IV Q24H [facility] Last Admin: 06/02/19 23:29 Dose: 40 mg Pharmacy Consult (Vancomycin Per Pharmacy*) 1 note FOLLOW UP .VANC PER PHARMACY [facility]; Protocol Physical Exam Constitutional: intubated, more awake and follows many commands, restless, no distress, no diaphoresis Head: normocephalic, atraumatic Eyes: no pallor, no icterus ENT: moist mucous membranes Neck: soft, supple, no jvd CVS: tachy, regular, no murmur Resp: bilateral air entry, no rhales, no wheeze, no rhonchi, no acc muscle use Abdomen/GI: soft, nondistended, tender++, BS diminished/absent; midline surgical site intact, no drain, minimal drainage from surgical site noted Ext/Msk: warm, pulses+, no edema Skin: intact, warm Neuro: off sedation follows commands, moving all ext to command and spontaneously Labs: Laboratory Results - last 24 hr 06/01/19 06/01/19 06/02/19 15:04 16:13 05:05 WBC RBC Hgb Hct MCV MCH MCHC RDW Plt Count MPV INR (Anticoag Therapy) 1.42 H APTT 37.2 Patient Temperature Not Reportable ABG pH 7.35 ABG pH (Temp Correct) Not Reportable ABG pCO2 36 ABG pCO2 (Temp Corrct Not Reportable ABG pO2 69 L ABG pO2 (Temp Correct Not Reportable ABG HCO3 20.9 ABG O2 Saturation 96.1 ABG Base Excess -5.1 L Respiration Rate Not Reportable Ventilator Type Not Reportable Vent Mode Not Reportable FiO2 24 Inspiratory Time Not Reportable PEEP Not Reportable Pressure Support Not Reportable Pressure Control Not Reportable EPAP Not Reportable IPAP Not Reportable BiPAP Not Reportable Sodium 139 Potassium 3.8 Chloride 111 Carbon Dioxide 23 Anion Gap 5 BUN 28 H Creatinine 1.11 Est GFR ( Amer) 77.7 Est GFR (Non-Af Amer) 64.2 BUN/Creatinine Ratio 25.2 H Glucose 110 H Calcium 8.2 L Phosphorus Magnesium 2.3 Total Bilirubin Direct Bilirubin Indirect Bilirubin AST ALT Alkaline Phosphatase Total Protein Albumin Globulin Albumin/Globulin Ratio 06/02/19 06/02/19 05:05 05:05 WBC 13.6 H RBC 2.55 L Hgb 7.5 L Hct 22 L MCV 87 MCH 29 MCHC 34 RDW 15 Plt Count 121 L MPV 8.8 INR (Anticoag Therapy) APTT Patient Temperature ABG pH ABG pH (Temp Correct) ABG pCO2 ABG pCO2 (Temp Corrct ABG pO2 ABG pO2 (Temp Correct ABG HCO3 ABG O2 Saturation ABG Base Excess Respiration Rate Ventilator Type Vent Mode FiO2 Inspiratory Time PEEP Pressure Support Pressure Control EPAP IPAP BiPAP Sodium 140 Potassium 3.5 Chloride 110 Carbon Dioxide 22 Anion Gap 8 BUN 29 H Creatinine 0.89 Est GFR ( Amer) 100.3 Est GFR (Non-Af Amer) 82.9 BUN/Creatinine Ratio 32.6 H Glucose 109 H Calcium 8.7 Phosphorus 2.5 Magnesium 2.3 Total Bilirubin 1.90 H Direct Bilirubin 1.10 H Indirect Bilirubin 0.8 AST 52 H ALT 30 Alkaline Phosphatase 67 Total Protein 4.8 L Albumin 2.5 L Globulin 2.3 Albumin/Globulin Ratio 1.1 Imaging: cxr 05/30 - ett above bryan; RIJ TLC+; Left lower lobe atelectasis vs infiltrate CT brain 06/02 - no acute changes noted ct abd./pelvis 06/02 - bilateral small effusions noted; atelectasis+/- infiltrate ; cholelithiasis+, dilated small bowel loops Assessment: 78y M w/pmhx HLD, Asthma, CAD/CABG, HTN, Ischemic CMP, s/p AICD/PPM , Bilateral CEA and then Carotid Stents, h/o SBO 02/2019; Comes to ER 05/30 for abd pain, found to have a high-grade small bowel obstruction on CT abdomen. He was started on conservative tx with NGT but it did not significantly improve. Decision made for ex-lap. He is s/p ex-lap with SB resection and lysis of adhesionis. Post op went onto pressors, remained intubated in ICU. Overnight on levophed, added vasopressin, low urine output overnight, sedation held temporarily. Currently sedated, improved with LR bolus and levophed decreased. ROS limited due to intubated/sedated state. -Small bowel obstruction -s/p ex-lap, small bowel resection, lysis of adhesions 05/30 -Shock, suspect septic/distributive, +hypovolemia -Anemia -NSVT CAD/CABG Ischemic CMP Plan: Neuro- -changed propofol to precedex; following more commands now -noted no changes on CT brain 06/02 -likely delayed wakening from metabolic dysfunction -fentanyl infusion 25mcg/hr -sedation vacation daily -Delirium prec; avoid BDZ CVS- -Shock, suspect septic component from abd source; off levo, on vaso -NSVT during vent weaning/CPAP trial; restarted lopressor 2.5mg IV q6h; increase if tolerated to 5mg q6h -replete KCL -hg 6.9, no further drop noted; will ask family about iron transfusion to help -CVP low teens -anasarca+ ; off IVF infusions; will given lasix 20mg IV push later to help with volume shifting -making urine -IV abx -Titrate Pressors to Maintain MAP>65 Resp- -Intubated; on 21% fio2 -on CPAP, doing well but then NSVT developed; changed back to AC mode -will obtain more hemodyn stability first before further vent weaning to be done again -minimal secretions being suctioned -Wean Fio2 to keep sat>92% -Bronchodilators PRN, Aspiration prec, Pulmonary Toilet -VAP bundle ID- tmax 99; wbc 15-13-8; remains on pressors -SBO, lysis of adhesions+; necrotic bowel from band+; small perf during OR, no spillage as per surgeon -cont zosyn (day #4) for abdominal coverage; vanco IV (day#3) pharmacy dosing; Eraxis 100mg iv daily (day#2) GI- -s/p ex-lap, lysis of adh, SB resection 7'/16 -surgical site intact; no drain, less site oozing past 24 hours; closed abdomen ; maintain surgical site wound care -ongoing NGT output with bile; CT with ileus+ -Nutrition: NPO ; OGT to low intermittent suction -?TPN by tomorrow -GI prophylaxis Renal- -Cr okay; making urine+; some positive balance -IV pressors -anasarca+; lasix 20mg iv x1 today -replete KCL IV -strict I/O, replete to keep K>4, Mg>2 -forrest as indicated Heme- hg 6.9, 7.0 yesterday; stable now; no clear bleeding noted -?Iron IV -plt 80s -off A and ASA given drops in h/h and now thrombocytopenia -cont SCDs Endo- Maintain BG<200, insulin protocol as needed Musculsk- pressure ulcer prophylaxis. Bedrest. Wounds- abd surgical wound sites Nutrition- NPO DVT prophylaxis: SCD; no heparin GI prophylaxis: PPI Central Line: RIJ 05/30 Arterial Line: Right fem 05/30 Forrest Cathetor: yes Disposition: Patient requires Critical Care/ICU for post ex-lap and SB resection, shock Patient Clinical Status: guarded, critical Code Status: DNR post surgery Total Critical Care time is 40 minutes, excluding procedures/teaching Shai Garcia MD Hyster Machine Operator (Electronically Signed)
[2019-06-03] MEDS: Vancomycin(*) 1,500 MG in NS 0.9% 250 ML* 250 ML IVPB SCH ×2 (11:59→22:20)
[2019-06-03] MEDS ORDERED: INFUSION IV ONE (12:44)
[2019-06-03] MEDS ORDERED: [UNRECOGNIZED DRUG - OTHER] IV ONE (12:44)
[2019-06-03] MEDS: Anidulafungin* 100 MG in NS 0.9% 100 ML* 100 ML IVPB SCH (14:06)
[2019-06-03] MEDS ORDERED: Furosemide IV* 10 MG/ML 2 ML VIAL (20 MG) IV ONE ×2 (15:00→22:00)
[2019-06-03] MEDS ORDERED: Midazolam* 1 MG/ML 5 ML VIAL (5 MG) ONE (15:09)
--- NOTE | 2019-06-03 16:00 | OP ---
Operative Report - Blank - Operative Report Date of Operation: 06/03/19 Note: Endotracheal Intubation Procedure Note Indication: ett air leak, acute hypoxic respiratory failure Diagnosis: acute hypoxic respiratory failure, septic shock, small bowel obstruction Performed by: Shai Garcia MD Consent: Emergent Prior labs/imaging/history reviewed as needed. Patient preoxygenated/denitrogenated with 100% FiO2 using 50% fio2 on vent Patient was medicated with versed 5mg for sedation ; already on precedex 0.8mcg/ kg/min infusion Tube noted to be having air leak. Using a tube exchanger, previous ETT was removed and a new 8.0 ETT was passed easily into airway, confirmed with chest rise and bilateral air entry as well as good end-tidal CO2 measurement, +condensation. Tube secured to 24-25cm at teeth level. No hemodynamic change noted Followup Chest XRay ordered for placement Patient tolerated procedure without immediate complication. Post Procedure CXR: Pending Shai Garcia MD Barrel Coater (Electronically Signed)
[2019-06-03] MEDS ORDERED: Midazolam* 1 MG/ML 5 ML VIAL (5 MG) IV SLOW PU ONE (16:04)
[2019-06-03] MEDS: Metoprolol Tartrate IV* 1 MG/ML 5 ML VIAL IV SCH ×2 (17:10→22:51)
[2019-06-03] MEDS: Dexmedetomidine* 1,000 MCG in NS 0.9% 250 ML* 240 ML IV SCH (22:20)
[2019-06-03] MEDS: Pantoprazole IV* 40 MG IV SCH (22:45)
[2019-06-04] MEDS: Norepinephrine VIAL 8 MG in NS 0.9% 500 ML IV SCH ×2 (00:44→13:46)
[2019-06-04] MEDS: Chlorhexidine MOUTHWASH 0.12%* 15 ML UDC SCH ×6 (00:44→19:42)
[2019-06-04] MEDS: KCL 20 MEQ/100 ML IVPREMIX* 20 MEQ/100 ML BAG IV SCH ×3 (00:51→13:12)
[2019-06-04] MEDS: Dexmedetomidine* 1,000 MCG in NS 0.9% 250 ML* 240 ML IV SCH ×2 (00:55→23:29)
[2019-06-04] MEDS: Piperacillin/Tazobac ADVAN(*) 3.375 GM in NS 0.9% 100 ML* 100 ML IVPB SCH ×3 (03:11→19:37)
[2019-06-04] MEDS: Metoprolol Tartrate IV* 1 MG/ML 5 ML VIAL IV SCH ×4 (05:50→23:32)
[2019-06-04 06:13] LABS: INR 1.24 (0.82-1.09)
[2019-06-04 06:19] LABS: Hematocrit 20 % (42-52); Hemoglobin 6.7 g/dL (14.0-18.0); Mean Corpuscular HGB Conc 34 g/dL (31-36); Mean Corpuscular Hemoglobin 29 pg (27-31); Mean Corpuscular Volume 87 fL (80-94); Mean Platelet Volume 8.4 fL (7.4-10.4); Platelet Count 83 10^3/uL (150-450); Red Blood Count 2.29 10^6 /uL (4.18-5.48); Red Cell Distribution Width 15 % (10-15); White Blood Count 7.7 10^3/uL (3.5-10.8)
[2019-06-04 06:27] LABS: BUN/Creatinine Ratio 36.1 (8-20); EGFR African American 108.7 (>60); EGFR Non-African American 89.8 (>60); Potassium 3.7 mmol/L (3.5-5.0)
[2019-06-04] MEDS: Vancomycin(*) 1,500 MG in NS 0.9% 250 ML* 250 ML IVPB SCH ×2 (10:40→23:32)
[2019-06-04] MEDS ORDERED: Iron Sucrose* 200 MG in NS 0.9% 100 ML* 100 ML IVPB ONE (10:42)
[2019-06-04] MEDS ORDERED: Furosemide IV* 10 MG/ML 2 ML VIAL (20 MG) IV ONE ×2 (10:45→20:00)
[2019-06-04] MEDS: Acetaminophen IV 1GM/100ML * 100 ML IVPB SCH ×2 (11:14→19:08)
--- NOTE | 2019-06-04 11:16 | PN ---
Progress Note - Progress Note Date of Service: 06/04/19 Note: Progress Note -- Critical Care 24 hour events --sedation vacation yestrday and was more responsive, still some lethargy but able to follow some commands -was tachypneic on CPAP and less PS so extubation done given tachypnea and then NSVT during weaning -no further VT after lopressor IV started -tmax 102 overnight -remains on vasopressin only; off levophed -HR 60s on precedex infusion; on low dose propofol overnight but off now; on fentanyl 25 this morning but held now -spontaneously mvements -family at bedside -making urine Tele: NSR , sinus jose alejandro at times, NSVT yesterday Vitals: Vital Signs Temp 102.2 F 06/04/19 08:53 Pulse 62 06/04/19 10:45 Resp 21 06/04/19 08:00 BP 110/52 06/04/19 06:30 Pulse Ox 96 06/04/19 10:45 Intake & Output 06/03/19 06/04/19 06/04/19 18:59 06:59 18:59 Intake Total 1121 1287 Output Total 855 1724 75 Balance 266 -437 -75 Weight 103.4 kg Intake: IV Fluids 85 286 NS 0.9% 85 286 IVPB 430 270 Vancomycin 290 270 anidulafungin 140 Medicated IV 546 631 CC - Dexmedetomidine/ 171 Precedex CC - Propofol/Diprivan 15 42 CC - Vasopressin/ 49 85 Pitressin KCl 359 215 LEVOPHED 17 ZOSYN 106 118 NG Tube Irrigate Amount 60 100 NGT 60 30 Output: NG Tube Drainage Amount 600 NGT 600 Forrest 855 1124 75 Other: Date of Last Bowel 06/04/19 Movement # Bowel Movements 1 Estimated Stool Amount Large O2/Vent: intubated fio2 21% AC mode Infusions: levophed off, vasopressin, propofol held, fent 25; precedex 0.8 Current Medications: Albuterol (Ventolin Hfa Inhaler*) 2 puff INH Q4H PRN PRN Reason: WHEEZING Chlorhexidine Gluconate (Peridex Mouth Wash 0.12%*) 15 ml .SEE ORDER Q4H ARTHUR Last Admin: 06/04/19 10:40 Dose: 15 ml Furosemide (Lasix Iv*) 20 mg IV ONCE ONE Stop: 06/04/19 20:01 Piperacillin Sod/Tazobactam (Sod 3.375 gm/ Sodium Chloride) 100 mls @ 25 mls/ hr IVPB Q8H ARTHUR Last Admin: 06/04/19 03:11 Dose: 25 mls/hr Propofol (Diprivan*) 100 mls @ 2.694 mls/hr IV .(Initial Rate) COUNTS INCLUDE 234 BEDS AT THE [facility]; Protocol Last Admin: 06/03/19 23:58 Dose: 6.2 mls/hr Vasopressin 100 units/ Sodium (Chloride) 250 mls @ 6 mls/hr IV Q24H ARTHUR; Protocol Last Admin: 06/03/19 23:57 Dose: 6 mls/hr Norepinephrine Bitartrate 8 mg (/ Sodium Chloride) 500 mls @ 37.5 mls/hr IV Q13H COUNTS INCLUDE 234 BEDS AT THE [facility]; Protocol Last Admin: 06/04/19 00:44 Dose: Not Given Vancomycin HCl 1,500 mg/ (Sodium Chloride) 250 mls @ 166.667 mls/hr IVPB Q12H ARTHUR Last Admin: 06/04/19 10:40 Dose: 166.667 mls/hr Anidulafungin 100 mg/ Sodium (Chloride) 130 mls @ 65 mls/hr IVPB Q24H COUNTS INCLUDE 234 BEDS AT THE [facility] Last Admin: 06/03/19 14:06 Dose: 65 mls/hr Fentanyl Citrate (Fentanyl Infusion Bag 50 Mcg/Ml 50 Ml) 2,500 mcg in 50 mls @ 0.5 mls/hr IV Q50H ARTHUR; Protocol Last Admin: 06/03/19 01:57 Dose: 0.5 mls/hr Dexmedetomidine HCl 1,000 mcg/ (Sodium Chloride) 250 mls @ 10.31 mls/hr IV Q24H COUNTS INCLUDE 234 BEDS AT THE [facility]; Protocol Last Admin: 06/04/19 00:55 Dose: 10.31 mls/hr Dextrose 500 ml/ Amino Acids 850 ml/ Sterile Water 150 ml/Fat Emulsion Intravenous 250 ml/ Sodium Chloride 100 meq/Potassium Chloride 50 meq/Potassium Phosphate 15 mmole/Calcium Gluconate 15 meq/Magnesium Sulfate 20 meq/ Multivitamins 10 ml/ Trace Metals 1 ml/ Nutrition ( Parenteral) 1,853.1841 mls @ 77.216 mls/hr CENTR 1700 COUNTS INCLUDE 234 BEDS AT THE [facility]; Protocol Iron Sucrose 200 mg/ Sodium (Chloride) 110 mls @ 110 mls/hr IVPB ONCE ONE Stop: 06/04/19 11:41 Acetaminophen (Ofirmev*) 100 mls @ 400 mls/hr IVPB Q8H COUNTS INCLUDE 234 BEDS AT THE [facility] Stop: 06/05/19 11:14 Potassium Chloride (Potassium Chloride 20 Meq/100 Ml Ivpremix*) 20 meq in 100 mls @ 50 mls/hr IV Q2H COUNTS INCLUDE 234 BEDS AT THE [facility] Stop: 06/04/19 14:59 Metoprolol Tartrate (Lopressor Iv*) 2.5 mg IV Q6H COUNTS INCLUDE 234 BEDS AT THE [facility] Last Admin: 06/04/19 10:40 Dose: 2.5 mg Ondansetron HCl (Zofran Inj*) 4 mg IV Q6H PRN PRN Reason: NAUSEA Pantoprazole Sodium (Protonix Iv*) 40 mg IV Q24H COUNTS INCLUDE 234 BEDS AT THE [facility] Last Admin: 06/03/19 22:45 Dose: 40 mg Pharmacy Consult (Vancomycin Per Pharmacy*) 1 note FOLLOW UP .VANC PER PHARMACY ARTHUR; Protocol Physical Exam Constitutional: intubated, sedated currently, restless, no distress, no diaphoresis Head: normocephalic, atraumatic Eyes: no pallor, no icterus ENT: moist mucous membranes Neck: soft, supple, no jvd CVS: normal rate, regular, no murmur Resp: bilateral air entry, no rhales, no wheeze, no rhonchi, no acc muscle use Abdomen/GI: soft, nondistended, mild tenderness++, BS diminished/absent; midline surgical site intact, no drain, minimal drainage from surgical site noted Ext/Msk: warm, pulses+, no edema Skin: intact, warm Neuro: sedated; pupils reactive, gag+, limited exam at this time Labs: Laboratory Results - last 24 hr 06/03/19 06/04/19 06/04/19 09:50 05:57 05:57 WBC 7.7 RBC 2.29 L Hgb 6.7 L Hct 20 L MCV 87 MCH 29 MCHC 34 RDW 15 Plt Count 83 L MPV 8.4 INR (Anticoag Therapy) Sodium 143 Potassium 3.7 Chloride 114 H Carbon Dioxide 21 L Anion Gap 8 BUN 30 H Creatinine 0.83 Est GFR ( Amer) 108.7 Est GFR (Non-Af Amer) 89.8 BUN/Creatinine Ratio 36.1 H Glucose 101 H Calcium 8.0 L Phosphorus 3.0 Magnesium 2.0 Vancomycin Trough 15.2 06/04/19 05:57 WBC RBC Hgb Hct MCV MCH MCHC RDW Plt Count MPV INR (Anticoag Therapy) 1.24 H Sodium Potassium Chloride Carbon Dioxide Anion Gap BUN Creatinine Est GFR ( Amer) Est GFR (Non-Af Amer) BUN/Creatinine Ratio Glucose Calcium Phosphorus Magnesium Vancomycin Trough Imaging: cxr 05/30 - ett above bryan; RIJ TLC+; Left lower lobe atelectasis vs infiltrate CT brain 06/02 - no acute changes noted ct abd./pelvis 06/02 - bilateral small effusions noted; atelectasis+/- infiltrate ; cholelithiasis+, dilated small bowel loops cxr 06/04 - ett above bryan; left hemidiaphragm elevation, ileus+; small Right basal infiltrate, some haziness retrocardiac may be atleectasis vs infiltrate also Assessment: 78y M w/pmhx HLD, Asthma, CAD/CABG, HTN, Ischemic CMP, s/p AICD/PPM , Bilateral CEA and then Carotid Stents, h/o SBO 02/2019; Comes to ER 05/30 for abd pain, found to have a high-grade small bowel obstruction on CT abdomen. He was started on conservative tx with NGT but it did not significantly improve. Decision made for ex-lap. He is s/p ex-lap with SB resection and lysis of adhesionis. Post op went onto pressors, remained intubated in ICU. Overnight on levophed, added vasopressin, low urine output overnight, sedation held temporarily. Currently sedated, improved with LR bolus and levophed decreased. ROS limited due to intubated/sedated state. -Small bowel obstruction -s/p ex-lap, small bowel resection, lysis of adhesions 05/30 -Shock, suspect septic/distributive, +hypovolemia -Anemia -NSVT CAD/CABG Ischemic CMP Plan: Neuro- -off prop; dec precedex; hold fentanyl -sedation vacation for neuro assessment; likely delayed wakening due to metabolic dysfunction -no changes on CT brain 06/02 -Delirium prec; avoid BDZ CVS- -Shock, suspect septic component from abd source; off levo, on vaso -no further NSVT; cont metoprolol 2.5mg IV q6h, increase as tolerated and pressors come off -precedex also causing some jose alejandro but stable; lower precedex for weaning -replete KCL -good urine output with lasix; repeat lasix 20mg IV now and tonight; then cont daily; anasarca++ -hg 6.7, slow downtrend; no overt bleeding; give Venofer 200mg iv x1 today -IV abx -Titrate Pressors to Maintain MAP>65 Resp- -Intubated; on 21% fio2 -CPAP yesterdya with tachypnea on lower PS -CXR 06/04 with elevated hemidiaphragm but likel also left consolidation suspected -wean sedation, trial CPAP but i suspect he may not tolerated today since he is already tachypneic -suction, send sputum culture -no wheezing noted -may need to broaden IV abx for HCAP coverage -Wean Fio2 to keep sat>92% -Bronchodilators PRN, Aspiration prec, Pulmonary Toilet -VAP bundle ID- tmax 102; wbc 15-13-8-7; remains on pressors -SBO, lysis of adhesions+ 05/30; necrotic bowel from band+; small perf during OR , no spillage as per surgeon -cont zosyn (day #5) for abdominal coverage; vanco IV (day#4) pharmacy dosing; Eraxis 100mg iv daily (day#3); if culture neg will d/c eraxis -no hemodyn change; so send sputum, cont zosyn GI- -s/p ex-lap, lysis of adh, SB resection / -surgical site intact; no drain, no oozing at site; closed abdomen; maintain surgical site wound care -ongoing NGT output with bile; CT with ileus+ -has been NPO; start TPN tonight, order placed -will need PICC tomorrow also -OGT to low intermittent suction -GI prophylaxis Renal- -Cr okay; making urine+; neg balance -Anasarca+ -replete KCL IV -lasix 20mg IV now and 8pm; start 20mg IV daily -IV pressors -strict I/O, replete to keep K>4, Mg>2 -forrest as indicated Heme- hg 6.7; likely drop form oozing or critical illness; Jehovahs witness, no blood products; given venofer 200mg iv x1 today -off AC/antiplatelets due to drop in h/h -plt 80s, thrombocytopenia -cont SCDs Endo- Maintain BG<200, insulin protocol as needed Musculsk- pressure ulcer prophylaxis. Bedrest. Wounds- abd surgical wound sites Nutrition- NPO; start TPN tonight DVT prophylaxis: SCD; no heparin due to drop in h/h and thrombocytopenia GI prophylaxis: PPI Central Line: RIJ 05/30 Arterial Line: Right fem 05/30 Forrest Cathetor: yes Disposition: Patient requires Critical Care/ICU for post ex-lap and SB resection, shock Patient Clinical Status: guarded, critical Code Status: DNR post surgery Total Critical Care time is 40 minutes, excluding procedures/teaching Shai Garcia MD Manager [employer] (Electronically Signed)
--- NOTE | 2019-06-04 12:48 | PN ---
Progress Note - Progress Note Date of Service: 06/04/19 Note: Surgery Progress Note S: Patient had VT yesterday, fevers. On vasopressin only. On low dose fentanyl and precedex. He appears to be more responsive with sedation holiday. O: Vital Signs - 24 hr 06/03/19 06/03/19 06/03/19 12:45 13:00 13:01 Temperature 113.0 F Pulse Rate 83 130 124 Respiratory 35 Rate Blood Pressure 169/117 (mmHg) O2 Sat by Pulse 94 89 90 Oximetry 06/03/19 06/03/19 06/03/19 13:15 13:30 13:31 Temperature Pulse Rate 89 81 82 Respiratory Rate Blood Pressure 114/65 (mmHg) O2 Sat by Pulse 94 95 95 Oximetry 06/03/19 06/03/19 06/03/19 13:45 14:00 14:15 Temperature Pulse Rate 78 70 68 Respiratory 16 Rate Blood Pressure 107/65 (mmHg) O2 Sat by Pulse 95 96 96 Oximetry 06/03/19 06/03/19 06/03/19 14:30 14:45 15:00 Temperature Pulse Rate 64 61 89 Respiratory 18 Rate Blood Pressure 109/69 (mmHg) O2 Sat by Pulse 96 97 89 Oximetry 06/03/19 06/03/19 06/03/19 15:08 15:15 15:30 Temperature Pulse Rate 66 61 62 Respiratory Rate Blood Pressure 134/80 94/59 (mmHg) O2 Sat by Pulse 97 96 99 Oximetry 06/03/19 06/03/19 06/03/19 15:45 16:00 16:01 Temperature 97.3 F Pulse Rate 63 63 62 Respiratory 18 Rate Blood Pressure 121/69 (mmHg) O2 Sat by Pulse 95 97 97 Oximetry 06/03/19 06/03/19 06/03/19 16:15 16:30 16:32 Temperature Pulse Rate 66 63 63 Respiratory Rate Blood Pressure 124/69 (mmHg) O2 Sat by Pulse 97 97 97 Oximetry 06/03/19 06/03/19 06/03/19 16:46 17:00 17:01 Temperature Pulse Rate 62 62 61 Respiratory 16 Rate Blood Pressure 127/74 (mmHg) O2 Sat by Pulse 97 98 98 Oximetry 06/03/19 06/03/19 06/03/19 17:16 17:30 17:31 Temperature Pulse Rate 60 60 60 Respiratory Rate Blood Pressure 102/60 (mmHg) O2 Sat by Pulse 97 96 96 Oximetry 06/03/19 06/03/19 06/03/19 17:46 18:00 18:01 Temperature Pulse Rate 60 62 62 Respiratory 16 Rate Blood Pressure 107/66 (mmHg) O2 Sat by Pulse 96 94 95 Oximetry 06/03/19 06/03/19 06/03/19 18:16 18:30 18:31 Temperature Pulse Rate 61 60 60 Respiratory Rate Blood Pressure 115/67 (mmHg) O2 Sat by Pulse 95 95 96 Oximetry 06/03/19 06/03/19 06/03/19 18:46 19:00 19:15 Temperature Pulse Rate 65 64 66 Respiratory 17 Rate Blood Pressure 121/68 (mmHg) O2 Sat by Pulse 96 97 96 Oximetry 06/03/19 06/03/19 06/03/19 19:27 19:30 19:45 Temperature 98.4 F Pulse Rate 60 60 Respiratory Rate Blood Pressure 115/68 (mmHg) O2 Sat by Pulse 96 96 Oximetry 06/03/19 06/03/19 06/03/19 20:00 20:15 20:30 Temperature Pulse Rate 60 65 65 Respiratory 17 Rate Blood Pressure 118/62 (mmHg) O2 Sat by Pulse 96 96 95 Oximetry 06/03/19 06/03/19 06/03/19 20:31 20:45 21:00 Temperature Pulse Rate 60 66 66 Respiratory 22 Rate Blood Pressure 116/67 124/72 (mmHg) O2 Sat by Pulse 97 97 95 Oximetry 06/03/19 06/03/19 06/03/19 21:15 21:30 21:45 Temperature Pulse Rate 64 63 60 Respiratory Rate Blood Pressure 119/70 (mmHg) O2 Sat by Pulse 96 96 95 Oximetry 06/03/19 06/03/19 06/03/19 22:00 22:01 22:15 Temperature Pulse Rate 63 61 60 Respiratory 20 Rate Blood Pressure 101/52 (mmHg) O2 Sat by Pulse 96 96 96 Oximetry 06/03/19 06/03/19 06/03/19 22:30 22:31 22:45 Temperature Pulse Rate 61 60 60 Respiratory Rate Blood Pressure 113/54 (mmHg) O2 Sat by Pulse 96 97 97 Oximetry 06/03/19 06/03/19 06/03/19 23:00 23:15 23:22 Temperature 98.5 F Pulse Rate 60 63 Respiratory 17 Rate Blood Pressure 101/53 (mmHg) O2 Sat by Pulse 96 98 Oximetry 06/03/19 06/03/19 06/03/19 23:30 23:36 23:45 Temperature Pulse Rate 61 59 66 Respiratory Rate Blood Pressure 114/54 (mmHg) O2 Sat by Pulse 98 99 100 Oximetry 06/04/19 06/04/19 06/04/19 00:00 00:16 00:46 Temperature Pulse Rate 66 60 60 Respiratory 21 Rate Blood Pressure 116/64 (mmHg) O2 Sat by Pulse 97 95 Oximetry 06/04/19 06/04/19 06/04/19 01:00 01:01 01:16 Temperature 113.0 F 113.0 F Pulse Rate 60 60 60 Respiratory 23 Rate Blood Pressure 111/58 (mmHg) O2 Sat by Pulse 95 94 95 Oximetry 06/04/19 06/04/19 06/04/19 01:30 01:31 01:46 Temperature 113.0 F 113.0 F 113.0 F Pulse Rate 60 60 60 Respiratory Rate Blood Pressure 104/57 (mmHg) O2 Sat by Pulse 94 94 95 Oximetry 06/04/19 06/04/19 06/04/19 02:00 02:15 02:30 Temperature 113.0 F 113.0 F Pulse Rate 60 60 60 Respiratory 21 Rate Blood Pressure 107/58 108/59 (mmHg) O2 Sat by Pulse 95 95 96 Oximetry 06/04/19 06/04/19 06/04/19 02:45 03:00 03:15 Temperature 113.0 F Pulse Rate 60 60 60 Respiratory 20 Rate Blood Pressure 114/61 (mmHg) O2 Sat by Pulse 96 96 97 Oximetry 06/04/19 06/04/19 06/04/19 03:30 03:45 03:54 Temperature 113.0 F 113.0 F 98.7 F Pulse Rate 60 60 Respiratory Rate Blood Pressure 117/56 (mmHg) O2 Sat by Pulse 97 96 Oximetry 06/04/19 06/04/19 06/04/19 04:00 04:15 04:30 Temperature 113.0 F 113.0 F 113.0 F Pulse Rate 60 60 60 Respiratory 20 Rate Blood Pressure 112/53 113/51 (mmHg) O2 Sat by Pulse 97 97 97 Oximetry 06/04/19 06/04/19 06/04/19 04:45 05:00 05:15 Temperature 113.0 F 113.0 F 113.0 F Pulse Rate 60 60 60 Respiratory 20 Rate Blood Pressure 107/52 (mmHg) O2 Sat by Pulse 97 97 96 Oximetry 06/04/19 06/04/19 06/04/19 05:30 05:45 06:00 Temperature 113.0 F 113.0 F 113.0 F Pulse Rate 60 60 60 Respiratory 19 Rate Blood Pressure 111/54 (mmHg) O2 Sat by Pulse 97 96 96 Oximetry 06/04/19 06/04/19 06/04/19 06:01 06:15 06:30 Temperature 113.0 F 113.0 F 113.0 F Pulse Rate 60 60 60 Respiratory Rate Blood Pressure 111/56 110/52 (mmHg) O2 Sat by Pulse 95 97 96 Oximetry 06/04/19 06/04/19 06/04/19 06:45 07:00 07:01 Temperature 113.0 F 113.0 F Pulse Rate 60 60 Respiratory 33 Rate Blood Pressure (mmHg) O2 Sat by Pulse 96 97 Oximetry 06/04/19 06/04/19 06/04/19 07:02 07:16 07:31 Temperature 113.0 F 113.0 F 113.0 F Pulse Rate 60 66 60 Respiratory Rate Blood Pressure (mmHg) O2 Sat by Pulse 96 97 97 Oximetry 06/04/19 06/04/19 06/04/19 07:46 08:00 08:01 Temperature 113.0 F 113.0 F Pulse Rate 61 63 Respiratory 21 Rate Blood Pressure (mmHg) O2 Sat by Pulse 98 98 Oximetry 06/04/19 06/04/19 06/04/19 08:16 08:31 08:46 Temperature 113.0 F 113.0 F Pulse Rate 60 60 67 Respiratory Rate Blood Pressure (mmHg) O2 Sat by Pulse 96 97 99 Oximetry 06/04/19 06/04/19 06/04/19 08:53 09:01 09:16 Temperature 102.2 F Pulse Rate 62 65 Respiratory Rate Blood Pressure (mmHg) O2 Sat by Pulse 98 97 Oximetry 06/04/19 06/04/19 06/04/19 09:30 09:45 10:00 Temperature Pulse Rate 60 61 61 Respiratory Rate Blood Pressure (mmHg) O2 Sat by Pulse 94 97 98 Oximetry 06/04/19 06/04/19 06/04/19 10:15 10:30 10:45 Temperature Pulse Rate 63 68 62 Respiratory Rate Blood Pressure (mmHg) O2 Sat by Pulse 97 98 96 Oximetry 06/04/19 06/04/19 06/04/19 11:00 11:10 11:15 Temperature 102.7 F Pulse Rate 61 60 Respiratory Rate Blood Pressure (mmHg) O2 Sat by Pulse 96 100 Oximetry 06/04/19 06/04/19 06/04/19 11:19 11:30 11:45 Temperature Pulse Rate 65 64 61 Respiratory Rate Blood Pressure 113/69 (mmHg) O2 Sat by Pulse 96 96 95 Oximetry 06/04/19 12:00 Temperature 113.0 F Pulse Rate 66 Respiratory Rate Blood Pressure (mmHg) O2 Sat by Pulse 95 Oximetry Laboratory Last Values WBC 7.7 10^3/uL (3.5-10.8) 06/04/19 05:57 RBC 2.29 10^6 /uL (4.18-5.48) L 06/04/19 05:57 Hgb 6.7 g/dL (14.0-18.0) L 06/04/19 05:57 Hct 20 % (42-52) L 06/04/19 05:57 MCV 87 fL (80-94) 06/04/19 05:57 MCH 29 pg (27-31) 06/04/19 05:57 MCHC 34 g/dL (31-36) 06/04/19 05:57 RDW 15 % (10-15) 06/04/19 05:57 Plt Count 83 10^3/uL (150-450) L 06/04/19 05:57 MPV 8.4 fL (7.4-10.4) 06/04/19 05:57 Neut % (Auto) 88.1 % 05/30/19 21:29 Lymph % (Auto) 2.1 % 05/30/19 21:29 [place] % (Auto) 9.7 % 05/30/19 21:29 Eos % (Auto) 0.0 % 05/30/19 21:29 Baso % (Auto) 0.1 % 05/30/19 21:29 Absolute Neuts (auto) 9.5 10^3/ul (1.5-7.7) H 05/30/19 21:29 Absolute Lymphs (auto) 0.2 10^3/ul (1.0-4.8) L 05/30/19 21:29 Absolute Monos (auto) 1.0 10^3/ul (0-0.8) H 05/30/19 21:29 Absolute Eos (auto) 0.0 10^3/ul (0-0.6) 05/30/19 21:29 Absolute Basos (auto) 0.0 10^3/ul (0-0.2) 05/30/19 21:29 Absolute Nucleated RBC 0.0 10^3/ul 05/30/19 21:29 Nucleated RBC % 0.0 05/30/19 21:29 INR (Anticoag Therapy) 1.24 (0.82-1.09) H 06/04/19 05:57 APTT 33.9 seconds (26.0-38.0) 06/03/19 06:15 Fibrinogen 427.3 mg/dL (110.8-404.3) H 05/31/19 16:12 Patient Temperature Not Reportable 06/01/19 15:04 ABG pH 7.35 (7.35-7.45) 06/01/19 15:04 ABG pH (Temp Correct) Not Reportable 06/01/19 15:04 ABG pCO2 36 mmHg (35-45) 06/01/19 15:04 ABG pCO2 (Temp Corrct Not Reportable 06/01/19 15:04 ABG pO2 69 mmHg (80-100) L 06/01/19 15:04 ABG pO2 (Temp Correct Not Reportable 06/01/19 15:04 ABG HCO3 20.9 mmol/L (19-31) 06/01/19 15:04 ABG O2 Saturation 96.1 % (94.0-98.0) 06/01/19 15:04 ABG Base Excess -5.1 mmol/L (-2.0-2.0) L 06/01/19 15:04 VBG pH 7.31 (7.32-7.43) L 05/31/19 08:30 VBG pCO2 45 mmHg (41-51) 05/31/19 08:30 VBG pO2 40.0 mmHg (35-45) 05/31/19 08:30 VBG HCO3 21.2 mmol/L (24-28) L 05/31/19 08:30 VBG O2 Saturation 66.5 % (70-80) L 05/31/19 08:30 VBG Base Excess -3.7 mmol/L (0.0-4.0) L 05/31/19 08:30 Respiration Rate Not Reportable 06/01/19 15:04 Ventilator Type Not Reportable 06/01/19 15:04 Vent Mode Not Reportable 06/01/19 15:04 FiO2 24 06/01/19 15:04 Inspiratory Time Not Reportable 06/01/19 15:04 PEEP Not Reportable 06/01/19 15:04 Pressure Support Not Reportable 06/01/19 15:04 Pressure Control Not Reportable 06/01/19 15:04 EPAP Not Reportable 06/01/19 15:04 IPAP Not Reportable 06/01/19 15:04 BiPAP Not Reportable 06/01/19 15:04 Sodium 143 mmol/L (135-145) 06/04/19 05:57 Potassium 3.7 mmol/L (3.5-5.0) 06/04/19 05:57 Chloride 114 mmol/L (101-111) H 06/04/19 05:57 Carbon Dioxide 21 mmol/L (22-32) L 06/04/19 05:57 Anion Gap 8 mmol/L (2-11) 06/04/19 05:57 BUN 30 mg/dL (6-24) H 06/04/19 05:57 Creatinine 0.83 mg/dL (0.67-1.17) 06/04/19 05:57 Est GFR ( Amer) 108.7 (>60) 06/04/19 05:57 Est GFR (Non-Af Amer) 89.8 (>60) 06/04/19 05:57 BUN/Creatinine Ratio 36.1 (8-20) H 06/04/19 05:57 Glucose 101 mg/dL (70-100) H 06/04/19 05:57 POC Glucose (mg/dL) 164 mg/dL (70-100) H 05/31/19 00:35 Lactic Acid 1.6 mmol/L (0.5-2.0) 06/01/19 05:03 Calcium 8.0 mg/dL (8.6-10.3) L 06/04/19 05:57 Phosphorus 3.0 mg/dL (2.5-5.0) 06/04/19 05:57 Magnesium 2.0 mg/dL (1.9-2.7) 06/04/19 05:57 Total Bilirubin 1.90 mg/dL (0.2-1.0) H 06/02/19 05:05 Direct Bilirubin 1.10 mg/dL (0.03-0.18) H 06/02/19 05:05 Indirect Bilirubin 0.8 mg/dL (0.3-1.0) 06/02/19 05:05 AST 52 U/L (13-39) H 06/02/19 05:05 ALT 30 U/L (7-52) 06/02/19 05:05 Alkaline Phosphatase 67 U/L (34-104) 06/02/19 05:05 Troponin I 0.08 ng/mL (<0.04) H* 05/30/19 14:43 C-Reactive Protein < 1.00 mg/L (<8.01) 05/30/19 08:36 Total Protein 4.8 g/dL (6.4-8.9) L 06/02/19 05:05 Albumin 2.5 g/dL (3.2-5.2) L 06/02/19 05:05 Globulin 2.3 g/dL (2-4) 06/02/19 05:05 Albumin/Globulin Ratio 1.1 (1-3) 06/02/19 05:05 Amylase 62 U/L (29-103) 05/30/19 08:36 Lipase 19 U/L (11.0-82.0) 05/30/19 08:36 TSH 4.35 mcIU/mL (0.34-5.60) 06/01/19 05:03 Cortisol 23.99 mcg/dL 06/01/19 05:03 Urine Color Yellow 05/30/19 13:52 Urine Appearance Clear 05/30/19 13:52 Urine pH 5.0 (5-9) 05/30/19 13:52 Ur Specific [place] > 1.060 (1.010-1.030) H 05/30/19 13:52 Urine Protein 1+(30 mg/dl) (Negative) A 05/30/19 13:52 Urine Ketones Negative (Negative) 05/30/19 13:52 Urine Blood Negative (Negative) 05/30/19 13:52 Urine Nitrate Negative (Negative) 05/30/19 13:52 Urine Bilirubin Negative (Negative) 05/30/19 13:52 Urine Urobilinogen Negative (Negative) 05/30/19 13:52 Ur Leukocyte Esterase Negative (Negative) 05/30/19 13:52 Urine WBC (Auto) Absent (Absent) 05/30/19 13:52 Urine RBC (Auto) 1+(3-5/hpf) (Absent) A 05/30/19 13:52 Ur Squamous Epith Cells Present (Absent) A 05/30/19 13:52 Urine Bacteria Absent (Absent) 05/30/19 13:52 Urine Glucose Negative (Negative) 05/30/19 13:52 Vancomycin Trough 15.2 mcg/mL 06/03/19 09:50 Intake & Output 06/03/19 06/04/19 06/04/19 22:59 06:59 14:59 Intake Total 1398 950 Output Total 1610 744 325 Balance -212 206 -325 Weight 227 lb 15.327 oz Intake: IV Fluids 185 186 NS 0.9% 185 186 IVPB 430 270 Vancomycin 290 270 anidulafungin 140 Medicated IV 703 474 CC - Dexmedetomidine/ 76 95 Precedex CC - Propofol/Diprivan 15 42 CC - Vasopressin/ 79 55 Pitressin KCl 359 215 LEVOPHED 17 ZOSYN 157 67 NG Tube Irrigate Amount 80 20 NGT 30 Output: NG Tube Drainage Amount 300 300 NGT 300 300 [place] 1310 444 325 Other: Date of Last Bowel 06/04/19 Movement # Bowel Movements 1 Estimated Stool Amount Large Physical exam: Abd- soft, +edema, small amount of sanguinous drainage in wound between [place] , no purulent drainage, no surrounding erythema A/P: 78 M post op exploratory laparotomy and small bowel resection for closed loop obstruction, remains in critical condition. - TPN to start tonight - Re- culture for fever work up, currently on broad spectrum abx- anidulafungin , vancomycin, zosyn - Currently intubated, did not tolerate PS earlier today - Currently on low dose vasopressin, with intermittent lasix for volume overload - Fentanyl and precedex for sedation
[2019-06-04] MEDS: Vasopressin* 100 UNITS in NS 0.9% 250 ML* 245 ML IV SCH ×2 (13:44→23:30)
[2019-06-04] MEDS: Anidulafungin* 100 MG in NS 0.9% 100 ML* 100 ML IVPB SCH (14:05)
[2019-06-04] MEDS: TPN* 24 HR with Dextrose 50% Water* 500 ML, Amino Acid Infusion 10%* 850 ML, Sterile Wa... CENTR SCH ×12 (17:06)
[2019-06-04] MEDS: fentaNYL* 50 MCG/ML 2 ML VIAL (100 MCG VIAL) IV PRN (19:07)
[2019-06-04] MEDS: Propofol* 1000 MG (10 MG/ML 100 ml) @ Per Protocol (in ICU Pyxis) IV SCH (19:42)
[2019-06-04] MEDS: Pantoprazole IV* 40 MG IV SCH (23:32)
[2019-06-05] MEDS: Chlorhexidine MOUTHWASH 0.12%* 15 ML UDC SCH ×6 (02:02→23:16)
[2019-06-05] MEDS: Norepinephrine VIAL 8 MG in NS 0.9% 500 ML IV SCH ×2 (02:04→16:10)
[2019-06-05] MEDS: fentaNYL INFUSION 50 MCG/ML* 2,500 MCG/50 ML BAG IV SCH (02:05)
[2019-06-05] MEDS: Acetaminophen IV 1GM/100ML * 100 ML IVPB SCH (02:13)
[2019-06-05] MEDS: Metoprolol Tartrate IV* 1 MG/ML 5 ML VIAL IV SCH ×4 (04:41→23:16)
[2019-06-05] MEDS: Piperacillin/Tazobac ADVAN(*) 3.375 GM in NS 0.9% 100 ML* 100 ML IVPB SCH ×3 (04:41→20:54)
[2019-06-05 05:28] LABS: Hematocrit 19 % (42-52); Hemoglobin 6.6 g/dL (14.0-18.0); Mean Corpuscular HGB Conc 34 g/dL (31-36); Mean Corpuscular Hemoglobin 30 pg (27-31); Mean Corpuscular Volume 87 fL (80-94); Mean Platelet Volume 9.1 fL (7.4-10.4); Platelet Count 91 10^3/uL (150-450); Red Blood Count 2.22 10^6 /uL (4.18-5.48); Red Cell Distribution Width 16 % (10-15); White Blood Count 6.9 10^3/uL (3.5-10.8)
[2019-06-05 05:32] LABS: INR 1.45 (0.82-1.09)
[2019-06-05 05:51] LABS: Albumin 2.4 g/dL (3.2-5.2); Albumin/Globulin Ratio 1.1 (1-3); BUN/Creatinine Ratio 41.5 (8-20); Calcium 7.9 mg/dL (8.6-10.3); EGFR African American 110.2 (>60); EGFR Non-African American 91.1 (>60); Globulin 2.1 g/dL (2-4); Magnesium 2.1 mg/dL (1.9-2.7); Phosphorus 2.3 mg/dL (2.5-5.0); Potassium 3.4 mmol/L (3.5-5.0); Total Bilirubin 0.9 mg/dL (0.2-1.0); Total Protein 4.5 g/dL (6.4-8.9)
[2019-06-05] MEDS ORDERED: KCL 20 MEQ/100 ML IVPREMIX* 20 MEQ/100 ML BAG IV ONE (07:00)
[2019-06-05] MEDS: Vasopressin* 100 UNITS in NS 0.9% 250 ML* 245 ML IV SCH (07:08)
[2019-06-05] MEDS ORDERED: Furosemide IV* 10 MG/ML 2 ML VIAL (20 MG) IV ONE (09:00)
[2019-06-05] MEDS: Furosemide IV* 10 MG/ML 2 ML VIAL (20 MG) IV SCH (09:35)
--- NOTE | 2019-06-05 10:59 | PN ---
Progress Note - Progress Note Date of Service: 06/05/19 SOAP: Subjective: Intubated, sedated. Not following commands. Remains on pressor support. Failed weaning and had CT Wednesday that showed postop changes and dilated SB. Objective: Vital Signs Temp 98.7 F 06/05/19 04:16 Pulse 63 06/05/19 06:00 Resp 20 06/05/19 06:00 BP 107/52 06/05/19 06:00 Pulse Ox 99 06/05/19 06:00 Gen: intubated; anasarca Abd: incision clean with some blood noted at superior aspect; no erythema; no active drainage; no granulation of wound noted. Intake & Output 06/04/19 06/05/19 06/05/19 18:59 06:59 18:59 Intake Total 1178 2072 Output Total 810 1710 90 Balance 368 362 -90 Weight 224 lb 13.944 oz Intake: IV Fluids 1056 261 NS 0.9% 1056 261 IVPB 429 Vancomycin 288 anidulafungin 141 Medicated IV 122 466 CC - Dexmedetomidine/ 78 150 Precedex CC - Propofol/Diprivan 54 CC - Vasopressin/ 44 86 Pitressin ZOSYN 176 TPN/PPN 916 Output: Fraser 810 1710 90 Laboratory Results - last 24 hr 06/05/19 06/05/19 06/05/19 00:12 04:19 05:15 WBC RBC Hgb Hct MCV MCH MCHC RDW Plt Count MPV INR (Anticoag Therapy) Sodium 144 Potassium 3.4 L Chloride 116 H Carbon Dioxide 21 L Anion Gap 7 BUN 34 H Creatinine 0.82 Est GFR ( Amer) 110.2 Est GFR (Non-Af Amer) 91.1 BUN/Creatinine Ratio 41.5 H Glucose 229 H POC Glucose (mg/dL) 262 H 213 H Calcium 7.9 L Phosphorus 2.3 L Magnesium 2.1 Total Bilirubin 0.90 AST 589 H ALT 431 H Alkaline Phosphatase 74 Total Protein 4.5 L Albumin 2.4 L Globulin 2.1 Albumin/Globulin Ratio 1.1 Prealbumin 5 L Triglycerides 116 Cholesterol 47 06/05/19 06/05/19 05:15 05:15 WBC 6.9 RBC 2.22 L Hgb 6.6 L Hct 19 L MCV 87 MCH 30 MCHC 34 RDW 16 H Plt Count 91 L MPV 9.1 INR (Anticoag Therapy) 1.45 H Sodium Potassium Chloride Carbon Dioxide Anion Gap BUN Creatinine Est GFR ( Amer) Est GFR (Non-Af Amer) BUN/Creatinine Ratio Glucose POC Glucose (mg/dL) Calcium Phosphorus Magnesium Total Bilirubin AST ALT Alkaline Phosphatase Total Protein Albumin Globulin Albumin/Globulin Ratio Prealbumin Triglycerides Cholesterol Active Medications Generic Name Dose Route Start Last Admin Trade Name Freq PRN Reason Stop Dose Admin Albuterol 2 puff 05/30/19 14:26 Ventolin Hfa Inhaler* INH Q4H PRN WHEEZING Chlorhexidine Gluconate 15 ml 05/31/19 01:00 06/05/19 09:35 Peridex Mouth Wash 0.12%* .SEE ORDER 15 ml Q4H ARTHUR Administration Fentanyl Citrate 25 mcg 06/04/19 17:53 06/04/19 19:07 Fentanyl* IV 25 mcg Q2H PRN Administration PAIN Furosemide 20 mg 06/05/19 09:00 06/05/19 09:35 Lasix Iv* IV 20 mg DAILY ARTHUR Administration Piperacillin Sod/Tazobactam 100 mls @ 25 mls/hr 05/31/19 04:00 06/05/19 04:41 Sod 3.375 gm/ Sodium Chloride IVPB 25 mls/hr Q8H ARTHUR Administration Propofol 100 mls @ 2.694 mls/hr 05/31/19 03:00 06/04/19 19:42 Diprivan* IV 6.2 mls/hr .(Initial Rate) ARTHUR Administration Protocol 5 MCG/KG/MIN Vasopressin 100 units/ Sodium 250 mls @ 6 mls/hr 05/31/19 07:00 06/05/19 07: 08 Chloride IV Not Given Q24H ARTHUR Protocol 0.04 UNITS/MIN Norepinephrine Bitartrate 8 mg 500 mls @ 37.5 mls/hr 05/31/19 18:00 06/05/19 02:04 / Sodium Chloride IV Not Given Q13H ARTHUR Protocol 10 MCG/MIN Vancomycin HCl 1,500 mg/ 250 mls @ 166.667 mls/hr 06/01/19 23:00 06/04/19 23: 32 Sodium Chloride IVPB 166.667 mls/hr Q12H ARTHUR Administration Fentanyl Citrate 2,500 mcg in 50 mls @ 0.5 mls/hr 06/03/19 00:43 06/05/19 02: 05 Fentanyl Infusion Bag 50 Mcg/Ml 50 Ml IV Not Given Q50H ARTHUR Protocol 25 MCG/HR Dexmedetomidine HCl 1,000 mcg/ 250 mls @ 10.31 mls/hr 06/03/19 22:00 23:29 Sodium Chloride IV 5.2 mls/hr Q24H ARTHUR Administration Protocol 0.4 MCG/KG/HR Dextrose 500 ml/ Amino Acids 1,853.1841 mls @ 77.216 mls/hr 06/04/19 17:00 17:06 850 ml/ Sterile Water 150 ml/ CENTR 77.216 mls/hr Fat Emulsion Intravenous 250 1700 ARTHUR Administration ml/ Sodium Chloride 100 meq/ Potassium Chloride 50 meq/ Potassium Phosphate 15 mmole/ Protocol Calcium Gluconate 15 meq/ Magnesium Sulfate 20 meq/ Multivitamins 10 ml/ Trace Metals 1 ml/ Nutrition ( Parenteral) Anidulafungin 100 mg/ Sodium 130 mls @ 65 mls/hr 06/04/19 14:00 06/04/19 14: 05 Chloride IVPB 65 mls/hr Q24HR@1400 [facility] Administration Metoprolol Tartrate 2.5 mg 06/03/19 17:00 06/05/19 09:35 Lopressor Iv* IV 2.5 mg Q6H ARTHUR Administration Ondansetron HCl 4 mg 05/30/19 14:23 Zofran Inj* IV Q6H PRN NAUSEA Pantoprazole Sodium 40 mg 05/30/19 23:45 06/04/19 23:32 Protonix Iv* IV 40 mg Q24H [facility] Administration Pharmacy Consult 1 note 06/01/19 11:00 Vancomycin Per Pharmacy* FOLLOW UP .VANC PER PHARMACY [facility] Protocol Microbiology 06/01/19 16:01 Aerobic Blood Culture - Preliminary Blood Venous No Growth Day 3 Anaerobic Blood Culture - Preliminary No Growth Day 3 06/01/19 16:01 Aerobic Blood Culture - Preliminary Blood Venous No Growth Day 3 Anaerobic Blood Culture - Preliminary No Growth Day 3 06/04/19 11:14 Gram Stain - Final Sputum 05/30/19 08:40 Aerobic Blood Culture - Final Blood Venous No Growth Day 5 Anaerobic Blood Culture - Final No Growth Day 5 05/30/19 08:36 Aerobic Blood Culture - Final Blood Venous No Growth Day 5 Anaerobic Blood Culture - Final No Growth Day 5 Assessment: POD#6 s/p Exlap; TIARA; SBRsxn for closed loop SBO with bowel necrosis. There was significant spillage of contents into the abdomen. Fevers over weekend with no evidence of intraabdominal source. Line sepsis (?) Malnutrition. CAD. PVD. Plan: As per Dr. Gonzales. TPN until bowel function. Local wound care. D/c A-line. Cont abx.
[2019-06-05] MEDS: Vancomycin(*) 1,500 MG in NS 0.9% 250 ML* 250 ML IVPB SCH ×2 (11:06→23:16)
[2019-06-05] MEDS: Anidulafungin* 100 MG in NS 0.9% 100 ML* 100 ML IVPB SCH (14:22)
--- NOTE | 2019-06-05 16:27 | PN ---
Date of Service: 06/05/19 Critical Care Services: Continues with fever on broad-spectrum antibiotics, but weaned off vasopressin earlier today. Vital Signs: Temp Pulse Resp BP SpO2 FiO2 101 F 73 23 136/67 96 21 Physical Exam: Gen:Unresponsive (sedated with propofol) HEENT: No facial asymmetry Lungs:clear Abdomen:not distended Extremities:warm. no cyanosis. 1+edema. Fluid Balance (Past 24 Hours): 06/03/19 06/04/19 06/05/19 06:59 06:59 06:59 Intake Total 2600 2408 3250 Output Total 1878 2579 2520 Balance 722 -171 730 Weight 227 lb 227 lb 224 lb Intake: IV Fluids 134 126 9665 LR 286 NS 0.9% 813 714 1758 IVPB 548 700 429 Vancomycin 285 560 288 anidulafungin 263 140 141 Medicated IV 1179 1177 588 CC - Dexmedetomidine/ 171 228 Precedex CC - Propofol/Diprivan 201 57 54 CC - Vasopressin/ 147 134 130 Pitressin KCl 193 574 LEVOPHED 449 17 ZOSYN 189 224 176 TPN/PPN 916 NG Tube Irrigate Amount 160 NGT 90 Output: NG Tube Drainage Amount 1250 600 NGT 600 Fraser 628 1979 2520 Other: Estimated Void Medium Date of Last Bowel 06/04/19 Movement # Bowel Movements 1 Estimated Stool Amount Large # Voids 1 Labs: 06/05/19 06/05/19 06/05/19 00:12 04:19 05:15 WBC RBC Hgb Hct MCV MCH MCHC RDW Plt Count MPV INR (Anticoag Therapy) Sodium 144 Potassium 3.4 L Chloride 116 H Carbon Dioxide 21 L Anion Gap 7 BUN 34 H Creatinine 0.82 Glucose 229 H POC Glucose (mg/dL) 262 H 213 H Calcium 7.9 L Phosphorus 2.3 L Magnesium 2.1 Total Bilirubin 0.90 AST 589 ALT 431 Alkaline Phosphatase 74 Total Protein 4.5 L Albumin 2.4 L lobulin 2.1 Albumin/Globulin Ratio 1.1 Prealbumin 5 L Triglycerides 116 Cholesterol 47 06/05/19 06/05/19 06/05/19 05:15 05:15 10:11 WBC 6.9 RBC 2.22 L Hgb 6.6 L Hct 19 L MCV 87 MCH 30 MCHC 34 RDW 16 H Plt Count 91 L MPV 9.1 INR (Anticoag Therapy) 1.45 H Sodium Potassium Chloride Carbon Dioxide Anion Gap BUN Creatinine Est GFR ( Amer) Est GFR (Non-Af Amer) BUN/Creatinine Ratio Glucose POC Glucose (mg/dL) 215 H Calcium Phosphorus Magnesium Total Bilirubin AST ALT Alkaline Phosphatase Total Protein Albumin Globulin Albumin/Globulin Ratio Prealbumin Triglycerides Cholesterol Studies: None today. CXR yesterday - cardiomegaly with hilar congestion. Nutrition: On TPN Impression: 1. Source of fever unclear at this time. Possibilities include vascular catheters, lungs, abdomen. 2. Elevated transaminases - ? sequelae of septic shock 3. Thrombocytopenia - most likely from sepsis Plan: 1. Will d/c femoral A-line 2. Follow CXRs 3. Continue broad spectrum AB coverage (vancomycin, PIP/TAZO, and anidulafungin) . I spoke with patient's today and she asked for "comfort measures only" care if patient's condition does not improve in the next few days. As prognosis seems poor at this point, I agree with 's proposed plan. Will speak with surgery about this. Critical Care Time: 45 minutes
[2019-06-05] MEDS: TPN* 24 HR with Dextrose 50% Water* 500 ML, Amino Acid Infusion 10%* 850 ML, Sterile Wa... CENTR SCH ×12 (17:30)
[2019-06-05] MEDS: Dexmedetomidine* 1,000 MCG in NS 0.9% 250 ML* 240 ML IV SCH (21:20)
[2019-06-05] MEDS: Pantoprazole IV* 40 MG IV SCH (23:16)
[2019-06-06] MEDS: fentaNYL* 50 MCG/ML 2 ML VIAL (100 MCG VIAL) IV PRN ×4 (01:08→09:06)
[2019-06-06] MEDS: Chlorhexidine MOUTHWASH 0.12%* 15 ML UDC SCH ×6 (01:08→20:35)
[2019-06-06] MEDS: Piperacillin/Tazobac ADVAN(*) 3.375 GM in NS 0.9% 100 ML* 100 ML IVPB SCH ×2 (04:17→11:35)
[2019-06-06] MEDS: Metoprolol Tartrate IV* 1 MG/ML 5 ML VIAL IV SCH ×2 (04:17→11:36)
[2019-06-06] MEDS: Norepinephrine VIAL 8 MG in NS 0.9% 500 ML IV SCH (05:32)
[2019-06-06 05:52] LABS: Hematocrit 20 % (42-52); Hemoglobin 6.7 g/dL (14.0-18.0); Mean Corpuscular HGB Conc 34 g/dL (31-36); Mean Corpuscular Hemoglobin 29 pg (27-31); Mean Corpuscular Volume 87 fL (80-94); Mean Platelet Volume 9.5 fL (7.4-10.4); Platelet Count 110 10^3/uL (150-450); Red Blood Count 2.27 10^6 /uL (4.18-5.48); Red Cell Distribution Width 16 % (10-15); White Blood Count 6.7 10^3/uL (3.5-10.8)
[2019-06-06 06:16] LABS: Albumin 2.3 g/dL (3.2-5.2); Albumin/Globulin Ratio 1.1 (1-3); BUN/Creatinine Ratio 41.4 (8-20); Calcium 7.9 mg/dL (8.6-10.3); EGFR African American 132.3 (>60); EGFR Non-African American 109.4 (>60); Globulin 2.1 g/dL (2-4); Magnesium 2.2 mg/dL (1.9-2.7); Phosphorus 1.9 mg/dL (2.5-5.0); Potassium 3.2 mmol/L (3.5-5.0); Total Bilirubin 0.8 mg/dL (0.2-1.0); Total Protein 4.4 g/dL (6.4-8.9)
[2019-06-06] MEDS: Anidulafungin* 100 MG in NS 0.9% 100 ML* 100 ML IVPB SCH ×2 (07:36→17:00)
[2019-06-06] MEDS ORDERED: fentaNYL* 50 MCG/ML 2 ML VIAL (100 MCG VIAL) ONE (08:07)
[2019-06-06] MEDS ORDERED: fentaNYL* 50 MCG/ML 2 ML VIAL (100 MCG VIAL) IV SLOW PU ONE (08:10)
[2019-06-06] MEDS: Furosemide IV* 10 MG/ML 2 ML VIAL (20 MG) IV SCH (08:20)
[2019-06-06] MEDS: Vasopressin* 100 UNITS in NS 0.9% 250 ML* 245 ML IV SCH (08:34)
[2019-06-06] MEDS ORDERED: fentaNYL INFUSION 50 MCG/ML* 2,500 MCG/50 ML BAG IV SCH (09:00)
[2019-06-06] MEDS: Vancomycin(*) 1,500 MG in NS 0.9% 250 ML* 250 ML IVPB SCH (11:57)
[2019-06-06] MEDS ORDERED: LORazepam INJ* 2 MG/ML 1 ML VIAL IV PUSH ONE (13:45)
[2019-06-06] MEDS ORDERED: Morphine 10 MG/ML VIAL (1 ml) IV ONE (14:05)
[2019-06-06] MEDS ORDERED: Lorazepam PYXIS KEY PRN (14:10)
[2019-06-06] MEDS ORDERED: LORazepam PREMIX BAG 1MG/ML* 100 MG/100 ML BAG IVPB SCH (15:00)
[2019-06-06] MEDS ORDERED: LORazepam VIAL (for drip)* 100 MG in D5W 100 ML BAG* 50 ML IV SCH (15:00)
[2019-06-06] MEDS ORDERED: Morphine PCA 5 MG/ML * Titrate per Protocol PCA SCH (15:05)
[2019-06-06] MEDS: fentaNYL INFUSION 50 MCG/ML* 2,500 MCG/50 ML BAG IV SCH (18:35)
[2019-06-06] MEDS ORDERED: Acetaminophen SUPP* 650 MG SUPP PR ONE (20:27)
[2019-06-07] MEDS: Chlorhexidine MOUTHWASH 0.12%* 15 ML UDC SCH ×4 (01:52→12:54)
[2019-06-07] MEDS: fentaNYL INFUSION 50 MCG/ML* 2,500 MCG/50 ML BAG IV SCH (02:03)
[2019-06-07] MEDS ORDERED: Metoclopramide IV* 5 MG/ML 2 ML VIAL IV ONE (08:00)
[2019-06-07] MEDS ORDERED: Metoprolol Tartrate IV* 1 MG/ML 5 ML VIAL IV ONE (08:00)
[2019-06-07] MEDS ORDERED: Albuterol 2.5 MG/3 ML NEB.SOL* (0.083%) INH ONE (09:05)
[2019-06-07] MEDS ORDERED: fentaNYL INFUSION 50 MCG/ML* 2,500 MCG/50 ML BAG IV SCH (10:00)
[2019-06-07] MEDS: Dexmedetomidine* 1,000 MCG in NS 0.9% 250 ML* 240 ML IV SCH (10:20)
[2019-06-07] MEDS ORDERED: Vancomycin Trough Check NOTE FOLLOW UP ONE (10:30)
[2019-06-07] MEDS ORDERED: Furosemide IV* 10 MG/ML VIAL (40 MG) IV ONE (13:07)
[2019-06-07] MEDS ORDERED: Piperacillin/Tazobac ADVAN(*) 3.375 GM in NS 0.9% 100 ML* 100 ML IVPB ONE (13:30)
[2019-06-07] MEDS ORDERED: Zosyn per Pharmacy* NOTE FOLLOW UP SCH (14:00)
[2019-06-07] MEDS: Anidulafungin* 100 MG in NS 0.9% 100 ML* 100 ML IVPB SCH (14:27)
[2019-06-07] MEDS: KCL 20 MEQ/100 ML IVPREMIX* 20 MEQ/100 ML BAG IV SCH ×2 (14:40→17:04)
[2019-06-07] MEDS: Metoprolol Tartrate IV* 1 MG/ML 5 ML VIAL IV SCH ×2 (14:41→21:46)
--- NOTE | 2019-06-07 15:53 | PN ---
Date of Service: 06/07/19 Critical Care Services: Patient is clinically improved today!! Is alert and follows commands. Was weaned from ventilator and extubated earlier today. Plans for comfort measures care have been abandoned for now. Vital Signs: Temp Pulse Resp BP SpO2 FiO2 98.7 F 87 25 157/73 98 40 Physical Exam: Gen: Alert and aware of surroundings HEENT: No stridor Lungs:Scattered rhonchi Extremities:No cyanosis or edema Fluid Balance (Past 24 Hours): 06/05/19 06/06/19 06/07/19 06:59 06:59 06:59 Intake Total 3250 3918 1735.8 Output Total 2520 2035 2050 Balance 730 1883 -314.2 Weight 224 lb 13.944 oz 229 lb 4.492 oz Intake: IV Fluids 1317 879 369 NS 0.9% 1317 879 202 zosyn 167 IVPB 429 425 250 Vancomycin 288 285 250 anidulafungin 141 140 Medicated IV 588 734 285.8 CC - Dexmedetomidine/ 228 446 Precedex CC - Propofol/Diprivan 54 30 CC - Vasopressin/ 130 52 Pitressin Fentanyl 6.8 Precedex 279 ZOSYN 176 206 TPN/PPN 916 1880 831 Oral Output: Fraser 2520 1835 2050 Liquid Stool 200 Labs: None today Studies: None Nutrition: TPN Impression: Doing well off the ventilator. No evidence of active infection at this time. Plan: General supportive care. Will start oral feeding as soon as feasible (if OK by swallow eval). Will also diurese, considering CXR findings consistent with fluid overload. Critical Care Time: 55 minutes (including time to wean patient).
--- NOTE | 2019-06-07 16:58 | PN ---
Progress Note - Progress Note Date of Service: 06/06/19 Note: This note concerns care delivered on 06/06/2019. Patient remained on the ventilator, and the plan was to institute "comfort measures only" care. This was postponed for 24 hours so the patient's son could come to visit the patient. In the meantime, the patient was hemodynamically stable, and there were no new problems identified during the day.
[2019-06-07] MEDS: ZOSYN 3.375 GM Q8H per EXTENDED INFUSION IVPB SCH ×2 (17:28)
[2019-06-08] MEDS: ZOSYN 3.375 GM Q8H per EXTENDED INFUSION IVPB SCH ×6 (01:19→18:10)
[2019-06-08] MEDS: Metoprolol Tartrate IV* 1 MG/ML 5 ML VIAL IV SCH ×4 (03:13→20:00)
[2019-06-08 03:34] LABS: Hematocrit 20 % (42-52); Hemoglobin 6.6 g/dL (14.0-18.0); Mean Corpuscular HGB Conc 33 g/dL (31-36); Mean Corpuscular Hemoglobin 29 pg (27-31); Mean Corpuscular Volume 89 fL (80-94); Mean Platelet Volume 8.8 fL (7.4-10.4); Platelet Count 128 10^3/uL (150-450); Red Blood Count 2.27 10^6 /uL (4.18-5.48); Red Cell Distribution Width 16 % (10-15); White Blood Count 7.8 10^3/uL (3.5-10.8)
[2019-06-08 03:48] LABS: BUN/Creatinine Ratio 35.4 (8-20); EGFR African American 115.1 (>60); EGFR Non-African American 95.1 (>60); Magnesium 2.1 mg/dL (1.9-2.7); Phosphorus 2.4 mg/dL (2.5-5.0); Potassium 3.3 mmol/L (3.5-5.0)
[2019-06-08] MEDS: Dexmedetomidine* 1,000 MCG in NS 0.9% 250 ML* 240 ML IV SCH (04:20)
[2019-06-08] MEDS: KCL 20 MEQ/100 ML IVPREMIX* 20 MEQ/100 ML BAG IV SCH ×4 (05:09→16:53)
[2019-06-08] MEDS ORDERED: Furosemide IV* 10 MG/ML VIAL (40 MG) IV ONE (09:00)
[2019-06-08] MEDS: Anidulafungin* 100 MG in NS 0.9% 100 ML* 100 ML IVPB SCH (15:10)
--- NOTE | 2019-06-08 15:17 | PN ---
Date of Service: 06/08/19 Critical Care Services: Continues to do reasonably well. Placed on BIPAP overnight for respiratory distress, but off BIPAP today and doing better after furosemide diuresis Vital Signs: Temp Pulse Resp BP SpO2 FiO2 97.2 F 93 29 148/100 96 35 Physical Exam: Gen:Awake and responds to verbal commands but not oriented Lungs: Scaterred rhonchi. Rales right base. Abdomen: Surgical wound on anterior abdomen draining serous fluid. Extremities:Warm. No cyanosis. 2+edema. Fluid Balance (Past 24 Hours): 06/07/19 06/08/19 06/09/19 06:59 06:59 06:59 Intake Total 1735.8 686 233 Output Total 2049 2726 2830 Balance -314.2 -2039 -2597 Weight 220 lb 3.869 oz Intake: IV Fluids 369 479 90 NS 0.9% 202 47 11 zosyn 167 432 79 IVPB 250 Vancomycin 250 anidulafungin Medicated IV 285.8 207 143 CC - Dexmedetomidine/ 107 Precedex CC - Propofol/Diprivan CC - Vasopressin/ Pitressin Fentanyl 6.8 KCl 100 100 Precedex 279 43 ZOSYN TPN/PPN 831 Oral 0 0 NG Tube Irrigate Amount 0 Output: NG Tube Drainage Amount 0 0 Fraser 2049 2726 2830 Liquid Stool Labs: 06/08/19 06/08/19 03:24 03:24 WBC 7.8 RBC 2.27 L Hgb 6.6 Hct 20 L MCV 89 MCH 29 MCHC 33 Plt Count 128 Sodium 151 Potassium 3.3 Chloride 121 Carbon Dioxide 24 BUN 28 H Creatinine 0.79 Glucose 96 Calcium 8.0 L Phosphorus 2.4 L Magnesium 2.1 Studies: None today Nutrition: Unable to pass feeding tube due to patient agitation and respiratory distress. Therefore, will stay with TPN for now. Impression: 1. Continues to have hospital-acquired delirium 2. No signs of active sepsis. 3. Fluid accumulation is being corrected (5 liters negative past 3 days) 4. Hypernatremia secondary to #3 Plan: 1. Continue TPN until we can insert a feeding tube. 2. Cut back on diuresis 3. Correct potassium deficits 4. Can probably transfer to floor soon. Critical Care Time: 40 minutes
[2019-06-09] MEDS: Dexmedetomidine* 1,000 MCG in NS 0.9% 250 ML* 240 ML IV SCH ×2 (01:32→19:48)
[2019-06-09] MEDS: Metoprolol Tartrate IV* 1 MG/ML 5 ML VIAL IV SCH ×4 (01:33→20:01)
[2019-06-09] MEDS: ZOSYN 3.375 GM Q8H per EXTENDED INFUSION IVPB SCH ×6 (02:00→17:42)
[2019-06-09 05:48] LABS: Hematocrit 27 % (42-52); Hemoglobin 8.7 g/dL (14.0-18.0); Mean Corpuscular HGB Conc 32 g/dL (31-36); Mean Corpuscular Hemoglobin 28 pg (27-31); Mean Corpuscular Volume 88 fL (80-94); Platelet Count 194 10^3/uL (150-450); Red Blood Count 3.06 10^6 /uL (4.18-5.48); Red Cell Distribution Width 16 % (10-15); White Blood Count 11.7 10^3/uL (3.5-10.8)
[2019-06-09 06:16] LABS: BUN/Creatinine Ratio 35.4 (8-20); Calcium 8.1 mg/dL (8.6-10.3); EGFR African American 115.1 (>60); EGFR Non-African American 95.1 (>60); Potassium 3.4 mmol/L (3.5-5.0)
--- NOTE | 2019-06-09 07:44 | PN ---
Progress Note - Progress Note Date of Service: 06/09/19 SOAP: Subjective: Now extubated and off BIPAP. He reports mild pain. He has had increased wound drainage. Objective: Vital Signs Temp 97.6 F 06/09/19 03:53 Pulse 93 06/09/19 06:00 Resp 22 06/09/19 06:00 BP 96/70 06/09/19 06:00 Pulse Ox 96 06/09/19 06:00 Gen: sitting up in bed; mildly dyspneic. Abd: wound probed with swab; clear yellow fluid with no clear fascial dehiscence noted. Intake & Output 06/08/19 06/09/19 06/09/19 18:59 06:59 18:59 Intake Total 233 786 Output Total 3085 415 Balance -2852 371 Weight 217 lb 13.067 oz Intake: IV Fluids 90 NS 0.9% 11 zosyn 79 IVPB 665 NS 0.9% 665 Medicated IV 143 121 KCl 100 Precedex 43 121 Oral 0 0 NG Tube Irrigate Amount 0 0 Output: NG Tube Drainage Amount 0 0 Fraser 3085 415 Assessment: POD#10 s/p exlap/jennifer/SBRsxn. Possible wound dehiscence without evisceration. Plan: Will get noncontrast CT to eval integrity of abd wall. May need return to OR.
[2019-06-09 08:17] LABS: Magnesium 2.2 mg/dL (1.9-2.7)
--- NOTE | 2019-06-09 13:20 | PN ---
Progress Note - Progress Note Date of Service: 06/09/19 SOAP: Subjective: CT reviewed--probable small fascial dehiscence in upper portion of incision, no bowel involvement or acute intra-abdominal findings Objective: Abd: Wilmer removed, skin and subq opened length of wound. Small area of fascial dehiscence upper portion of wound, width 2 cms with omentum at base of wound, no exposed bowel. Serous drainage. Remainder of fascia intact, sutures noted Wound Vac placed, put on 100 mm pressure suction Plan: Wound vac Change Wednesday
[2019-06-09] MEDS ORDERED: Lorazepam PYXIS KEY PRN (13:49)
[2019-06-09] MEDS: Anidulafungin* 100 MG in NS 0.9% 100 ML* 100 ML IVPB SCH (16:36)
[2019-06-09] MEDS ORDERED: TPN* 24 HR with Dextrose 50% Water* 500 ML, Amino Acid Infusion 10%* 850 ML, Sterile Wa... CENTR SCH ×12 (17:00)
--- NOTE | 2019-06-09 17:40 | PN ---
Date of Service: 06/09/19 Critical Care Services: Major problem today was excessive drainage from abdominal wound - CT scan of abdomen revealed no intraperitoneal pathology, so negative pressure WoundVac was applied. Patient continues to be confused. Vital Signs: Temp Pulse Resp BP SpO2 FiO2 97.3 F 77 28 93/47 97 35 Physical Exam: Gen:Awake but disoriented Lungs:Scaterred rhonchi Abdomen: Not distended Extremities:No ctyanosis or edema Fluid Balance (Past 24 Hours): 06/07/19 06/08/19 06/09/19 06:59 06:59 06:59 Intake Total 1735.8 686 1019 Output Total 2050 2726 3500 Balance -314.2 -2039 -2481 Weight 220 lb 3.869 oz 217 lb 13.067 oz Intake: IV Fluids 369 479 90 NS 0.9% 202 47 11 zosyn 167 432 79 IVPB 250 665 NS 0.9% 665 Vancomycin 250 Medicated IV 285.8 207 264 CC - Dexmedetomidine/ 107 Precedex Fentanyl 6.8 KCl 100 100 Precedex 279 164 TPN/PPN 831 Oral 0 0 NG Tube Irrigate Amount 0 Output: NG Tube Drainage Amount 0 0 Fraser 0 2726 3500 Labs: 06/09/19 06/09/19 05:40 05:40 WBC 11.7 H Hgb 8.7 L Hct 27 L MCV 88 MCH 28 MCHC 32 RDW 16 H Plt Count 194 MPV 9.0 Sodium 152 H Potassium 3.4 L Chloride 120 H Carbon Dioxide 23 Anion Gap 9 BUN 28 H Creatinine 0.79 Est GFR ( Amer) 115.1 Est GFR (Non-Af Amer) 95.1 BUN/Creatinine Ratio 35.4 H Glucose 97 Calcium 8.1 L Magnesium 2.2 Studies: CT scan of abdomen - as described Nutrition: TPN today Impression: Clinically stable. Increase in Hb likely due to the diuresis. Plan: Will place feeding tube to start enteral tube feedings. I have also cut back on diuresis. Critical Care Time: 30 minutes
[2019-06-09] MEDS: LORazepam INJ* 2 MG/ML 1 ML VIAL IV PUSH PRN (17:42)
[2019-06-10] MEDS: ZOSYN 3.375 GM Q8H per EXTENDED INFUSION IVPB SCH ×6 (01:08→17:21)
[2019-06-10] MEDS: Metoprolol Tartrate IV* 1 MG/ML 5 ML VIAL IV SCH ×5 (02:11→20:33)
[2019-06-10 04:38] LABS: Hematocrit 24 % (42-52); Mean Corpuscular HGB Conc 33 g/dL (31-36); Mean Corpuscular Hemoglobin 29 pg (27-31); Mean Corpuscular Volume 88 fL (80-94); Mean Platelet Volume 8.7 fL (7.4-10.4); Platelet Count 211 10^3/uL (150-450); Red Blood Count 2.77 10^6 /uL (4.18-5.48); Red Cell Distribution Width 16 % (10-15); White Blood Count 9.1 10^3/uL (3.5-10.8)
[2019-06-10 04:53] LABS: BUN/Creatinine Ratio 36.7 (8-20); Calcium 8.4 mg/dL (8.6-10.3); EGFR African American 115.1 (>60); EGFR Non-African American 95.1 (>60); Potassium 3.1 mmol/L (3.5-5.0)
[2019-06-10] MEDS: KCL 20 MEQ/100 ML IVPREMIX* 20 MEQ/100 ML BAG IV SCH ×2 (06:19→09:36)
[2019-06-10] MEDS: LORazepam INJ* 2 MG/ML 1 ML VIAL IV PUSH PRN (10:25)
--- NOTE | 2019-06-10 12:00 | PN ---
Progress Note - Progress Note Date of Service: 06/10/19 SOAP: Subjective: More awake and alert Wound vac in place no complaints of abdominal pain Objective: Temp Pulse Resp BP Pulse Ox 99 F 113 27 154/87 99 06/10/19 11:57 06/10/19 11:01 06/10/19 11:01 06/10/19 11:00 06/10/19 11:01 Intake & Output 06/08/19 06/09/19 06/10/19 06/11/19 06:59 06:59 06:59 06:59 Intake Total 686 1019 1838 Output Total 2726 3500 1351 185 Balance -0 -2481 487 -185 Weight 220 lb 3.869 oz 217 lb 13.067 oz 214 lb 11.684 oz Intake: IV Fluids 479 90 NS 0.9% 47 11 zosyn 432 79 IVPB 665 789 NS 0.9% 665 789 Medicated IV 207 264 123 CC - Dexmedetomidine/ 107 Precedex KCl 100 100 Precedex 164 123 TPN/PPN 926 Oral 0 0 NG Tube Irrigate Amount 0 Output: NG Tube Drainage Amount 0 0 Wound Vac 550 Fraser 2726 3500 801 185 PEX: Comfortable Abd is soft and non-distended. Wound vac in place. Few bowel sounds Laboratory Results - last 24 hr 06/09/19 06/09/19 06/10/19 21:13 23:56 04:29 WBC RBC Hgb Hct MCV MCH MCHC RDW Plt Count MPV Sodium Potassium Chloride Carbon Dioxide Anion Gap BUN Creatinine Est GFR ( Amer) Est GFR (Non-Af Amer) BUN/Creatinine Ratio Glucose POC Glucose (mg/dL) 196 H 226 H 223 H Calcium 06/10/19 06/10/19 06/10/19 04:30 04:30 09:51 WBC 9.1 RBC 2.77 L Hgb 8.0 L Hct 24 L MCV 88 MCH 29 MCHC 33 RDW 16 H Plt Count 211 MPV 8.7 Sodium 151 H Potassium 3.1 L Chloride 122 H Carbon Dioxide 26 Anion Gap 3 BUN 29 H Creatinine 0.79 Est GFR ( Amer) 115.1 Est GFR (Non-Af Amer) 95.1 BUN/Creatinine Ratio 36.7 H Glucose 211 H POC Glucose (mg/dL) 236 H Calcium 8.4 L Assessment: S/P exlap small bowel resection for ischemia secondary to internal hernia Small fascial dehiscence Plan: TPN-attempt at NGT placement today Wound vac Increase activity
[2019-06-10] MEDS: Dexmedetomidine* 1,000 MCG in NS 0.9% 250 ML* 240 ML IV SCH (12:38)
[2019-06-10] MEDS: Anidulafungin* 100 MG in NS 0.9% 100 ML* 100 ML IVPB SCH (14:05)
--- NOTE | 2019-06-10 15:27 | PN ---
Date of Service: 06/10/19 Critical Care Services: More alert today, and more conversant, but remains confused. Up in bed today!! Feeding tube placed for enteral tube feedings. Vital Signs: Temp Pulse Resp BP SpO2 FiO2 99 F 89 27 133/80 100 35 Physical Exam: Gen: As mentioned Lungs:Occasional inspiratory wheezing Extremities:Trace - 1+edema Fluid Balance (Past 24 Hours): 06/08/19 06/09/19 06/10/19 06:59 06:59 06:59 Intake Total 686 1019 1838 Output Total 2726 3500 1351 Balance -2039 -2480 487 Weight 220 lb 217 lb 214 lb Intake: IV Fluids 479 90 NS 0.9% 47 11 Potassium chloride zosyn 432 79 IVPB 665 789 NS 0.9% 665 789 Potassium chloride zosyn Medicated IV 207 264 123 CC - Dexmedetomidine/ 107 Precedex KCl 100 100 Precedex 164 123 TPN/PPN 926 Oral 0 0 NG Tube Irrigate Amount 0 Output: NG Tube Drainage Amount 0 0 Wound Vac 550 Fraser 2726 3500 801 Labs: 06/10/19 06/10/19 06/10/19 04:30 04:30 09:51 WBC 9.1 RBC 2.77 L Hgb 8.0 L Hct 24 L MCV 88 MCH 29 MCHC 33 RDW 16 H Plt Count 211 MPV 8.7 Sodium 151 H Potassium 3.1 L Chloride 122 H Carbon Dioxide 26 Anion Gap 3 BUN 29 H Creatinine 0.79 Est GFR ( Amer) 115.1 Est GFR (Non-Af Amer) 95.1 BUN/Creatinine Ratio 36.7 H Glucose 211 H POC Glucose (mg/dL) 236 H Calcium 8.4 L 06/10/19 13:56 WBC RBC Hgb Hct MCV MCH MCHC RDW Plt Count MPV Sodium Potassium Chloride Carbon Dioxide Anion Gap BUN Creatinine Est GFR ( Amer) Est GFR (Non-Af Amer) BUN/Creatinine Ratio Glucose POC Glucose (mg/dL) 236 H Calcium Studies: CXR: Poor lung volumes and increased interstitial marking (poor positioning). Nutrition: Started jevity 1.2 at target of 80 cc/hr Impression: Tolerating spontaneous breathing and more alert, but continues to be confused. Plan: Start tube feedings today. Continue judicious diuresis. Critical Care Time: 35 minutes
[2019-06-11] MEDS: ZOSYN 3.375 GM Q8H per EXTENDED INFUSION IVPB SCH ×4 (00:34→09:25)
[2019-06-11] MEDS: Metoprolol Tartrate IV* 1 MG/ML 5 ML VIAL IV SCH ×6 (02:28→21:48)
[2019-06-11] MEDS: Dexmedetomidine* 1,000 MCG in NS 0.9% 250 ML* 240 ML IV SCH (07:48)
[2019-06-11 09:52] LABS: Hematocrit 26 % (42-52); Hemoglobin 8.4 g/dL (14.0-18.0); Mean Corpuscular HGB Conc 32 g/dL (31-36); Mean Corpuscular Hemoglobin 29 pg (27-31); Mean Corpuscular Volume 91 fL (80-94); Mean Platelet Volume 8.6 fL (7.4-10.4); Platelet Count 245 10^3/uL (150-450); Red Blood Count 2.89 10^6 /uL (4.18-5.48); Red Cell Distribution Width 17 % (10-15); White Blood Count 9.5 10^3/uL (3.5-10.8)
[2019-06-11 10:02] LABS: BUN/Creatinine Ratio 29.5 (8-20); Calcium 8.5 mg/dL (8.6-10.3); EGFR African American 116.8 (>60); EGFR Non-African American 96.5 (>60); Potassium 3.5 mmol/L (3.5-5.0)
[2019-06-11] MEDS: KCL 20 MEQ/100 ML IVPREMIX* 20 MEQ/100 ML BAG IV SCH ×2 (10:47→12:14)
[2019-06-11] MEDS: Ketorolac INJ* 30 MG/ML 1 ML VIAL IV SCH ×2 (10:49→15:00)
--- NOTE | 2019-06-11 11:15 | PN ---
Progress Note - Progress Note Date of Service: 06/11/19 SOAP: Subjective: Not quite as alert today- Tolerating tube feeds Objective: Temp Pulse Resp BP Pulse Ox 98.6 F 85 26 126/73 89 06/11/19 08:00 06/11/19 09:01 06/11/19 09:12 06/11/19 09:00 06/11/19 09:01 Intake & Output 06/09/19 06/10/19 06/11/19 06/12/19 06:59 06:59 06:59 06:59 Intake Total 1019 1838 2733 30 Output Total 3500 1351 948 143 Balance -2481 487 1785 -113 Weight 217 lb 13.067 oz 214 lb 11.684 oz Intake: IV Fluids 90 345 NS 0.9% 11 165 Potassium chloride 41 zosyn 79 139 IVPB 665 789 581 NS 0.9% 665 789 Potassium chloride 215 Vancomycin 140 zosyn 226 Medicated IV 264 123 KCl 100 Precedex 164 123 TPN/PPN 926 592 Oral 0 Tube Feeding 883 Tube Feeding Flush Amount 332 NG Tube Irrigate Amount 0 Fraser Irrigate Amount 30 Output: NG Tube Drainage Amount 0 Wound Vac 550 120 25 Fraser 3500 801 828 118 Other: # Bowel Movements 1 Estimated Stool Amount Medium PEX: Abd is soft and non-distended. Bowel sounds are present Wound vac in place-clean Laboratory Results - last 24 hr 06/10/19 06/10/19 06/10/19 09:51 13:56 16:21 WBC RBC Hgb Hct MCV MCH MCHC RDW Plt Count MPV Sodium Potassium Chloride Carbon Dioxide Anion Gap BUN Creatinine Est GFR ( Amer) Est GFR (Non-Af Amer) BUN/Creatinine Ratio Glucose POC Glucose (mg/dL) 236 H 236 H 167 H Calcium 06/10/19 06/11/19 06/11/19 20:38 09:38 09:39 WBC RBC Hgb Hct MCV MCH MCHC RDW Plt Count MPV Sodium 155 H Potassium 3.5 Chloride 124 H Carbon Dioxide 29 Anion Gap 2 BUN 23 Creatinine 0.78 Est GFR ( Amer) 116.8 Est GFR (Non-Af Amer) 96.5 BUN/Creatinine Ratio 29.5 H Glucose 155 H POC Glucose (mg/dL) 172 H 158 H Calcium 8.5 L 06/11/19 09:39 WBC 9.5 RBC 2.89 L Hgb 8.4 L Hct 26 L MCV 91 MCH 29 MCHC 32 RDW 17 H Plt Count 245 MPV 8.6 Sodium Potassium Chloride Carbon Dioxide Anion Gap BUN Creatinine Est GFR ( Amer) Est GFR (Non-Af Amer) BUN/Creatinine Ratio Glucose POC Glucose (mg/dL) Calcium CXR 06/11 noted-worsening consolidation left lung Assessment: 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
--- NOTE | 2019-06-11 16:48 | PN ---
Date of Service: 06/11/19 Critical Care Services: Clinical condition unchanged over past 48 hours. Patient remains confused. Vital Signs: Temp Pulse Resp BP SpO2 FiO2 99 F 94 31 129/80 91 35 Physical Exam: Gen:Eyes open but responds only intermittently to verbal commands. Lungs: Decreased BS at both bases. No crackles or wheezes. Extremities: No cyanosis or edema. Fluid Balance (Past 24 Hours): 06/09/19 06/10/19 06/11/19 06:59 06:59 06:59 Intake Total 1019 1838 2733 Output Total 3500 1351 948 Balance -2481 487 1785 Weight 217 lb 214 lb Intake: IV Fluids 90 345 NS 0.9% 11 165 Potassium chloride 41 zosyn 79 139 IVPB 665 789 581 NS 0.9% 665 789 Potassium chloride 215 Vancomycin 140 zosyn 226 Medicated IV 264 123 KCl 100 Precedex 164 123 TPN/PPN 926 592 Oral 0 Tube Feeding 883 Tube Feeding Flush Amount 332 NG Tube Irrigate Amount 0 Fraser Irrigate Amount Output: NG Tube Drainage Amount 0 Wound Vac 550 120 Fraser 3500 801 828 Other: # Bowel Movements 1 Estimated Stool Amount Medium Labs: 06/10/19 06/11/19 06/11/19 20:38 09:38 09:39 WBC RBC Hgb Hct MCV MCH MCHC RDW Plt Count MPV Sodium 155 H Potassium 3.5 Chloride 124 H Carbon Dioxide 29 Anion Gap 2 BUN 23 Creatinine 0.78 Est GFR ( Amer) 116.8 Est GFR (Non-Af Amer) 96.5 BUN/Creatinine Ratio 29.5 H Glucose 155 H POC Glucose (mg/dL) 172 H 158 H Calcium 8.5 L 06/11/19 06/11/19 09:39 13:20 WBC 9.5 RBC 2.89 L Hgb 8.4 L Hct 26 L MCV 91 MCH 29 MCHC 32 RDW 17 H Plt Count 245 Sodium Potassium Chloride Carbon Dioxide Anion Gap BUN Creatinine Est GFR ( Amer) Est GFR (Non-Af Amer) BUN/Creatinine Ratio Glucose POC Glucose (mg/dL) 157 H Calcium Studies: CXR: Lobar atelectasis left lower lobe. Nutrition: Tube feedings Impression: major problems now are: 1. Lobar atelectasis left lower lobe - from retained secretions. May also have a pleural effusion on the lefrt. 2. Continued confusion - probable hospital-acquired delirium. 3. Hypernatremia, hyperchloremia -likely from aggressive diuresis. Plan: 1. Attempt to re-expand left lung with BIPAP - if unsuccessful, then follow with bronchoscopy. 2. Add free water to tube feedings to correct hypernatremia. Critical Care Time: 30 minutes
[2019-06-11] MEDS: LORazepam INJ* 2 MG/ML 1 ML VIAL IV PUSH PRN (17:32)
[2019-06-11] MEDS ORDERED: NS 0.9% 1000 ML** 1,000 ML IV ONE (20:30)
[2019-06-12] MEDS: Metoprolol Tartrate IV* 1 MG/ML 5 ML VIAL IV SCH ×4 (02:23→19:38)
[2019-06-12] MEDS: Ketorolac INJ* 30 MG/ML 1 ML VIAL IV SCH ×3 (06:13→10:00)
[2019-06-12 08:20] LABS: ABS Lymphocytes 0.4 10^3/ul (1.0-4.8); ABS Monocytes 0.4 10^3/ul (0-0.8); ABS Neutrophils 9.8 10^3/ul (1.5-7.7); Hematocrit 24 % (42-52); Hemoglobin 7.7 g/dL (14.0-18.0); Lymphocyte % 3.7 %; Mean Corpuscular HGB Conc 33 g/dL (31-36); Mean Corpuscular Hemoglobin 29 pg (27-31); Mean Corpuscular Volume 89 fL (80-94); Mean Platelet Volume 8.5 fL (7.4-10.4); Nucleated Red Blood Cells % 0.1; Platelet Count 190 10^3/uL (150-450); Red Blood Count 2.66 10^6 /uL (4.18-5.48); Red Cell Distribution Width 17 % (10-15); White Blood Count 10.6 10^3/uL (3.5-10.8)
[2019-06-12 08:34] LABS: Magnesium 2.3 mg/dL (1.9-2.7)
--- NOTE | 2019-06-12 10:22 | PN ---
Progress Note - Progress Note Date of Service: 06/12/19 SOAP: Subjective: Temp felt to be spurious-rechecked and normal Tolerating tube feeds Remains minimally responsive Objective: Temp Pulse Resp BP Pulse Ox 99.3 F 97 23 141/65 100 06/12/19 10:00 06/12/19 10:00 06/12/19 10:00 06/12/19 10:00 06/12/19 10:00 Intake & Output 06/10/19 06/11/19 06/12/19 06/13/19 06:59 06:59 06:59 06:59 Intake Total 1838 2733 2504 90 Output Total 1351 948 989 125 Balance 487 1785 1515 -35 Weight 214 lb 11.684 oz Intake: IV Fluids 345 1061 NS 0.9% 165 1000 Potassium chloride 41 20 zosyn 139 41 IVPB 789 581 330 NS 0.9% 789 Potassium chloride 215 224 Vancomycin 140 zosyn 226 106 Medicated IV 123 Precedex 123 TPN/PPN 926 592 Oral 0 Tube Feeding 883 788 Tube Feeding Flush Amount 332 295 NG Tube Irrigate Amount 40 Fraser Irrigate Amount 30 50 Output: Wound Vac 550 120 100 Fraser 801 828 449 125 Tube Feeding Residual 440 Amount Wasted Other: # Bowel Movements 1 Estimated Stool Amount Medium PEX: Will open eyes to loud voice, responds to pain Not following commands Abd is soft and non-distended. Wound vac removed and changed-wound clean, minimal debridement performed. Bowel sounds present but hypoactive Laboratory Results - last 24 hr 06/11/19 06/11/19 06/11/19 00:04 13:20 16:31 WBC RBC Hgb Hct MCV MCH MCHC RDW Plt Count MPV Neut % (Auto) Lymph % (Auto) [place] % (Auto) Eos % (Auto) Baso % (Auto) Absolute Neuts (auto) Absolute Lymphs (auto) Absolute Monos (auto) Absolute Eos (auto) Absolute Basos (auto) Absolute Nucleated RBC Nucleated RBC % POC Glucose (mg/dL) 169 H 157 H 133 H Magnesium 06/11/19 06/12/19 06/12/19 20:34 00:09 08:10 WBC 10.6 RBC 2.66 L Hgb 7.7 L Hct 24 L MCV 89 MCH 29 MCHC 33 RDW 17 H Plt Count 190 MPV 8.5 Neut % (Auto) 92.2 Lymph % (Auto) 3.7 [place] % (Auto) 3.8 Eos % (Auto) 0.0 Baso % (Auto) 0.3 Absolute Neuts (auto) 9.8 H Absolute Lymphs (auto) 0.4 L Absolute Monos (auto) 0.4 Absolute Eos (auto) 0.0 Absolute Basos (auto) 0.0 Absolute Nucleated RBC 0.0 Nucleated RBC % 0.1 POC Glucose (mg/dL) 105 H 113 H Magnesium 06/12/19 08:10 WBC RBC Hgb Hct MCV MCH MCHC RDW Plt Count MPV Neut % (Auto) Lymph % (Auto) [place] % (Auto) Eos % (Auto) Baso % (Auto) Absolute Neuts (auto) Absolute Lymphs (auto) Absolute Monos (auto) Absolute Eos (auto) Absolute Basos (auto) Absolute Nucleated RBC Nucleated RBC % POC Glucose (mg/dL) Magnesium 2.3 Assessment: S/P exlap small bowel resection 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 Garcia
[2019-06-12] MEDS ORDERED: D5W 1000 ML BAG* 1,000 ML IV SCH (11:00)
--- NOTE | 2019-06-12 11:00 | PN ---
Progress Note - Progress Note Date of Service: 06/12/19 Note: Progress Note -- Critical Care 24 hour events -noted events from prior -overnight still delirious and not well responsive, but awake and alert appearing -on NIV overnight still; mild tachypnea, but no fevers (malfxn forrest sensor) -unable to cough -BP and HR stable -wound vac changed this morning by general surgery Tele: NSR; noted some NSVT overnight Vitals: Vital Signs Temp 99.3 F 06/12/19 10:00 Pulse 97 06/12/19 10:00 Resp 23 06/12/19 10:00 BP 141/65 06/12/19 10:00 Pulse Ox 100 06/12/19 10:00 Intake & Output 06/11/19 06/12/19 06/12/19 18:59 06:59 18:59 Intake Total 1445 1059 90 Output Total 592 397 125 Balance 853 662 -35 Intake: IV Fluids 61 1000 NS 0.9% 1000 Potassium chloride 20 zosyn 41 IVPB 330 Potassium chloride 224 zosyn 106 Oral 0 Tube Feeding 729 59 Tube Feeding Flush Amount 295 0 NG Tube Irrigate Amount 40 Forrest Irrigate Amount 30 50 Output: Wound Vac 100 Forrest 282 167 125 Tube Feeding Residual 210 230 Amount Wasted O2/Vent: NIV 16/8 35% Infusions: heplock Current Medications: Ketorolac Tromethamine (Toradol Inj*) 30 mg IV Q6H [facility] Stop: 06/16/19 04:01 Last Admin: 06/12/19 10:00 Dose: 30 mg Lorazepam (Ativan Inj*) 1 mg IV PUSH Q2H PRN PRN Reason: ANXIETY Last Admin: 06/11/19 17:32 Dose: 1 mg Metoprolol Tartrate (Lopressor Iv*) 5 mg IV Q6H [facility] Last Admin: 06/12/19 10:06 Dose: 5 mg Miscellaneous (Ativan Pyxis García) 1 ea N/A .ATIVAN IV GARCÍA PRN PRN Reason: PYXIS GARCÍA Pharmacy Consult (Zosyn Per Pharmacy*) 1 note FOLLOW UP .ZOSYN PER PHARMACY [facility] Physical Exam Constitutional: awake, alert, not well responsive to commands, mild intermittent distress/tachypnea, no acc muscle use, no diaphoresis Head: normocephalic, atraumatic Eyes: no pallor, no icterus ENT: moist mucous membranes Neck: soft, supple, no jvd CVS: normal rate, regular, no murmur Resp: decreased BS on Left side now, no rhales, no wheeze, no rhonchi, no acc muscle use Abdomen/GI: soft, nondistended, mild tenderness+, BS hypoactive; midline surgical site open with wound vac+, minimal drainage from surgical site noted Ext/Msk: warm, pulses+, no edema Skin: intact, warm Neuro: awake, alert, not oriented, not following commands, pupils reactive, moving all ext spontaneously Labs: Laboratory Results - last 24 hr 06/11/19 06/11/19 06/11/19 00:04 13:20 16:31 WBC RBC Hgb Hct MCV MCH MCHC RDW Plt Count MPV Neut % (Auto) Lymph % (Auto) [place] % (Auto) Eos % (Auto) Baso % (Auto) Absolute Neuts (auto) Absolute Lymphs (auto) Absolute Monos (auto) Absolute Eos (auto) Absolute Basos (auto) Absolute Nucleated RBC Nucleated RBC % POC Glucose (mg/dL) 169 H 157 H 133 H Magnesium 06/11/19 06/12/19 06/12/19 20:34 00:09 08:10 WBC 10.6 RBC 2.66 L Hgb 7.7 L Hct 24 L MCV 89 MCH 29 MCHC 33 RDW 17 H Plt Count 190 MPV 8.5 Neut % (Auto) 92.2 Lymph % (Auto) 3.7 [place] % (Auto) 3.8 Eos % (Auto) 0.0 Baso % (Auto) 0.3 Absolute Neuts (auto) 9.8 H Absolute Lymphs (auto) 0.4 L Absolute Monos (auto) 0.4 Absolute Eos (auto) 0.0 Absolute Basos (auto) 0.0 Absolute Nucleated RBC 0.0 Nucleated RBC % 0.1 POC Glucose (mg/dL) 105 H 113 H Magnesium 06/12/19 08:10 WBC RBC Hgb Hct MCV MCH MCHC RDW Plt Count MPV Neut % (Auto) Lymph % (Auto) [place] % (Auto) Eos % (Auto) Baso % (Auto) Absolute Neuts (auto) Absolute Lymphs (auto) Absolute Monos (auto) Absolute Eos (auto) Absolute Basos (auto) Absolute Nucleated RBC Nucleated RBC % POC Glucose (mg/dL) Magnesium 2.3 Imaging: CT brain 06/02 - no acute changes noted ct abd./pelvis 06/02 - bilateral small effusions noted; atelectasis+/- infiltrate ; cholelithiasis+, dilated small bowel loops cxr 06/12 - right sided mild congestion but left sided diffuse atelectasis+ ( official reprot with congestion) Assessment: 78y M w/pmhx HLD, Asthma, CAD/CABG, HTN, Ischemic CMP, s/p AICD/PPM , Bilateral CEA and then Carotid Stents, h/o SBO 02/2019; Comes to ER 05/30 for abd pain, found to have a high-grade small bowel obstruction on CT abdomen. He was started on conservative tx with NGT but it did not significantly improve. Decision made for ex-lap. He is s/p ex-lap with SB resection and lysis of adhesionis. Post op went onto pressors, remained intubated in ICU. Overnight on levophed, added vasopressin, low urine output overnight, sedation held temporarily. Currently sedated, improved with LR bolus and levophed decreased. ROS limited due to intubated/sedated state. -Small bowel obstruction -s/p ex-lap, small bowel resection, lysis of adhesions 05/30 -acute hypoxic respiratory failure; on NIV 06/11 -Left lung collapse/atelectasis vs congestion -Shock, suspect septic/distributive; resolved -Anemia -NSVT -Delirium -Hypernatremia CAD/CABG Ischemic CMP Plan: Neuro- -off sedatives; remains with mental status change; does not follow commands but awake/alert -may need a CT brain for eval of structural change -Delirium prec; avoid BDZ CVS- -BP and HR stable; intermittent NSVT self-terminated -awaiting BMP for electrolytes -cont lopressor 5mg iv q6h -lower urine output; hold off diuretics -start d5w 100cc/hr for 10 hours; then repeat bmp -anemia; hg stable 7-8s; no active bleeding noted; off AC/antiplatelets -Maintain MAP>65 Resp- -hypoxic; new left sided collapse/atelectasis -at risk of aspiration given poor mental status, may not be strong enough to clear secretions? -CXR 06/12 with persistent left sided atelectasis; poor air entry on exam -cont NIV to attempt recruitement; 30/06 35%, sat 100% -not much residuals from NGT noted -keep HOB upright -at high risk of being intubated today given his recent course now -will discuss with about GOC and her desire for him to be intubated if need be -may not be good candidate for conscious sedation and bronchoscopy given he is on NIV currently -no wheezing -Wean Fio2 to keep sat>92% -Bronchodilators PRN, Aspiration prec ID- tmax 99; wbc 79-67-7-7-10 -SBO, lysis of adhesions+ 05/30; necrotic bowel from band+; small perf during OR ; stable wound vac+ with minimal/serous drainage it appears -off abx; last sputum culture enterobacter only growth; completed zosyn course and 5 days vanco course also -if able, send sputum culture; if he spikes or wbc continues to rise travis start HCAP coverage for pneumonia GI- -s/p ex-lap, lysis of adh, SB resection 05/30; site intact, noted preivous CT with small dehiscence -Cont Wound Vac , surgery managing -bowel movement 06/11 -appears to be tolerating NGT feeds, no vomitting and residuals low -cont NGT jevity 1.2 @ 20cc/hr; will increase today to 30 -GI prophylaxis Renal- -Cr okay; making urine+; neg balance -hypernatremia noted; pendign repeat BMP -start D5w 100cc/hr; repeat BMP tonight -strict I/O, replete to keep K>4, Mg>2 -forrest as indicated Heme- anemia; hg 7.7; no acute bleeding noted -off AC/antiplatelets -thrombocytopenia recovered now to 190s -cont SCDs Endo- Maintain BG<200, insulin protocol as needed Musculsk- pressure ulcer prophylaxis. oob to chair ? Wounds- surgical site superficially open; wound vac+ Nutrition- NGT Jevity 1.2 @ 20cc/hr DVT prophylaxis: SCD; no heparin due to anemia GI prophylaxis: PPI Central Line: RIJ 05/30 ; d/c later today and place midline Arterial Line: - Forrest Cathetor: yes Disposition: Patient requires Critical Care/ICU for post ex-lap and SB resection, respiratory failure, delirium Patient Clinical Status: guarded, critical Code Status: DNR Total Critical Care time is 40 minutes, excluding procedures/teaching Shai Garcia MD Delinquent Tax Collection Assistant (Electronically Signed)
[2019-06-12 11:27] LABS: BUN/Creatinine Ratio 30.1 (8-20); Calcium 8.7 mg/dL (8.6-10.3); EGFR African American 95.3 (>60); EGFR Non-African American 78.8 (>60); Potassium 3.8 mmol/L (3.5-5.0)
[2019-06-12] MEDS: Metoclopramide IV* 5 MG/ML 2 ML VIAL IV SCH ×2 (15:13→20:03)
[2019-06-12] MEDS ORDERED: HYDROmorphone INJ* 0.5 MG/0.5 ML SYRINGE ONE (16:45)
[2019-06-12 20:37] LABS: BUN/Creatinine Ratio 25.4 (8-20); Calcium 8.8 mg/dL (8.6-10.3); EGFR African American 67.1 (>60); EGFR Non-African American 55.5 (>60); Potassium 3.6 mmol/L (3.5-5.0)
[2019-06-12] MEDS ORDERED: Norepinephrine 16MCG/ML IVPRE* 4,000 MCG/250 ML BAG IV ONE (21:07)
[2019-06-12] MEDS ORDERED: Morphine ORAL CONCENTRATE* 5 MG/0.25 ML ORAL.SYRIN SL PRN (21:16)
[2019-06-12 21:20] VITALS: BP 69/53
[2019-06-12] MEDS: LORazepam INJ* 2 MG/ML 1 ML VIAL IV PUSH PRN (21:24)
--- NOTE | 2019-06-12 21:25 | PN ---
Hospitalist Progress Note Date of Service: 06/12/19 I was called for a change in status in Mr. Molina. His nurse Ashlee reported BPs in the 50s/30s and less responsiveness. I came to see him, he does not respond to me and has increased work of breathing. I called his Silvia and explained his decline and she asks that we make him comfortable and not pursue any further therapeutic measures. She is going to call their son. Will shift goals toward comfort measures at this time.
[2019-06-12] MEDS ORDERED: Morphine INJ* 2 MG/ML 1 ML SYRINGE (TWO MG - NEW SYRINGE VERSION) IV PRN (21:28)
--- NOTE | 2019-06-14 12:38 | DS ---
Discharge Summary Patient Name: Chan Molina Date of Admission: 05/30/2019 Date of Discharge: 06/12/2019 Attending: Dr Shai Garcia, Dr Jaden Gonzales (intensivists) Consultants: Dr Nghia Russell Admitting Diagnoses: 1) Small Bowel Obstruction Discharge Diagnoses: 1) Small bowel Obstruction with ischemia 2) s/p exploratory laparotomy, small bowel resection, lysis of adhesions 05/30 3) Severe Sepsis with Shock 4) Acute hypoxic respiratory failure 5) Enterococcus pneumonia 6) Anemia 7) Delirium HPI/Hospital Course: 78y M w/pmhx HLD, Asthma, CAD/CABG, HTN, Ischemic CMP, s/p AICD/PPM, Bilateral CEA and then Carotid Stents, h/o SBO 02/2019; Comes to ER for abd pain, found to have a high-grade small bowel obstruction on CT abdomen. He was started on conservative tx with NGT but it did not significantly improve. Decision made for ex-lap. He is s/p ex-lap with SB resection and lysis of adhesions on 05/30. Post op course was complicated by shock likely from peritonitis which required levophed and vasopressin. He was treated with broad antibiotic and antifungal coverage with zosyn, vancomycin and Eraxis. Post op he was also made DNR (as it was rescending for surgery only) . After over a week of being intubated he was extubated on 06/10 after being able to follow commands but was weak. He was weaned off pressors and antibiotics completed for enterococcus growth in sputum. He was noted to have drops in hg during the acute post op phase and so antiplatelets and anticoagulants for dvt prophylaxis were held given he was a [employer] Witness and unable to receive transfusions. Once extubated he remained with on and off delirium, eventually developing increasing left lower lobe atelectasis and then requiring NIV support. He declined and on 06/12 evening became hypotensive, febrile, started on levophed. Dr Palencia discussed with over the phone and she requested comfort measures, no aggressive actions, no intubation or CPR as stated earlier. Patient was placed on comfort measures and taken off pressors at thier request. Patient on 06/12/2019 at 2133. Procedures/Imaging: see chart Laboratory/Data: see chart Discharge Medications: none Diet: none Activity: none Condition upon discharge: / 06/12/2019 at 2133 Disposition: Code Status: DNR/DNI prior to Expiration Total Discharge time 35 minutes Shai Garcia MD Plasma Processing Centrifuge Operator (Electronically Signed)
== END 2019-06-12 21:33 | disposition expired | DRG 329 ==
LOC: ED 08:09 → SSU 14:58 → ICU 23:17
PROVIDERS: ADMIT Hospitalist; ATTEND Internal Medicine
PROC: 05HM33Z Insertion of Infusion Device into Right Internal Jugular Vein, Percutaneous Approach (ICD-10-PCS; 2019-05-30)
PROC: B543ZZA Ultrasonography of Right Jugular Veins, Guidance (ICD-10-PCS; 2019-05-30)
PROC: 0DB80ZZ Excision of Small Intestine, Open Approach (ICD-10-PCS; principal; 2019-05-30 20:00)
PROC: 0BH17EZ Insertion of Endotracheal Airway into Trachea, Via Natural or Artificial Opening (ICD-10-PCS; 2019-06-01)
PROC: 5A1955Z Respiratory Ventilation, Greater than 96 Consecutive Hours (ICD-10-PCS; 2019-06-01)
PROC: 5A09457 Assistance with Respiratory Ventilation, 24-96 Consecutive Hours, Continuous Positive Airway Pressure (ICD-10-PCS; 2019-06-11)
DX: K56.609 Unspecified intestinal obstruction, unspecified as to partial versus complete obstruction (principal); J96.01 Acute respiratory failure with hypoxia; J15.6 Pneumonia due to other Gram-negative bacteria; K65.9 Peritonitis, unspecified; A41.9 Sepsis, unspecified organism; R65.21 Severe sepsis with septic shock; K55.9 Vascular disorder of intestine, unspecified; I47.1 Supraventricular tachycardia; I25.10 Atherosclerotic heart disease of native coronary artery without angina pectoris; E78.5 Hyperlipidemia, unspecified; N40.0 Benign prostatic hyperplasia without lower urinary tract symptoms; F41.9 Anxiety disorder, unspecified; D64.9 Anemia, unspecified; F32.9 Major depressive disorder, single episode, unspecified; M48.00 Spinal stenosis, site unspecified; K21.9 Gastro-esophageal reflux disease without esophagitis; Z66 Do not resuscitate; I50.9 Heart failure, unspecified; J30.2 Other seasonal allergic rhinitis; I11.0 Hypertensive heart disease with heart failure; M19.042 Primary osteoarthritis, left hand; M19.041 Primary osteoarthritis, right hand; M17.0 Bilateral primary osteoarthritis of knee; M19.072 Primary osteoarthritis, left ankle and foot; M19.071 Primary osteoarthritis, right ankle and foot; H91.90 Unspecified hearing loss, unspecified ear; E78.00 Pure hypercholesterolemia, unspecified; I25.2 Old myocardial infarction; Z95.0 Presence of cardiac pacemaker; Z95.1 Presence of aortocoronary bypass graft; Z82.49 Family history of ischemic heart disease and other diseases of the circulatory system; Z87.891 Personal history of nicotine dependence; Z88.1 Allergy status to other antibiotic agents; Z97.4 Presence of external hearing-aid; Z85.828 Personal history of other malignant neoplasm of skin; Z95.5 Presence of coronary angioplasty implant and graft
CPT/HCPCS: 36415; 36600; 70450; 71045; 74018; 74176; 74177; 80048; 80053; 80076; 80202; 81003; 81015; 82150; 82465; 82533; 82803; 83605; 83690; 83735; 83880; 84100; 84134; 84443; 84478; 84484; 85014; 85018; 85025; 85027; 85384; 85610; 85730; 86140; 87040; 87070; 87077; 87186; 87205; 87641; 88307; 93005; 94002; 94003; 94660; 99285; A9270-GY; C1776; J0348; J0690; J0694; J1170; J1644; J1756; J1885; J1940; J2060; J2250; J2270; J2405; J2543; J2704; J2765; J3010; J3370; J3475; J3480; J3490; Q9967